=== PATIENT | male | born 1950 | race Caucasian/White ===

== ENCOUNTER → 2018-06-26 | Outpatient (CLI) | payer MEDICARE ==
[~2018-06-26] MED LIST: REGADENOSON 0.4 MG/5 ML SYRINGE IV ONE
--- NOTE | 2018-06-26 08:27 | XR ---
"EXAMINATION TYPE: XR chest 2V DATE OF EXAM: 06/26/2018 COMPARISON: None INDICATION: Checkup, COPD, history of kidney removal 2011 TECHNIQUE: Frontal and lateral views of the chest are obtained. FINDINGS: The heart size is normal. The peripheral pulmonary vasculature is normal. There is fullness through the right hilar region on the frontal chest and anterior on the lateral vie w. Underlying mass should be suspected. Additional workup with CT is recommended. This may measure 9 x 5 x 5 cm. The lungs are clear no suspicious infiltrates or additional masses. Mild hyperinflation flattening t he diaphragms could suggest underlying COPD. IMPRESSION: 1. Anterior right medial lung mass. Additional workup with contrast CT chest is recommended. A Yellow level critical message alert has been initiated for Luis Kunz MD via the ODIN 36 0 | Critical Results System on 06/26/2018 8:23 AM. This message alert has been sent to Luis Kunz MD via the preferences provided by the clinician for the receipt of Radiology Critical Findings. [facility] ID [id number]."
--- NOTE | 2018-06-26 13:17 | NM ---
EXAMINATION TYPE: NM stress lexiscan cardiolite DATE OF EXAM: 06/26/2018 COMPARISON: NONE HISTORY: Chest pain TECHNIQUE: After the intravenous administration of 10.22 mCi Tc 99m Sestamibi - Cardiolite resting S PECT images acquired 45 minutes post injection. The patient received 0.4mg Lexiscan, 25.0 mCi Tc 99m Sestamibi - Stress images obtained [address] injection FINDINGS: There is diminished radiotracer accumulation along the inferior wall. This is worse on the resting im ages than stress images. This is more likely related to artifact. Mild prior infarct is not entirely excluded. Ejection fraction of 62% is normal. Some dyskinesia of the anterior wall is noted. Some hypokinesia o f the septal wall may be present. IMPRESSION: 1. Suspected artifact along the inferior wall. Mild prior infarct is considered less likely. 2. There is some dyskinesia of the anterior wall with some hypokinesia of the septal wall. Ejection f raction remains normal at 62%.
--- NOTE | 2018-06-26 17:22 | ECHOF ---
Referral Reason:R07.9 chest pain MEASUREMENTS -------- HEIGHT: 177.8 cm WEIGHT: 102.1 kg BP: RVIDd: 2.7 cm (< 3.3) IVSd: 1.0 cm (0.6 - 1.1) LVIDd: 4.8 cm (3.9 - 5.3) LVPWd: 1.0 cm (0.6 - 1.1) IVSs: 1.3 cm LVIDs: 3.0 cm LVPWs: 1.2 cm LAESV Index (A-L): 21.81 ml/m Ao Diam: 3.9 cm (2.0 - 3.7) AV Cusp: 0.9 cm (1.5 - 2.6) MV E Axel: 0.96 m/s MV DecT: 349 ms MV A Axel: 1.09 m/s MV E/A Ratio: 0.88 RAP: 5.00 mmHg RVSP: 34.65 mmHg FINDINGS -------- Sinus rhythm. This was a technically adequate study. The left ventricular size is normal. Left ventricular wall thickness is normal. Overall left vent ricular systolic function is normal with, an EF between 55 - 60 %. The right ventricle is normal in size and function. Normal LA size by volume 22+/-6 ml/m2. The right atrium is normal in size. The aortic valve is trileaflet, and appears structurally normal. No aortic stenosis or regurgitation. The mitral valve is normal. There is trace to mild mitral regurgitation. Trace tricuspid regurgitation present. There is no evidence of pulmonary hypertension. The pulmonic valve was not well visualized. There is no pulmonic regurgitation present. The aortic root size is normal. Normal inferior vena cava with normal inspiratory collapse consistent with estimated right atrial pre ssure of 5 mmHg. There is a trivial pericardial effusion present. CONCLUSIONS -------- 1. Sinus rhythm. 2. This was a technically adequate study. 3. The left ventricular size is normal. 4. Left ventricular wall thickness is normal. 5. Overall left ventricular systolic function is normal with, an EF between 55 - 60 %. 6. Normal LA size by volume 22+/-6 ml/m2. 7. The aortic valve is trileaflet, and appears structurally normal. No aortic stenosis or regurgitati on. 8. There is trace to mild mitral regurgitation. 9. Trace tricuspid regurgitation present. 10. There is no evidence of pulmonary hypertension. 11. The pulmonic valve was not well visualized. 12. There is no pulmonic regurgitation present. 13. The aortic root size is normal. 14. There is a trivial pericardial effusion present. [employer]: Rogelio Glover RDCS
--- NOTE | 2018-06-26 18:21 | EST ---
EXERCISE STRESS DATE OF SERVICE: 06/26/2018 AGE: 68 SEX: Male. HT: 5 feet 10 inches WT: 225 pounds PROTOCOL: Lexiscan Cardiolite STAGE: DURATION OF EXERCISE: HEART RATE REST: 61 BLOOD PRESSURE REST: 156/78 MAXIMUM HEART RATE ACHIEVED: 81 MAXIMUM BLOOD PRESSURE: 156/78 85% MPHR: 100% MPHR: METS: INDICATIONS: Chest pain. CLINICAL INFORMATION: Baseline rhythm is sinus mechanism, rate 61. Normal axis and intervals, normal electrocardiogram. Baseline blood pressure 156/78 mmHg. Patient received an injection of Lexiscan. Electrocardiographic monitoring revealed no evidence of diagnostic ischemic ST deviation. Cardiolite was injected per protocol. CONCLUSION: 1. Nondiagnostic electrocardiograph stress testing. 2. Nuclear images will be reported separately. MMODL / IJN: [id number] /
== END ==
LOC: RADNMMAIN 07:48
PROVIDERS: ATTEND Family Medicine
DX: R91.8 Other nonspecific abnormal finding of lung field (principal); R07.9 Chest pain, unspecified; G24.9 Dystonia, unspecified; J44.9 Chronic obstructive pulmonary disease, unspecified; I34.0 Nonrheumatic mitral (valve) insufficiency
CPT/HCPCS: 93017; 93225; 93226; 93306; 71046; 78452; A9500; J2785

== ENCOUNTER → 2018-07-01 | Outpatient (CLI) | payer MEDICARE ==
--- NOTE | 2018-07-02 06:32 | US ---
EXAMINATION TYPE: US duplex aorta DATE OF EXAM: 07/01/2018 COMPARISON: NONE CLINICAL HISTORY: Z13.9 Screening for disorder. Medicare screening. EXAM MEASUREMENTS: Abdominal Aorta: Proximal: 2.3 x 2.3 cm transversely Mid: 2.4 x 2.4 cm transversely Distal: 2.1 x 2.1 centimeters transversely Bifurcation: RT: 1.3 x 1.6 x 1.4 cm LT: 1.2 x 1.1 x 1.1 cm Moderate to severe diffuse atherosclerotic change throughout the visualized aorta seen through the bi furcation without aneurysmal change. IMPRESSION: As above.
== END | disposition home or self-care (01) ==
LOC: RADUSWWP 16:00
PROVIDERS: ATTEND Family Medicine
DX: I70.0 Atherosclerosis of aorta (principal)
CPT/HCPCS: 93979

== ENCOUNTER → 2018-07-05 | Outpatient (CLI) | payer MEDICARE ==
[2018-07-05 12:14] LABS: Blood Urea Nitrogen 17 mg/dL (9-20)
--- NOTE | 2018-07-05 13:39 | CT ---
EXAMINATION TYPE: CT chest w con DATE OF EXAM: 07/05/2018 COMPARISON: Chest x-ray June 26, 2018 HISTORY: Abnormal chest x-ray CT DLP: 439.8 mGycm. Automated Exposure Control for Dose Reduction was Utilized. TECHNIQUE: CT scan of the thorax is performed following with IV Contrast, patient injected with 100 mL of Isovue 300. FINDINGS: LUNGS: There is background mild underlying emphysematous change in the lung apices. Corresponding to x-ray abnormality there is anterior right mid lung mass invading mediastinum just anterior to the asc ending aorta measuring 0.6 x 5.1 cm on axial image 29. Craniocaudal dimension is 7.0 cm coronal image 38. There is additional suspicious subpleural 1.8 x 1.0 cm nodule right midlung laterally axial imag e 27. There is additional suspicious spiculated 1.9 x 1.2 cm right apical nodule axial image 10. Ther e is less dense 8 mm nodule or nodular density lateral right mid lung axial image 28. There is 2.0 x 1.4 cm posterior right subpleural nodule or perhaps round atelectasis right lower lobe axial image 43 . There is linear scarring laterally right lung base and posteriorly. There is suspicious right basil ar nodule measuring 2.3 x 1.9 cm axial image 53. Anterior to this there suspicious 2.8 x 1.3 cm nodul e laterally right lung base axial image 51. Left lung is predominantly clear with minimal basilar linear scarring and/or atelectasis. No pleural effusion is identified bilaterally. MEDIASTINUM: There are no greater than 1 cm hilar or mediastinal lymph nodes. Prominent but subcentim eter paratracheal lymph node axial image 17 is noted small pericardial effusion is seen axial image 4 5. No cardiomegaly. OTHER: Bilateral gynecomastia is appreciated. Surgical change near right adrenal gland surrounding IV C is present. There is thickening of left adrenal gland favoring benign hyperplasia. There is lobulat ed large cystic lesion arising upper pole left kidney cannot exclude cystic neoplasm only partially i derick on axial image 68 and coronal image 78. Dependent small gallstones and gallbladder are seen. Ri ght kidney may be surgically absent. Moderate to severe multilevel anterior and lateral spurring in t he thoracic spine is present. IMPRESSION: Suspicious right-sided lung nodules and masses worrisome for neoplasm. Partial visualizat ion of suspicious large lobulated cystic lesion upper pole level left kidney cannot exclude cystic ne oplasm. Consider imaging guided biopsy for tissue analysis. Consider PET/CT for staging and further i nvestigation.
== END | disposition home or self-care (01) ==
LOC: RADCTMAIN 11:33
PROVIDERS: ATTEND Family Medicine
DX: R91.8 Other nonspecific abnormal finding of lung field (principal)
CPT/HCPCS: 82565; 84520; 71260; 36415; Q9967

== ENCOUNTER → 2018-07-13 | Outpatient (CLI) | payer MEDICARE ==
--- NOTE | 2018-07-14 21:28 | PE ---
EXAMINATION TYPE: PET CT fusion skull to thigh DATE OF EXAM: 07/13/2018 CLINICAL HISTORY: 68-year-old male initial staging right lung cancer. Patient with prior history of r ight kidney cancer with nephrectomy in 2011. TECHNIQUE: Following the intravenous administration of 11.1 mCi of F-18 FDG, whole body images are performed from the skull base to the midthigh. Images are reviewed on the computer in the coronal, a xial, and sagittal planes. Reconstructed rotating images are created on independent workstation and reviewed on the computer. A localization and attenuation correction CT is performed in conjunction with the PET scan. Glucose level: 78 mg/dL CTDI: 5.04 mGy DLP: 448.28 mGy-cm COMPARISON: CT chest 07/05/2018 FINDINGS: PET: Physiologic FDG uptake within the neck. Spiculated right apical nodule measures 2.2 cm, max SUV 7.1. Large anteromedial right mid lung mass contacting the anterior mediastinal fat and anterior pleural s urface measures 6.8 cm, max SUV 7.2. A couple right midlung subpleural pulmonary nodules measure 2.0 and 0.9 cm, max SUV 4.1. Approximately 3 subpleural pulmonary nodules in the right lower lobe measuring 2.8 cm posteriorly, 2. 6 cm laterally, and 2.5 cm adjacent to a basilar emphysematous cyst show variable FDG uptake, max SUV 2.7. Some of the soft tissue component of these nodules does not show hypermetabolism. Average liver SUV 1.9. Either multiple adjacent left renal cysts or multilocular cystic lesion upper pole left kidney spanni ng up to 11.3 cm. Additional cysts are present in the left kidney at the midpole measuring 3.1 cm. Th abelino do not show any suspicious hypermetabolism. Postsurgical changes of right nephrectomy with surgical clips in the nephrectomy bed and additional s urgical clips along the retroperitoneum from prior suresh dissection. No abnormal hypermetabolism with in the nephrectomy bed. There are some bowel loops interposed within the nephrectomy bed that show variable mild to moderate FDG uptake, max SUV 4.1 suggestive of physiologic uptake. A 1.2 cm low-density nodule left adrenal gland shows attenuation of -15 Hounsfield units compatible w ith a small lipid rich adrenal adenoma. There is severe focal abnormal wall thickening and distortion of the mid sigmoid colon for a span of 11 cm, max SUV 8.3. There may be some tracking mural based air but no surrounding inflammatory change s. Some trapped hyperdense material is also present within. No free air or free fluid. ATTENUATION CORRECTION CT: Visualized paranasal sinuses and mastoid air cells are well pneumatized. No cervical lymphadenopathy. Heart upper limits of normal in size with a small to moderate-sized pericardial effusion measuring 1. 7 cm thick. Coronary vessel calcifications are present. Ectatic ascending aorta 3.7 cm with a bovine configuration to the aortic arch. Scattered small mediastinal lymph nodes are present. Mild bilateral gynecomastia, right greater than left. Cholelithiasis with numerous layering calculi measuring up to 8 mm. No dilated small bowel, free flui d, or free air. Normal appendix. No mesenteric or retroperitoneal lymphadenopathy. Mild circumferential bladder wall thickening. Pelvic phlebolith. No abnormal fluid collection in the pelvis. Scattered prominent but nonenlarged external iliac chain lymph nodes measure up to 7 mm. Bones: Degenerative changes of the hips and SI joints as well as the mid to lower lumbar spine. No os seous destructive process seen. IMPRESSION: 1. Multiple right-sided pulmonary nodules/mass, the largest along the anteromedial right mid lung abu ts the prevascular space fat as well as the anterior pleural surface measuring 6.8 cm with intense hy permetabolism. Lung cancer and metastatic disease including possibility of RCC metastases are all in the differential. 2. Approximately 6 additional right-sided pulmonary nodules measuring up to 2.8 cm show variable FDG uptake. The nodule at the right apex is spiculated measuring 2.2 cm with intense uptake. Possibility of a synchronous primary lung cancer is not excluded. Some of the other nodules show only mild uptake with portion showing no uptake, therefore, some of these other nodules may be inflammatory. 3. Severe abnormal wall thickening and distortion of the mid sigmoid colon for a span of 11 cm with a ssociated intense hypermetabolism. Given the appearance of some tracking intramural air, this could r epresent an area of chronic inflammation from prior colitis. Underlying colon cancer should be exclu ded. 4. Status post right nephrectomy. No evidence for local recurrence. 5. Incidental: Small to moderate-sized pericardial effusion measuring 1.7 cm thick. Cholelithiasis. C ircumferential bladder wall thickening could represent cystitis or chronic bladder wall hypertrophy.
== END | disposition home or self-care (01) ==
LOC: RADPETMAIN 14:54
PROVIDERS: ATTEND Internal Medicine
DX: C34.91 Malignant neoplasm of unspecified part of right bronchus or lung (principal); R91.8 Other nonspecific abnormal finding of lung field; K80.20 Calculus of gallbladder without cholecystitis without obstruction; N32.89 Other specified disorders of bladder; K63.89 Other specified diseases of intestine; I31.3 Pericardial effusion (noninflammatory); Z90.5 Acquired absence of kidney
CPT/HCPCS: 78815; A9552

== ENCOUNTER → 2018-07-23 | Day surgery (SDC) | payer MEDICARE ==
[~2018-07-23] MED LIST changes: +ALPRAZolam 0.25 MG TAB PO STA; -REGADENOSON 0.4 MG/5 ML SYRINGE IV ONE
[2018-07-23 09:03] VITALS: TEMP 98.2
[2018-07-23 09:07] LABS: Mean Platelet Volume 6.3; Platelet Count 597 k/uL (150-450)
[2018-07-23 09:15] LABS: INR 1.1 (<1.2); Prothrombin Time 10.7 sec (9.0-12.0)
[2018-07-23 09:50] VITALS: RESP 16
--- NOTE | 2018-07-23 10:34 | XR ---
EXAMINATION TYPE: XR chest 1V portable DATE OF EXAM: 07/23/2018 HISTORY: Status post lung biopsy COMPARISON: 07/23/2018 TECHNIQUE: Single view of the chest is submitted. FINDINGS: No evidence for pneumothorax in patient status post lung biopsy. Right hilar mass noted. The heart is stable. Hilar and mediastinal structures are within normal limits. Degenerative changes are seen of the dorsal spine. IMPRESSION: 1. No evidence for pneumothorax in patient status post lung biopsy.
[2018-07-23 13:05] VITALS: BP 112/62; PULSE 69
--- NOTE | 2018-07-23 14:07 | CT ---
EXAMINATION TYPE: CT biopsy lung RT core biopsy lung mass DATE OF EXAM: 07/23/2018 HISTORY: Multiple lung masses COMPARISON: PET/CT 07/13/2018, CT chest 07/05/2018 Maximal barrier technique was utilized. The skin overlying a suitable path to the lesion in the subs ternal right upper lobe was localized using CT and the overlying skin was prepped and draped. Lidoca ine used for local anesthesia. A skin jordon made with a scalpel. Using CT guidance, access was gaine d to the lesion with a 17-gauge guide needle, 18-gauge core specimen was obtained coaxially. Core spe cimen submitted to cytology. 1 pass performed in all. Following the procedure no immediate complica tions. The patient is discharged in stable condition following observation. Hemostasis achieved. IMPRESSION: SUCCESSFUL CT GUIDED CORE BIOPSY right upper lobe lung mass. PATHOLOGY PENDING. THIS PROCEDURE WAS PERFORMED BY THE UNDERSIGNED.
--- NOTE | 2018-07-23 14:13 | XR ---
EXAMINATION TYPE: XR chest 1V portable DATE OF EXAM: 07/23/2018 COMPARISON: Prior chest 06/26/2018, 07/23/2018 HISTORY: Status post lung biopsy TECHNIQUE: Single frontal view of the chest is obtained. FINDINGS: There is no significant interval change. IMPRESSION: No evident complication status post lung biopsy.
== END ==
LOC: RADPROMAIN 07:46
PROVIDERS: ATTEND Internal Medicine
DX: R91.8 Other nonspecific abnormal finding of lung field (principal); J44.9 Chronic obstructive pulmonary disease, unspecified; I25.10 Atherosclerotic heart disease of native coronary artery without angina pectoris; E55.9 Vitamin D deficiency, unspecified; R07.89 Other chest pain; Z87.891 Personal history of nicotine dependence; Z90.5 Acquired absence of kidney; Z85.528 Personal history of other malignant neoplasm of kidney
CPT/HCPCS: 36415; 71045; 77012; 85049; 85610; 88305; 88341; 88342

== ENCOUNTER → 2018-09-18 | Outpatient (CLI) | payer MEDICARE ==
--- NOTE | 2018-09-18 15:39 | CT ---
EXAMINATION TYPE: CT chest wo con DATE OF EXAM: 09/18/2018 COMPARISON: 07/05/2018 HISTORY: f/u renal ca CT DLP: 532.[address] of the chest was performed with lung and mediastinal window settings submitted. The la ck of contrast limits evaluation of the vascular, mediastinal and parenchymal structures including th e upper abdomen. LUNGS: Spiculated nodule right upper lobe anteriorly currently measures 1.8 x 1.6 cm versus 1.9 x 1.2 cm. Right upper lobe pleural-based nodules are noted to measure 2.3 cm and 1.0 cm respectively versu s 1.8 cm and 9 mm previously. Additional nodule right lower lobe measures 2.7 cm. There is evidence o f right lower lobe volume loss and moderate right-sided pleural effusion obscuring additional lesions seen previously. There is right upper lobe anteromedial soft tissue mass. With extension into the me diastinum and anterior chest wall measuring 6.1 x 6.1 cm versus 6.3 x 5.6 cm previously. The left bruce g is free of nodule or mass at this time. MEDIASTINUM/ANNETTE: Thoracic aorta is of normal caliber with limited evaluation given lack of contrast . The heart is not enlarged. No evidence for mediastinal mass. No lymph nodes greater than 1cm. UPPER ABDOMEN: There is evidence of cholelithiasis. Lobulated hypoattenuating mass left kidney is non specific. Retroperitoneal clips noted. OTHER: No significant other abnormality. IMPRESSION: 1. Enlarging right upper lobe anterior medial mass with mediastinal invasion and invasion into the c hest wall. 2. Increase in size and pulmonary nodules as noted. 3 moderate right-sided pleural effusion with right lower lobe volume loss. Several of the nodule seen previously are scattered at this time.
== END ==
LOC: RADCTMAIN 15:01
PROVIDERS: ATTEND Internal Medicine Hematology & Oncology
DX: C64.9 Malignant neoplasm of unspecified kidney, except renal pelvis (principal); J91.0 Malignant pleural effusion
CPT/HCPCS: 71250

== ENCOUNTER → 2018-12-16 | Outpatient (CLI) | payer MEDICARE, OTHER ==
[2018-12-16 14:20] LABS: Blood Urea Nitrogen 15 mg/dL (9-20)
--- NOTE | 2018-12-17 08:08 | CT ---
EXAMINATION TYPE: CT ChestAbdPelvis w con DATE OF EXAM: 12/16/2018 INDICATION: f/u renal ca, hematuria X 3 months COMPARISON: 09/18/2018 CT DLP: 2404.1 mGycm CONTRAST: Performed with Oral Contrast and with IV Contrast, patient injected with 100 mL of Isovue 300. TECHNIQUE: Axial images at 5 mm thick sections. Reconstructed images in the coronal plane. Delayed images through the kidneys. FINDINGS: CT CHEST: Portion of the thyroid visualized is normal. There is a spiculated mass at the right apex measuring 1.0 x 1.4 cm. This is smaller than 1.6 x 1.9 c m previous. There are 2 areas of thickening along the right pleural margin, series 5 image 30. This currently christiano sures 2.0 x 0.8 cm 1.2 cm in diameter. This is smaller than the comparison study. There is a small right and minimal left pleural effusion. Some compressive atelectasis may be adjacen t. No enlarged mediastinal or hilar adenopathy is evident. A few small shotty lymph nodes are present. The ascending aorta diameter at the level of the main pulmonary artery is 3.8 cm. The main pulmonary artery diameter at the bifurcation is 3.4 cm. Some coronary artery calcifications present. Very mini mal pericardial effusion may be present. CT ABDOMEN: Ascites is present throughout the abdomen Liver: No discrete mass is evident. There may be some very subtle infiltrative process within the melodie er. Spleen: Normal Pancreas: Normal Adrenal glands: Some slight lobularity of the left adrenal gland is present. However no interval grow th is evident from comparison. Right adrenal gland is visualized appears normal. Gallbladder: Multiple gallstones within the gallbladder. Kidneys: There is been a right nephrectomy. There are several cystlike structures on the left kidney measuring approximately 14 Hounsfield units at the superior pole. Several cysts measuring up to 10.7 x 7.7 cm at the upper pole left kidney. At the mid left kidney there is a 3.3 cm cyst measuring 12 Ho unsfield units. No hydronephrosis or hydroureter is evident. Aorta: Vascular calcification is within the aorta. Inferior vena cava: Normal. CT PELVIS: Loops of bowel within the abdomen and pelvis are normal. There are loops of bowel lacking oral co ntrast are incompletely distended limiting their evaluation. There appears to be an enlarged loop of sigmoid colon overlying the urinary bladder region. Few diver ticuli may be within this colon. The colon is poorly defined and there is ascites adjacent. Additiona lly, there appears to be a air within the urinary bladder. A colovesical fistula should be considered . Appendix: Normal as visualized. The appendix contains contrast. Urinary bladder: There is air within urinary bladder. Urinary bladder has thickened hare. Genitourinary structures: Prostate as visualized appears normal in size. Osseous structures: No suspicious lytic or sclerotic lesions. Degenerative facet changes are within t he lower lumbar spine. IMPRESSIONS: 1. Thickened urinary bladder wall with scattered deposits of air within urinary bladder. Sigmoid colo n is somewhat difficult to delineate superior to the urinary bladder. A colovesical fistula should be considered. 2. Lung masses previously described within the lungs are diminished in size over the interval. Small right and minimal left pleural effusions remain present. 3. Ascites 4. Cholelithiasis. 5. No recurrent right renal bed masses. 6. Left renal cysts.
== END | disposition home or self-care (01) ==
LOC: RADCTMAIN 13:09
PROVIDERS: ATTEND Internal Medicine Hematology & Oncology
DX: R91.8 Other nonspecific abnormal finding of lung field (principal); J90 Pleural effusion, not elsewhere classified; K80.20 Calculus of gallbladder without cholecystitis without obstruction; R18.8 Other ascites; N28.1 Cyst of kidney, acquired; C64.9 Malignant neoplasm of unspecified kidney, except renal pelvis; Z90.5 Acquired absence of kidney
CPT/HCPCS: 82565; 84520; 71260; 74177; 36415; Q9967

== ENCOUNTER → 2018-12-30 | Outpatient (CLI) | payer MEDICARE, OTHER ==
[2018-12-30 15:32] LABS: Anisocytosis Slight; HCT 25.4 % (39.0-53.0); HGB 8.2 gm/dL (13.0-17.5); Hypochromasia Moderate; MCH 27.3 pg (25.0-35.0); MCHC 32.4 g/dL (31.0-37.0); MCV 84.2 fL (80.0-100.0); Mean Platelet Volume 6.9; Platelet Count 330 k/uL (150-450); RBC 3.02 m/uL (4.30-5.90); RDW 17.3 % (11.5-15.5); WBC 9.7 k/uL (3.8-10.6)
[2018-12-30 15:44] LABS: Potassium 3.3 mmol/L (3.5-5.1)
== END | disposition home or self-care (01) ==
LOC: LABPAT 14:24
PROVIDERS: ATTEND Surgery
DX: Z01.812 Encounter for preprocedural laboratory examination (principal); K57.33 Diverticulitis of large intestine without perforation or abscess with bleeding
CPT/HCPCS: 80051; 85027

== ENCOUNTER 2018-12-31 10:22 | Day surgery (SDC) | payer MEDICARE, OTHER ==
[2018-12-30 10:06] VITALS: BMI 31.5
[~2018-12-31 10:22] MED LIST changes: -ALPRAZolam 0.25 MG TAB PO STA; +LACTATED RINGERS 1,000 ML IV SCH; +LIDOCAINE 1% 20 ML VIAL (10MG/ML) FOR IV START INTRADERMA PRN; +MIDAZOLAM (PF) 2 MG/2 ML VIAL IV PRN
[2018-12-31 10:49] VITALS: TEMP 98.2
[2018-12-31] MEDS ORDERED: PROPOFOL 10 MG/ML 20 ML VIAL IV ONE (11:27)
[2018-12-31] MEDS ORDERED: LIDOCAINE 1% INJ 10MG/ML (20 ML MDV) ONE (11:27)
--- NOTE | 2018-12-31 11:33 | P.GSHP ---
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 Patient rents today for colonoscopy. Past Medical History Past Medical History: Atrial Fibrillation, Cancer, COPD Additional Past Medical History / Comment(s): rt kidney ca- 2011, recurrence 08/11 receives once a month immunotherapy at [facility], has rt upper chest port Last Myocardial Infarction Date:: unsure History of Any Multi-Drug Resistant Organisms: None Reported Additional Past Surgical History / Comment(s): rt kidney removed in 2011 due to CA. POST LUNG BIOPSY, rt upper chest port,testicular cancer Past Anesthesia/Blood Transfusion Reactions: No Reported Reaction Smoking Status: Former smoker - Past Family History Mother Family Medical History: No Reported History Medications and Allergies Home Medications Medication Instructions Recorded Confirmed Type Aspirin [Adult Low Dose Aspirin EC] 81 mg PO DAILY 12/30/18 12/30/18 History Nitrofurantoin Monohyd/M-Cryst 100 mg PO Q12HR 12/30/18 12/31/18 History [Macrobid] Tamsulosin [Flomax] 0.4 mg PO DAILY 12/30/18 12/30/18 History Thyroid,Pork [[employer] Thyroid] 30 mg PO DAILY 12/30/18 12/30/18 History Allergies Allergy/AdvReac Type Severity Reaction Status Date / Time No Known Allergies Allergy Verified 12/31/18 10:41 Surgical - Exam Vital Signs Temp Pulse Resp BP Pulse Ox 98.2 F 82 16 107/58 100 12/31/18 10:48 12/31/18 10:48 12/31/18 10:48 12/31/18 10:48 12/31/18 10:48 - General well developed, well nourished, no distress - Eyes PERRL - ENT normal pinna - Neck no masses - Respiratory normal expansion - Cardiovascular Rhythm: regular - Abdomen Abdomen: soft, non tender Assessment and Plan Assessment: Colovesical fistula. We'll perform colonoscopy.
--- NOTE | 2018-12-31 11:43 | P.OP ---
Date of Procedure: 12/31/18 Preoperative Diagnosis: Colovesical fistula Postoperative Diagnosis: Colovesical fistula Diverticulosis Procedure(s) Performed: Colonoscopy Anesthesia: MAC Surgeon: Jaswant Barrientos Pathology: none sent Condition: stable Disposition: PACU Description of Procedure: The patient's placed on the endoscopy table lateral position. He received IV sedation. There is a large amount liquid stool colon. The colonoscope was placed patient anus passed in the rectum and the sigmoid colon. There were diverticular changes. The colon was quite scarred. The scope could not be advanced beyond the sigmoid colon. The scope was then withdrawn. The visualized portion of the sigmoid colon showed evidence of diverticulosis. The rectum appeared normal. Scope was withdrawn for patient.
[2018-12-31 11:50] VITALS: RESP 18
[2018-12-31 12:44] VITALS: BP 111/67; PULSE 67
== END 2018-12-31 13:18 | disposition home or self-care (01) ==
LOC: ORWHC2ENDO 10:22
PROVIDERS: ATTEND Surgery
DX: K57.30 Diverticulosis of large intestine without perforation or abscess without bleeding (principal); K63.89 Other specified diseases of intestine; I48.91 Unspecified atrial fibrillation; J44.9 Chronic obstructive pulmonary disease, unspecified; Z90.5 Acquired absence of kidney; Z85.528 Personal history of other malignant neoplasm of kidney; E07.9 Disorder of thyroid, unspecified; Z95.828 Presence of other vascular implants and grafts; I25.2 Old myocardial infarction; Z85.47 Personal history of malignant neoplasm of testis; Z87.891 Personal history of nicotine dependence; Z79.82 Long term (current) use of aspirin; Z79.890 Hormone replacement therapy; Z79.899 Other long term (current) drug therapy
CPT/HCPCS: 45330; J2001; J2704; 93005

== ENCOUNTER 2019-01-01 13:08 | Inpatient (IN) | payer MEDICARE, OTHER ==
[~2019-01-01 13:08] MED LIST changes: +DEXAMETHASONE SOD PHOSPHATE 10 MG/ML 1 ML VIAL IV ONE; +HEPARIN SODIUM,PORCINE 5,000 UNIT/ML 1 ML VIAL SQ ONE; +HYDROmorphone 0.5 MG/0.5 ML SYRINGE IVP PRN; -LACTATED RINGERS 1,000 ML IV SCH; -MIDAZOLAM (PF) 2 MG/2 ML VIAL IV PRN; +ONDANSETRON 4 MG/2 ML VIAL IVP ONE; +ceFAZolin IN SWFI 2 GM/20 ML SYRINGE IVP ONE
--- NOTE | 2019-01-01 13:21 | P.GSHP ---
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 Patient is also had complaints of some right upper quadrant pain. His CAT scan shows evidence of cholelithiasis and a colovesical fistula. Patient does today for laparoscopic ostectomy and low anterior resection. Patient aware the risk of colostomy due to anastomotic failure. Past Medical History Past Medical History: Atrial Fibrillation, Cancer, COPD Additional Past Medical History / Comment(s): rt kidney ca- 2011, recurrence 08/11 receives once a month immunotherapy at [facility] [place], has rt upper chest port History of Any Multi-Drug Resistant Organisms: None Reported Additional Past Surgical History / Comment(s): rt kidney removed in 2011 due to CA. POST LUNG BIOPSY, rt upper chest port,testicular cancer Past Anesthesia/Blood Transfusion Reactions: No Reported Reaction Smoking Status: Former smoker - Past Family History Mother Family Medical History: No Reported History Medications and Allergies Home Medications Medication Instructions Recorded Confirmed Type Aspirin [Adult Low Dose Aspirin EC] 81 mg PO DAILY 12/30/18 12/30/18 History Nitrofurantoin Monohyd/M-Cryst 100 mg PO Q12HR 12/30/18 12/31/18 History [Macrobid] Tamsulosin [Flomax] 0.4 mg PO DAILY 12/30/18 12/30/18 History Thyroid,Pork [Paint Mixer Thyroid] 30 mg PO DAILY 12/30/18 12/30/18 History Allergies Allergy/AdvReac Type Severity Reaction Status Date / Time No Known Allergies Allergy Verified 12/31/18 10:41 Surgical - Exam - General well developed, well nourished, no distress - Eyes PERRL - ENT normal pinna - Neck no masses - Respiratory normal expansion - Cardiovascular Rhythm: regular - Abdomen Abdomen: soft, non tender Assessment and Plan Assessment: History of diverticulitis with colovesical fistula. Gallstones. We'll perform low anterior section and laparoscopic cholecystectomy.
[2019-01-01] MEDS ORDERED: ALVIMOPAN 12 MG CAPSULE PO ONE (13:34)
[2019-01-01] MEDS ORDERED: ACETAMINOPHEN TAB 500 MG TAB PO STA (13:34)
[2019-01-01] MEDS ORDERED: MIDAZOLAM 2 MG/2 ML VIAL IV ONE (13:42)
[2019-01-01] MEDS ORDERED: MELOXICAM 7.5 MG TAB PO SCH (13:45)
[2019-01-01] MEDS: LACTATED RINGERS 1,000 ML IV SCH (14:02)
[2019-01-01] MEDS ORDERED: BUPIVACAIN-EPI 0.5%-1:200,000 30 ML VIAL SQ ONE (14:08)
[2019-01-01] MEDS ORDERED: PHENYLEPHRINE-0.9% NACL SYG 1 MG/10 ML SYRINGE ONE (14:08)
[2019-01-01] MEDS ORDERED: PROPOFOL 10 MG/ML 20 ML VIAL IV ONE (14:08)
[2019-01-01] MEDS ORDERED: ALBUMIN HUMAN 5% (12.5gm) 250 ML BOTTLE IVPB ONE (14:08)
[2019-01-01] MEDS ORDERED: ROCURONIUM BROMIDE 10 MG/ML 10 ML VIAL IV ONE (14:08)
[2019-01-01] MEDS ORDERED: GLYCOPYRROLATE 0.2 MG/ML 2 ML VIAL ONE (14:08)
[2019-01-01] MEDS ORDERED: SUCCINYLCHOLINE CHLORIDE 100 MG/5 ML SYR IV ONE (14:08)
[2019-01-01] MEDS ORDERED: NEOSTIGMINE 1 MG/ML 10 ML VIAL ONE (14:08)
[2019-01-01] MEDS ORDERED: LIDOCAINE 1% INJ 10MG/ML (20 ML MDV) ONE (14:08)
[2019-01-01] MEDS ORDERED: ePHEDrine SULFATE/0.9% NACL/PF 50 MG/5 ML SYRINGE IV ONE (14:08)
[2019-01-01] MEDS ORDERED: LACTATED RINGERS 1,000 ML IV ONE ×5 (14:40→17:30)
[2019-01-01] MEDS ORDERED: NALOXONE 0.4 MG/ML 1 ML VIAL IV PRN (14:49)
[2019-01-01] MEDS ORDERED: BENZOCAINE/MENTHOL LOZENG 1 EACH LOZENGE MUCOUS MEM PRN (16:37)
[2019-01-01] MEDS ORDERED: ONDANSETRON 4 MG/2 ML VIAL IVP PRN (16:37)
[2019-01-01] MEDS ORDERED: METOCLOPRAMIDE 5 MG/ML 2 ML VIAL IVP PRN (16:37)
--- NOTE | 2019-01-01 16:37 | P.OP ---
Date of Procedure: 01/01/19 Preoperative Diagnosis: Cholelithiasis Diverticulitis Colovesical fistula Postoperative Diagnosis: Cholelithiasis Colovesical fistula with severe inflammatory changes in the pelvis. Ascites Procedure(s) Performed: Laparoscopic cholecystectomy Small bowel resection Ileostomy Anesthesia: OJSE Surgeon: Jaswant Barrientos Estimated Blood Loss (ml): 100 Pathology: other (Terminal ileum) Condition: critical Disposition: PACU Description of Procedure: The patient was placed on the operating table. The patient received a general endotracheal tube anesthesia. The patients abdomen was prepped and draped in the usual sterile fashion. Through an infraumbilical stab incision, the fascia of the anterior abdominal wall was grasped with a pair of Kochers and then the Veress needle was placed in the peritoneal cavity. Position of the Veress needle was confirmed with positive drop test. The abdomen was then insufflated. After adequate insufflation, the 10 mm trocar was placed in the peritoneal cavity. Following this the laparoscope was placed in the periton eal cavity. The patient was placed in the head-up, right side up position and then a 5 mm trocar was placed in the right lateral and right subcostal position under direct visualization. A 8 mm trocar was placed in the epigastric position. The patient was noted to have significant ascites. Approximately 3 L of ascites was aspirated from the peritoneal cavity. The gallbladder was grasped in the fundus and infundibulum. Traction on the gallbladder was placed in the lateral and the cephalad positions. The triangle of Calot was visualized.. The cystic duct was bluntly dissected until the union of the cystic duct and common bile duct was seen. The cystic duct was then divided and sealed with the Harmonic scissors. A PDS Endoloop was then placed throughout the cystic duct stump. The cystic artery divided and sealed with the Harmonic scissors. The gallbladder was then removed from the liver bed using Harmonic scissors. The gallbladder was then extracted through the epigastric port site. Operative field was checked for any bleeding spots and Harmonic scissors was used to coagulate the liver bed. The abdomen was irrigated. The trocars were removed. Next a low midline incision was made. The subcutaneous tissues were very edematous. There is significant serous drainage from third space fluid. The fascia was opened in the midline. Upon opening the fascia there appeared to be a large pelvic mass with the colon plastered on the bladder. This was significant inflammation. The small bowel was stuck on the edge of this mass. Using blunt dissection the small bowel was freed. The mass was hard. It was decided that it would be impossible to dissect the colon off of the bladder due to this amount of inflammation. The terminal ileum was dissected off the mass. There appeared to be some evidence of serosal tears. He was decided to perform a small segmental bowel resection. The area of the small bowel was transected proximally distally with the linear stapler. The Enseal device is used to divide the mesentery. The specimen sent to pathology. The bowel specimen appeared to be quite inflamed. Due to the significant inflammation decided not to proceed with the collecting. The ileostomy was brought out in the right lower quadrant. The abdomen was irrigated. A LITZY drain was placed along the right side of the pelvis next to the inflammatory mass. This was brought out through separate stab incision. The fascia was closed with looped #1 PDS suture. The skin was closed akiko. The patient was hypothermic at the end of the procedure. His temperature was 35. Patient had had fluid warmers and bear huggers on during the case. The patient was sent to the ICU in critical condition.
[2019-01-01] MEDS: ROPIVACAINE 300 MG, HYDROMORPHONE (PF) 5 MG in SODIUM CHLORIDE 0.9% 190 ML EPIDURAL PRN ×2 (17:01→18:10)
[2019-01-01] MEDS ORDERED: VANCOMYCIN IV PER PHARMACY 1 EACH MISC MISCELLANE PRN (17:10)
[2019-01-01] MEDS ORDERED: VANCOMYCIN 1,750 MG in SODIUM CHLORIDE 0.9% 500 ML 500 ML IVPB ONE (18:00)
--- NOTE | 2019-01-01 18:01 | XR ---
EXAMINATION TYPE: XR chest 1V portable DATE OF EXAM: 01/01/2019 COMPARISON: 10/22/2018 HISTORY: Central line placement TECHNIQUE: Single frontal view of the chest is obtained. FINDINGS: There is right central venous catheter with tip in the superior vena cava. There is left s ubclavian catheter with tip in the superior vena cava. No pneumothorax. There is some infiltrate and atelectasis at the right lung base with pleural thickening. This is slightly worse than last exam. No heart failure. IMPRESSION: Increasing right pleural effusion and right lower lobe infiltrate and atelectasis compar ed to old exam. No heart failure.
[2019-01-01 18:42] LABS: Glucose,Whole Blood 134 mg/dL (75-99)
[2019-01-01] MEDS: D5-0.45% NACL WITH KCL 20MEQ/L 1,000 ML IV SCH (18:43)
[2019-01-01 19:03] LABS: Amorphous Sediment,Urine Moderate /hpf; Appearance,Urine Turbid (Clear); Bacteria,Urine Many /hpf; Bilirubin,Urine Negative (Negative); Blood,Urine Moderate (Negative); Color,Urine Dark Yellow; Glucose,Urine (UA) Negative (Negative); Ketones,Urine Negative (Negative); Leukocyte Esterase,Urine Large (Negative); Mucus,Urine Many /hpf; Nitrite,Urine Negative (Negative); PH, Urine 5.5 (5.0-8.0); Protein,Urine 2+ (Negative); RBC,Urine 87 /hpf (0-5); Urobilinogen,Urine <2.0 mg/dL (<2.0); WBC,Urine >182 /hpf (0-5)
[2019-01-01 20:03] LABS: Anisocytosis Slight; Basophils % (A) 0 %; Eosinophils # (A) 0.1 k/uL (0-0.7); Eosinophils % (A) 1 %; HCT 24.8 % (39.0-53.0); HGB 7.8 gm/dL (13.0-17.5); Hypochromasia Moderate; Lymphocytes # (A) 0.7 k/uL (1.0-4.8); Lymphocytes % (A) 8 %; MCH 27.1 pg (25.0-35.0); MCHC 31.3 g/dL (31.0-37.0); MCV 86.5 fL (80.0-100.0); Mean Platelet Volume 7.4; Monocytes # (A) 0.2 k/uL (0-1.0); Monocytes % (A) 2 %; Neutrophils # (A) 7.9 k/uL (1.3-7.7); Neutrophils % (A) 89 %; Platelet Count 228 k/uL (150-450); RBC 2.87 m/uL (4.30-5.90); RDW 17.5 % (11.5-15.5); WBC 8.9 k/uL (3.8-10.6)
[2019-01-01 20:32] LABS: Calcium 7.6 mg/dL (8.4-10.2); Total Bilirubin 0.4 mg/dL (0.2-1.3); Total Protein 4.7 g/dL (6.3-8.2)
[2019-01-01] MEDS: PIPERACILLIN-TAZOBACTAM 3.375 GM in SODIUM CHLORIDE 0.9% 100 ML IVPB SCH ×2 (21:42→23:46)
[2019-01-01] MEDS: ALVIMOPAN 12 MG CAPSULE PO SCH (21:44)
[2019-01-01] MEDS: FAMOTIDINE 20 MG/2 ML VIAL IV SCH (21:44)
--- NOTE | 2019-01-01 22:08 | P.CNPUL ---
History of Present Illness Consult date: 01/01/19 Chief complaint: Postoperative care, post ileostomy History of present illness: This is a 68-year-old male patient with known history of COPD, history of with a sickle cell carcinoma and the patient is post right nephrectomy that was not proximal to 6 years ago, along with history of coronary artery disease, vitamin D deficiency and complicated diverticulitis with history of colovesicular fistula with severe inflammatory changes in his pelvis. The patient was having problems due to recurrent UTIs and the patient had a CT of the abdomen and pelvis and there was a concern for an underying rectovesicular fistula and cholelithiasis. The patient was taken to the operating room and he underwent an cholecystectomy, small bowel resection and diverting ileostomy. Intraoperative findings showed that the patient had significant inflammation and frozen pelvis and a low AP resection was not possible. Any ileostomy was brought out in the right lower quadrant. The abdomen was irrigated. The LITZY drain was placed and the fascia was closed. The patient was hypothermic at the end of the procedure with a temperature of 3 5 and fluid warmers in bed huggers were provided and ICU consultation was obtained. The patient was extubated in the OR and he was brought up to recovery where he was seen and evaluated. He was found hemodynamically stable and he was on no pressors. He was given nearly 3 liters of the IVF in the OR and he was started on maintenance fluids. In terms of his history of malignancy, the patient is known to have metastatic disease involving the lungs and a mediastinal mass that was diagnosed to be positive for renal cell carcinoma. The patient is currently on immunotherapy through with Dr. Barth. He has also undergone previous thoracentesis for right-sided pleural effusion. He has been under the care of Dr. Barth and Dr. Yusuf on outpatient basis. Review of Systems The patient was still under the effect of anesthesia and full ROS was not possible to obtain from the patient and the positive findings were all mentioned above in the HPI ROS unobtainable: due to mental status Past Medical History Past Medical History: Atrial Fibrillation, Cancer, COPD Additional Past Medical History / Comment(s): Metastatic renal carcinoma currently on immunotherapy, right nephrectomy and the patient was diagnosed in 2011 and he underwent a right nephrectomy, history of atrial fibrillation, COPD, coronary artery disease and mild BPH, hypothyroidism History of Any Multi-Drug Resistant Organisms: None Reported Additional Past Surgical History / Comment(s): rt kidney removed in 2011 due to CA, POST LUNG BIOPSY, rt upper chest port Past Anesthesia/Blood Transfusion Reactions: No Reported Reaction Smoking Status: Former smoker (The patient carries approximately [id number] smoking history) - Past Family History Mother Family Medical History: No Reported History Medications and Allergies Home Medications Medication Instructions Recorded Confirmed Type Aspirin [Adult Low Dose Aspirin EC] 81 mg PO DAILY 12/30/18 01/01/19 History Nitrofurantoin Monohyd/M-Cryst 100 mg PO Q12HR 12/30/18 01/01/19 History [Macrobid] Tamsulosin [Flomax] 0.4 mg PO DAILY 12/30/18 01/01/19 History Thyroid,Pork [Cotton Buyer Thyroid] 30 mg PO DAILY 12/30/18 01/01/19 History Allergies Allergy/AdvReac Type Severity Reaction Status Date / Time No Known Allergies Allergy Verified 01/01/19 17:37 Physical Exam Vitals: Vital Signs Temp Pulse Resp BP Pulse Ox 01/01/19 14:00 69 16 91/54 100 01/01/19 13:27 97.4 F L 95 16 135/75 95 Intake and Output 01/01/19 01/01/19 01/01/19 06:59 14:59 22:59 Intake Total 2000 600 Output Total 200 Balance 2000 400 Intake: IV 2000 600 Output: Urine 100 Estimated Blood Loss 100 The patient is still under the effect of anesthesia and the patient is , comfortable and not in acute distress Head exam was generally normal. There was no scleral icterus or corneal arcus. Mucous membranes were moist. Neck was supple and without jugular venous distension, thyromegaly, or carotid bruits. Carotids were easily palpable bilaterally. There was no adenopathy., Mallampati class IV. The patient has a a subclavian catheter (triiple lumen) on the left. Lungs sounds are diminished bilaterally. No wheezes or rhonchi. no crackles in lung bases. Cardiac exam revealed the PMI to be normally situated and sized. The rhythm was irregular and no extrasystoles were noted during several minutes of auscultation. The first and second heart sounds were irregular consistent with atrial fibrillation and physiologic splitting of the second heart sound was noted. There were no murmurs, rubs, clicks, or gallops. Abdominal exam revealed absent bowel sounds. The abdomen was soft, non-tender, and without masses, organomegaly, or appreciable enlargement of the abdominal aorta. The patient has a LITZY drain in the RLQ and the patient has a diverting ileostomy on the right. No ascites. Examination of the extremities revealed easily palpable radial, femoral and pedal pulses. There was no cyanosis, clubbing or edema.There are changes consistent with chronic venous stasis involving lower extremity is bilaterally. Examination of the skin revealed no evidence of significant rashes, suspicious appearing nevi or other concerning lesions. Neurologically the patient is sedated and is no focal neurological deficit. Psychiatrically cannot be assessed Results - Laboratory Findings CBC and BMP: 01/01/19 19:44 01/01/19 19:44 Assessment and Plan Plan: Assessment 1 complicated diverticulitis with development of a colovesicular fistula, and the patient is status post expiratory laparotomy, laparoscopic cholecystectomy, small bowel resection and diverting ileostomy. Approximately 3 L of ascitic fluid was aspirated from the peritoneal cavity. The patient was found to have significant inflammatory changes in his pelvis and eloped AP resection was planned and was not completed and essentially the patient was given an ileostomy. 2 metastatic renal cell carcinoma with pulmonary involvement. The patient was receiving immunotherapy on outpatient basis.The most recent CAT scan of the chest that was done on 12/16/2018 showed specific related medicine the right apex measuring 1 x 1.4 that had gotten smaller compared to previous evaluation. There are also 2 areas of thickening along the right pleural margin and lesions measuring 2 x 0.8 cm and this was also smaller compared to the earlier study. The patient also had a small right-sided pleural effusion and a minimal left- sided pleural effusion. The abdomen showed ascites and there was enlargement of the volume of his sigmoid colon overlying the urinary bladder and the possibility of a colovesicular fistula was entertained. 3 COPD 4 coronary artery disease 5 hypothyroidism 6 BPH 7 ex-smoker 8 Chronic normocytic anemia 9 recurrent urine checked infections probably the sedation with colovesicular fistula, cultures indicating enterococcus fecium and E. coli Plan Continue IVF and the patient will be covered with a combination of ABX including Zosyn and Vanco (knowing that the patient had a PCN Resistant enterococcus and and G negative UTI). External/internal warming. Check thyroid function tests and continue the thyroid hormone supplements. DVT and GI prophylaxis. Pain control with epidural Ropivacaine and dilaudid. Routine post op care in the ICU and will continue to FU.
[2019-01-01] MEDS: HEPARIN SODIUM,PORCINE 5,000 UNIT/ML 1 ML VIAL SQ SCH (23:46)
[2019-01-02] MEDS ORDERED: Potassium Replacement Protocol 1 EACH MISC MISCELLANE PRN (00:59)
[2019-01-02] MEDS: POTASSIUM CHLORIDE 20 MEQ in WATER FOR INJECTION 1 100ML.BAG IVPB SCH ×2 (01:27→03:41)
[2019-01-02] MEDS: D5-0.45% NACL WITH KCL 20MEQ/L 1,000 ML IV SCH ×3 (03:41→18:50)
[2019-01-02 05:08] LABS: Anisocytosis Slight; HCT 26.1 % (39.0-53.0); HGB 7.7 gm/dL (13.0-17.5); Hypochromasia Marked; MCH 26.5 pg (25.0-35.0); MCHC 29.6 g/dL (31.0-37.0); MCV 89.4 fL (80.0-100.0); Mean Platelet Volume 7.1; Platelet Count 266 k/uL (150-450); RBC 2.92 m/uL (4.30-5.90); RDW 18.2 % (11.5-15.5); WBC 11.6 k/uL (3.8-10.6)
[2019-01-02 05:15] LABS: Calcium 7.3 mg/dL (8.4-10.2); Potassium 3.6 mmol/L (3.5-5.1)
[2019-01-02] MEDS: VANCOMYCIN 1,750 MG in SODIUM CHLORIDE 0.9% 500 ML 500 ML IVPB SCH ×2 (05:35→19:09)
[2019-01-02] MEDS: LACTATED RINGERS 1,000 ML IV SCH (05:46)
[2019-01-02] MEDS ORDERED: POTASSIUM CHLORIDE 20 MEQ in WATER FOR INJECTION 1 100ML.BAG IVPB SCH (06:15)
[2019-01-02] MEDS ORDERED: POTASSIUM CHLORIDE 20 MEQ in WATER FOR INJECTION 1 100ML.BAG IVPB ONE (06:45)
--- NOTE | 2019-01-02 09:37 | P.PN ---
Subjective Progress Note Date: 01/02/19 Principal diagnosis: Acute diverticulitis with development of a colovesicular fistula status post exploratory laparotomy, cholecystectomy, small bowel resection and diverting ileostomy This is a 68-year-old male patient with known history of COPD, history of with a sickle cell carcinoma and the patient is post right nephrectomy that was not proximal to 6 years ago, along with history of coronary artery disease, vitamin D deficiency and complicated diverticulitis with history of colovesicular fistula with severe inflammatory changes in his pelvis. The patient was having problems due to recurrent UTIs and the patient had a CT of the abdomen and pelvis and there was a concern for an underying rectovesicular fistula and cholelithiasis. The patient was taken to the operating room and he underwent an cholecystectomy, small bowel resection and diverting ileostomy. Intraoperative findings showed that the patient had significant inflammation and frozen pelvis and a low AP resection was not possible. Any ileostomy was brought out in the right lower quadrant. The abdomen was irrigated. The LITZY drain was placed and the fascia was closed. The patient was hypothermic at the end of the procedure with a temperature of 3 5 and fluid warmers in bed huggers were provided and ICU consultation was obtained. The patient was extubated in the OR and he was brought up to recovery where he was seen and evaluated. He was found hemodynamically stable and he was on no pressors. He was given nearly 3 liters of the IVF in the OR and he was started on maintenance fluids. In terms of his history of malignancy, the patient is known to have metastatic disease involving the lungs and a mediastinal mass that was diagnosed to be positive for renal cell carcinoma. The patient is currently on immunotherapy through with Dr. Barth. He has also undergone previous thoracentesis for right-sided pleural effusion. He has been under the care of Dr. Barth and Dr. Yusuf on outpatient basis. On 01/02/2019 patient seen in follow-up in the intensive care unit, this postop day 1 status post exploratory laparotomy, laparoscopic cholecystectomy, small bowel resection and creating a diverting ileostomy. Patient is doing well, he is awake and alert, oriented 3, afebrile, room air pulse ox is 98%, patient received a total of 3 L of IV fluids, 2 L Intra-Op, and 1 L in the recovery room, he never did require vasopressor support. No difficulty breathing, his incisional pain is controlled, she remains on the epidural infusion. Lactated Ringer's at a rate of 20 ML per hour. Lung sounds are clear to auscultation, bowel sounds are hypoactive, present, right lower quadrant ileostomy site is intact, stoma is viable. His sinus rhythm on a monitor, with a rate of 62 BPM, blood pressure is 105/58. History of chest x-ray showed increasing right pleural effusion and right lower lobe infiltrate/atelectasis no heart failure. Butler catheter is in place, draining cloudy yellow urine, today's labs have been reviewed, white blood cell count is 11.6, hemoglobin is 7.7, electrolytes and renal profile are within normal limits. TSH was likely low, and 4.630, urinalysis showed 2+ protein, moderate blood, large loops, greater than 182 white blood cells, WBCs in clumps, and culture has been sent, blood cultures have been sent, terms are in progress. Hemodynamically patient is stable, no specific complaints, he states he thinks there is a bit more swelling in his left testicle than usual. Otherwise doing very well. He is on GI and DVT prophylaxis, he is getting promotility agents form of Reglan, IV antibiotics in the form of Zosyn, Kefzol and vancomycin. Objective - Vital Signs Vital signs: Vital Signs Temp 97.5 F L 01/02/19 08:00 Pulse 61 01/02/19 08:00 Resp 15 01/02/19 08:00 BP 107/68 01/02/19 08:00 Pulse Ox 98 01/02/19 08:00 Intake & Output 01/01/19 01/02/19 01/02/19 18:59 06:59 18:59 Intake Total 3735.3 1655 245 Output Total 540 1769 160 Balance 3195.3 -114 85 Weight 105.9 kg Intake: IV 3610.3 1655 245 D5-0.45% NaCl with KCl 1375 125 20Meq/l 1,000 ml @ 125 mls/hr IV .Q8H [facility] Rx#: [id number] Lactated Ringers 1,000 ml 80 20 @ 20 mls/hr IV .Q24H [facility] Rx#:[id number] Piperacillin-Tazobactam 3 100 .375 gm In Sodium Chloride 0.9% 100 ml @ 25 mls/hr IVPB Q8HR [facility]ENDING [facility] TO [facility] Rx# :[id number] Potassium Chloride 20 meq 100 100 In Water For Injection 1 100ml.bag @ 50 mls/hr IVPB Q2H PENDING S[facility] TO [facility] Rx#: [id number] Intake, IV Titration 125 Amount Lactated Ringers 1,000 ml 125 @ 0 mls/hr IV .STK-MED ONE Rx#:[id number] Output: Drainage 200 1390 120 Right Abdomen 200 1390 120 Urine 240 379 40 Estimated Blood Loss 100 Other: Voiding Method Indwelling Catheter - Exam GENERAL EXAM: Alert, pleasant, 68-year-old on room air comfortable in no apparent distress. HEAD: Normocephalic/atraumatic. EYES: Normal reaction of pupils, equal size. Conjunctiva pink, sclera white. NOSE: Clear with pink turbinates. THROAT: No erythema or exudates. NECK: No masses, no JVD, no thyroid enlargement, no adenopathy. CHEST: No chest wall deformity. Symmetrical expansion. LUNGS: Equal air entry with no crackles, wheeze, rhonchi or dullness. CVS: Regular rate and rhythm, normal S1 and S2, no gallops, no murmurs, no rubs ABDOMEN: Soft, nontender. No hepatosplenomegaly, normal bowel sounds, no guarding or rigidity. Abdomen is soft, bowel sounds are hypoactive, and abdominal incision clean dry and intact, covered with a surgical dressing, with evidence of old serosanguineous drainage, LITZY drain in the right lower quadrant is intact, compressed draining dilute serous drainage and there has been 1500 mL of serous output from the LITZY drain overnight EXTREMITIES: No clubbing, no edema, no cyanosis, 2+ pulses and upper and lower extremities. No changes consistent with chronic venous stasis involving the lower extremities bilaterally MUSCULOSKELETAL: Muscle strength and tone normal. SPINE: No scoliosis or deformity SKIN: No rashes CENTRAL NERVOUS SYSTEM: Alert and oriented -3. No focal deficits, tone is normal in all 4 extremities. PSYCHIATRIC: Alert and oriented -3. Appropriate affect. Intact judgment and insight. - Labs CBC & Chem 7: 01/02/19 04:40 01/02/19 04:40 Labs: Abnormal Lab Results - Last 24 Hours (Table) 01/01/19 01/01/19 01/01/19 Range/Units 18:31 18:48 19:44 WBC (3.8-10.6) k/uL RBC 2.87 L (4.30-5.90) m/uL Hgb 7.8 L (13.0-17.5) gm/dL Hct 24.8 L (39.0-53.0) % MCHC (31.0-37.0) g/dL RDW 17.5 H (11.5-15.5) % Neutrophils # 7.9 H (1.3-7.7) k/uL Lymphocytes # 0.7 L (1.0-4.8) k/uL Potassium (3.5-5.1) mmol/L Chloride (98-107) mmol/L Glucose (74-99) mg/dL POC Glucose (mg/dL) 134 H (75-99) mg/dL Calcium (8.4-10.2) mg/dL Total Protein (6.3-8.2) g/dL Albumin (3.5-5.0) g/dL Urine Protein 2+ H (Negative) Urine Blood Moderate H (Negative) Ur Leukocyte Esterase Large H (Negative) Urine RBC 87 H (0-5) /hpf Urine WBC >182 H (0-5) /hpf Urine WBC Clumps Many H (None) /hpf Amorphous Sediment Moderate H (None) /hpf Urine Bacteria Many H (None) /hpf Urine Mucus Many H (None) /hpf 01/01/19 01/02/19 01/02/19 Range/Units 19:44 04:40 04:40 WBC 11.6 H (3.8-10.6) k/uL RBC 2.92 L (4.30-5.90) m/uL Hgb 7.7 L (13.0-17.5) gm/dL Hct 26.1 L (39.0-53.0) % MCHC 29.6 L (31.0-37.0) g/dL RDW 18.2 H (11.5-15.5) % Neutrophils # (1.3-7.7) k/uL Lymphocytes # (1.0-4.8) k/uL Potassium 3.0 L (3.5-5.1) mmol/L Chloride 108 H (98-107) mmol/L Glucose 121 H 136 H (74-99) mg/dL POC Glucose (mg/dL) (75-99) mg/dL Calcium 7.6 L 7.3 L (8.4-10.2) mg/dL Total Protein 4.7 L (6.3-8.2) g/dL Albumin 2.0 L (3.5-5.0) g/dL Urine Protein (Negative) Urine Blood (Negative) Ur Leukocyte Esterase (Negative) Urine RBC (0-5) /hpf Urine WBC (0-5) /hpf Urine WBC Clumps (None) /hpf Amorphous Sediment (None) /hpf Urine Bacteria (None) /hpf Urine Mucus (None) /hpf Microbiology - Last 24 Hours (Table) 01/01/19 18:48 Urine Culture - Preliminary Urine,Catheterized Assessment and Plan Plan: 1 complicated diverticulitis with development of a colovesicular fistula, and the patient is status post expiratory laparotomy, laparoscopic cholecystectomy, small bowel resection and diverting ileostomy. Approximately 3 L of ascitic fluid was aspirated from the peritoneal cavity. The patient was found to have significant inflammatory changes in his pelvis and eloped AP resection was planned and was not completed and essentially the patient was given an ileo stomy. Postop day 1 2 metastatic renal cell carcinoma with pulmonary involvement. The patient was receiving immunotherapy on outpatient basis.The most recent CAT scan of the chest that was done on 12/16/2018 showed specific related medicine the right apex measuring 1 x 1.4 that had gotten smaller compared to previous evaluation. There are also 2 areas of thickening along the right pleural margin and lesions measuring 2 x 0.8 cm and this was also smaller compared to the earlier study. The patient also had a small right-sided pleural effusion and a minimal left- sided pleural effusion. The abdomen showed ascites and there was enlargement of the volume of his sigmoid colon overlying the urinary bladder and the possibility of a colovesicular fistula was entertained. 3 COPD 4 coronary artery disease 5 hypothyroidism 6 BPH 7 ex-smoker 8 Chronic normocytic anemia 9 recurrent urine checked infections probably the sedation with colovesicular fistula, cultures indicating enterococcus fecium and E. coli Plan: Patient is doing well, continue with same antibiotic coverage, cultures are pending, no fever or chills, patient is hemodynamically stable, increase activity as tolerated, incentive spirometry to the bedside, may consider transfer out of the intensive care unit in the afternoon if patient remains stable. DVT prophylaxis, labs and chest x-rays have been reviewed by Dr. Holman, patient was evaluated by Dr. Holman. I performed a history & physical examination of the patient and discussed their management with my nurse practitioner, Maria Luz Brady. I reviewed the nurse practitioner's note and agree with the documented findings and plan of care. Lung sounds are positive for clear breath sounds. The findings and the impression was discussed with the patient. I attest to the documentation by the nurse practitioner. Time with Patient: Less than 30
[2019-01-02] MEDS: PIPERACILLIN-TAZOBACTAM 3.375 GM in SODIUM CHLORIDE 0.9% 100 ML IVPB SCH (10:16)
[2019-01-02] MEDS: HEPARIN SODIUM,PORCINE 5,000 UNIT/ML 1 ML VIAL SQ SCH ×2 (10:16→19:09)
[2019-01-02] MEDS: ALVIMOPAN 12 MG CAPSULE PO SCH ×2 (10:16→20:36)
[2019-01-02] MEDS: FAMOTIDINE 20 MG/2 ML VIAL IV SCH ×2 (10:16→20:36)
--- NOTE | 2019-01-02 11:40 | P.PN ---
Progress Note - Text Progress Note Date: 01/02/19 68-year-old male status post small bowel resection and ileostomy postop day #1, epidural catheter day #2. Patient doing very well VAS 0 out of 10 in severity without movement. No motor sensory deficits, no paresthesias. Currently the ICU and hemodynamic stable. Plan is to continue current epidural settings at 8 ML's an hour of ropivacaine 0.125% with point mics Dilaudid.
--- NOTE | 2019-01-02 12:14 | CDI ---
Documentation Clarification Form Date: 01/02/2019 CDS: Mala Barraza, CCS, CCDS Admit Date: 01/01/2019 Patient Name: Erik Peters ATTENTION: The Clinical Documentation Specialists (CDI) and [facility] Coding Staff appreciate your assistance in clarifying documentation. Please respond to the clarification below the line at the bottom and electronically sign. The CDI & [facility] Coding staff will review the response and follow-up if needed. Please note: Queries are made part of the Legal Health Record. If you have any questions, please contact the author of this message via ITS. Dr. Kunz: A diagnosis of anemia lacks specificity to accurately reflect your patients severity of condition and clarification is needed. Per the surgeon, the patient's pre-op Hgb was 7.8. History/Risk Factors: Atrial fibrillation, COPD, Right kidney CA status post rt nephrectomy, Testicular CA. Former smoker. Clinical indicators: Presented for elective exploratory laparotomy, low anterior resection & laparoscopic cholecystectomy for cholelithiasis & colovesical fistula due to diverticulitis. Hemoglobin: 7.8 - 7.7* Hematocrit: 24.8 - 26.1* Treatment: Typed & crossed for surgery. IV Kefzol, Heparin sq, IV Decadron, IV dilaudid, IV Lactated Ringers, IV Zofran, Epidural for pain management, IV Reglan, IV Zosyn, IV Kcl, IV Vancomycin. In order to capture the severity of condition, please clarify the type of anemia and etiology if known: Acute blood loss anemia, due to Acute on chronic blood loss anemia If acute, please clarify if this is an expected or unexpected outcome of the patient's surgery. Chronic blood loss anemia, due to Iron deficiency anemia Hemolytic anemia Drug induced anemia Anemia due to malignancy Anemia of chronic kidney disease, please specify if known Unable to determine Other, please specify (Last Revision: June 2017) MTDD
--- NOTE | 2019-01-02 14:38 | P.PN ---
Subjective Progress Note Date: 01/02/19 CHIEF COMPLAINT: colovesicular fistula, gallstones HISTORY OF PRESENT ILLNESS: 68-year-old male who underwent laparoscopic cholecystectomy, small bowel resection, and diverting ileostomy. POD #1. Patient is examined at the bedside in the ICU. Patient states he feels well overall. Pain is controlled. Tolerated clear liquid diet. Reports swelling in his testicles. Ileostomy to right lower quadrant with small amount of seros anguineous drainage. LITZY drain intact with serous drainage. 1020cc over past 12 hours with 1500cc of drainage prior. PHYSICAL EXAM: VITAL SIGNS: Reviewed. GENERAL: Well-developed in no acute distress. HEENT: No sclera icterus. Extraocular movements grossly intact. Moist buccal mucosa. Head is atraumatic, normocephalic. ABDOMEN: Soft. Nondistended. Nontender. LITZY drain intact with serous drainage. Ileostomy noted with serosanguineous drainage. No stool. NEUROLOGIC: Alert and oriented. Cranial nerves II through XII grossly intact. ASSESSMENT: 1. Colovesicular fistula and cholelithiasis, status post laparoscopic c holecystectomy, small bowel resection and diverting ileostomy 2. 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 Continue clear liquid diet until ileostomy is functioning 2. Activity as tolerated 3. Incentive spirometry 4. Continue epidural 5. Continue urinary catheter. Accurate I&O 6. Further recommendations pending patient course Nurse practitioner note has been reviewed by physician. Signing provider agrees with the documented findings, assessment, and plan of care. Objective - Vital Signs Vital signs: Vital Signs Temp 97.5 F L 01/02/19 12:00 Pulse 54 L 01/02/19 13:00 Resp 12 01/02/19 13:00 BP 105/61 01/02/19 13:00 Pulse Ox 98 01/02/19 13:00 Intake & Output 01/01/19 01/02/19 01/02/19 18:59 06:59 18:59 Intake Total 3735.3 1655 925 Output Total 540 1769 1230 Balance 3195.3 -114 -305 Weight 105.9 kg 105.9 kg Intake: IV 3610.3 1655 925 D5-0.45% NaCl with KCl 1375 625 20Meq/l 1,000 ml @ 125 mls/hr IV .Q8H [facility] Rx#: [id number] Lactated Ringers 1,000 ml 80 100 @ 20 mls/hr IV .Q24H [facility] Rx#:[id number] Piperacillin-Tazobactam 3 100 100 .375 gm In Sodium Chloride 0.9% 100 ml @ 25 mls/hr IVPB Q8HR [facility] Rx# :[id number] Potassium Chloride 20 meq 100 100 In Water For Injection 1 100ml.bag @ 50 mls/hr IVPB Q2H [facility] Rx#: [id number] Intake, IV Titration 125 Amount Lactated Ringers 1,000 ml 125 @ 0 mls/hr IV .STK-MED ONE Rx#:[id number] Output: Drainage 200 1390 1020 Right Abdomen 200 1390 1020 Urine 240 379 210 Estimated Blood Loss 100 Other: Voiding Method Indwelling Catheter Indwelling Catheter - Labs CBC & Chem 7: 01/02/19 04:40 01/02/19 04:40 Labs: Abnormal Lab Results - Last 24 Hours (Table) 01/01/19 01/01/19 01/01/19 Range/Units 18:31 18:48 19:44 WBC (3.8-10.6) k/uL RBC 2.87 L (4.30-5.90) m/uL Hgb 7.8 L (13.0-17.5) gm/dL Hct 24.8 L (39.0-53.0) % MCHC (31.0-37.0) g/dL RDW 17.5 H (11.5-15.5) % Neutrophils # 7.9 H (1.3-7.7) k/uL Lymphocytes # 0.7 L (1.0-4.8) k/uL Potassium (3.5-5.1) mmol/L Chloride (98-107) mmol/L Glucose (74-99) mg/dL POC Glucose (mg/dL) 134 H (75-99) mg/dL Calcium (8.4-10.2) mg/dL Total Protein (6.3-8.2) g/dL Albumin (3.5-5.0) g/dL Urine Protein 2+ H (Negative) Urine Blood Moderate H (Negative) Ur Leukocyte Esterase Large H (Negative) Urine RBC 87 H (0-5) /hpf Urine WBC >182 H (0-5) /hpf Urine WBC Clumps Many H (None) /hpf Amorphous Sediment Moderate H (None) /hpf Urine Bacteria Many H (None) /hpf Urine Mucus Many H (None) /hpf 01/01/19 01/02/19 01/02/19 Range/Units 19:44 04:40 04:40 WBC 11.6 H (3.8-10.6) k/uL RBC 2.92 L (4.30-5.90) m/uL Hgb 7.7 L (13.0-17.5) gm/dL Hct 26.1 L (39.0-53.0) % MCHC 29.6 L (31.0-37.0) g/dL RDW 18.2 H (11.5-15.5) % Neutrophils # (1.3-7.7) k/uL Lymphocytes # (1.0-4.8) k/uL Potassium 3.0 L (3.5-5.1) mmol/L Chloride 108 H (98-107) mmol/L Glucose 121 H 136 H (74-99) mg/dL POC Glucose (mg/dL) (75-99) mg/dL Calcium 7.6 L 7.3 L (8.4-10.2) mg/dL Total Protein 4.7 L (6.3-8.2) g/dL Albumin 2.0 L (3.5-5.0) g/dL Urine Protein (Negative) Urine Blood (Negative) Ur Leukocyte Esterase (Negative) Urine RBC (0-5) /hpf Urine WBC (0-5) /hpf Urine WBC Clumps (None) /hpf Amorphous Sediment (None) /hpf Urine Bacteria (None) /hpf Urine Mucus (None) /hpf Microbiology - Last 24 Hours (Table) 01/01/19 18:48 Urine Culture - Preliminary Urine,Catheterized
[2019-01-02] MEDS: AMPICILLIN-SULBACTAM 3 GM in SODIUM CHLORIDE 0.9% 100 ML IVPB SCH (19:09)
[2019-01-02] MEDS: diphenhydrAMINE 25 MG CAP PO PRN (19:16)
[2019-01-02] MEDS: ROPIVACAINE 300 MG, HYDROMORPHONE (PF) 5 MG in SODIUM CHLORIDE 0.9% 190 ML EPIDURAL PRN (21:14)
--- NOTE | 2019-01-02 22:34 | CONS ---
CONSULTATION DATE OF SERVICE: 01/02/2019 REASON FOR CONSULTATION: Complicated diverticulitis with colovesical fistula. HISTORY OF PRESENT ILLNESS: The patient is a 68-year-old male who apparently has been having a problem in the outpatient setting, initially with difficulty in urination, for which the patient was evaluated by the urologist. The patient was started on Flomax. Afterward the patient started having a problem with passing of stool through his urethra. The patient was also complaining of pain in the lower abdominal area that has been going on for a couple of weeks now. Pain has been mostly dull, aching, mostly in the left lower abdominal area, intensity about 5 to 6 out of 10, and no radiation. The patient felt nauseated but no vomiting. With these symptoms, the patient has been evaluated in the outpatient setting, where he had a CT of the chest, abdomen and pelvis completed on 12/16/2018 with evidence of thickened urinary bladder wall with scattered deposits of air within the urinary bladder. Sigmoid colon is somewhat difficult to delineate superior to the urinary bladder. A colovesical fistula should be considered. Lung masses previously described in the lungs but diminished in size, and evidence of cholelithiasis. Patient has been electively admitted to hospital and was taken to the OR. Patient is status post laparoscopic cholecystectomy with small-bowel resection and ileostomy. Patient has been admitted to the ICU, where he has been started on vancomycin and Zosyn. Infectious Disease was consulted for further recommendations regarding antibiotic therapy. REVIEW OF SYSTEMS: Positive points have been mentioned in the HPI. Rest of the systems negative. PAST MEDICAL HISTORY: 1. Metastatic renal carcinoma, status post right nephrectomy. 2. Atrial fibrillation. 3. COPD. PAST SURGICAL HISTORY: 1. Right kidney removal due to cancer. 2. Post lung biopsy, right upper chest. SOCIAL HISTORY: Patient has about 45 pack/years of smoking. Quit smoking years ago. No drinking or drug use. FAMILY HISTORY: No pertinent findings noticed. ALLERGIES: NO KNOWN DRUG ALLERGIES. CURRENT MEDICATIONS: Include: 1. Vancomycin 1750 q.12 hours. 2. Zosyn 3.375 grams q.8 hours. 3. Zofran. 4. Narcan. 5. Reglan. 6. Synthroid. 7. Lactated Ringers. 8. Heparin. 9. Pepcid. 10.Cepacol lozenges. PHYSICAL EXAMINATION: Blood pressure is 110/58 with a pulse of 64, temperature 97.5. He is 97% on room air. General description is an elderly male lying in bed in no distress. No tachypnea or accessory muscle of respiration use. HEENT examination shows slight pallor. No scleral icterus. Oral mucous membrane is dry. No pharyngeal erythema or thrush. NECK: Trachea is central. No thyromegaly. LUNGS: Unlabored breathing. Clear to auscultation anteriorly. HEART: S1, S2. Regular rate and rhythm. ABDOMEN: Soft. Mildly tender in the lower quadrant area. No guarding or rigidity. No organomegaly. EXTREMITIES: No edema of feet. SKIN EXAMINATION: No rashes or mass palpable Neurologically patient is awake, alert, oriented x3. Mood and affect normal. LABS: Hemoglobin is 7.7, white count 11.6 with a BUN of 19, creatinine 1.24. UA has been positive with cultures currently pending. The patient's last urine culture done on 12/24/2018 was Enterococcus faecium that was resistant to ampicillin though sensitive to vancomycin. DIAGNOSTIC IMPRESSION AND PLAN: Patient admitted to hospital with acute complicated sigmoid diverticulitis with colovesical fistula in this patient who also has a component of cholecystitis, status post laparoscopic cholecystectomy and ileostomy. The patient did have a history of recurrent UTI. Last urine has been positive for Enterococcus faecium, ampicillin- resistant and vancomycin-sensitive. Will need to cover for both gram-positive skin zak as well as aerobic and anaerobic gram-negative enteric bacilli. PLAN: 1. We will keep the patient on vancomycin, as Enterococcus faecium was resistant to ampicillin. Need to cover for the likely pathogen while waiting for repeat urine culture to finalize. However, discontinue Zosyn, as the combination of vancomycin and Zosyn will put him at high risk of nephrotoxicity. 2. Will start the patient on Unasyn 3 grams q.6 hours to cover for the gram-negative, both aerobes and anaerobes. 3. We will follow on his clinical condition as well as culture to further adjust medication if needed. Thank you for this consultation. Will follow this patient along with you. MMODL / IJN: [id number] /
[2019-01-02 22:50] LABS: Magnesium 1.7 mg/dL (1.6-2.3); Potassium 3.6 mmol/L (3.5-5.1)
[2019-01-02] MEDS ORDERED: Magnesium Replacement Protocol 1 EACH MISC MISCELLANE PRN (22:58)
[2019-01-02] MEDS ORDERED: POTASSIUM CHLORIDE ER 20 MEQ TAB.ER PO SCH (23:00)
[2019-01-03] MEDS: AMPICILLIN-SULBACTAM 3 GM in SODIUM CHLORIDE 0.9% 100 ML IVPB SCH ×4 (00:23→20:53)
[2019-01-03] MEDS: MAGNESIUM SULFATE-D5W PMX 1 GM in DEXTROSE/WATER 1 100ML.BAG IVPB SCH ×2 (00:25→01:56)
[2019-01-03] MEDS: HEPARIN SODIUM,PORCINE 5,000 UNIT/ML 1 ML VIAL SQ SCH ×3 (00:27→20:53)
[2019-01-03] MEDS: diphenhydrAMINE 25 MG CAP PO PRN ×4 (03:20→21:12)
[2019-01-03] MEDS: D5-0.45% NACL WITH KCL 20MEQ/L 1,000 ML IV SCH ×2 (03:21→11:48)
[2019-01-03] MEDS ORDERED: VANCOMYCIN TROUGH DUE 1 EACH MISC MISCELLANE ONE (04:00)
[2019-01-03 05:46] LABS: Anisocytosis Slight; HGB 8.3 gm/dL (13.0-17.5); Hypochromasia Moderate; MCH 25.8 pg (25.0-35.0); MCHC 29.6 g/dL (31.0-37.0); MCV 87.5 fL (80.0-100.0); Platelet Count 376 k/uL (150-450); WBC 20.8 k/uL (3.8-10.6)
[2019-01-03] MEDS: VANCOMYCIN 1,750 MG in SODIUM CHLORIDE 0.9% 500 ML 500 ML IVPB SCH (05:47)
[2019-01-03] MEDS: LACTATED RINGERS 1,000 ML IV SCH (05:49)
[2019-01-03 05:58] LABS: Calcium 7.2 mg/dL (8.4-10.2); Magnesium 2.1 mg/dL (1.6-2.3); Potassium 3.7 mmol/L (3.5-5.1)
[2019-01-03] MEDS: LEVOTHYROXINE 50 MCG TAB PO SCH (06:04)
[2019-01-03] MEDS ORDERED: POTASSIUM CHLORIDE ER 20 MEQ TAB.ER PO SCH (08:00)
--- NOTE | 2019-01-03 08:07 | P.PN ---
Progress Note - Text 01/02 709am 68-year-old male status post colectomy and ileostomy with Dr. harp. Patient has an epidural catheter for postop pain control with solution running at 8 mL an hour with a VAS of 2. No motor or sensory deficits noted. Patient has complains of pruritus and is being treated with Benadryl. Plan to continue epidural infusion for another day
[2019-01-03] MEDS ORDERED: ALPRAZolam 0.25 MG TAB PO PRN (08:39)
[2019-01-03] MEDS: ALVIMOPAN 12 MG CAPSULE PO SCH ×2 (08:46→20:54)
[2019-01-03] MEDS: FAMOTIDINE 20 MG/2 ML VIAL IV SCH ×2 (08:46→20:53)
--- NOTE | 2019-01-03 13:27 | P.PN ---
Subjective Progress Note Date: 01/03/19 This is a 68-year-old male patient with known history of COPD, history of with a sickle cell carcinoma and the patient is post right nephrectomy that was not proximal to 6 years ago, along with history of coronary artery disease, vitamin D deficiency and complicated diverticulitis with history of colovesicular fistula with severe inflammatory changes in his pelvis. The patient was having problems due to recurrent UTIs and the patient had a CT of the abdomen and pelvis and there was a concern for an underying rectovesicular fistula and cholelithiasis. The patient was taken to the operating room and he underwent an cholecystectomy, small bowel resection and diverting ileostomy. Intraoperative findings showed that the patient had significant inflammation and frozen pelvis and a low AP resection was not possible. Any ileostomy was brought out in the right lower quadrant. The abdomen was irrigated. The LITZY drain was placed and the fascia was closed. The patient was hypothermic at the end of the procedure with a temperature of 3 5 and fluid warmers in bed huggers were provided and ICU consultation was obtained. The patient was extubated in the OR and he was brought up to recovery where he was seen and evaluated. He was found hemodynamically stable and he was on no pressors. He was given nearly 3 liters of the IVF in the OR and he was started on maintenance fluids. In terms of his history of malignancy, the patient is known to have metastatic disease involving the lungs and a mediastinal mass that was diagnosed to be positive for renal cell carcinoma. The patient is currently on immunotherapy through with Dr. Barth. He has also undergone previous thoracentesis for right-sided pleural effusion. He has been under the care of Dr. Barth and Dr. Yusuf on outpatient basis. On 01/02/2019 patient seen in follow-up in the intensive care unit, this postop day 1 status post exploratory laparotomy, laparoscopic cholecystectomy, small bowel resection and creating a diverting ileostomy. Patient is doing well, he is awake and alert, oriented 3, afebrile, room air pulse ox is 98%, patient received a total of 3 L of IV fluids, 2 L Intra-Op, and 1 L in the recovery room, he never did require vasopressor support. No difficulty breathing, his incisional pain is controlled, she remains on the epidural infusion. Lactated Ringer's at a rate of 20 ML per hour. Lung sounds are clear to auscultation, bowel sounds are hypoactive, present, right lower quadrant ileostomy site is intact, stoma is viable. His sinus rhythm on a monitor, with a rate of 62 BPM, blood pressure is 105/58. History of chest x-ray showed increasing right pleural effusion and right lower lobe infiltrate/atelectasis no heart failure. Butler catheter is in place, draining cloudy yellow urine, today's labs have been reviewed, white blood cell count is 11.6, hemoglobin is 7.7, electrolytes and re nal profile are within normal limits. TSH was likely low, and 4.630, urinalysis showed 2+ protein, moderate blood, large loops, greater than 182 white blood cells, WBCs in clumps, and culture has been sent, blood cultures have been sent, terms are in progress. Hemodynamically patient is stable, no specific complaints, he states he thinks there is a bit more swelling in his left testicle than usual. Otherwise doing very well. He is on GI and DVT prophylaxis, he is getting promotility agents form of Reglan, IV antibiotics in the form of Zosyn, Kefzol and vancomycin. On today's evaluation of 01/03/2019 patient is awake and alert. Hemodynamically stable. Incision over the mid abdomen looks dry clean and intact. LITZY drain is draining and has an attached to suction and has put out more than 3 L of ascitic fluid. The patient is afebrile. Nevertheless, he has been advised in the white cell count that needs to be monitored very closely. ID is on the case and the patient and placed on a combination of vancomycin and Unasyn. Urine cultures of the recent onset of the urine output is quite cloudy and purulent. Meanwhile, the patient remains on IV fluids at [facility]. The patient is on no pressors for now. The patient is hemodynamically stable. No altered mentation. No cough sputum production. No chest that is so wheezing. Ileostomy site is functional and there is liquidy material collecting in the collection bag. No abdominal pain. No nausea. No vomiting. No other significant events overnight otherwise for now. He is using incentive spirometer. Objective - Vital Signs Vital signs: Vital Signs Temp 97.5 F L 01/03/19 08:00 Pulse 78 01/03/19 11:00 Resp 12 04/12/19 11:00 BP 98/67 01/03/19 11:00 Pulse Ox 95 01/03/19 11:00 Intake & Output 01/02/19 01/03/19 01/03/19 18:59 06:59 18:59 Intake Total 1940 2635 725 Output Total 3250 2273 730 Balance -1310 362 -5 Weight 105.9 kg 107.9 kg 107.9 kg Intake: IV 1940 2635 725 Ampicillin-Sulbactam 3 gm 200 In Sodium Chloride 0.9% 100 ml @ 200 mls/hr IVPB Q6HR [facility] Rx#:[id number] D5-0.45% NaCl with KCl 1500 1495 625 20Meq/l 1,000 ml @ 125 mls/hr IV .Q8H [facility] Rx#: [id number] Lactated Ringers 1,000 ml 240 240 100 @ 20 mls/hr IV .Q24H [facility] Rx#:[id number] Magnesium Sulfate-D5w Pmx 200 1 gm In Dextrose/Water 1 100ml.bag @ 100 mls/hr IVPB Q1H [facility] Rx#: [id number] Piperacillin-Tazobactam 3 100 .375 gm In Sodium Chloride 0.9% 100 ml @ 25 mls/hr IVPB Q8HR [facility] Rx# :[id number] Potassium Chloride 20 meq 100 In Water For Injection 1 100ml.bag @ 50 mls/hr IVPB Q2H [facility] Rx#: [id number] Vancomycin 1,750 mg In 500 Sodium Chloride 0.9% 500 ml 500 ml @ 167 mls/hr IVPB ONCE ONE Rx#: [id number] Output: Drainage 2820 1550 500 Right Abdomen 2820 1550 500 Urine 430 573 230 Stool 150 Other: Voiding Method Indwelling Catheter Indwelling Catheter Indwelling Catheter - Exam GENERAL EXAM: Alert, pleasant, 68-year-old on room air comfortable in no apparent distress. HEAD: Normocephalic/atraumatic. EYES: Normal reaction of pupils, equal size. Conjunctiva pink, sclera white. NOSE: Clear with pink turbinates. THROAT: No erythema or exudates. NECK: No masses, no JVD, no thyroid enlargement, no adenopathy. CHEST: No chest wall deformity. Symmetrical expansion. LUNGS: Equal air entry with no crackles, wheeze, rhonchi or dullness. CVS: Regular rate and rhythm, normal S1 and S2, no gallops, no murmurs, no rubs ABDOMEN: Soft, nontender. No hepatosplenomegaly, normal bowel sounds, no guarding or rigidity. Abdomen is soft, bowel sounds are hypoactive, and abdominal incision clean dry and intact, covered with a surgical dressing, with evidence of old serosanguineous drainage, LITZY drain in the right lower quadrant is intact, compressed draining dilute serous drainage and there has been 1500 mL of serous output from the LITZY drain overnight EXTREMITIES: No clubbing, no edema, no cyanosis, 2+ pulses and upper and lower extremities. No changes consistent with chronic venous stasis involving the lower extremities bilaterally MUSCULOSKELETAL: Muscle strength and tone normal. SPINE: No scoliosis or deformity SKIN: No rashes CENTRAL NERVOUS SYSTEM: Alert and oriented -3. No focal deficits, tone is normal in all 4 extremities. PSYCHIATRIC: Alert and oriented -3. Appropriate affect. Intact judgment and insight. - Labs CBC & Chem 7: 01/03/19 04:30 01/03/19 04:30 Labs: Abnormal Lab Results - Last 24 Hours (Table) 01/03/19 01/03/19 Range/Units 04:30 04:30 WBC 20.8 H (3.8-10.6) k/uL RBC 3.20 L (4.30-5.90) m/uL Hgb 8.3 L (13.0-17.5) gm/dL Hct 28.0 L (39.0-53.0) % MCHC 29.6 L (31.0-37.0) g/dL RDW 18.0 H (11.5-15.5) % Sodium 136 L (137-145) mmol/L Calcium 7.2 L (8.4-10.2) mg/dL Microbiology - Last 24 Hours (Table) 01/01/19 19:44 Blood Culture - Preliminary Blood No Growth after 24 hours 01/01/19 18:48 Urine Culture - Final Urine,Catheterized Assessment and Plan Plan: Assessment 1 complicated diverticulitis with development of a colovesicular fistula, and the patient is status post expiratory laparotomy, laparoscopic cholecystectomy, small bowel resection and diverting ileostomy. The patient continues to have some respite fluid drainage in the LITZY drain. The fluid cytology has been sent through recheck for malignancy. Meanwhile, the abdominal incision looks dry clean and intact. The patient is adequate pain control with epidural Dilaudid. Pain management is per anesthesia. The ileostomy site is functional and the patient is tolerating clear liquid diet. The patient is currently postop day #2. 2 metastatic renal cell carcinoma with pulmonary involvement. The patient was receiving immunotherapy on outpatient basis.The most recent CAT scan of the chest that was done on 12/16/2018 showed specific related medicine the right apex measuring 1 x 1.4 that had gotten smaller compared to previous evaluation. There are also 2 areas of thickening along the right pleural margin and lesions measuring 2 x 0.8 cm and this was also smaller compared to the earlier study. The patient also had a small right-sided pleural effusion and a minimal left-si ded pleural effusion. The abdomen showed ascites and there was enlargement of the volume of his sigmoid colon overlying the urinary bladder and the possibility of a colovesicular fistula was entertained. 3 COPD 4 coronary artery disease 5 hypothyroidism 6 BPH 7 ex-smoker 8 Chronic normocytic anemia 9 recurrent urine checked infections probably the sedation with colovesicular fistula, cultures indicating enterococcus fecium and E. coli, awaiting follow-up urine cultures and the patient on a combination of antibiotics 10 leukocytosis Plan Advance diet gradually as tolerated. Keep the LITZY drain for constant suctioning. Monitor white count. Monitor the cultures. Urine cultures of been sent. Continue the current antibiotic coverage including combination of vancomycin and Unasyn. The patient will be kept in ICU for now. We'll continue to follow make further recommendations based on her progress. Anesthesia is managing the epidural bupivacaine/Dilaudid. We'll continue to follow.
--- NOTE | 2019-01-03 14:55 | P.PN ---
Subjective Progress Note Date: 01/03/19 CHIEF COMPLAINT: colovesicular fistula, gallstones HISTORY OF PRESENT ILLNESS: 68-year-old male who underwent laparoscopic cholecystectomy, small bowel resection, and diverting ileostomy. POD #2. Patient is examined at the bedside in the ICU. Patient states he feels well overall. Pain is controlled. Epidural infusing. Tolerating clear liquid diet. Ostomy with brown liquid stool. LITZY drain has been connected to suction per Dr. Barrientos. Approximately 4L drainage overnight. 500cc in cannister currently. Butler intact with cloudy purulent urine although actually improved from yesterday. WBC 20.8. Infectious disease is following. Hemoglobin 8.3. PHYSICAL EXAM: VITAL SIGNS: Reviewed. GENERAL: Well-developed in no acute distress. HEENT: No sclera icterus. Extraocular movements grossly intact. Moist buccal mucosa. Head is atraumatic, normocephalic. ABDOMEN: Soft. Nondistended. Nontender. LITZY drain intact with serous drainage connected to suction. Ileostomy noted with brown liquid stool. NEUROLOGIC: Alert and oriented. Cranial nerves II through XII grossly intact. ASSESSMENT: 1. Colovesicular fistula and cholelithiasis, status post laparoscopic cholecystectomy, small bowel resection and diverting ileostomy 2. 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 Advance diet to full liquids 2. Activity as tolerated 3. Incentive spirometry 4. Continue epidural. discontinue POD #3 5. Continue urinary catheter. Accurate I&O 6. Continue LITZY to suction for another 2-[address] Barrientos due to increased output 7. Further recommendations pending patient course Nurse practitioner note has been reviewed by physician. Signing provider agrees with the documented findings, assessment, and plan of care. Objective - Vital Signs Vital signs: Vital Signs Temp 97.5 F L 01/03/19 08:00 Pulse 78 01/03/19 11:00 Resp 12 01/03/19 11:00 BP 98/67 01/03/19 11:00 Pulse Ox 95 01/03/19 11:00 Intake & Output 01/02/19 01/03/19 01/03/19 18:59 06:59 18:59 Intake Total 1940 2635 725 Output Total 3250 2273 730 Balance -1310 362 -5 Weight 105.9 kg 107.9 kg 107.9 kg Intake: IV 1940 2635 725 Ampicillin-Sulbactam 3 gm 200 In Sodium Chloride 0.9% 100 ml @ 200 mls/hr IVPB Q6HR [facility] Rx#:[id number] D5-0.45% NaCl with KCl 1500 1495 625 20Meq/l 1,000 ml @ 125 mls/hr IV .Q8H [facility] Rx#: [id number] Lactated Ringers 1,000 ml 240 240 100 @ 20 mls/hr IV .Q24H [facility] Rx#:[id number] Magnesium Sulfate-D5w Pmx 200 1 gm In Dextrose/Water 1 100ml.bag @ 100 mls/hr IVPB Q1H [facility] Rx#: [id number] Piperacillin-Tazobactam 3 100 .375 gm In Sodium Chloride 0.9% 100 ml @ 25 mls/hr IVPB Q8HR [facility] Rx# :[id number] Potassium Chloride 20 meq 100 In Water For Injection 1 100ml.bag @ 50 mls/hr IVPB Q2H [facility] Rx#: [id number] Vancomycin 1,750 mg In 500 Sodium Chloride 0.9% 500 ml 500 ml @ 167 mls/hr IVPB ONCE ONE Rx#: [id number] Output: Drainage 2820 1550 500 Right Abdomen 2820 1550 500 Urine 430 573 230 Stool 150 Other: Voiding Method Indwelling Catheter Indwelling Catheter Indwelling Catheter - Labs CBC & Chem 7: 01/03/19 04:30 01/03/19 04:30 Labs: Abnormal Lab Results - Last 24 Hours (Table) 01/03/19 01/03/19 Range/Units 04:30 04:30 WBC 20.8 H (3.8-10.6) k/uL RBC 3.20 L (4.30-5.90) m/uL Hgb 8.3 L (13.0-17.5) gm/dL Hct 28.0 L (39.0-53.0) % MCHC 29.6 L (31.0-37.0) g/dL RDW 18.0 H (11.5-15.5) % Sodium 136 L (137-145) mmol/L Calcium 7.2 L (8.4-10.2) mg/dL Microbiology - Last 24 Hours (Table) 01/01/19 19:44 Blood Culture - Preliminary Blood No Growth after 24 hours 01/01/19 18:48 Urine Culture - Final Urine,Catheterized
--- NOTE | 2019-01-03 14:56 | P.CONS ---
History of Present Illness - Reason for Consult Dermatitis, renal cell carcinoma, COPD - History of Present Illness His is a pleasant 68-year-old gentleman admitted for colovesical fistula underwent x-ray laparotomy laparoscopic cholecystectomy, small bowel resection, dilating ileostomy. Patient has significant inflammation in the colon area because of which patient underwent the ileostomy patient has significant drainage from the surgical wound site about 200 mL per hour. IV fluids are being switched 1 50 mL of D5 normal saline with 20 of potassium chloride to keep up with to light abnormalities from my fluid loss. Patient denied any fever chills abdominal pain patient is well controlled although as per the nursing staff report patient started having the some confusion episodes from encephalop athy due to hospitalization. Patient is presently on Unasyn for gram-negative organisms and patient has enterococcus for which patient on vancomycin this enterococcus resistant to ampicillin. Patient does have some output and gas and the ileostomy which is loose. Patient is a history of renal cell cancer status post right nephrectomy about 6 years ago patient was on immunotherapy and apparently was responding well to chemotherapy. Review of Systems REVIEW OF SYSTEMS: CONSTITUTIONAL: No fever, no malaise, no fatigue. HEENT: No recent visual problems or hearing problems. Denied any sore throat. CARDIOVASCULAR: No chest pain, orthopnea, PND, no palpitations, no syncope. PULMONARY: No shortness of breath, no cough, no hemoptysis. GASTROINTESTINAL: No diarrhea, no nausea, no vomiting, no abdominal pain. NEUROLOGICAL: No headaches, no weakness, no numbness. HEMATOLOGICAL: Denies any bleeding or petechiae. GENITOURINARY: Denies any burning micturition, frequency, or urgency. MUSCULOSKELETAL/RHEUMATOLOGICAL: Denies any joint pain, swelling, or any muscle pain. ENDOCRINE: Denies any polyuria or polydipsia. The rest of the 14-point review of systems is negative. Past Medical History Past Medical History: Atrial Fibrillation, Cancer, COPD Additional Past Medical History / Comment(s): Metastatic renal carcinoma currently on immunotherapy, right nephrectomy and the patient was diagnosed in 2011 and he underwent a right nephrectomy, history of atrial fibrillation, COPD, coronary artery disease and mild BPH, hypothyroidism History of Any Multi-Drug Resistant Organisms: None Reported Additional Past Surgical History / Comment(s): rt kidney removed in 2011 due to CA, POST LUNG BIOPSY, rt upper chest port Past Anesthesia/Blood Transfusion Reactions: No Reported Reaction Smoking Status: Former smoker (The patient carries approximately 11-[id number] smoking history) - Past Family History Mother Family Medical History: No Reported History Medications and Allergies Home Medications Medication Instructions Recorded Confirmed Type Aspirin [Adult Low Dose Aspirin EC] 81 mg PO DAILY 12/30/18 01/01/19 History Nitrofurantoin Monohyd/M-Cryst 100 mg PO Q12HR 12/30/18 01/01/19 History [Macrobid] Tamsulosin [Flomax] 0.4 mg PO DAILY 12/30/18 01/01/19 History Thyroid,Pork [Bed Control Specialist Thyroid] 30 mg PO DAILY 12/30/18 01/01/19 History Allergies Allergy/AdvReac Type Severity Reaction Status Date / Time No Known Allergies Allergy Verified 01/01/19 17:37 Physical Exam Vitals: Vital Signs Temp Pulse Resp BP Pulse Ox 01/03/19 11:00 78 12 98/67 95 01/03/19 10:00 75 15 96/63 97 01/03/19 09:00 80 21 103/66 98 01/03/19 08:00 97.5 F L 14 96/56 96 01/03/19 07:00 73 18 100/59 01/03/19 06:00 80 20 96/61 01/03/19 05:00 75 16 95/57 98 01/03/19 04:00 99.2 F 71 18 96/64 97 01/03/19 03:00 65 16 91/62 97 01/03/19 02:00 57 L 14 87/68 96 01/03/19 01:00 62 23 85/56 95 01/03/19 00:00 98 F 59 L 16 93/56 98 01/02/19 23:00 64 24 104/69 100 01/02/19 22:00 60 18 111/67 98 01/02/19 21:00 60 18 108/62 01/02/19 20:00 98 F 61 20 100/71 01/02/19 19:00 64 9 L 116/73 01/02/19 18:00 70 26 H 104/68 86 L 01/02/19 17:00 42 H 110/64 98 01/02/19 16:00 67 18 105/66 89 L 01/02/19 15:00 64 9 L 110/58 97 Intake and Output 01/02/19 01/03/19 01/03/19 22:59 06:59 14:59 Intake Total 1760 1455 725 Output Total 2408 1195 730 Balance -648 260 -5 Intake: IV 1760 1455 725 Ampicillin-Sulbactam 3 gm 100 100 In Sodium Chloride 0.9% 100 ml @ 200 mls/hr IVPB Q6HR [facility] Rx#:[id number] D5-0.45% NaCl with KCl 1000 995 625 20Meq/l 1,000 ml @ 125 mls/hr IV .Q8H [facility] Rx#: [id number] Lactated Ringers 1,000 ml 160 160 100 @ 20 mls/hr IV .Q24H [facility] Rx#:[id number] Magnesium Sulfate-D5w Pmx 200 1 gm In Dextrose/Water 1 100ml.bag @ 100 mls/hr IVPB Q1H [facility] Rx#: [id number] Vancomycin 1,750 mg In 500 Sodium Chloride 0.9% 500 ml 500 ml @ 167 mls/hr IVPB ONCE ONE Rx#: [id number] Output: Drainage 2100 650 500 Right Abdomen 2100 650 500 Urine 308 395 230 Stool 150 Other: Voiding Method Indwelling Catheter Indwelling Catheter Indwelling Catheter Weight 107.9 kg 107.9 kg PHYSICAL EXAMINATION: GENERAL: The patient is alert and oriented x3, not in any acute distress. Well developed, well nourished. HEENT: Pupils are round and equally reacting to light. EOMI. No scleral icterus. No conjunctival pallor. Normocephalic, atraumatic. No pharyngeal erythema. No thyromegaly. CARDIOVASCULAR: S1 and S2 present. No murmurs, rubs, or gallops. PULMONARY: Chest is clear to auscultation, no wheezing or crackles. ABDOMEN: Soft, ileostomy with some output bowel sounds are present in some areas of the abdomen. MUSCULOSKELETAL: No joint swelling or deformity. EXTREMITIES: No cyanosis, clubbing, or pedal edema. NEUROLOGICAL: Gross neurological examination did not reveal any focal deficits. SKIN: No rashes. Results CBC & Chem 7: 01/03/19 04:30 01/03/19 04:30 Labs: Abnormal Lab Results - Last 24 Hours (Table) 01/03/19 01/03/19 Range/Units 04:30 04:30 WBC 20.8 H (3.8-10.6) k/uL RBC 3.20 L (4.30-5.90) m/uL Hgb 8.3 L (13.0-17.5) gm/dL Hct 28.0 L (39.0-53.0) % MCHC 29.6 L (31.0-37.0) g/dL RDW 18.0 H (11.5-15.5) % Sodium 136 L (137-145) mmol/L Calcium 7.2 L (8.4-10.2) mg/dL Microbiology - Last 24 Hours (Table) 01/01/19 19:44 Blood Culture - Preliminary Blood No Growth after 24 hours 01/01/19 18:48 Urine Culture - Final Urine,Catheterized Assessment and Plan Plan: -Complicated diverticulitis with colonic was cyclic fistula status post surgical repair with ileostomy as mentioned above significant output the from the surgical site area because of which patient's IV fluid changes as mentioned above. Patient grew enterococcus because of which patient is on vancomycin and the patient is also on Unasyn to cover and aerobic organisms. Patient does have urinary tract infection secondary to colovesical fistula -Metabolic Encephalopathy and delirium secondary to hospitalization. We'll try to use nonpharmacological measures and if needed patient will be started on antipsychotic medications, either Haldol or Seroquel at nighttime and avoid benzodiazepines, barbiturates. -COPD without any acute exacerbation -Renal cell cancer was on immunotherapy -Hypothyroidism -Benign prostatic hypertrophic
[2019-01-03] MEDS ORDERED: FLUCONAZOLE 100 MG TAB PO ONE (15:00)
[2019-01-03] MEDS: D5-0.9% NACL WITH KCL 20 MEQ/L 1,000 ML IV SCH (15:47)
[2019-01-03] MEDS: QUEtiapine 25 MG TAB PO SCH (20:54)
[2019-01-03] MEDS ORDERED: VANCOMYCIN 1,750 MG in SODIUM CHLORIDE 0.9% 500 ML 500 ML IVPB SCH (22:00)
[2019-01-04] MEDS: D5-0.9% NACL WITH KCL 20 MEQ/L 1,000 ML IV SCH ×4 (02:10→16:07)
[2019-01-04] MEDS: HEPARIN SODIUM,PORCINE 5,000 UNIT/ML 1 ML VIAL SQ SCH ×3 (02:10→16:07)
[2019-01-04] MEDS: AMPICILLIN-SULBACTAM 3 GM in SODIUM CHLORIDE 0.9% 100 ML IVPB SCH ×3 (02:15→12:45)
[2019-01-04 04:53] LABS: Anisocytosis Slight; HCT 27.9 % (39.0-53.0); HGB 8.1 gm/dL (13.0-17.5); Hypochromasia Marked; MCH 25.9 pg (25.0-35.0); MCHC 29.1 g/dL (31.0-37.0); MCV 89.1 fL (80.0-100.0); Mean Platelet Volume 6.9; Platelet Count 219 k/uL (150-450); RBC 3.14 m/uL (4.30-5.90); RDW 17.5 % (11.5-15.5); WBC 17.4 k/uL (3.8-10.6)
[2019-01-04 05:00] LABS: Calcium 7.2 mg/dL (8.4-10.2); Magnesium 1.8 mg/dL (1.6-2.3); Phosphorus 2.8 mg/dL (2.5-4.5); Potassium 4.1 mmol/L (3.5-5.1)
[2019-01-04] MEDS ORDERED: Magnesium Replacement Protocol 1 EACH MISC MISCELLANE PRN (05:40)
[2019-01-04] MEDS: LACTATED RINGERS 1,000 ML IV SCH (06:14)
[2019-01-04] MEDS: MAGNESIUM SULFATE-D5W PMX 1 GM in DEXTROSE/WATER 1 100ML.BAG IVPB SCH ×2 (06:15→06:59)
[2019-01-04] MEDS: LEVOTHYROXINE 50 MCG TAB PO SCH (06:15)
[2019-01-04] MEDS: FAMOTIDINE 20 MG/2 ML VIAL IV SCH ×2 (08:48→21:20)
[2019-01-04] MEDS: ALVIMOPAN 12 MG CAPSULE PO SCH ×2 (08:49→21:21)
--- NOTE | 2019-01-04 10:18 | P.PN ---
Subjective Progress Note Date: 01/04/19 Principal diagnosis: Colovesical fistula Patient states he feels better today. White blood cell count today is 17.4. He is afebrile. Still with ascites coming through the LITZY drain. Tolerating full liquids. Ostomy is functioning. Urine less cloudy. Objective - Vital Signs Vital signs: Vital Signs Temp 98.2 F 01/04/19 08:00 Pulse 82 01/04/19 08:00 Resp 18 01/04/19 08:00 BP 92/59 01/04/19 08:00 Pulse Ox 96 01/04/19 08:00 Intake & Output 01/03/19 01/04/19 01/04/19 18:59 06:59 18:59 Intake Total 1840 2640 535 Output Total 2610 1995 115 Balance -770 645 420 Weight 107.9 kg 108.4 kg Intake: IV 1840 2640 535 Ampicillin-Sulbactam 3 gm 100 300 In Sodium Chloride 0.9% 100 ml @ 200 mls/hr IVPB Q6HR [facility] Rx#:[id number] D5-0.45% NaCl with KCl 1500 1500 375 20Meq/l 1,000 ml @ 125 mls/hr IV .Q8H [facility] Rx#: [id number] Lactated Ringers 1,000 ml 240 240 60 @ 20 mls/hr IV .Q24H [facility] Rx#:[id number] Magnesium Sulfate-D5w Pmx 100 100 1 gm In Dextrose/Water 1 100ml.bag @ 100 mls/hr IVPB Q1H [facility] Rx#: [id number] Vancomycin 1,750 mg In 500 Sodium Chloride 0.9% 500 ml 500 ml @ 167 mls/hr IVPB Q12H [facility] Rx#: [id number] Output: Drainage 1900 1100 Right Abdomen 1900 1100 Urine 510 895 115 Stool 200 Other: Voiding Method Indwelling Catheter Indwelling Catheter - Exam Abdomen: Soft, distended, ostomy pink and functioning, LITZY drain noted - Labs CBC & Chem 7: 01/04/19 04:11 01/04/19 04:11 Labs: Abnormal Lab Results - Last 24 Hours (Table) 01/04/19 01/04/19 Range/Units 04:11 04:11 WBC 17.4 H (3.8-10.6) k/uL RBC 3.14 L (4.30-5.90) m/uL Hgb 8.1 L (13.0-17.5) gm/dL Hct 27.9 L (39.0-53.0) % MCHC 29.1 L (31.0-37.0) g/dL RDW 17.5 H (11.5-15.5) % Sodium 135 L (137-145) mmol/L Chloride 108 H (98-107) mmol/L Calcium 7.2 L (8.4-10.2) mg/dL Microbiology - Last 24 Hours (Table) 01/01/19 19:44 Blood Culture - Preliminary Blood No Growth after 48 hours 01/03/19 08:37 Urine Culture - Preliminary Urine,Catheterized Assessment and Plan (1) Colovesical fistula Narrative/Plan: Will advance diet tomorrow to soft diet. Keep LITZY drain to suction. Gradually increase activity. Keep Butler catheter for now. Await pathology. Current Visit: Yes Status: Acute Code(s): N32.1 - VESICOINTESTINAL FISTULA SNOMED Code(s): 75818323
--- NOTE | 2019-01-04 10:28 | P.PN ---
Progress Note - Text Progress Note Date: 01/04/19 68-year-old male status post small bowel resection and ileostomy postop day #3, epidural catheter day #4. Patient doing very well VAS 0 out of 10 in severity without movement. No motor sensory deficits, no paresthesias. Currently the ICU and hemodynamic stable. Plan is to remove epidural catheter today weight 2 hours after last subcu heparin dose. Plan was discussed with patient's nurse.
[2019-01-04] MEDS: diphenhydrAMINE 25 MG CAP PO PRN ×2 (12:45→21:21)
--- NOTE | 2019-01-04 13:51 | P.PN ---
Subjective Progress Note Date: 01/04/19 This is a 68-year-old male patient with known history of COPD, history of with a sickle cell carcinoma and the patient is post right nephrectomy that was not proximal to 6 years ago, along with history of coronary artery disease, vitamin D deficiency and complicated diverticulitis with history of colovesicular fistula with severe inflammatory changes in his pelvis. The patient was having problems due to recurrent UTIs and the patient had a CT of the abdomen and pelvis and there was a concern for an underying rectovesicular fistula and cholelithiasis. The patient was taken to the operating room and he underwent an cholecystectomy, small bowel resection and diverting ileostomy. Intraoperative findings showed that the patient had significant inflammation and frozen pelvis and a low AP resection was not possible. Any ileostomy was brought out in the right lower quadrant. The abdomen was irrigated. The LITZY drain was placed and the fascia was closed. The patient was hypothermic at the end of the procedure with a temperature of 3 5 and fluid warmers in bed huggers were provided and ICU consultation was obtained. The patient was extubated in the OR and he was brought up to recovery where he was seen and evaluated. He was found hemodynamically stable and he was on no pressors. He was given nearly 3 liters of the IVF in the OR and he was started on maintenance fluids. In terms of his history of malignancy, the patient is known to have metastatic disease involving the lungs and a mediastinal mass that was diagnosed to be positive for renal cell carcinoma. The patient is currently on immunotherapy through with Dr. Barth. He has also undergone previous thoracentesis for right-sided pleural effusion. He has been under the care of Dr. Barth and Dr. Yusuf on outpatient basis. On 01/02/2019 patient seen in follow-up in the intensive care unit, this postop day 1 status post exploratory laparotomy, laparoscopic cholecystectomy, small bowel resection and creating a diverting ileostomy. Patient is doing well, he is awake and alert, oriented 3, afebrile, room air pulse ox is 98%, patient received a total of 3 L of IV fluids, 2 L Intra-Op, and 1 L in the recovery room, he never did require vasopressor support. No difficulty breathing, his incisional pain is controlled, she remains on the epidural infusion. Lactated Ringer's at a rate of 20 ML per hour. Lung sounds are clear to auscultation, bowel sounds are hypoactive, present, right lower quadrant ileostomy site is intact, stoma is viable. His sinus rhythm on a monitor, with a rate of 62 BPM, blood pressure is 105/58. History of chest x-ray showed increasing right pleural effusion and right lower lobe infiltrate/atelectasis no heart failure. Butler catheter is in place, draining cloudy yellow urine, today's labs have been reviewed, white blood cell count is 11.6, hemoglobin is 7.7, electrolytes and re nal profile are within normal limits. TSH was likely low, and 4.630, urinalysis showed 2+ protein, moderate blood, large loops, greater than 182 white blood cells, WBCs in clumps, and culture has been sent, blood cultures have been sent, terms are in progress. Hemodynamically patient is stable, no specific complaints, he states he thinks there is a bit more swelling in his left testicle than usual. Otherwise doing very well. He is on GI and DVT prophylaxis, he is getting promotility agents form of Reglan, IV antibiotics in the form of Zosyn, Kefzol and vancomycin. On today's evaluation of 01/03/2019 patient is awake and alert. Hemodynamically stable. Incision over the mid abdomen looks dry clean and intact. LITZY drain is draining and has an attached to suction and has put out more than 3 L of ascitic fluid. The patient is afebrile. Nevertheless, he has been advised in the white cell count that needs to be monitored very closely. ID is on the case and the patient and placed on a combination of vancomycin and Unasyn. Urine cultures of the recent onset of the urine output is quite cloudy and purulent. Meanwhile, the patient remains on IV fluids at [facility]. The patient is on no pressors for now. The patient is hemodynamically stable. No altered mentation. No cough sputum production. No chest that is so wheezing. Ileostomy site is functional and there is liquidy material collecting in the collection bag. No abdominal pain. No nausea. No vomiting. No other significant events overnight otherwise for now. He is using incentive spirometer. On 01/04/2019 I'm seeing this patient for a follow-up. Awake and alert. No abdominal pain or distention. The LITZY drain is still bringing out ascitic fluid in the order of 1000 ML's over the past 24 hours. This surgical wound site is dry clean and intact. Ileostomy site is functional. The patient is being advanced to diet low fiber. Meanwhile, he remains on examination of vancomycin and Unasyn. Urine cultures are not resulted yet. He is hemodynamically stable. He is using incentive spirometer. No nausea. No vomiting. No abdominal pain. White cell count is improved compared to yesterday. No other significant events overnight otherwise. He remains on D5 normal saline at the rate of 125 mL an hour. The hemoglobin stable at 8.1. Objective - Vital Signs Vital signs: Vital Signs Temp 98.3 F 01/04/19 12:00 Pulse 88 01/04/19 13:00 Resp 16 01/04/19 13:00 BP 103/62 01/04/19 13:00 Pulse Ox 96 01/04/19 13:00 Intake & Output 01/03/19 01/04/19 01/04/19 18:59 06:59 18:59 Intake Total 1840 2640 1215 Output Total 2610 1995 1030 Balance -770 645 185 Weight 107.9 kg 108.4 kg Intake: IV 1840 2640 1215 Ampicillin-Sulbactam 3 gm 100 300 100 In Sodium Chloride 0.9% 100 ml @ 200 mls/hr IVPB Q6HR [facility] Rx#:[id number] D5-0.45% NaCl with KCl 1500 1500 875 20Meq/l 1,000 ml @ 125 mls/hr IV .Q8H [facility] Rx#: [id number] Lactated Ringers 1,000 ml 240 240 140 @ 20 mls/hr IV .Q24H [facility] Rx#:[id number] Magnesium Sulfate-D5w Pmx 100 100 1 gm In Dextrose/Water 1 100ml.bag @ 100 mls/hr IVPB Q1H [facility] Rx#: [id number] Vancomycin 1,750 mg In 500 Sodium Chloride 0.9% 500 ml 500 ml @ 167 mls/hr IVPB Q12H [facility] Rx#: [id number] Output: Drainage 1900 1100 450 Right Abdomen 1900 1100 450 Urine 510 895 280 Stool 200 300 Other: Voiding Method Indwelling Catheter Indwelling Catheter Indwelling Catheter - Exam GENERAL EXAM: Alert, pleasant, 68-year-old on room air comfortable in no apparent distress. HEAD: Normocephalic/atraumatic. EYES: Normal reaction of pupils, equal size. Conjunctiva pink, sclera white. NOSE: Clear with pink turbinates. THROAT: No erythema or exudates. NECK: No masses, no JVD, no thyroid enlargement, no adenopathy. CHEST: No chest wall deformity. Symmetrical expansion. LUNGS: Equal air entry with no crackles, wheeze, rhonchi or dullness. CVS: Regular rate and rhythm, normal S1 and S2, no gallops, no murmurs, no rubs ABDOMEN: Soft, nontender. No hepatosplenomegaly, normal bowel sounds, no guarding or rigidity. Abdomen is soft, bowel sounds are hypoactive, and abdominal incision clean dry and intact, covered with a surgical dressing, with evidence of old serosanguineous drainage, LITZY drain in the right lower quadrant is intact, compressed draining dilute serous drainage and there has been 1500 mL of serous output from the LITZY drain overnight EXTREMITIES: No clubbing, no edema, no cyanosis, 2+ pulses and upper and lower extremities. No changes consistent with chronic venous stasis involving the lower extremities bilaterally MUSCULOSKELETAL: Muscle strength and tone normal. SPINE: No scoliosis or deformity SKIN: No rashes CENTRAL NERVOUS SYSTEM: Alert and oriented -3. No focal deficits, tone is normal in all 4 extremities. PSYCHIATRIC: Alert and oriented -3. Appropriate affect. Intact judgment and insight. - Labs CBC & Chem 7: 01/04/19 04:11 01/04/19 04:11 Labs: Abnormal Lab Results - Last 24 Hours (Table) 01/04/19 01/04/19 Range/Units 04:11 04:11 WBC 17.4 H (3.8-10.6) k/uL RBC 3.14 L (4.30-5.90) m/uL Hgb 8.1 L (13.0-17.5) gm/dL Hct 27.9 L (39.0-53.0) % MCHC 29.1 L (31.0-37.0) g/dL RDW 17.5 H (11.5-15.5) % Sodium 135 L (137-145) mmol/L Chloride 108 H (98-107) mmol/L Calcium 7.2 L (8.4-10.2) mg/dL Microbiology - Last 24 Hours (Table) 01/03/19 08:37 Urine Culture - Final Urine,Catheterized Elinor sp,not albicans/galbr 01/01/19 19:44 Blood Culture - Preliminary Blood No Growth after 48 hours Assessment and Plan Plan: Assessment 1 complicated diverticulitis with development of a colovesicular fistula, and the patient is status post expiratory laparotomy, laparoscopic cholecystectomy, small bowel resection and diverting ileostomy. The patient continues to have some respite fluid drainage in the LITZY drain. The fluid cytology has been sent through recheck for malignancy. Meanwhile, the abdominal incision looks dry clean and intact. The patient is adequate pain control with epidural Dilaudid. Pain management is per anesthesia. The ileostomy site is functional and the pa tient is tolerating clear liquid diet. The patient is currently postop day #3. 2 metastatic renal cell carcinoma with pulmonary involvement. The patient was receiving immunotherapy on outpatient basis.The most recent CAT scan of the chest that was done on 12/16/2018 showed specific related medicine the right apex measuring 1 x 1.4 that had gotten smaller compared to previous evaluation. There are also 2 areas of thickening along the right pleural margin and lesions measuring 2 x 0.8 cm and this was also smaller compared to the earlier study. The patient also had a small right-sided pleural effusion and a minimal left- sided pleural effusion. The abdomen showed ascites and there was enlargement of the volume of his sigmoid colon overlying the urinary bladder and the possibility of a colovesicular fistula was entertained. 3 COPD 4 coronary artery disease 5 hypothyroidism 6 BPH 7 ex-smoker 8 Chronic normocytic anemia 9 recurrent urine checked infections probably the sedation with colovesicular fistula, cultures indicating enterococcus fecium and E. coli, awaiting follow-up urine cultures and the patient on a combination of antibiotics 10 leukocytosis Plan The patient is doing well. He is still having excessive output from his LITZY drain and I think this is related to ascites and hyperlipidemia. I'm willing to His IV Fluids to 50 ML an Hour. Monitor the Output from the LITZY Drain. Continue Same Antibiotic Coverage. No Signs of Any Hypovolemia. BUN and Creatinine Are within Normal Limits. The Rest of the Electrodes Are All within Normal Limits. I am still awaiting the results of the pleural fluid cytology. Meanwhile, the white cell count is improving. Continue same antibiotic coverage. Continues incentive spirometer. Advance diet. We'll continue to follow.
--- NOTE | 2019-01-04 15:32 | P.PN ---
Subjective 68-year-old gentleman admitted for colovesical fistula underwent x-ray laparotomy laparoscopic cholecystectomy, small bowel resection, dilating ileos gurmeet. Patient has significant inflammation in the colon area because of which patient underwent the ileostomy patient has significant drainage from the surgical wound site about 200 mL per hour. IV fluids are being switched 1 50 mL of D5 normal saline with 20 of potassium chloride to keep up with to light abnormalities from my fluid loss. Patient denied any fever chills abdominal pain patient is well controlled although as per the nursing staff report patient started having the some confusion episodes from encephalopathy due to hospitalization. Patient is presently on Unasyn for gram-negative organisms and patient has enterococcus for which patient on vancomycin this enterococcus resistant to ampicillin. Patient does have some output and gas and the ileostomy which is loose. Patient is a history of renal cell cancer status post right nephrectomy about 6 years ago patient was on immunotherapy and apparently was responding well to chemotherapy. 01/04/2019 Patient is still having significant output from the surgical drain. Patient is presently on IV fluids in the form of D5 normal saline with 20 of K at 1 25 mL per hour along with lactated Ringer's. Constitutional: Denied any fatigue denied any fever. Cardio vascular: denied any chest pain, palpitations Gastrointestinal denied any nausea vomiting Pulmonary: Denied any shortness of breath cough Neurologic denied any new focal deficits All inpatient medications were reviewed and appropriate changes in these medications as dictated in the interval history and assessment and plan. Objective - Vital Signs Vital signs: Vital Signs Temp 98.3 F 01/04/19 12:00 Pulse 78 01/04/19 15:00 Resp 15 01/04/19 15:00 BP 91/54 01/04/19 15:00 Pulse Ox 97 01/04/19 15:00 Intake & Output 01/03/19 01/04/19 01/04/19 18:59 06:59 18:59 Intake Total 1840 2640 1215 Output Total 2610 1994 1030 Balance -770 645 185 Weight 107.9 kg 108.4 kg Intake: IV 1840 2640 1215 Ampicillin-Sulbactam 3 gm 100 300 100 In Sodium Chloride 0.9% 100 ml @ 200 mls/hr IVPB Q6HR [facility] Rx#:[id number] D5-0.45% NaCl with KCl 1500 1500 875 20Meq/l 1,000 ml @ 125 mls/hr IV .Q8H [facility] Rx#: [id number] Lactated Ringers 1,000 ml 240 240 140 @ 20 mls/hr IV .Q24H [facility] Rx#:[id number] Magnesium Sulfate-D5w Pmx 100 100 1 gm In Dextrose/Water 1 100ml.bag @ 100 mls/hr IVPB Q1H [facility] Rx#: [id number] Vancomycin 1,750 mg In 500 Sodium Chloride 0.9% 500 ml 500 ml @ 167 mls/hr IVPB Q12H [facility] Rx#: [id number] Output: Drainage 1900 1100 450 Right Abdomen 1900 1100 450 Urine 510 895 280 Stool 200 300 Other: Voiding Method Indwelling Catheter Indwelling Catheter Indwelling Catheter - Exam PHYSICAL EXAMINATION: GENERAL: The patient is alert and oriented x3, not in any acute distress. Well developed, well nourished. HEENT: Pupils are round and equally reacting to light. EOMI. No scleral icterus. No conjunctival pallor. Normocephalic, atraumatic. No pharyngeal erythema. No thyromegaly. CARDIOVASCULAR: S1 and S2 present. No murmurs, rubs, or gallops. PULMONARY: Chest is clear to auscultation, no wheezing or crackles. ABDOMEN: Soft, ileostomy with some output bowel sounds are present in some areas of the abdomen. MUSCULOSKELETAL: No joint swelling or deformity. EXTREMITIES: No cyanosis, clubbing, or pedal edema. NEUROLOGICAL: Gross neurological examination did not reveal any focal deficits. SKIN: No rashes. - Labs CBC & Chem 7: 01/04/19 04:11 01/04/19 04:11 Labs: Abnormal Lab Results - Last 24 Hours (Table) 01/04/19 01/04/19 Range/Units 04:11 04:11 WBC 17.4 H (3.8-10.6) k/uL RBC 3.14 L (4.30-5.90) m/uL Hgb 8.1 L (13.0-17.5) gm/dL Hct 27.9 L (39.0-53.0) % MCHC 29.1 L (31.0-37.0) g/dL RDW 17.5 H (11.5-15.5) % Sodium 135 L (137-145) mmol/L Chloride 108 H (98-107) mmol/L Calcium 7.2 L (8.4-10.2) mg/dL Microbiology - Last 24 Hours (Table) 01/03/19 08:37 Urine Culture - Final Urine,Catheterized Elinor sp,not albicans/galbr 01/01/19 19:44 Blood Culture - Preliminary Blood No Growth after 48 hours Assessment and Plan Plan: -Complicated diverticulitis with colonic was cyclic fistula status post surgical repair with ileostomy as mentioned above significant output the from the surgical site area because of which patient's IV fluid changes as mentioned above. Patient grew enterococcus because of which patient is on vancomycin and the patient is also on Unasyn to cover and aerobic organisms. Patient does have urinary tract infection secondary to colovesical fistula -Metabolic Encephalopathy and delirium secondary to hospitalization. We'll try to use nonpharmacological measures and if needed patient will be started on antipsychotic medications, either Haldol or Seroquel at nighttime and avoid benzodiazepines, barbiturates. -COPD without any acute exacerbation -Renal cell cancer was on immunotherapy -Hypothyroidism -Benign prostatic hypertrophic
[2019-01-04] MEDS: PIPERACILLIN-TAZOBACTAM 3.375 GM in SODIUM CHLORIDE 0.9% 100 ML IVPB SCH (16:07)
--- NOTE | 2019-01-04 16:27 | PN ---
PROGRESS NOTE DATE OF SERVICE: 01/04/2019 REASON FOR FOLLOWUP: Complicated sigmoid diverticulitis, colovesical fistula, leukocytosis. INTERVAL HISTORY: The patient is currently afebrile. The patient did mention he had a little bit more food for his lunch and woke up after a nap with lower abdominal pain, describing it to be more of a dull aching to colicky, 5 to 6 out of 10. Now no nausea, no vomiting. Did not have any output in his ileostomy bag. PHYSICAL EXAMINATION: Blood pressure is 114/69 with a pulse of 72, temperature 98.3. He is 97% on room air. General description is an elderly male up in the chair in no distress. RESPIRATORY SYSTEM: Unlabored breathing. Clear to auscultation anteriorly. HEART: S1, S2. Regular rate and rhythm. ABDOMEN: Soft. Mildly distended. No guarding or rigidity. LABS: Hemoglobin 8.1, white count slightly down to 17.4, BUN of 14, creatinine 1.13. Urine with oumar species, not albicans or glabrata. DIAGNOSTIC IMPRESSION AND PLAN: Patient with complicated sigmoid diverticulitis, colovesical fistula. Patient is status post laparotomy with diverting ileostomy and cholecystectomy. Patient's cultures so far did not grow any resistant pathogen. Now with more abdominal pain. We will discontinue the Unasyn and vancomycin. We will start the patient on Zosyn 3.375 mg q.8 hours and continue with Diflucan. If abdominal pain persists, he may benefit from repeat CT scan. Continue with supportive care. MMODL / IJN: [id number] /
[2019-01-04] MEDS: QUEtiapine 25 MG TAB PO SCH (21:21)
[2019-01-05] MEDS: HEPARIN SODIUM,PORCINE 5,000 UNIT/ML 1 ML VIAL SQ SCH ×3 (00:03→16:45)
[2019-01-05] MEDS: PIPERACILLIN-TAZOBACTAM 3.375 GM in SODIUM CHLORIDE 0.9% 100 ML IVPB SCH ×3 (00:25→16:45)
[2019-01-05] MEDS: diphenhydrAMINE 25 MG CAP PO PRN ×2 (03:08→21:22)
[2019-01-05 05:21] LABS: Anisocytosis Slight; Basophils % (A) 0 %; Eosinophils # (A) 0.2 k/uL (0-0.7); Eosinophils % (A) 1 %; HCT 26.3 % (39.0-53.0); Hypochromasia Moderate; Lymphocytes # (A) 2.2 k/uL (1.0-4.8); Lymphocytes % (A) 9 %; MCH 26.5 pg (25.0-35.0); MCHC 30.5 g/dL (31.0-37.0); MCV 86.7 fL (80.0-100.0); Mean Platelet Volume 7.1; Monocytes % (A) 4 %; Neutrophils # (A) 20.9 k/uL (1.3-7.7); Neutrophils % (A) 85 %; Platelet Count 232 k/uL (150-450); RBC 3.03 m/uL (4.30-5.90); RDW 17.7 % (11.5-15.5); WBC 24.5 k/uL (3.8-10.6)
[2019-01-05 05:32] LABS: Calcium 6.9 mg/dL (8.4-10.2); Magnesium 2.1 mg/dL (1.6-2.3); Phosphorus 3.4 mg/dL (2.5-4.5); Potassium 4.2 mmol/L (3.5-5.1)
--- NOTE | 2019-01-05 06:12 | XR ---
EXAMINATION TYPE: XR chest 1V portable DATE OF EXAM: 01/05/2019 HISTORY: SOB. REFERENCE: Previous study dated 01/01/2019. FINDINGS: The left subclavian catheter remains in place. Its tip is in the superior vena cava. There is a Mediport in place via a right subclavian approach. Its tip is also on this superior vena cava. There is worsening bibasilar airspace disease. There are small, bilateral effusions, greater on the r ight than the left. The heart is not enlarged. IMPRESSION: WORSENING BIBASILAR AIRSPACE DISEASE AND SMALL, BILATERAL EFFUSIONS.
[2019-01-05] MEDS: LEVOTHYROXINE 50 MCG TAB PO SCH (06:51)
[2019-01-05] MEDS ORDERED: FLUCONAZOLE IN NACL,ISO-OSM 100 MG in SALINE 1 50ML.BAG IVPB SCH (09:00)
[2019-01-05] MEDS: ALVIMOPAN 12 MG CAPSULE PO SCH ×2 (09:03→21:22)
[2019-01-05] MEDS: FAMOTIDINE 20 MG/2 ML VIAL IV SCH ×2 (09:03→21:25)
--- NOTE | 2019-01-05 10:07 | P.PN ---
Subjective Progress Note Date: 01/05/19 Principal diagnosis: Colovesical fistula Patient states he feels all right today. He is tolerating his diet. Had some mild nausea after solid foods but that is improved. T-max 99.6. White blood cell count increased at 24.5. Patient still having ascitic drainage from the LITZY site and also his trocar entrance sites. Some serous drainage from the midline incision as well. Ileostomy continues to function. Cytology from the peritoneal fluid is negative. Pathology from the recent surgery is pending however. Objective - Vital Signs Vital signs: Vital Signs Temp 98.2 F 01/05/19 08:00 Pulse 72 01/05/19 09:00 Resp 16 01/05/19 09:00 BP 90/50 01/05/19 09:00 Pulse Ox 97 01/05/19 09:00 Intake & Output 01/04/19 01/05/19 01/05/19 18:59 06:59 18:59 Intake Total 1775 1000 450 Output Total 1800 575 940 Balance -25 425 -490 Weight 109.7 kg Intake: IV 1775 700 450 Ampicillin-Sulbactam 3 gm 100 In Sodium Chloride 0.9% 100 ml @ 200 mls/hr IVPB Q6HR [facility] Rx#:[id number] D5-0.45% NaCl with KCl 875 20Meq/l 1,000 ml @ 125 mls/hr IV .Q8H [facility] Rx#: [id number] D5-0.9% NaCl with KCl 20 400 600 300 Meq/l 1,000 ml @ 125 mls/ hr IV .Q8H [facility] Rx#: [id number] Fluconazole in NaCl,Iso- 50 Osm 100 mg In Saline 1 50ml.bag @ 50 mls/hr IVPB DAILY [facility] Rx#:[id number] Lactated Ringers 1,000 ml 200 @ 20 mls/hr IV .Q24H [facility] Rx#:[id number] Magnesium Sulfate-D5w Pmx 100 1 gm In Dextrose/Water 1 100ml.bag @ 100 mls/hr IVPB Q1H [facility] Rx#: [id number] Piperacillin-Tazobactam 3 100 100 100 .375 gm In Sodium Chloride 0.9% 100 ml @ 25 mls/hr IVPB Q8HR [facility] Rx# :[id number] Oral 300 Output: Drainage 1015 700 Right ABD Lap Site 15 200 Right Abdomen 1000 500 Urine 485 375 240 Stool 300 200 Other: Voiding Method Indwelling Catheter Indwelling Catheter Indwelling Catheter - Exam Abdomen: Soft, mild distention, serous drainage noted from trocar entrance site and LITZY drain, minimal tenderness, ileostomy functioning - Labs CBC & Chem 7: 01/05/19 04:29 01/05/19 04:29 Labs: Abnormal Lab Results - Last 24 Hours (Table) 01/05/19 01/05/19 01/05/19 Range/Units 04:29 04:29 04:29 WBC 24.5 H (3.8-10.6) k/uL RBC 3.03 L (4.30-5.90) m/uL Hgb 8.0 L (13.0-17.5) gm/dL Hct 26.3 L (39.0-53.0) % MCHC 30.5 L (31.0-37.0) g/dL RDW 17.7 H (11.5-15.5) % Neutrophils # 20.9 H (1.3-7.7) k/uL Sodium 135 L (137-145) mmol/L Chloride 109 H (98-107) mmol/L Carbon Dioxide 21 L (22-30) mmol/L Creatinine 1.49 H (0.66-1.25) mg/dL Glucose 107 H (74-99) mg/dL Calcium 6.9 L (8.4-10.2) mg/dL Albumin 1.4 L (3.5-5.0) g/dL Microbiology - Last 24 Hours (Table) 01/01/19 19:44 Blood Culture - Preliminary Blood No Growth after 72 hours 01/03/19 08:37 Urine Culture - Final Urine,Catheterized Elinor sp,not albicans/galbr Assessment and Plan (1) Colovesical fistula Narrative/Plan: Continue diet as ordered. Gradually increase activity. Consult oncology regarding history of renal cell cancer. Hopefully with improving nutrition and antibiotics for colovesical fistula the patient's ascitic drainage will improved. Possibility of this pain related to peritoneal malignancy remains despite recent negative cytology. Current Visit: Yes Status: Acute Code(s): N32.1 - VESICOINTESTINAL FISTULA SNOMED Code(s): 77616467
[2019-01-05] MEDS: ALBUTEROL NEBULIZED 2.5 MG/3 ML INHALATION PRN (11:31)
--- NOTE | 2019-01-05 11:32 | P.PN ---
Subjective Progress Note Date: 01/05/19 This is a 68-year-old male patient with known history of COPD, history of with a sickle cell carcinoma and the patient is post right nephrectomy that was not proximal to 6 years ago, along with history of coronary artery disease, vitamin D deficiency and complicated diverticulitis with history of colovesicular fistula with severe inflammatory changes in his pelvis. The patient was having problems due to recurrent UTIs and the patient had a CT of the abdomen and pelvis and there was a concern for an underying rectovesicular fistula and cholelithiasis. The patient was taken to the operating room and he underwent an cholecystectomy, small bowel resection and diverting ileostomy. Intraoperative findings showed that the patient had significant inflammation and frozen pelvis and a low AP resection was not possible. Any ileostomy was brought out in the right lower quadrant. The abdomen was irrigated. The LITZY drain was placed and the fascia was closed. The patient was hypothermic at the end of the procedure with a temperature of 3 5 and fluid warmers in bed huggers were provided and ICU consultation was obtained. The patient was extubated in the OR and he was brought up to recovery where he was seen and evaluated. He was found hemodynamically stable and he was on no pressors. He was given nearly 3 liters of the IVF in the OR and he was started on maintenance fluids. In terms of his history of malignancy, the patient is known to have metastatic disease involving the lungs and a mediastinal mass that was diagnosed to be positive for renal cell carcinoma. The patient is currently on immunotherapy through with Dr. Barth. He has also undergone previous thoracentesis for right-sided pleural effusion. He has been under the care of Dr. Barth and Dr. Yusuf on outpatient basis. On 01/02/2019 patient seen in follow-up in the intensive care unit, this postop day 1 status post exploratory laparotomy, laparoscopic cholecystectomy, small bowel resection and creating a diverting ileostomy. Patient is doing well, he is awake and alert, oriented 3, afebrile, room air pulse ox is 98%, patient received a total of 3 L of IV fluids, 2 L Intra-Op, and 1 L in the recovery room, he never did require vasopressor support. No difficulty breathing, his incisional pain is controlled, she remains on the epidural infusion. Lactated Ringer's at a rate of 20 ML per hour. Lung sounds are clear to auscultation, bowel sounds are hypoactive, present, right lower quadrant ileostomy site is intact, stoma is viable. His sinus rhythm on a monitor, with a rate of 62 BPM, blood pressure is 105/58. History of chest x-ray showed increasing right pleural effusion and right lower lobe infiltrate/atelectasis no heart failure. Butler catheter is in place, draining cloudy yellow urine, today's labs have been reviewed, white blood cell count is 11.6, hemoglobin is 7.7, electrolytes and re nal profile are within normal limits. TSH was likely low, and 4.630, urinalysis showed 2+ protein, moderate blood, large loops, greater than 182 white blood cells, WBCs in clumps, and culture has been sent, blood cultures have been sent, terms are in progress. Hemodynamically patient is stable, no specific complaints, he states he thinks there is a bit more swelling in his left testicle than usual. Otherwise doing very well. He is on GI and DVT prophylaxis, he is getting promotility agents form of Reglan, IV antibiotics in the form of Zosyn, Kefzol and vancomycin. On today's evaluation of 01/03/2019 patient is awake and alert. Hemodynamically stable. Incision over the mid abdomen looks dry clean and intact. LITZY drain is draining and has an attached to suction and has put out more than 3 L of ascitic fluid. The patient is afebrile. Nevertheless, he has been advised in the white cell count that needs to be monitored very closely. ID is on the case and the patient and placed on a combination of vancomycin and Unasyn. Urine cultures of the recent onset of the urine output is quite cloudy and purulent. Meanwhile, the patient remains on IV fluids at [facility]. The patient is on no pressors for now. The patient is hemodynamically stable. No altered mentation. No cough sputum production. No chest that is so wheezing. Ileostomy site is functional and there is liquidy material collecting in the collection bag. No abdominal pain. No nausea. No vomiting. No other significant events overnight otherwise for now. He is using incentive spirometer. On 01/04/2019 I'm seeing this patient for a follow-up. Awake and alert. No abdominal pain or distention. The LITZY drain is still bringing out ascitic fluid in the order of 1000 ML's over the past 24 hours. This surgical wound site is dry clean and intact. Ileostomy site is functional. The patient is being advanced to diet low fiber. Meanwhile, he remains on examination of vancomycin and Unasyn. Urine cultures are not resulted yet. He is hemodynamically stable. He is using incentive spirometer. No nausea. No vomiting. No abdominal pain. White cell count is improved compared to yesterday. No other significant events overnight otherwise. He remains on D5 normal saline at the rate of 125 mL an hour. The hemoglobin stable at 8.1. On 01/05/2019 the patient is being seen in follow-up. His appetite is d iminished on today's evaluation. He still having excess amount of drainage mainly ascitic fluid is being drained from the LITZY drain. Also laparoscopy ports draining ascitic fluid and the total amount of fluid is estimated to be approximately liters. The patient is afebrile. Urine is still dirty and cloudy and the cultures came back positive for Elinor. The white cell count is on the rise. Diflucan will be added today considering an underlying urine infection which is essentially fungal in nature. To my understanding, the fistula still intact and the patient was given only a diverting ileostomy. It was also noted that the creatinine is on the rise. He had a bout of atrial fibrillation yesterday and currently his rhythm is back to sinus. Afebrile. Still on IV Zosyn. Ileostomy is functional. He'll be restarted back on D5 normal state rate of 1 25 mL an hour. Serum bilirubin is down to 1.4. He may benefit also from TPN for nutritional support. Objective - Vital Signs Vital signs: Vital Signs Temp 98.2 F 01/05/19 08:00 Pulse 72 01/05/19 09:00 Resp 16 01/05/19 09:00 BP 90/50 01/05/19 09:00 Pulse Ox 97 01/05/19 09:00 Intake & Output 01/04/19 01/05/19 01/05/19 18:59 06:59 18:59 Intake Total 1775 1000 575 Output Total 2662 272 1929 Balance -25 425 -790 Weight 109.7 kg Intake: IV 1775 700 575 Ampicillin-Sulbactam 3 gm 100 In Sodium Chloride 0.9% 100 ml @ 200 mls/hr IVPB Q6HR [facility] Rx#:[id number] D5-0.45% NaCl with KCl 875 20Meq/l 1,000 ml @ 125 mls/hr IV .Q8H [facility] Rx#: [id number] D5-0.9% NaCl with KCl 20 400 600 425 Meq/l 1,000 ml @ 125 mls/ hr IV .Q8H [facility] Rx#: [id number] Fluconazole in NaCl,Iso- 50 Osm 100 mg In Saline 1 50ml.bag @ 50 mls/hr IVPB DAILY [facility] Rx#:[id number] Lactated Ringers 1,000 ml 200 @ 20 mls/hr IV .Q24H [facility] Rx#:[id number] Magnesium Sulfate-D5w Pmx 100 1 gm In Dextrose/Water 1 100ml.bag @ 100 mls/hr IVPB Q1H [facility] Rx#: [id number] Piperacillin-Tazobactam 3 100 100 100 .375 gm In Sodium Chloride 0.9% 100 ml @ 25 mls/hr IVPB Q8HR [facility] Rx# :[id number] Oral 300 Output: Drainage 1015 750 Right ABD Lap Site 15 250 Right Abdomen 1000 500 Urine 485 375 315 Stool 300 200 300 Other: Voiding Method Indwelling Catheter Indwelling Catheter Indwelling Catheter - Exam GENERAL EXAM: Alert, pleasant, 68-year-old on room air comfortable in no apparent distress. HEAD: Normocephalic/atraumatic. EYES: Normal reaction of pupils, equal size. Conjunctiva pink, sclera white. NOSE: Clear with pink turbinates. THROAT: No erythema or exudates. NECK: No masses, no JVD, no thyroid enlargement, no adenopathy. CHEST: No chest wall deformity. Symmetrical expansion. LUNGS: Equal air entry with no crackles, wheeze, rhonchi or dullness. CVS: Regular rate and rhythm, normal S1 and S2, no gallops, no murmurs, no rubs ABDOMEN: Soft, nontender. No hepatosplenomegaly, normal bowel sounds, no guarding or rigidity. Abdomen is soft, bowel sounds are hypoactive, and abdominal incision clean dry and intact, covered with a surgical dressing, with evidence of old serosanguineous drainage, LITZY drain in the right lower quadrant is intact, compressed draining dilute serous drainage and there has been 1000 mL of serous output from the LITZY drain overnight, the laparoscopy ports are also draining ascitic fluid. EXTREMITIES: No clubbing, no edema, no cyanosis, 2+ pulses and upper and lower extremities. No changes consistent with chronic venous stasis involving the lower extremities bilaterally MUSCULOSKELETAL: Muscle strength and tone normal. SPINE: No scoliosis or deformity SKIN: No rashes CENTRAL NERVOUS SYSTEM: Alert and oriented -3. No focal deficits, tone is normal in all 4 extremities. PSYCHIATRIC: Alert and oriented -3. Appropriate affect. Intact judgment and insight. - Labs CBC & Chem 7: 01/05/19 04:29 01/05/19 04:29 Labs: Abnormal Lab Results - Last 24 Hours (Table) 01/05/19 01/05/19 01/05/19 Range/Units 04:29 04: 04:29 WBC 24.5 H (3.8-10.6) k/uL RBC 3.03 L (4.30-5.90) m/uL Hgb 8.0 L (13.0-17.5) gm/dL Hct 26.3 L (39.0-53.0) % MCHC 30.5 L (31.0-37.0) g/dL RDW 17.7 H (11.5-15.5) % Neutrophils # 20.9 H (1.3-7.7) k/uL Sodium 135 L (137-145) mmol/L Chloride 109 H (98-107) mmol/L Carbon Dioxide 21 L (22-30) mmol/L Creatinine 1.49 H (0.66-1.25) mg/dL Glucose 107 H (74-99) mg/dL Calcium 6.9 L (8.4-10.2) mg/dL Albumin 1.4 L (3.5-5.0) g/dL Microbiology - Last 24 Hours (Table) 01/01/19 19:44 Blood Culture - Preliminary Blood No Growth after 72 hours 01/03/19 08:37 Urine Culture - Final Urine,Catheterized Elinor sp,not albicans/galbr Assessment and Plan Plan: Assessment 1 complicated diverticulitis with development of a colovesicular fistula, and the patient is status post expiratory laparotomy, laparoscopic cholecystectomy, small bowel resection and diverting ileostomy. The patient continues to have some respite fluid drainage in the LITZY drain. The fluid cytology has been sent through recheck for malignancy. Meanwhile, the abdominal incision looks dry clean and intact. The ileostomy site is functional and the patient is tolerating clear liquid diet. The patient is currently postop day #4. Epidural catheter was removed yesterday and the patient has adequate pain control. Activation for now as the significant amount of ascitic fluid is being drained from the LITZY drain and the various laparoscopy ports. The fluid is order of 1 L over the past 24 hours. The patient is hypoproteinemic. Fluid has been sent for cytology considering the possibility of a intra-abdominal malignancy. 2 metastatic renal cell carcinoma with pulmonary involvement. The patient was receiving immunotherapy on outpatient basis.The most recent CAT scan of the chest that was done on 12/16/2018 showed specific related medicine the right apex measuring 1 x 1.4 that had gotten smaller compared to previous evaluation. There are also 2 areas of thickening along the right pleural margin and lesions measuring 2 x 0.8 cm and this was also smaller compared to the earlier study. The patient also had a small right-sided pleural effusion and a minimal left- sided pleural effusion. The abdomen showed ascites and there was enlargement of the volume of his sigmoid colon overlying the urinary bladder and the possibility of a colovesicular fistula was entertained. The patient underwent July ileostomy. Unable to repair The fistula as the patient had a frozen pelvis. 3 COPD 4 coronary artery disease 5 hypothyroidism 6 BPH 7 ex-smoker 8 Chronic normocytic anemia 9 recurrent urine infections probably the sedation with colovesicular fistula, cultures indicating enterococcus fecium and E. coli, awaiting follow-up urine cultures showing Elinor. 10 leukocytosis, white cell count is on the rise 11 acute kidney injury Plan Restart IV fluids at 1 25 mL an hour. The patient is severely hypoproteinemic. Obtain dietary consultation for TPN. This should improve the patient's nutritional status and severe hypoproteinemia. Awaiting ascitic fluid cultures. Initiate Diflucan for fungal urinary tract infection. The patient's urine output is cloudy and turbid and this is probably related to the ongoing output from the fistula. The patient is hemodynamically stable. The patient developed acute kidney injury. We will monitor the white cell count and the kidney function. Surgeries on the case. We'll continue to follow make further recommendations based on his progress.
[2019-01-05] MEDS: D5-0.9% NACL WITH KCL 20 MEQ/L 1,000 ML IV SCH ×2 (12:17→22:13)
--- NOTE | 2019-01-05 14:27 | P.PN ---
Subjective 68-year-old gentleman admitted for colovesical fistula underwent x-ray laparotomy laparoscopic cholecystectomy, small bowel resection, dilating ileos gurmeet. Patient has significant inflammation in the colon area because of which patient underwent the ileostomy patient has significant drainage from the surgical wound site about 200 mL per hour. IV fluids are being switched 1 50 mL of D5 normal saline with 20 of potassium chloride to keep up with to light abnormalities from my fluid loss. Patient denied any fever chills abdominal pain patient is well controlled although as per the nursing staff report patient started having the some confusion episodes from encephalopathy due to hospitalization. Patient is presently on Unasyn for gram-negative organisms and patient has enterococcus for which patient on vancomycin this enterococcus resistant to ampicillin. Patient does have some output and gas and the ileostomy which is loose. Patient is a history of renal cell cancer status post right nephrectomy about 6 years ago patient was on immunotherapy and apparently was responding well to chemotherapy. 01/04/2019 Patient is still having significant output from the surgical drain. Patient is presently on IV fluids in the form of D5 normal saline with 20 of K at 1 25 mL per hour along with lactated Ringer's. 01/05/2019 Patient has worsening renal failure as he is unable to keep up with the output from the ileostomy as well as the wound site. Patient is on D5 normal saline at 100 mL/h I will add the lactated Ringer's as well and nephrology will be consulted. Patient has candidate in the urine most of the times his oumar in the urine is nonspecific and doesn't need to be treated and secondary to IV antibiotics is receiving that is Unasyn and vancomycin .Although patient was started on Diflucan at this time Constitutional: Denied any fatigue denied any fever. Cardio vascular: denied any chest pain, palpitations Gastrointestinal denied any nausea vomiting Pulmonary: Denied any shortness of breath cough Neurologic denied any new focal deficits All inpatient medications were reviewed and appropriate changes in these me dications as dictated in the interval history and assessment and plan. Objective - Vital Signs Vital signs: Vital Signs Temp 98.2 F 01/05/19 08:00 Pulse 70 01/05/19 13:00 Resp 16 01/05/19 13:00 BP 98/77 01/05/19 13:00 Pulse Ox 98 01/05/19 13:00 Intake & Output 01/04/19 01/05/19 01/05/19 18:59 06:59 18:59 Intake Total 1775 1000 950 Output Total 1174 851 4845 Balance -25 425 -860 Weight 109.7 kg Intake: IV 1775 700 950 Ampicillin-Sulbactam 3 gm 100 In Sodium Chloride 0.9% 100 ml @ 200 mls/hr IVPB Q6HR [facility] Rx#:[id number] D5-0.45% NaCl with KCl 875 20Meq/l 1,000 ml @ 125 mls/hr IV .Q8H [facility] Rx#: [id number] D5-0.9% NaCl with KCl 20 400 600 800 Meq/l 1,000 ml @ 125 mls/ hr IV .Q8H [facility] Rx#: [id number] Fluconazole in NaCl,Iso- 50 Osm 100 mg In Saline 1 50ml.bag @ 50 mls/hr IVPB DAILY [facility] Rx#:[id number] Lactated Ringers 1,000 ml 200 @ 20 mls/hr IV .Q24H [facility] Rx#:[id number] Magnesium Sulfate-D5w Pmx 100 1 gm In Dextrose/Water 1 100ml.bag @ 100 mls/hr IVPB Q1H [facility] Rx#: [id number] Piperacillin-Tazobactam 3 100 100 100 .375 gm In Sodium Chloride 0.9% 100 ml @ 25 mls/hr IVPB Q8HR [facility] Rx# :[id number] Oral 300 Output: Drainage 1015 1065 Right ABD Lap Site 15 265 Right Abdomen 1000 800 Urine 485 375 445 Stool 300 200 300 Other: Voiding Method Indwelling Catheter Indwelling Catheter Indwelling Catheter - Exam PHYSICAL EXAMINATION: GENERAL: The patient is alert and oriented x3, not in any acute distress. Well developed, well nourished. HEENT: Pupils are round and equally reacting to light. EOMI. No scleral icterus. No conjunctival pallor. Normocephalic, atraumatic. No pharyngeal erythema. No thyromegaly. CARDIOVASCULAR: S1 and S2 present. No murmurs, rubs, or gallops. PULMONARY: Chest is clear to auscultation, no wheezing or crackles. ABDOMEN: Soft, ileostomy with some output bowel sounds are present in some areas of the abdomen. MUSCULOSKELETAL: No joint swelling or deformity. EXTREMITIES: No cyanosis, clubbing, or pedal edema. NEUROLOGICAL: Gross neurological examination did not reveal any focal deficits. SKIN: No rashes. - Labs CBC & Chem 7: 01/05/19 04:29 01/05/19 04:29 Labs: Abnormal Lab Results - Last 24 Hours (Table) 01/05/19 01/05/19 01/05/19 Range/Units 04:29 04:29 04:29 WBC 24.5 H (3.8-10.6) k/uL RBC 3.03 L (4.30-5.90) m/uL Hgb 8.0 L (13.0-17.5) gm/dL Hct 26.3 L (39.0-53.0) % MCHC 30.5 L (31.0-37.0) g/dL RDW 17.7 H (11.5-15.5) % Neutrophils # 20.9 H (1.3-7.7) k/uL Sodium 135 L (137-145) mmol/L Chloride 109 H (98-107) mmol/L Carbon Dioxide 21 L (22-30) mmol/L Creatinine 1.49 H (0.66-1.25) mg/dL Glucose 107 H (74-99) mg/dL Calcium 6.9 L (8.4-10.2) mg/dL Albumin 1.4 L (3.5-5.0) g/dL Microbiology - Last 24 Hours (Table) 01/01/19 19:44 Blood Culture - Preliminary Blood No Growth after 72 hours 01/03/19 08:37 Urine Culture - Final Urine,Catheterized Oumar sp,not albicans/galbr Assessment and Plan Plan: -Acute renal failure: Secondary to prerenal azotemia from excess fluid loss from the wound site and ileostomy patient's IV fluids need to be increased and the actually the output from the wound site is going down unfortunately patient has significant swelling of all 4 limbs. Which probably can be dealt with later once his kidney function improves and once his output from wound site in ileostomy goes down. Repeat basic metabolic profile and nephrology was co nsulted. -Candiduria Stefano secondary to antibiotics will not require Diflucan. Complicated diverticulitis status post surgical repair with ileostomy as mentioned above significant output the from the surgical site area because of which patient's IV fluid changes as mentioned above. Patient grew enterococcus because of which patient is on vancomycin and the patient is also on Unasyn to cover and aerobic organisms. Patient does have urinary tract infection secondary to colovesical fistula -Metabolic Encephalopathy and delirium secondary to hospitalization. No issues at this time and avoid benzodiazepines barbiturates opiates -COPD without any acute exacerbation -Renal cell cancer was on immunotherapy -Hypothyroidism -Benign prostatic hypertrophic
--- NOTE | 2019-01-05 14:50 | P.CONS ---
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 CT scan of abdome/pelvis revealed diverticulosis and portal vein thrombosis, he was started on Lovenox Bid which he continues to tolerate. The patient was found to have septecemia > given prolonged IV ABX at home (till Sep 21 2018). Erik reported 30 Lbs derick loss in last 6 months, he is a lifetime non smoker, denies ETOH use. 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 10/10/18: Feels well, loosing weight > stated due to resolving edema. Tolerated Yervoy/Opdivo well without toxicities, pain well controlled. 10/29/18: Feels Ok, stronger, tolrating Vervoy/Opdivo well. 11/07/18-Here for 3rd yervoy/opdivo. Reviewed SE r/t immunotherapy, pt has no persistent or progressive symptoms to report, no questions or concerns. 14 point ROS and immunotherapy checklist is negative 11/26/18 - He has improved since seeing him last week. He was treated with Levaquin x5 days, states symptoms improved but still present, today was last day. No fevers, or subjective fevers. He has lost another 7lbs. This maybe partially contributed to water pill given a few weeks ago, although since off he is continuing to lose weight, despite having an appetite and daughter justifies that he is eating. 12/05/18: C/O dysuria and green drainage, no fever or chills> given 2 courses of antibiotics without benefit, will see Urology tomorrow. Completed 4 cycles of Ipilumimab/Nivolumab. 12/19/18: Started on Opdivo monotherapy Erik presented 4 days ago to [facility] after devloping a Colovesical Fistula related to diverticultis. He presented initially with complaints of Right Upper Quadrant Pain. His CAT scan shows evidence of cholelithiasis and a colovesical fistula. He underwent surgical intervention laparoscopic cholecystectomy and low anterior resection. During the surgical procedure the amount of inflammation found was too great for anastamoisis and ileostomy was made. He is status post recent treatment with immune therapy, therefore Oncology has been consulted for further evaluation. He is sitting up in chair, family at bedside. No acute complaints, despite some mild nausea. LITZY tube still with drainage. Review of Systems A 14 point review of systems assessed and completed and all negative except HPI Past Medical History Past Medical History: Atrial Fibrillation, Cancer, COPD Additional Past Medical History / Comment(s): Metastatic renal carcinoma currently on immunotherapy, right nephrectomy and the patient was diagnosed in 2011 and he underwent a right nephrectomy, history of atrial fibrillation, COPD, coronary artery disease and mild BPH, hypothyroidism History of Any Multi-Drug Resistant Organisms: None Reported Additional Past Surgical History / Comment(s): rt kidney removed in 2011 due to CA, POST LUNG BIOPSY, rt upper chest port Past Anesthesia/Blood Transfusion Reactions: No Reported Reaction Smoking Status: Former smoker (The patient carries approximately [id number] smoking history) - Past Family History Mother Family Medical History: No Reported History Medications and Allergies Home Medications Medication Instructions Recorded Confirmed Type Aspirin [Adult Low Dose Aspirin EC] 81 mg PO DAILY 12/30/18 01/01/19 History Nitrofurantoin Monohyd/M-Cryst 100 mg PO Q12HR 12/30/18 01/01/19 History [Macrobid] Tamsulosin [Flomax] 0.4 mg PO DAILY 12/30/18 01/01/19 History Thyroid,Pork [Keg Raiser Thyroid] 30 mg PO DAILY 12/30/18 01/01/19 History Albuterol Inhaler [Ventolin Hfa 1 - 2 puff INHALATION RT-Q6H PRN 01/04/19 01/04/19 History Inhaler] Allergies Allergy/AdvReac Type Severity Reaction Status Date / Time No Known Allergies Allergy Verified 01/01/19 17:37 Physical Exam Vitals: Vital Signs Temp Pulse Resp BP Pulse Ox 01/05/19 13:00 70 16 98/77 98 01/05/19 12:00 76 21 94/53 94 L 01/05/19 11:43 77 01/05/19 11:34 74 01/05/19 11:00 69 18 100/55 95 01/05/19 10:00 70 19 81/54 97 01/05/19 09:00 72 16 90/50 97 01/05/19 08:00 98.2 F 71 17 92/36 97 01/05/19 07:00 72 18 105/57 96 01/05/19 06:00 68 17 93/59 94 L 01/05/19 05:00 64 14 93/59 95 01/05/19 04:00 98.8 F 69 14 92/53 96 01/05/19 03:00 70 17 83/52 95 01/05/19 02:00 71 18 86/48 96 01/05/19 01:00 70 15 95/54 92 L 01/05/19 00:00 71 17 97/54 94 L 01/04/19 23:06 99.6 F 75 18 97/54 94 L 01/04/19 23:00 77 18 100/52 94 L 01/04/19 22:00 78 17 103/61 97 01/04/19 21:00 83 15 96/60 96 01/04/19 20:00 99.0 F 78 15 117/68 94 L 01/04/19 19:00 98 18 105/69 94 L 01/04/19 18:00 83 16 102/62 99 01/04/19 17:00 82 13 119/68 97 01/04/19 16:00 98.3 F 88 19 117/74 95 01/04/19 15:00 78 15 91/54 97 Intake and Output 01/04/19 01/05/19 01/05/19 22:59 06:59 14:59 Intake Total 615 800 950 Output Total 100 877 9032 Balance -230 350 -860 Intake: IV 615 500 950 D5-0.9% NaCl with KCl 20 475 400 800 Meq/l 1,000 ml @ 125 mls/ hr IV .Q8H [facility] Rx#: [id number] Fluconazole in NaCl,Iso- 50 Osm 100 mg In Saline 1 50ml.bag @ 50 mls/hr IVPB DAILY [facility] Rx#:[id number] Lactated Ringers 1,000 ml 40 @ 20 mls/hr IV .Q24H [facility] Rx#:[id number] Piperacillin-Tazobactam 3 100 100 100 .375 gm In Sodium Chloride 0.9% 100 ml @ 25 mls/hr IVPB Q8HR [facility] Rx# :[id number] Oral 300 Output: Drainage 565 1065 Right ABD Lap Site 15 265 Right Abdomen 550 800 Urine 280 250 445 Stool 200 300 Other: Voiding Method Indwelling Catheter Indwelling Catheter Indwelling Catheter Weight 109.7 kg Gen: Alert and oriented, NAD Head: NC, NT Neck: Supple Mouth: Poor Baseline dentition Lungs: Diminished Bases, No increased effort Abdomen: Evidence of ileostomy with appropriate functioning Heart: Reg, Reg Neuro: No sensory or motor deficits noted Results CBC & Chem 7: 01/05/19 04:29 01/05/19 04:29 Labs: Abnormal Lab Results - Last 24 Hours (Table) 01/05/19 01/05/19 01/05/19 Range/Units 04:29 04:29 04:29 WBC 24.5 H (3.8-10.6) k/uL RBC 3.03 L (4.30-5.90) m/uL Hgb 8.0 L (13.0-17.5) gm/dL Hct 26.3 L (39.0-53.0) % MCHC 30.5 L (31.0-37.0) g/dL RDW 17.7 H (11.5-15.5) % Neutrophils # 20.9 H (1.3-7.7) k/uL Sodium 135 L (137-145) mmol/L Chloride 109 H (98-107) mmol/L Carbon Dioxide 21 L (22-30) mmol/L Creatinine 1.49 H (0.66-1.25) mg/dL Glucose 107 H (74-99) mg/dL Calcium 6.9 L (8.4-10.2) mg/dL Albumin 1.4 L (3.5-5.0) g/dL Microbiology - Last 24 Hours (Table) 01/01/19 19:44 Blood Culture - Preliminary Blood No Growth after 72 hours 01/03/19 08:37 Urine Culture - Final Urine,Catheterized Oumar sp,not albicans/galbr CT scan - abdomen: report reviewed CT scan - pelvis: report reviewed Assessment and Plan (1) Clear cell adenocarcinoma of kidney Current Visit: Yes Status: Acute Code(s): C64.9 - MALIGNANT NEOPLASM OF UNSP KIDNEY, EXCEPT RENAL PELVIS SNOMED Code(s): 50689058 (2) Cholelithiasis with acute cholecystitis Current Visit: Yes Status: Acute Code(s): K80.00 - CALCULUS OF GALLBLADDER W ACUTE CHOLECYST W/O OBSTRUCTION SNOMED Code(s): 69716062 (3) Colovesical fistula Current Visit: Yes Status: Acute Code(s): N32.1 - VESICOINTESTINAL FISTULA SNOMED Code(s): 03728020 Plan: Assessment and Recommendations: Cholecystitis Status Post Lap Grecia, with Low Anterior resection: - Requiring Ileostomy for extent of inflammatory changes - Possible etiology related to Inflammatory effects of immune therapy Diverticulitis with Colovesicular Fistula Renal Cell Carcinoma with Clear Cell Carcinoma of the Right Kidney: - Original Diagnosis 2014 status Post Nephrectomy - Recurrent and metastatic pathology confirmed to Lung in September 2018 - Status Post 4 cycles of Yervoy and Opdivo, then single agent opdivo - Currently hold Immune therapy Opdivo for possible immune related inflammatory effects Leukocytosis: Reactive likely secondary to Cholecystitis and post operative: - Monitor closely for post operative infections - Zosyn on board Urinary Tract Infection: - Positive for Oumar, Diflucan Ordered Normocytic Anemia: - Monitor CBC - Transfusion support less than 7, no intervention needed today Moderate Protein Calorie Malnutrition: - Per Primary and ICU Hypocalcemia: - Decreased Nutritional needs and/or active infections. - Monitor thyroid as Hypothyroid changes related to immune therapy have been identified in patient Plan: - With recent treatment of immune therapy for his metastatic recurrent cancer differential of inflammatory changes related to therapy must be considered. Have discussed with surgery and pulmonary and will add a short term treatment of steroid, solu-medrol 60mgq8, PPI as well. Will re-evaluate at 3-4 days to assess for post-operative healing time and inflammatory improvements - Of note oumar was identified on culture, would continue anti-fungals during and after steroid treatment course - Continue to hold Immune therapy treatment until patients recovery and out- patient re-assessment with Dr. Lary Sauceda [facility] Physician Attest: I have completed the full history and physical, devloped the complete impression and plan, and agree with above dictation by Deb Sauceda NP. Dictated as a scribe.
[2019-01-05] MEDS: methylPREDNISolone SOD SUCCI 125 MG/2 ML VIAL IV SCH (16:45)
[2019-01-05] MEDS ORDERED: ANIDULAFUNGIN 200 MG in SODIUM CHLORIDE 0.9% 200 ML IVPB ONE (18:06)
[2019-01-05] MEDS: QUEtiapine 25 MG TAB PO SCH (21:25)
--- NOTE | 2019-01-05 21:43 | PN ---
PROGRESS NOTE DATE OF SERVICE: 01/05/2019. REASON FOR FOLLOWUP: Complicated sigmoid diverticulitis with colovesical fistula and elevated white count. INTERVAL HISTORY: The patient is currently afebrile. The patient has been breathing comfortably. The patient did have a problem with abdominal pain yesterday. However, this seemed to have improved. Has been tolerating a regular diet. Denies having any chest pain. No shortness of breath or cough. PHYSICAL EXAMINATION: Blood pressure 113/73 with a pulse of 61, temperature 98.2. He is 98% on room air. General description is an elderly male lying in bed in no distress. Respiratory system: Unlabored breathing with decreased breath sounds at the bases. No wheeze. Heart S1, S2. Regular rate and rhythm. Abdomen is soft, no tenderness. No guarding. No rigidity. Extremities: No edema of the feet. LABS: Hemoglobin 8 with white count 4.5, BUN of 17, creatinine 1.49. Urine with Elinor . Blood culture has been negative. DIAGNOSTIC IMPRESSION AND PLAN: Patient with complicated sigmoid diverticulitis with colovesical fistula. This patient is status post laparotomy, status post cholecystectomy and diverting ileostomy. The patient white count did improve slightly yesterday. However, did have up trend today. We will switch over his antifungals to . Continue with Zosyn. Monitor his white count closely. Continue supportive care. MMODL / IJN: [id number] /
[2019-01-06] MEDS: HEPARIN SODIUM,PORCINE 5,000 UNIT/ML 1 ML VIAL SQ SCH ×3 (00:42→15:20)
[2019-01-06] MEDS: PIPERACILLIN-TAZOBACTAM 3.375 GM in SODIUM CHLORIDE 0.9% 100 ML IVPB SCH ×3 (00:42→15:20)
[2019-01-06] MEDS: methylPREDNISolone SOD SUCCI 125 MG/2 ML VIAL IV SCH ×3 (00:43→15:19)
[2019-01-06 04:54] LABS: Anisocytosis Slight; Basophils % (A) 0 %; Eosinophils % (A) 0 %; HCT 28.1 % (39.0-53.0); HGB 8.4 gm/dL (13.0-17.5); Hypochromasia Moderate; Lymphocytes % (A) 4 %; MCHC 29.8 g/dL (31.0-37.0); MCV 87.1 fL (80.0-100.0); Mean Platelet Volume 7.2; Monocytes # (A) 0.3 k/uL (0-1.0); Monocytes % (A) 1 %; Neutrophils # (A) 20.8 k/uL (1.3-7.7); Neutrophils % (A) 94 %; Platelet Count 264 k/uL (150-450); RBC 3.22 m/uL (4.30-5.90); RDW 17.9 % (11.5-15.5); WBC 22.1 k/uL (3.8-10.6)
[2019-01-06 05:04] LABS: Calcium 7.4 mg/dL (8.4-10.2); Potassium 4.9 mmol/L (3.5-5.1)
[2019-01-06] MEDS: D5-0.9% NACL WITH KCL 20 MEQ/L 1,000 ML IV SCH (06:51)
[2019-01-06] MEDS: LEVOTHYROXINE 50 MCG TAB PO SCH (06:52)
[2019-01-06] MEDS: ALVIMOPAN 12 MG CAPSULE PO SCH ×2 (09:51→21:55)
[2019-01-06] MEDS: FAMOTIDINE 20 MG/2 ML VIAL IV SCH (09:51)
[2019-01-06] MEDS: PANTOPRAZOLE 40 MG/10 ML VIAL IVP SCH (09:52)
[2019-01-06] MEDS: ANIDULAFUNGIN 100 MG in SODIUM CHLORIDE 0.9% 100 ML IVPB SCH (10:21)
[2019-01-06] MEDS: DEXTROSE 5%-0.9% NACL 1,000 ML IV SCH ×2 (10:22→17:24)
--- NOTE | 2019-01-06 10:34 | P.PN ---
Subjective Progress Note Date: 01/06/19 Principal diagnosis: Colovesicular fistula, status post exploratory laparotomy laparoscopic cholecystectomy with small bowel resection and diverting ileostomy This is a 68-year-old male patient with known history of COPD, history of with a sickle cell carcinoma and the patient is post right nephrectomy that was not proximal to 6 years ago, along with history of coronary artery disease, vitamin D deficiency and complicated diverticulitis with history of colovesicular fistula with severe inflammatory changes in his pelvis. The patient was having problems due to recurrent UTIs and the patient had a CT of the abdomen and pelvis and there was a concern for an underying rectovesicular fistula and cholelithiasis. The patient was taken to the operating room and he underwent an cholecystectomy, small bowel resection and diverting ileostomy. Intraoperative findings showed that the patient had significant inflammation and frozen pelvis and a low AP resection was not possible. Any ileostomy was brought out in the right lower quadrant. The abdomen was irrigated. The LITZY drain was placed and the fascia was closed. The patient was hypothermic at the end of the procedure with a temperature of 3 5 and fluid warmers in bed huggers were provided and ICU consultation was obtained. The patient was extubated in the OR and he was brought up to recovery where he was seen and evaluated. He was found hemodynamically stable and he was on no pressors. He was given nearly 3 liters of the IVF in the OR and he was started on maintenance fluids. In terms of his history of malignancy, the patient is known to have metastatic disease involving the lungs and a mediastinal mass that was diagnosed to be positive for renal cell carcinoma. The patient is currently on immunotherapy through with Dr. Barth. He has also undergone previous thoracentesis for right-sided pleural effusion. He has been under the care of Dr. Barth and Dr. Yusuf on outpatient basis. Patient was seen on follow-up in the ICU on 01/06/2019, patient is sitting at a bedside chair, comfortable, in no distress. Continues to have significant draining tubes including LITZY drain which is draining significant amount of fluid cytology so far is negative. Continues to have cloudy urine and cultures were p ositive for Elinor. Patient also has a diverticular ileostomy which seems to be functional. Remains on antibiotics, antifungal treatment, his IV fluid is still at 1 25 mL/h using D5 0.9 normal saline. Patient is being considered for possible TPN. WBC count is elevated at 22.1 hemoglobin is 8.4. Electrolytes are normal renal profile is abnormal with a BUN of 17 and creatinine is 1.41 slightly improved compared to yesterday. Antibiotics nj patient remains on Zosyn, and he is also on Eraxis. Patient denies any pain, denies any shortness of breath, no cough, no wheezing. Chest x-ray from yesterday showed worsening bibasilardisease and small bilateral effusions. Objective - Vital Signs Vital signs: Vital Signs Temp 96.6 F L 01/06/19 08:00 Pulse 63 01/06/19 10:00 Resp 15 01/06/19 10:00 BP 119/62 01/06/19 10:00 Pulse Ox 98 01/06/19 10:00 Intake & Output 01/05/19 01/06/19 01/06/19 18:59 06:59 18:59 Intake Total 1675 1600 475 Output Total 2950 1830 2380 Balance -1275 -230 -1905 Weight 111.6 kg Intake: IV 1675 1600 475 D5-0.9% NaCl with KCl 20 1425 1500 375 Meq/l 1,000 ml @ 125 mls/ hr IV .Q8H [facility] Rx#: [id number] Fluconazole in NaCl,Iso- 50 Osm 100 mg In Saline 1 50ml.bag @ 50 mls/hr IVPB DAILY [facility] Rx#:[id number] Piperacillin-Tazobactam 3 200 100 100 .375 gm In Sodium Chloride 0.9% 100 ml @ 25 mls/hr IVPB Q8HR [facility] Rx# :[id number] Output: Drainage 6183 346 0053 Right ABD Lap Site 275 165 600 Right Abdomen 1100 1250 Urine 675 1165 230 Stool 900 500 300 Other: Voiding Method Indwelling Catheter Indwelling Catheter Indwelling Catheter - Exam GENERAL EXAM: Revealed a pleasant 68-year-old in no distress.. HEAD: Normocephalic/atraumatic. EENT: PERRLA, EOMI, no icterus, dry mucous membranes, no neck masses, no JVD, no stridor. No thyromegaly. CHEST: No chest wall deformity. Symmetrical expansion. LUNGS: Diminished breath sound bilaterally crackles at the bases especially at the right base. CVS: Regular rate and rhythm, normal S1 and S2, no gallops, no murmurs, no rubs ABDOMEN: Soft, nontender. No hepatosplenomegaly, normal bowel sounds, no guarding or rigidity. Abdomen is soft, bowel sounds are hypoactive, and abdominal incision clean dry and intact, covered with a surgical dressing, serosanguineous drainage, LITZY drain in the right lower quadrant is intact, compressed draining dilute serous drainage.ports are also draining ascitic fluid. EXTREMITIES: No clubbing, no edema, no cyanosis, 2+ pulses and upper and lower extremities. No changes consistent with chronic venous stasis involving the lower extremities bilaterally MUSCULOSKELETAL: Muscle strength and tone normal CENTRAL NERVOUS SYSTEM: Alert and oriented -3. No focal deficits, tone is normal in all 4 extremities. PSYCHIATRIC: Alert and oriented -3. Appropriate affect. Intact judgment and insight. Skin: No rashes. - Labs CBC & Chem 7: 01/06/19 04:03 01/06/19 04:03 Labs: Abnormal Lab Results - Last 24 Hours (Table) 01/06/19 01/06/19 Range/Units 04:03 04:03 WBC 22.1 H (3.8-10.6) k/uL RBC 3.22 L (4.30-5.90) m/uL Hgb 8.4 L (13.0-17.5) gm/dL Hct 28.1 L (39.0-53.0) % MCHC 29.8 L (31.0-37.0) g/dL RDW 17.9 H (11.5-15.5) % Neutrophils # 20.8 H (1.3-7.7) k/uL Chloride 111 H (98-107) mmol/L Creatinine 1.41 H (0.66-1.25) mg/dL Glucose 181 H (74-99) mg/dL Calcium 7.4 L (8.4-10.2) mg/dL Microbiology - Last 24 Hours (Table) 01/01/19 19:44 Blood Culture - Preliminary Blood No Growth after 96 hours Assessment and Plan Assessment: Impression: 1 complicated colovesicular fistula, status post exploratory laparotomy laparoscopic cholecystectomy small bowel resection and diverting ileostomy. Patient had a frozen pelvis based on the operative report. 2 history of metastatic renal cell carcinoma, remains on immunotherapy. 3 chronic obstructive pulmonary disease relatively stable 4 hypothyroidism 5 chronic normocytic anemia 6 recurrent urinary tract infection secondary to fistula 7 acute kidney injury 8 ex-smoker 9 history of benign prostatic hypertrophy 10 coronary artery disease. Recommendation: Continue present treatment plan including IV fluids, consider, start TPN, reviewed the cytology from the ascites fluid, negative for malignancy. Continue antibiotics in the form of Zosyn, continue antifungal therapy overall prognostic picture is very poor, I will discuss with the surgeons about future plans regarding his fistula, doubt if surgery could be performed at this point considering his pelvis was frozen and all the tissues were stuck together. We'll continue to monitor in the ICU. Continue GI and DVT prophylaxis, continue to follow closely. Again prognosis is extremely poor and guarded Time with Patient: Less than 30
--- NOTE | 2019-01-06 11:14 | P.PN ---
<ChingMarta Magdaleno - Last Filed: 01/06/19 11:11> Subjective Progress Note Date: 01/06/19 CHIEF COMPLAINT: colovesicular fistula, gallstones HISTORY OF PRESENT ILLNESS: 68-year-old male who underwent laparoscopic cholecystectomy, small bowel resection, and diverting ileostomy. POD #5. Patient is examined in the ICU siting in the chair. He reports his pain is tolerable at this time. Tolerating diet. Denies nausea or vomiting. Increased protein intake recommended. LITZY to suction with 1300cc drainage overnight. ileostomy with 600cc overnight. Butler intact with yellow urine-less cloudy today. Right lower quadrant surgical site also connected to drainage bag with serous drainage noted. WBC 22.1. PHYSICAL EXAM: VITAL SIGNS: Reviewed. GENERAL: Well-developed in no acute distress. HEENT: No sclera icterus. Extraocular movements grossly intact. Moist buccal mucosa. Head is atraumatic, normocephalic. ABDOMEN: Soft. Nondistended. LITZY drain intact with serous drainage connected to suction. Ileostomy noted with brown liquid stool. Right lower quadrant surgical site connected to drainage bag with serous drainage. NEUROLOGIC: Alert and oriented. Cranial nerves II through XII grossly intact. ASSESSMENT: 1. Colovesicular fistula and cholelithiasis, status post laparoscopic cholecystectomy, small bowel resection and diverting ileostomy 2. 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 Continue current diet. Encouraged increase protein intake. 2. Activity as tolerated. Encouraged patient to ambulate in the halls today. PT/OT on consult 3. Incentive spirometry 4. Continue LITZY to suction 5. Continue urinary catheter. Accurate I&O 6. Await pathology 7. Steroids started per oncology. Oncology will re-assess in 3-4 days per their documentation. 8. Further recommendations pending patient course Nurse practitioner note has been reviewed by physician. Signing provider agrees with the documented findings, assessment, and plan of care. Objective - Vital Signs Vital signs: Vital Signs Temp 96.6 F L 01/06/19 08:00 Pulse 63 01/06/19 10:00 Resp 15 01/06/19 10:00 BP 119/62 01/06/19 10:00 Pulse Ox 98 01/06/19 10:00 Intake & Output 01/05/19 01/06/19 01/06/19 18:59 06:59 18:59 Intake Total 1675 1600 475 Output Total 2950 1830 2380 Balance -1275 -230 -1905 Weight 111.6 kg Intake: IV 1675 1600 475 D5-0.9% NaCl with KCl 20 1425 1500 375 Meq/l 1,000 ml @ 125 mls/ hr IV .Q8H [facility] Rx#: [id number] Fluconazole in NaCl,Iso- 50 Osm 100 mg In Saline 1 50ml.bag @ 50 mls/hr IVPB DAILY [facility] Rx#:[id number] Piperacillin-Tazobactam 3 200 100 100 .375 gm In Sodium Chloride 0.9% 100 ml @ 25 mls/hr IVPB Q8HR [facility] Rx# :[id number] Output: Drainage 6264 538 5230 Right ABD Lap Site 275 165 600 Right Abdomen 1100 1250 Urine 675 1165 230 Stool 900 500 300 Other: Voiding Method Indwelling Catheter Indwelling Catheter Indwelling Catheter - Labs CBC & Chem 7: 01/06/19 04:03 01/06/19 04:03 Labs: Abnormal Lab Results - Last 24 Hours (Table) 01/06/19 01/06/19 Range/Units 04:03 04:03 WBC 22.1 H (3.8-10.6) k/uL RBC 3.22 L (4.30-5.90) m/uL Hgb 8.4 L (13.0-17.5) gm/dL Hct 28.1 L (39.0-53.0) % MCHC 29.8 L (31.0-37.0) g/dL RDW 17.9 H (11.5-15.5) % Neutrophils # 20.8 H (1.3-7.7) k/uL Chloride 111 H (98-107) mmol/L Creatinine 1.41 H (0.66-1.25) mg/dL Glucose 181 H (74-99) mg/dL Calcium 7.4 L (8.4-10.2) mg/dL Microbiology - Last 24 Hours (Table) 01/01/19 19:44 Blood Culture - Preliminary Blood No Growth after 96 hours <Bertrand Anderson - Last Filed: 01/06/19 17:00> Subjective As above. Patient feels better than yesterday. Drainage and swelling seem improved. Tolerating diet with increased appetite. Agree with oncology plans at this time. Await final pathology. Objective - Vital Signs Vital signs: Vital Signs Temp 97.4 F L 01/06/19 16:00 Pulse 56 L 01/06/19 16:00 Resp 15 01/06/19 16:00 BP 121/75 01/06/19 16:00 Pulse Ox 96 01/06/19 16:00 Intake & Output 01/05/19 01/06/19 01/06/19 18:59 06:59 18:59 Intake Total 1675 1600 1425 Output Total 2950 1830 3580 Balance -1275 -230 -2155 Weight 111.6 kg 111.6 kg Intake: IV 1675 1600 1425 Anidulafungin 100 mg In 100 Sodium Chloride 0.9% 100 ml @ 84 mls/hr IVPB DAILY [facility] Rx#:[id number] D5-0.9% NaCl with KCl 20 1425 1500 375 Meq/l 1,000 ml @ 125 mls/ hr IV .Q8H [facility] Rx#: [id number] Dextrose 5%-0.9% NaCl 1, 750 000 ml @ 125 mls/hr IV . Q8H [facility] Rx#:[id number] Fluconazole in NaCl,Iso- 50 Osm 100 mg In Saline 1 50ml.bag @ 50 mls/hr IVPB DAILY [facility] Rx#:[id number] Piperacillin-Tazobactam 3 200 100 200 .375 gm In Sodium Chloride 0.9% 100 ml @ 25 mls/hr IVPB Q8HR [facility] Rx# :[id number] Output: Drainage 5962 934 7120 Right ABD Lap Site 275 165 50 Right Abdomen 1100 1750 Urine 675 1165 880 Stool 900 500 900 Other: Voiding Method Indwelling Catheter Indwelling Catheter Indwelling Catheter - Labs CBC & Chem 7: 01/06/19 04:03 01/06/19 04:03 Labs: Abnormal Lab Results - Last 24 Hours (Table) 01/06/19 01/06/19 01/06/19 Range/Units 04:03 04:03 11:53 WBC 22.1 H (3.8-10.6) k/uL RBC 3.22 L (4.30-5.90) m/uL Hgb 8.4 L (13.0-17.5) gm/dL Hct 28.1 L (39.0-53.0) % MCHC 29.8 L (31.0-37.0) g/dL RDW 17.9 H (11.5-15.5) % Neutrophils # 20.8 H (1.3-7.7) k/uL Chloride 111 H (98-107) mmol/L Creatinine 1.41 H (0.66-1.25) mg/dL Glucose 181 H (74-99) mg/dL POC Glucose (mg/dL) 227 H (75-99) mg/dL Calcium 7.4 L (8.4-10.2) mg/dL Microbiology - Last 24 Hours (Table) 01/01/19 19:44 Blood Culture - Preliminary Blood No Growth after 96 hours Assessment and Plan (1) Colovesical fistula Current Visit: Yes Status: Acute Code(s): N32.1 - VESICOINTESTINAL FISTULA SNOMED Code(s): 46451779
--- NOTE | 2019-01-06 11:17 | P.PN ---
Subjective Patient sitting in chair at bedside continues with drain to abdomen. Has functional ileostomy bag. Patient complains of pain to scrotum with edema. Patient continues on consultation with pulmonology and oncology Objective - Vital Signs Vital signs: Vital Signs Temp 96.6 F L 01/06/19 08:00 Pulse 63 01/06/19 10:00 Resp 15 01/06/19 10:00 BP 119/62 01/06/19 10:00 Pulse Ox 98 01/06/19 10:00 Intake & Output 01/05/19 01/06/19 01/06/19 18:59 06:59 18:59 Intake Total 1675 1600 475 Output Total 2950 1830 2380 Balance -1275 -230 -1905 Weight 111.6 kg Intake: IV 1675 1600 475 D5-0.9% NaCl with KCl 20 1425 1500 375 Meq/l 1,000 ml @ 125 mls/ hr IV .Q8H [facility] Rx#: [id number] Fluconazole in NaCl,Iso- 50 Osm 100 mg In Saline 1 50ml.bag @ 50 mls/hr IVPB DAILY [facility] Rx#:[id number] Piperacillin-Tazobactam 3 200 100 100 .375 gm In Sodium Chloride 0.9% 100 ml @ 25 mls/hr IVPB Q8HR [facility] Rx# :[id number] Output: Drainage 9868 251 2328 Right ABD Lap Site 275 165 600 Right Abdomen 1100 1250 Urine 675 1165 230 Stool 900 500 300 Other: Voiding Method Indwelling Catheter Indwelling Catheter Indwelling Catheter - Constitutional General appearance: Present: mild distress - EENT Eyes: Present: PERRLA Ears: bilateral: normal - Respiratory Respiratory: bilateral: CTA - Cardiovascular Rhythm: regular - Gastrointestinal General gastrointestinal: Present: distended, soft - Genitourinary Male genitourinary: scrotal edema - Integumentary Integumentary: Present: normal - Neurologic Neurologic: Present: CNII-XII intact - Musculoskeletal Musculoskeletal: Present: generalized weakness - Psychiatric Psychiatric: Present: A&O x's 3, appropriate affect, intact judgment & insight - Labs CBC & Chem 7: 01/06/19 04:03 01/06/19 04:03 Labs: Abnormal Lab Results - Last 24 Hours (Table) 01/06/19 01/06/19 Range/Units 04:03 04:03 WBC 22.1 H (3.8-10.6) k/uL RBC 3.22 L (4.30-5.90) m/uL Hgb 8.4 L (13.0-17.5) gm/dL Hct 28.1 L (39.0-53.0) % MCHC 29.8 L (31.0-37.0) g/dL RDW 17.9 H (11.5-15.5) % Neutrophils # 20.8 H (1.3-7.7) k/uL Chloride 111 H (98-107) mmol/L Creatinine 1.41 H (0.66-1.25) mg/dL Glucose 181 H (74-99) mg/dL Calcium 7.4 L (8.4-10.2) mg/dL Microbiology - Last 24 Hours (Table) 01/01/19 19:44 Blood Culture - Preliminary Blood No Growth after 96 hours - Imaging and Cardiology Chest x-ray: report reviewed Assessment and Plan Plan: Assessment Complicated diverticulitis postsurgical pain or with ileostomy Urinary tract infection secondary to colovesical fistula Anemia chronic disease Acute renal failure secondary to prerenal azotemia excessive fluid loss Elinor infection into urine Metabolic encephalopathy with delirium secondary hospitalization COPD stable History of renal cell carcinoma with nephrectomy Hypothyroidism BPH Lap carlos Scrotal edema Plan Continue consultation with pulmonology oncology surgery has requested consultation from us Recommend evaluation by urology for scrotal edema Patient continues on Zosyn and antifungal
--- NOTE | 2019-01-06 11:34 | P.PN ---
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 VSS, up in chair no acute distress. He continues to heal post operatively Objective - Vital Signs Vital signs: Vital Signs Temp 96.6 F L 01/06/19 08:00 Pulse 63 01/06/19 10:00 Resp 15 01/06/19 10:00 BP 119/62 01/06/19 10:00 Pulse Ox 98 01/06/19 10:00 Intake & Output 01/05/19 01/06/19 01/06/19 18:59 06:59 18:59 Intake Total 1675 1600 475 Output Total 2950 1830 2380 Balance -1275 -230 -1905 Weight 111.6 kg Intake: IV 1675 1600 475 D5-0.9% NaCl with KCl 20 1425 1500 375 Meq/l 1,000 ml @ 125 mls/ hr IV .Q8H [facility] Rx#: [id number] Fluconazole in NaCl,Iso- 50 Osm 100 mg In Saline 1 50ml.bag @ 50 mls/hr IVPB DAILY [facility] Rx#:[id number] Piperacillin-Tazobactam 3 200 100 100 .375 gm In Sodium Chloride 0.9% 100 ml @ 25 mls/hr IVPB Q8HR [facility] Rx# :[id number] Output: Drainage 4692 864 6817 Right ABD Lap Site 275 165 600 Right Abdomen 1100 1250 Urine 675 1165 230 Stool 900 500 300 Other: Voiding Method Indwelling Catheter Indwelling Catheter Indwelling Catheter - Exam Gen: Alert and oriented, NAD Head: NC, NT Neck: Supple Mouth: Poor Baseline dentition Lungs: Diminished Bases, No increased effort Abdomen: Evidence of ileostomy with appropriate functioning Heart: Reg, Reg LITZY Drain copious drainage Butler catheter output Dark and cloudy Neuro: No sensory or motor deficits noted Ext: Upper and Lower Edema Bilateral - Labs CBC & Chem 7: 01/07/19 05:45 01/07/19 05:45 Labs: Abnormal Lab Results - Last 24 Hours (Table) 01/06/19 01/06/19 Range/Units 04:03 04:03 WBC 22.1 H (3.8-10.6) k/uL RBC 3.22 L (4.30-5.90) m/uL Hgb 8.4 L (13.0-17.5) gm/dL Hct 28.1 L (39.0-53.0) % MCHC 29.8 L (31.0-37.0) g/dL RDW 17.9 H (11.5-15.5) % Neutrophils # 20.8 H (1.3-7.7) k/uL Chloride 111 H (98-107) mmol/L Creatinine 1.41 H (0.66-1.25) mg/dL Glucose 181 H (74-99) mg/dL Calcium 7.4 L (8.4-10.2) mg/dL Microbiology - Last 24 Hours (Table) 01/01/19 19:44 Blood Culture - Preliminary Blood No Growth after 96 hours Assessment and Plan (1) Clear cell adenocarcinoma of kidney Current Visit: Yes Status: Acute Code(s): C64.9 - MALIGNANT NEOPLASM OF UNSP KIDNEY, EXCEPT RENAL PELVIS SNOMED Code(s): 87124085 (2) Cholelithiasis with acute cholecystitis Current Visit: Yes Status: Acute Code(s): K80.00 - CALCULUS OF GALLBLADDER W ACUTE CHOLECYST W/O OBSTRUCTION SNOMED Code(s): 64174969 (3) Colovesical fistula Current Visit: Yes Status: Acute Code(s): N32.1 - VESICOINTESTINAL FISTULA SNOMED Code(s): 79719205 Plan: Assessment and Recommendations: Cholecystitis Status Post Lap Grecia, with Low Anterior resection: - Requiring Ileostomy for extent of inflammatory changes - Possible etiology related to Inflammatory effects of immune therapy - Continue Day 2 of Solu-Medrol 60mg q8, PPI for inflammatory changes likely related to immune therapy Diverticulitis with Colovesicular Fistula Acute Renal Insufficency Prerenal Azotemia: Nephrology is following Renal Cell Carcinoma with Clear Cell Carcinoma of the Right Kidney: - Original Diagnosis 2014 status Post Nephrectomy - Recurrent and metastatic pathology confirmed to Lung in September 2018 - Status Post 4 cycles of Yervoy and Opdivo, then single agent opdivo - Currently hold Immune therapy Opdivo for possible immune related inflammatory effects Leukocytosis: Reactive likely secondary to Cholecystitis and post operative: - Monitor closely for post operative infections - Zosyn on board Urinary Tract Infection: - Positive for Elinor, Diflucan Ordered Normocytic Anemia: - Monitor CBC - Transfusion support less than 7, no intervention needed today Moderate Protein Calorie Malnutrition: - Per Primary and ICU - Last Albumin 1.4, patient continues with worsening third spacing and extravascular fluid, upper and lower extremities, and scrotal edema. - Consideration of TPN or other form of nutritional support is supported from oncology point of view. Defer to ICU/Primary Team Hypocalcemia: - Decreased Nutritional needs and/or active infections. - Monitor thyroid as Hypothyroid changes related to immune therapy have been identified in patient Plan: - Nutritional Support likley beneficial considering worsening overall fluid shift, renal function, and edema (upper, lower ext and scrotal) - Continue to hold immune therapy for renal cell carcinoma - Continue on Day three of Solu medrol for inflammatory changes related to immune therapy, cont PPI - Please check CMP in am, hepatic function monitoring on steroids, Recheck Albumin levels for worsening nutritional protein decline Deb Sauceda AOELADIAP
[2019-01-06 12:04] LABS: Glucose,Whole Blood 227 mg/dL (75-99)
[2019-01-06] MEDS: INSULIN ASPART (NovoLOG) 100 UNIT/ML VIAL SQ SCH ×3 (12:15→21:35)
[2019-01-06 17:16] LABS: Glucose,Whole Blood 181 mg/dL (75-99)
[2019-01-06 21:17] LABS: Glucose,Whole Blood 181 mg/dL (75-99)
[2019-01-06] MEDS: QUEtiapine 25 MG TAB PO SCH (21:55)
[2019-01-07] MEDS: HEPARIN SODIUM,PORCINE 5,000 UNIT/ML 1 ML VIAL SQ SCH ×3 (00:23→15:27)
[2019-01-07] MEDS: methylPREDNISolone SOD SUCCI 125 MG/2 ML VIAL IV SCH ×3 (00:23→15:27)
[2019-01-07] MEDS: PIPERACILLIN-TAZOBACTAM 3.375 GM in SODIUM CHLORIDE 0.9% 100 ML IVPB SCH ×3 (00:24→15:26)
[2019-01-07] MEDS: DEXTROSE 5%-0.9% NACL 1,000 ML IV SCH ×3 (03:21→17:55)
[2019-01-07 05:57] LABS: Anisocytosis Slight; Basophils % (A) 0 %; Eosinophils # (A) 0.1 k/uL (0-0.7); Eosinophils % (A) 0 %; HCT 25.6 % (39.0-53.0); HGB 7.8 gm/dL (13.0-17.5); Hypochromasia Marked; Lymphocytes # (A) 1.3 k/uL (1.0-4.8); Lymphocytes % (A) 7 %; MCH 27.1 pg (25.0-35.0); MCHC 30.5 g/dL (31.0-37.0); MCV 88.7 fL (80.0-100.0); Mean Platelet Volume 7.5; Monocytes # (A) 0.3 k/uL (0-1.0); Monocytes % (A) 2 %; Neutrophils # (A) 16.1 k/uL (1.3-7.7); Neutrophils % (A) 90 %; Platelet Count 298 k/uL (150-450); RBC 2.88 m/uL (4.30-5.90); RDW 17.2 % (11.5-15.5); WBC 17.8 k/uL (3.8-10.6)
[2019-01-07 06:15] LABS: Calcium 7.6 mg/dL (8.4-10.2)
[2019-01-07] MEDS: LEVOTHYROXINE 50 MCG TAB PO SCH (06:33)
[2019-01-07] MEDS: INSULIN ASPART (NovoLOG) 100 UNIT/ML VIAL SQ SCH ×4 (06:54→21:49)
[2019-01-07 06:59] LABS: Glucose,Whole Blood 163 mg/dL (75-99)
--- NOTE | 2019-01-07 08:05 | CDI ---
Documentation Clarification Form Date: 01/07/2019 7:51:18 AM From: Mala BarrazaKYMBERLY, CCDS Admit Date: 01/01/2019 1:08:00 PM Patient Name: Erik Peters Visit Number: [id number] Discharge Date: ATTENTION: The Clinical Documentation Specialists (CDI) and [facility] Coding Staff appreciate your assistance in clarifying documentation. Please respond to the clarification below the line at the bottom and electronically sign. The CDI & [facility] Coding staff will review the response and follow-up if needed. Please note: Queries are made part of the Legal Health Record. If you have any questions, please contact the author of this message via ITS. Dr. Ave Holman: Per the 01/05 pulmonary progress note: "He had a bout of atrial fibrillation yesterday and currently his rhythm is back to sinus." History/Risk Factors: Atrial fibrillation, Right kidney CA, Testicular CA, Diverticulitis, COPD, CAD, Hypothyroidiism, BPH, Former smoker. Clinical Indicators: Patient was admitted with diverticulitis, cholelithiasis & colovesical fistula. Status post surgery: Laparoscopic cholecystectomy, small bowel resection & ileostomy. VS: HR 68 - 57* - 59* - 88 - 80 - 46* Treatment: IV Kefzol, Heparin sq, IV Decadron, IV Dilaudid, IV lactated ringers @ 20, ,IV Zofran, IV Zosyn, IV Kcl, IV Vanco, IV MagSulf, Albuterol INH, IV Solumedrol. IV Anidulafungin. Cardiology is not consulted on this admission. In your professional opinion, can you please clarify the type of Atrial Fibrillation, if known? Chronic/Permanent Paroxysmal Persistent Other, please specify Unable to determine (Last Revision: December 2017) Paroxysmal atrial fibrillation MTDD
[2019-01-07] MEDS: PANTOPRAZOLE 40 MG/10 ML VIAL IVP SCH (08:15)
[2019-01-07] MEDS: ALVIMOPAN 12 MG CAPSULE PO SCH ×2 (08:15→21:49)
[2019-01-07] MEDS: ANIDULAFUNGIN 100 MG in SODIUM CHLORIDE 0.9% 100 ML IVPB SCH (08:17)
--- NOTE | 2019-01-07 08:32 | PN ---
PROGRESS NOTE DATE OF SERVICE: 01/06/2019 REASON FOR FOLLOWUP: Acute complicated diverticulitis with colovesical fistula. INTERVAL HISTORY: The patient is currently afebrile. The patient is breathing comfortably. The patient denies having any chest pain or cough. His abdominal pain has improved. No nausea, no vomiting. Output from the ileostomy is mostly urine. PHYSICAL EXAMINATION: Blood pressure 126/69 with a pulse of 64, temperature 97.1. He is 98% on room air. General description is an elderly male lying in bed in no distress. RESPIRATORY SYSTEM: Unlabored breathing. Clear to auscultation anteriorly. HEART: S1, S2. Regular rate and rhythm. ABDOMEN: Soft. Mildly distended. Patient's urine is slightly dark, though the LITZY drain itself has mostly clear urine colored fluid. LABS: Hemoglobin 8.4, white count 2.1, BUN of 17, creatinine 1.41. DIAGNOSTIC IMPRESSION AND PLAN: Patient with complicated sigmoid diverticulitis, colovesical fistula, status post diverting colostomy. Urine with oumar species, not albicans or glabrata. At this time the white count has shown a downward trend but still remains elevated. Patient is managed on Zosyn and Butler catheter will be changed. Monitor his clinical course closely. Continue with supportive care. MMODL / IJN: [id number] /
[2019-01-07] MEDS: ALBUTEROL NEBULIZED 2.5 MG/3 ML INHALATION PRN (09:04)
--- NOTE | 2019-01-07 11:07 | P.PN ---
Subjective Patient resting quietly in bed. Patient states he had a lot of abdominal pain last night as he stepped today. Objective - Vital Signs Vital signs: Vital Signs Temp 97.8 F 01/07/19 08:00 Pulse 51 L 01/07/19 10:00 Resp 17 01/07/19 10:00 BP 127/78 01/07/19 10:00 Pulse Ox 97 01/07/19 10:00 Intake & Output 01/06/19 01/07/19 01/07/19 18:59 06:59 18:59 Intake Total 1675 1640.0 850 Output Total 3980 2832 460 Balance -2305 -1192.0 390 Weight 111.6 kg 105.6 kg Intake: IV 1675 1550.0 550 Anidulafungin 100 mg In 100 100 Sodium Chloride 0.9% 100 ml @ 84 mls/hr IVPB DAILY [facility] Rx#:[id number] D5-0.9% NaCl with KCl 20 375 Meq/l 1,000 ml @ 125 mls/ hr IV .Q8H [facility] Rx#: [id number] Dextrose 5%-0.9% NaCl 1, 1000 1500 375 000 ml @ 125 mls/hr IV . Q8H [facility] Rx#:[id number] Piperacillin-Tazobactam 3 200 50.0 75 .375 gm In Sodium Chloride 0.9% 100 ml @ 25 mls/hr IVPB Q8HR [facility] Rx# :[id number] Oral 90 300 Output: Drainage 2100 912 Right ABD Lap Site 50 12 Right Abdomen 2050 900 Urine 980 1270 310 Stool 900 650 150 Other: Voiding Method Indwelling Catheter Indwelling Catheter Indwelling Catheter - Constitutional General appearance: Present: mild distress - EENT Eyes: Present: PERRLA Ears: bilateral: normal - Neck Neck: Present: normal ROM - Respiratory Respiratory: right: wheezing - Cardiovascular Rhythm: regular - Gastrointestinal General gastrointestinal: Present: normal bowel sounds, soft Localized gastrointestinal: tender: diffuse - Integumentary Integumentary: Present: normal - Neurologic Neurologic: Present: CNII-XII intact - Musculoskeletal Musculoskeletal: Present: generalized weakness - Psychiatric Psychiatric: Present: A&O x's 3, appropriate affect, intact judgment & insight - Labs CBC & Chem 7: 01/07/19 05:45 01/07/19 05:45 Labs: Abnormal Lab Results - Last 24 Hours (Table) 01/06/19 01/06/19 01/06/19 Range/Units 11:53 17:04 21:05 WBC (3.8-10.6) k/uL RBC (4.30-5.90) m/uL Hgb (13.0-17.5) gm/dL Hct (39.0-53.0) % MCHC (31.0-37.0) g/dL RDW (11.5-15.5) % Neutrophils # (1.3-7.7) k/uL Chloride (98-107) mmol/L Carbon Dioxide (22-30) mmol/L Glucose (74-99) mg/dL POC Glucose (mg/dL) 227 H 181 H 181 H (75-99) mg/dL Calcium (8.4-10.2) mg/dL 01/07/19 01/07/19 01/07/19 Range/Units 05:45 05:45 06:47 WBC 17.8 H (3.8-10.6) k/uL RBC 2.88 L (4.30-5.90) m/uL Hgb 7.8 L (13.0-17.5) gm/dL Hct 25.6 L (39.0-53.0) % MCHC 30.5 L (31.0-37.0) g/dL RDW 17.2 H (11.5-15.5) % Neutrophils # 16.1 H (1.3-7.7) k/uL Chloride 112 H (98-107) mmol/L Carbon Dioxide 20 L (22-30) mmol/L Glucose 162 H (74-99) mg/dL POC Glucose (mg/dL) 163 H (75-99) mg/dL Calcium 7.6 L (8.4-10.2) mg/dL Microbiology - Last 24 Hours (Table) 01/01/19 19:44 Blood Culture - Preliminary Blood No Growth after 120 hours Assessment and Plan Plan: Assessment Complicated diverticulitis post surgical repair with ileostomy post laparoscopic cholecystectomy Acute renal failure secondary to prerenal azotemia Anemia of chronic disease Elinor in urine on antifungal Metabolic encephalopathy secondary to delirium hospital-induced COPD without acute exacerbation Renal cell carcinoma had immunotherapy nephrectomy Hypothyroidism DTH Scrotal edema Plan Consultation with urology regarding the scrotum Continues with consultation with pulmonology oncology admitted to surgery
--- NOTE | 2019-01-07 11:08 | P.PN ---
Subjective Progress Note Date: 01/07/19 Principal diagnosis: Colovesicular fistula, status post exploratory laparotomy laparoscopic cholecystectomy with small bowel resection and diverting ileostomy This is a 68-year-old male patient with known history of COPD, history of with a sickle cell carcinoma and the patient is post right nephrectomy that was not proximal to 6 years ago, along with history of coronary artery disease, vitamin D deficiency and complicated diverticulitis with history of colovesicular fistula with severe inflammatory changes in his pelvis. The patient was having problems due to recurrent UTIs and the patient had a CT of the abdomen and pelvis and there was a concern for an underying rectovesicular fistula and cholelithiasis. The patient was taken to the operating room and he underwent an cholecystectomy, small bowel resection and diverting ileostomy. Intraoperative findings showed that the patient had significant inflammation and frozen pelvis and a low AP resection was not possible. Any ileostomy was brought out in the right lower quadrant. The abdomen was irrigated. The LITZY drain was placed and the fascia was closed. The patient was hypothermic at the end of the procedure with a temperature of 3 5 and fluid warmers in bed huggers were provided and ICU consultation was obtained. The patient was extubated in the OR and he was brought up to recovery where he was seen and evaluated. He was found hemodynamically stable and he was on no pressors. He was given nearly 3 liters of the IVF in the OR and he was started on maintenance fluids. In terms of his history of malignancy, the patient is known to have metastatic disease involving the lungs and a mediastinal mass that was diagnosed to be positive for renal cell carcinoma. The patient is currently on immunotherapy through with Dr. Barth. He has also undergone previous thoracentesis for right-sided pleural effusion. He has been under the care of Dr. Barth and Dr. Yusuf on outpatient basis. Patient was seen on follow-up in the ICU on 01/06/2019, patient is sitting at a bedside chair, comfortable, in no distress. Continues to have significant draining tubes including LITZY drain which is draining significant amount of fluid cytology so far is negative. Continues to have cloudy urine and cultures were p ositive for Elinor. Patient also has a diverticular ileostomy which seems to be functional. Remains on antibiotics, antifungal treatment, his IV fluid is still at 1 25 mL/h using D5 0.9 normal saline. Patient is being considered for possible TPN. WBC count is elevated at 22.1 hemoglobin is 8.4. Electrolytes are normal renal profile is abnormal with a BUN of 17 and creatinine is 1.41 slightly improved compared to yesterday. Antibiotics nj patient remains on Zosyn, and he is also on Eraxis. Patient denies any pain, denies any shortness of breath, no cough, no wheezing. Chest x-ray from yesterday showed worsening bibasilardisease and small bilateral effusions. Patient was seen on follow-up today on 01/07/2019, no major global climate change researcher the last 24 hours, patient is feeling better, breathing easier, denies any aches or pains. Seems to be quite comfortable, continues to have significant drainage from the different tubes he has his abdomen and continues to have cloudy urine. CBC showed the PEEP cigar 17.8 hemoglobin is 7.8 electrolytes are normal creatinine is improving down to 1.23, serum calcium is 7.6. Medications were all reviewed, patient remains on updrafts, he is also on Eraxis, and on Zosyn. Remains on GI and DVT prophylaxis. He is also on Solu-Medrol, insulin is subcu as per protocol/scale. No chest x-ray was done today. Objective - Vital Signs Vital signs: Vital Signs Temp 97.8 F 01/07/19 08:00 Pulse 51 L 01/07/19 10:00 Resp 17 01/07/19 10:00 BP 127/78 01/07/19 10:00 Pulse Ox 97 01/07/19 10:00 Intake & Output 01/06/19 01/07/19 01/07/19 18:59 06:59 18:59 Intake Total 1675 1640.0 850 Output Total 3980 2832 460 Balance -2305 -1192.0 390 Weight 111.6 kg 105.6 kg Intake: IV 1675 1550.0 550 Anidulafungin 100 mg In 100 100 Sodium Chloride 0.9% 100 ml @ 84 mls/hr IVPB DAILY [facility] Rx#:[id number] D5-0.9% NaCl with KCl 20 375 Meq/l 1,000 ml @ 125 mls/ hr IV .Q8H [facility] Rx#: [id number] Dextrose 5%-0.9% NaCl 1, 1000 1500 375 000 ml @ 125 mls/hr IV . Q8H [facility] Rx#:[id number] Piperacillin-Tazobactam 3 200 50.0 75 .375 gm In Sodium Chloride 0.9% 100 ml @ 25 mls/hr IVPB Q8HR [facility] Rx# :[id number] Oral 90 300 Output: Drainage 2100 912 Right ABD Lap Site 50 12 Right Abdomen 2050 900 Urine 980 1270 310 Stool 900 650 150 Other: Voiding Method Indwelling Catheter Indwelling Catheter Indwelling Catheter - Exam GENERAL EXAM: Revealed a pleasant 68-year-old in no distress.. HEAD: Normocephalic/atraumatic. EENT: PERRLA, EOMI, no icterus, dry mucous membranes, no neck masses, no JVD, no stridor. No thyromegaly. CHEST: No chest wall deformity. Symmetrical expansion. LUNGS: Diminished breath with crackles at the right base, left side is relatively clear. CVS: Regular rate and rhythm, normal S1 and S2, no gallops, no murmurs, no rubs ABDOMEN: Soft, nontender. No hepatosplenomegaly, normal bowel sounds, no guarding or rigidity. Abdomen is soft, bowel sounds are hypoactive, and abdominal incision clean dry and intact, covered with a surgical dressing, serosanguineous drainage, LITZY drain in the right lower quadrant is intact, compressed draining dilute serous drainage.ports are also draining ascitic fluid. EXTREMITIES: No clubbing, no edema, no cyanosis, 2+ pulses and upper and lower extremities. No changes consistent with chronic venous stasis involving the lower extremities bilaterally MUSCULOSKELETAL: Muscle strength and tone normal CENTRAL NERVOUS SYSTEM: Alert and oriented -3. No focal deficits, tone is normal in all 4 extremities. PSYCHIATRIC: Alert and oriented -3. Appropriate affect. Intact judgment and insight. Skin: No rashes. - Labs CBC & Chem 7: 01/07/19 05:45 01/07/19 05:45 Labs: Abnormal Lab Results - Last 24 Hours (Table) 01/06/19 01/06/19 01/06/19 Range/Units 11:53 17:04 21:05 WBC (3.8-10.6) k/uL RBC (4.30-5.90) m/uL Hgb (13.0-17.5) gm/dL Hct (39.0-53.0) % MCHC (31.0-37.0) g/dL RDW (11.5-15.5) % Neutrophils # (1.3-7.7) k/uL Chloride (98-107) mmol/L Carbon Dioxide (22-30) mmol/L Glucose (74-99) mg/dL POC Glucose (mg/dL) 227 H 181 H 181 H (75-99) mg/dL Calcium (8.4-10.2) mg/dL 01/07/19 01/07/19 01/07/19 Range/Units 05:45 05:45 06:47 WBC 17.8 H (3.8-10.6) k/uL RBC 2.88 L (4.30-5.90) m/uL Hgb 7.8 L (13.0-17.5) gm/dL Hct 25.6 L (39.0-53.0) % MCHC 30.5 L (31.0-37.0) g/dL RDW 17.2 H (11.5-15.5) % Neutrophils # 16.1 H (1.3-7.7) k/uL Chloride 112 H (98-107) mmol/L Carbon Dioxide 20 L (22-30) mmol/L Glucose 162 H (74-99) mg/dL POC Glucose (mg/dL) 163 H (75-99) mg/dL Calcium 7.6 L (8.4-10.2) mg/dL Microbiology - Last 24 Hours (Table) 01/01/19 19:44 Blood Culture - Preliminary Blood No Growth after 120 hours Assessment and Plan Assessment: Impression: 1 complicated colovesicular fistula, status post exploratory laparotomy laparoscopic cholecystectomy small bowel resection and diverting ileostomy. Patient had a frozen pelvis based on the operative report. 2 history of metastatic renal cell carcinoma, remains on immunotherapy. 3 chronic obstructive pulmonary disease relatively stable 4 hypothyroidism 5 chronic normocytic anemia 6 recurrent urinary tract infection secondary to fistula 7 acute kidney injury 8 ex-smoker 9 history of benign prostatic hypertrophy 10 coronary artery disease. Recommendation: Continue antibiotics, TPN, IV fluids, GI and DVT prophylaxis, we'll discuss with the surgeon regarding plans for the fistula. We'll continue to monitor the patient in the intensive care unit for the next 24 hours, and if he remains unchanged, we will likely transfer to a regular medical floor or a monitor bed. Good have a remote telemetry. Prognosis remains guarded. Time with Patient: Less than 30
[2019-01-07 11:28] LABS: ALT 16 U/L (21-72); AST 12 U/L (17-59); Albumin 1.8 g/dL (3.5-5.0); Amylase <30 U/L (30-110); Lipase 78 U/L (23-300); Total Bilirubin 0.2 mg/dL (0.2-1.3)
--- NOTE | 2019-01-07 11:35 | P.PN ---
<Marta Ching A - Last Filed: 01/07/19 11:32> Subjective Progress Note Date: 01/07/19 CHIEF COMPLAINT: colovesicular fistula, gallstones HISTORY OF PRESENT ILLNESS: 68-year-old male who underwent laparoscopic cholecystectomy, small bowel resection, and diverting ileostomy. POD #6. Patient is examined in the ICU laying in bed. He reports his pain is tolerable at this time. Tolerating diet. Denies nausea or vomiting. LITZY to suction with 900cc drainage in the last 12 hours and 2950 mL over the last 24 hours per EMR. Ileostomy with brown liquid stool. Right lower quadrant surgical site also connected to drainage bag with serous drainage noted. WBC 17.8. Pathology reveals chronic cholecystitis with cholelithiasis and cholesterolosis. Small bowel diverticula with significant edematous serosal adhesions. One reactive appearing. Enteric lymph node. Negative for features diagnostic of malignant neoplasm. PHYSICAL EXAM: VITAL SIGNS: Reviewed. GENERAL: Well-developed in no acute distress. HEENT: No sclera icterus. Extraocular movements grossly intact. Moist buccal mucosa. Head is atraumatic, normocephalic. ABDOMEN: Soft. Nondistended. LITZY drain intact with serous drainage connected to suction. Ileostomy noted with brown liquid stool. Right lower quadrant surgical site connected to drainage bag with serous drainage. NEUROLOGIC: Alert and oriented. Cranial nerves II through XII grossly intact. ASSESSMENT: 1. Colovesicular fistula and cholelithiasis, status post laparoscopic cholecystectomy, small bowel resection and diverting ileostomy 2. 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 Continue current diet. Encouraged increase protein intake. 2. Activity as tolerated. PT/OT on consult 3. Incentive spirometry 4. Continue LITZY to suction 5. Continue urinary catheter. Accurate I&O 6. Steroids started per oncology. Oncology will re-assess in 3-4 days per their documentation. 7. Further recommendations pending patient course Nurse practitioner note has been reviewed by physician. Signing provider agrees with the documented findings, assessment, and plan of care. Objective - Vital Signs Vital signs: Vital Signs Temp 97.8 F 01/07/19 08:00 Pulse 51 L 01/07/19 10:00 Resp 17 01/07/19 10:00 BP 127/78 01/07/19 10:00 Pulse Ox 97 01/07/19 10:00 Intake & Output 01/06/19 01/07/19 01/07/19 18:59 06:59 18:59 Intake Total 1675 1640.0 850 Output Total 3980 2832 460 Balance -2305 -1192.0 390 Weight 111.6 kg 105.6 kg Intake: IV 1675 1550.0 550 Anidulafungin 100 mg In 100 100 Sodium Chloride 0.9% 100 ml @ 84 mls/hr IVPB DAILY [facility] Rx#:[id number] D5-0.9% NaCl with KCl 20 375 Meq/l 1,000 ml @ 125 mls/ hr IV .Q8H [facility] Rx#: [id number] Dextrose 5%-0.9% NaCl 1, 1000 1500 375 000 ml @ 125 mls/hr IV . Q8H [facility] Rx#:[id number] Piperacillin-Tazobactam 3 200 50.0 75 .375 gm In Sodium Chloride 0.9% 100 ml @ 25 mls/hr IVPB Q8HR [facility] Rx# :[id number] Oral 90 300 Output: Drainage 2100 912 Right ABD Lap Site 50 12 Right Abdomen 2050 900 Urine 980 1270 310 Stool 900 650 150 Other: Voiding Method Indwelling Catheter Indwelling Catheter Indwelling Catheter - Labs CBC & Chem 7: 01/07/19 05:45 01/07/19 05:45 Labs: Abnormal Lab Results - Last 24 Hours (Table) 01/06/19 01/06/19 01/06/19 Range/Units 11:53 17:04 21:05 WBC (3.8-10.6) k/uL RBC (4.30-5.90) m/uL Hgb (13.0-17.5) gm/dL Hct (39.0-53.0) % MCHC (31.0-37.0) g/dL RDW (11.5-15.5) % Neutrophils # (1.3-7.7) k/uL Chloride (98-107) mmol/L Carbon Dioxide (22-30) mmol/L Glucose (74-99) mg/dL POC Glucose (mg/dL) 227 H 181 H 181 H (75-99) mg/dL Calcium (8.4-10.2) mg/dL AST (17-59) U/L ALT (21-72) U/L Albumin (3.5-5.0) g/dL Amylase (30-110) U/L 01/07/19 01/07/19 01/07/19 Range/Units 05:45 05:45 05:45 WBC 17.8 H (3.8-10.6) k/uL RBC 2.88 L (4.30-5.90) m/uL Hgb 7.8 L (13.0-17.5) gm/dL Hct 25.6 L (39.0-53.0) % MCHC 30.5 L (31.0-37.0) g/dL RDW 17.2 H (11.5-15.5) % Neutrophils # 16.1 H (1.3-7.7) k/uL Chloride 112 H (98-107) mmol/L Carbon Dioxide 20 L (22-30) mmol/L Glucose 162 H (74-99) mg/dL POC Glucose (mg/dL) (75-99) mg/dL Calcium 7.6 L (8.4-10.2) mg/dL AST 12 L (17-59) U/L ALT 16 L (21-72) U/L Albumin 1.8 L (3.5-5.0) g/dL Amylase <30 L (30-110) U/L 01/07/19 Range/Units 06:47 WBC (3.8-10.6) k/uL RBC (4.30-5.90) m/uL Hgb (13.0-17.5) gm/dL Hct (39.0-53.0) % MCHC (31.0-37.0) g/dL RDW (11.5-15.5) % Neutrophils # (1.3-7.7) k/uL Chloride (98-107) mmol/L Carbon Dioxide (22-30) mmol/L Glucose (74-99) mg/dL POC Glucose (mg/dL) 163 H (75-99) mg/dL Calcium (8.4-10.2) mg/dL AST (17-59) U/L ALT (21-72) U/L Albumin (3.5-5.0) g/dL Amylase (30-110) U/L Microbiology - Last 24 Hours (Table) 01/01/19 19:44 Blood Culture - Preliminary Blood No Growth after 120 hours <Bertrand Anderson - Last Filed: 01/07/19 18:40> Subjective As above. Patient feels better today. Appetite is about the same. Pathology from recent surgical procedure noted. No evidence of malignancy on those specimens. His LITZY output seems to be about the same all of the patient states is decreasing in amount. Labs noted. Continue diet. Continue steroids per oncology. Objective - Vital Signs Vital signs: Vital Signs Temp 98.2 F 01/07/19 16:00 Pulse 54 L 01/07/19 16:00 Resp 20 01/07/19 16:00 BP 116/74 01/07/19 15:00 Pulse Ox 97 01/07/19 16:00 Intake & Output 01/06/19 01/07/19 01/07/19 18:59 06:59 18:59 Intake Total 1675 1640.0 2050 Output Total 3980 2832 1210 Balance -2305 -1192.0 840 Weight 111.6 kg 105.6 kg Intake: IV 1675 1550.0 1400 Anidulafungin 100 mg In 100 100 Sodium Chloride 0.9% 100 ml @ 84 mls/hr IVPB DAILY [facility] Rx#:[id number] D5-0.9% NaCl with KCl 20 375 Meq/l 1,000 ml @ 125 mls/ hr IV .Q8H [facility] Rx#: [id number] Dextrose 5%-0.9% NaCl 1, 1000 1500 1125 000 ml @ 125 mls/hr IV . Q8H [facility] Rx#:[id number] Piperacillin-Tazobactam 3 200 50.0 175 .375 gm In Sodium Chloride 0.9% 100 ml @ 25 mls/hr IVPB Q8HR [facility] Rx# :[id number] Oral 90 650 Output: Drainage 2100 912 150 Right ABD Lap Site 50 12 Right Abdomen 2050 900 150 Urine 980 1270 910 Stool 900 650 150 Other: Voiding Method Indwelling Catheter Indwelling Catheter Indwelling Catheter - Labs CBC & Chem 7: 01/07/19 05:45 01/07/19 05:45 Labs: Abnormal Lab Results - Last 24 Hours (Table) 01/06/19 01/07/19 01/07/19 Range/Units 21:05 05:45 05:45 WBC 17.8 H (3.8-10.6) k/uL RBC 2.88 L (4.30-5.90) m/uL Hgb 7.8 L (13.0-17.5) gm/dL Hct 25.6 L (39.0-53.0) % MCHC 30.5 L (31.0-37.0) g/dL RDW 17.2 H (11.5-15.5) % Neutrophils # 16.1 H (1.3-7.7) k/uL Chloride 112 H (98-107) mmol/L Carbon Dioxide 20 L (22-30) mmol/L Glucose 162 H (74-99) mg/dL POC Glucose (mg/dL) 181 H (75-99) mg/dL Calcium 7.6 L (8.4-10.2) mg/dL AST (17-59) U/L ALT (21-72) U/L Albumin (3.5-5.0) g/dL Amylase (30-110) U/L 01/07/19 01/07/19 01/07/19 Range/Units 05:45 06:47 11:35 WBC (3.8-10.6) k/uL RBC (4.30-5.90) m/uL Hgb (13.0-17.5) gm/dL Hct (39.0-53.0) % MCHC (31.0-37.0) g/dL RDW (11.5-15.5) % Neutrophils # (1.3-7.7) k/uL Chloride (98-107) mmol/L Carbon Dioxide (22-30) mmol/L Glucose (74-99) mg/dL POC Glucose (mg/dL) 163 H 151 H (75-99) mg/dL Calcium (8.4-10.2) mg/dL AST 12 L (17-59) U/L ALT 16 L (21-72) U/L Albumin 1.8 L (3.5-5.0) g/dL Amylase <30 L (30-110) U/L 01/07/19 Range/Units 17:51 WBC (3.8-10.6) k/uL RBC (4.30-5.90) m/uL Hgb (13.0-17.5) gm/dL Hct (39.0-53.0) % MCHC (31.0-37.0) g/dL RDW (11.5-15.5) % Neutrophils # (1.3-7.7) k/uL Chloride (98-107) mmol/L Carbon Dioxide (22-30) mmol/L Glucose (74-99) mg/dL POC Glucose (mg/dL) 182 H (75-99) mg/dL Calcium (8.4-10.2) mg/dL AST (17-59) U/L ALT (21-72) U/L Albumin (3.5-5.0) g/dL Amylase (30-110) U/L Microbiology - Last 24 Hours (Table) 01/01/19 19:44 Blood Culture - Preliminary Blood No Growth after 120 hours Assessment and Plan (1) Colovesical fistula Current Visit: Yes Status: Acute Code(s): N32.1 - VESICOINTESTINAL FISTULA SNOMED Code(s): 05575555
[2019-01-07 11:47] LABS: Glucose,Whole Blood 151 mg/dL (75-99)
[2019-01-07] MEDS: ACETAMINOPHEN TAB 325 MG TAB PO PRN ×2 (14:57→21:51)
--- NOTE | 2019-01-07 17:16 | P.PN ---
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 17 today. Had pain overnight, which is a little better thi s morning. He is breathing easier. Drainage does not appear lessened nor more. Objective - Vital Signs Vital signs: Vital Signs Temp 97.8 F 01/07/19 08:00 Pulse 51 L 01/07/19 10:00 Resp 17 01/07/19 10:00 BP 127/78 01/07/19 10:00 Pulse Ox 97 01/07/19 10:00 Intake & Output 01/06/19 01/07/19 01/07/19 18:59 06:59 18:59 Intake Total 1675 1640.0 850 Output Total 3980 2832 460 Balance -2305 -1192.0 390 Weight 111.6 kg 105.6 kg Intake: IV 1675 1550.0 550 Anidulafungin 100 mg In 100 100 Sodium Chloride 0.9% 100 ml @ 84 mls/hr IVPB DAILY [facility] Rx#:[id number] D5-0.9% NaCl with KCl 20 375 Meq/l 1,000 ml @ 125 mls/ hr IV .Q8H [facility] Rx#: [id number] Dextrose 5%-0.9% NaCl 1, 1000 1500 375 000 ml @ 125 mls/hr IV . Q8H [facility] Rx#:[id number] Piperacillin-Tazobactam 3 200 50.0 75 .375 gm In Sodium Chloride 0.9% 100 ml @ 25 mls/hr IVPB Q8HR [facility] Rx# :[id number] Oral 90 300 Output: Drainage 2100 912 Right ABD Lap Site 50 12 Right Abdomen 2050 900 Urine 980 1270 310 Stool 900 650 150 Other: Voiding Method Indwelling Catheter Indwelling Catheter Indwelling Catheter - Exam Gen: Alert and oriented, NAD Head: NC, NT Neck: Supple Mouth: Poor Baseline dentition Lungs: Diminished Bases, No increased effort Abdomen: Evidence of ileostomy with appropriate functioning Heart: Reg, Reg LITZY Drain copious drainage Butler catheter output Dark and cloudy Neuro: No sensory or motor deficits noted Ext: Upper and Lower Edema Bilateral - Labs CBC & Chem 7: 01/07/19 05:45 01/07/19 05:45 Labs: Abnormal Lab Results - Last 24 Hours (Table) 01/06/19 01/06/19 01/06/19 Range/Units 11:53 17:04 21:05 WBC (3.8-10.6) k/uL RBC (4.30-5.90) m/uL Hgb (13.0-17.5) gm/dL Hct (39.0-53.0) % MCHC (31.0-37.0) g/dL RDW (11.5-15.5) % Neutrophils # (1.3-7.7) k/uL Chloride (98-107) mmol/L Carbon Dioxide (22-30) mmol/L Glucose (74-99) mg/dL POC Glucose (mg/dL) 227 H 181 H 181 H (75-99) mg/dL Calcium (8.4-10.2) mg/dL 01/07/19 01/07/19 01/07/19 Range/Units 05:45 05:45 06:47 WBC 17.8 H (3.8-10.6) k/uL RBC 2.88 L (4.30-5.90) m/uL Hgb 7.8 L (13.0-17.5) gm/dL Hct 25.6 L (39.0-53.0) % MCHC 30.5 L (31.0-37.0) g/dL RDW 17.2 H (11.5-15.5) % Neutrophils # 16.1 H (1.3-7.7) k/uL Chloride 112 H (98-107) mmol/L Carbon Dioxide 20 L (22-30) mmol/L Glucose 162 H (74-99) mg/dL POC Glucose (mg/dL) 163 H (75-99) mg/dL Calcium 7.6 L (8.4-10.2) mg/dL Microbiology - Last 24 Hours (Table) 01/01/19 19:44 Blood Culture - Preliminary Blood No Growth after 120 hours Assessment and Plan (1) Clear cell adenocarcinoma of kidney Current Visit: Yes Status: Acute Code(s): C64.9 - MALIGNANT NEOPLASM OF UNSP KIDNEY, EXCEPT RENAL PELVIS SNOMED Code(s): 42261182 (2) Cholelithiasis with acute cholecystitis Current Visit: Yes Status: Acute Code(s): K80.00 - CALCULUS OF GALLBLADDER W ACUTE CHOLECYST W/O OBSTRUCTION SNOMED Code(s): 40991856 (3) Colovesical fistula Current Visit: Yes Status: Acute Code(s): N32.1 - VESICOINTESTINAL FISTULA SNOMED Code(s): 01853748 Plan: Assessment and Recommendations: Cholecystitis Status Post Lap Grecia, with Low Anterior resection: - Requiring Ileostomy for extent of inflammatory changes - Possible etiology related to Inflammatory effects of immune therapy - Continue Day 3 of Solu-Medrol 60mg q8, PPI for inflammatory changes likely related to immune therapy Diverticulitis with Colovesicular Fistula Acute Renal Insufficency Prerenal Azotemia: Nephrology is following Renal Cell Carcinoma with Clear Cell Carcinoma of the Right Kidney: - Original Diagnosis 2015 status Post Nephrectomy - Recurrent and metastatic pathology confirmed to Lung in September 2018 - Status Post 4 cycles of Yervoy and Opdivo, then single agent opdivo - Currently hold Immune therapy Opdivo for possible immune related inflammatory effects Leukocytosis: Reactive likely secondary to Cholecystitis and post operative: - Improved today - Monitor closely for post operative infections - IV antibiotics Urinary Tract Infection: - Positive for Elinor, Primary team Normocytic Anemia: - Monitor CBC, 7.8 today - Transfusion support less than 7, no intervention needed today Moderate Protein Calorie Malnutrition: - Per Primary and ICU - Last Albumin 1.8 (1.4 prior), patient continues with extravascular fluid, upper and lower extremities, and scrotal edema. - Defer to ICU/Primary Team Hypocalcemia: - Decreased Nutritional needs and/or active infections. - Monitor thyroid as Hypothyroid changes related to immune therapy have been identified in patient Plan: - Pulmonary, Surgery - Continue to hold immune therapy for renal cell carcinoma - Continue on Day three of Solu medrol for inflammatory changes related to immune therapy, cont PPI - Will reassess Day 4 of steroids to continue or stop, if continued a long steroid taper would be required. - We discussed the overall concern of his condition, inability to treat his progressive cancer within the likely time frame with recent surgical need. Will re-evaluate in am and assess for overall improvements. - Prognosis Guarded Deb Sauceda [facility]
[2019-01-07 18:02] LABS: Glucose,Whole Blood 182 mg/dL (75-99)
[2019-01-07 20:28] LABS: Glucose,Whole Blood 214 mg/dL (75-99)
[2019-01-07] MEDS: QUEtiapine 25 MG TAB PO SCH (21:49)
--- NOTE | 2019-01-07 23:54 | PN ---
PROGRESS NOTE DATE OF SERVICE: 01/07/2019 REASON FOR FOLLOWUP: Acute complicated sigmoid diverticulitis with colovesical fistula. INTERVAL HISTORY: The patient is afebrile, has been breathing comfortably. The patient's abdominal pain is currently controlled. No nausea, no vomiting. Tolerating a diet. Did have output in his ileostomy bag. PHYSICAL EXAMINATION: Blood pressure is 121/71 with a pulse of 54, temperature 98.2. He is 98% on room air. General description is an elderly male lying in bed in no distress. RESPIRATORY SYSTEM: Unlabored breathing. Clear to auscultation anteriorly. HEART: S1, S2. Regular rate and rhythm. ABDOMEN: Soft. Mild diffuse tenderness. EXTREMITIES: No edema of the feet. LABS: Hemoglobin 7.8. White count 17.8, down from yesterday at 22,100. BUN of 19, creatinine 1.23. DIAGNOSTIC IMPRESSION/PLAN: Patient with acute complicated sigmoid diverticulitis, colovesical fistula, status post diverting ileostomy. The patient did have significant elevated white count. That has shown a downward trend. Currently on Unasyn to continue while monitoring his clinical course closely. Continue with supportive care. MMODL / IJN: [id number] /
[2019-01-08] MEDS: HEPARIN SODIUM,PORCINE 5,000 UNIT/ML 1 ML VIAL SQ SCH ×3 (01:00→16:34)
[2019-01-08] MEDS: methylPREDNISolone SOD SUCCI 125 MG/2 ML VIAL IV SCH ×2 (01:00→08:15)
[2019-01-08] MEDS: PIPERACILLIN-TAZOBACTAM 3.375 GM in SODIUM CHLORIDE 0.9% 100 ML IVPB SCH ×3 (01:00→16:33)
[2019-01-08] MEDS: DEXTROSE 5%-0.9% NACL 1,000 ML IV SCH ×3 (04:23→18:27)
[2019-01-08 04:57] LABS: Anisocytosis Slight; Basophils % (A) 0 %; Eosinophils % (A) 0 %; HCT 26.8 % (39.0-53.0); HGB 8.2 gm/dL (13.0-17.5); Hypochromasia Moderate; Lymphocytes # (A) 0.9 k/uL (1.0-4.8); Lymphocytes % (A) 6 %; MCH 26.9 pg (25.0-35.0); MCHC 30.5 g/dL (31.0-37.0); MCV 88.1 fL (80.0-100.0); Mean Platelet Volume 7.3; Monocytes # (A) 0.4 k/uL (0-1.0); Monocytes % (A) 3 %; Neutrophils # (A) 13.4 k/uL (1.3-7.7); Neutrophils % (A) 90 %; Platelet Count 333 k/uL (150-450); RBC 3.04 m/uL (4.30-5.90); RDW 17.9 % (11.5-15.5); WBC 14.9 k/uL (3.8-10.6)
[2019-01-08 05:12] LABS: Calcium 7.7 mg/dL (8.4-10.2)
[2019-01-08 06:50] LABS: Glucose,Whole Blood 173 mg/dL (75-99)
[2019-01-08] MEDS: INSULIN ASPART (NovoLOG) 100 UNIT/ML VIAL SQ SCH ×4 (08:03→22:05)
[2019-01-08] MEDS: LEVOTHYROXINE 50 MCG TAB PO SCH (08:06)
[2019-01-08] MEDS: ALVIMOPAN 12 MG CAPSULE PO SCH (08:06)
[2019-01-08] MEDS: PANTOPRAZOLE 40 MG/10 ML VIAL IVP SCH (08:16)
[2019-01-08] MEDS: ANIDULAFUNGIN 100 MG in SODIUM CHLORIDE 0.9% 100 ML IVPB SCH (09:35)
--- NOTE | 2019-01-08 10:41 | P.PN ---
Subjective Progress Note Date: 01/08/19 Principal diagnosis: Renal Cell Clear Cell On Immune therapy, Status Post Lap Grecia with Ileostomy WBC continues to trend down, bilateral lower extremity edema and scrotal edema a re improving, he has appetite and ate approx 50% of meal today for breakfast, up in chair. LITZY and puncture are draining less per nursing and urine catheter is still cloudy but improved. Overall improving. Objective - Vital Signs Vital signs: Vital Signs Temp 97.0 F L 01/08/19 08:00 Pulse 52 L 01/08/19 09:00 Resp 17 01/08/19 09:00 BP 129/75 01/08/19 09:00 Pulse Ox 98 01/08/19 09:00 Intake & Output 01/07/19 01/08/19 01/08/19 18:59 06:59 18:59 Intake Total 2350 1875 675 Output Total 1370 3430 2075 Balance 980 -1555 -1400 Weight 104 kg Intake: IV 1700 1625 675 Anidulafungin 100 mg In 100 100 Sodium Chloride 0.9% 100 ml @ 84 mls/hr IVPB DAILY [facility] Rx#:[id number] Dextrose 5%-0.9% NaCl 1, 1375 1500 500 000 ml @ 125 mls/hr IV . Q8H [facility] Rx#:[id number] Piperacillin-Tazobactam 3 225 125 75 .375 gm In Sodium Chloride 0.9% 100 ml @ 25 mls/hr IVPB Q8HR [facility] Rx# :[id number] Oral 650 250 Output: Drainage 150 1300 700 Right ABD Lap Site 700 Right Abdomen 150 1300 Urine 1070 1380 675 Stool 150 750 700 Other: Voiding Method Indwelling Catheter Indwelling Catheter Indwelling Catheter - Exam Gen: Alert and oriented, NAD Head: NC, NT Neck: Supple Mouth: Poor Baseline dentition Lungs: Diminished Bases, No increased effort Abdomen: Evidence of ileostomy with appropriate functioning, Right Puncture soft to touch abdomen, no pain Heart: Reg, Reg LITZY Drain drainage Butler catheter output Dark and cloudy Neuro: No sensory or motor deficits noted Ext: Upper and Lower Edema Bilateral - Labs CBC & Chem 7: 01/08/19 04:15 01/08/19 04:15 Labs: Abnormal Lab Results - Last 24 Hours (Table) 01/07/19 01/07/19 01/07/19 Range/Units 05:45 11:35 17:51 WBC (3.8-10.6) k/uL RBC (4.30-5.90) m/uL Hgb (13.0-17.5) gm/dL Hct (39.0-53.0) % MCHC (31.0-37.0) g/dL RDW (11.5-15.5) % Neutrophils # (1.3-7.7) k/uL Lymphocytes # (1.0-4.8) k/uL Sodium (137-145) mmol/L Chloride (98-107) mmol/L Carbon Dioxide (22-30) mmol/L BUN (9-20) mg/dL Glucose (74-99) mg/dL POC Glucose (mg/dL) 151 H 182 H (75-99) mg/dL Calcium (8.4-10.2) mg/dL AST 12 L (17-59) U/L ALT 16 L (21-72) U/L Albumin 1.8 L (3.5-5.0) g/dL Amylase <30 L (30-110) U/L 01/07/19 01/08/19 01/08/19 Range/Units 20:16 04:15 04:15 WBC 14.9 H (3.8-10.6) k/uL RBC 3.04 L (4.30-5.90) m/uL Hgb 8.2 L (13.0-17.5) gm/dL Hct 26.8 L (39.0-53.0) % MCHC 30.5 L (31.0-37.0) g/dL RDW 17.9 H (11.5-15.5) % Neutrophils # 13.4 H (1.3-7.7) k/uL Lymphocytes # 0.9 L (1.0-4.8) k/uL Sodium 136 L (137-145) mmol/L Chloride 113 H (98-107) mmol/L Carbon Dioxide 19 L (22-30) mmol/L BUN 21 H (9-20) mg/dL Glucose 142 H (74-99) mg/dL POC Glucose (mg/dL) 214 H (75-99) mg/dL Calcium 7.7 L (8.4-10.2) mg/dL AST (17-59) U/L ALT (21-72) U/L Albumin (3.5-5.0) g/dL Amylase (30-110) U/L 01/08/19 Range/Units 06:37 WBC (3.8-10.6) k/uL RBC (4.30-5.90) m/uL Hgb (13.0-17.5) gm/dL Hct (39.0-53.0) % MCHC (31.0-37.0) g/dL RDW (11.5-15.5) % Neutrophils # (1.3-7.7) k/uL Lymphocytes # (1.0-4.8) k/uL Sodium (137-145) mmol/L Chloride (98-107) mmol/L Carbon Dioxide (22-30) mmol/L BUN (9-20) mg/dL Glucose (74-99) mg/dL POC Glucose (mg/dL) 173 H (75-99) mg/dL Calcium (8.4-10.2) mg/dL AST (17-59) U/L ALT (21-72) U/L Albumin (3.5-5.0) g/dL Amylase (30-110) U/L Microbiology - Last 24 Hours (Table) 01/01/19 19:44 Blood Culture - Final Blood No Growth after 144 hours Assessment and Plan (1) Clear cell adenocarcinoma of kidney Current Visit: Yes Status: Acute Code(s): C64.9 - MALIGNANT NEOPLASM OF UNSP KIDNEY, EXCEPT RENAL PELVIS SNOMED Code(s): 07304501 (2) Cholelithiasis with acute cholecystitis Current Visit: Yes Status: Acute Code(s): K80.00 - CALCULUS OF GALLBLADDER W ACUTE CHOLECYST W/O OBSTRUCTION SNOMED Code(s): 86334980 (3) Colovesical fistula Current Visit: Yes Status: Acute Code(s): N32.1 - VESICOINTESTINAL FISTULA SNOMED Code(s): 26792574 Plan: Assessment and Recommendations: Cholecystitis Status Post Lap Grecia, with Low Anterior resection: - Requiring Ileostomy for extent of inflammatory changes - Possible etiology related to Inflammatory effects of immune therapy - Continue Day 3 of Solu-Medrol 60mg q8, PPI for inflammatory changes likely related to immune therapy, then stop. Diverticulitis with Colovesicular Fistula Acute Renal Insufficency Prerenal Azotemia: Nephrology is following Renal Cell Carcinoma with Clear Cell Carcinoma of the Right Kidney: - Original Diagnosis 2015 status Post Nephrectomy - Recurrent and metastatic pathology confirmed to Lung in September 2018 - Status Post 4 cycles of Yervoy and Opdivo, then single agent opdivo - Currently hold Immune therapy Opdivo for possible immune related inflammatory effects Leukocytosis: Reactive likely secondary to Cholecystitis and post operative: - Improved today - Monitor closely for post operative infections - IV antibiotics Urinary Tract Infection: - Positive for Elinor, Primary team Normocytic Anemia: - Monitor CBC, 7.8 today - Transfusion support less than 7, no intervention needed today Moderate Protein Calorie Malnutrition: - Per Primary and ICU - Last Albumin 1.8 (1.4 prior), patient continues with extravascular fluid, upper and lower extremities, and scrotal edema. - Defer to ICU/Primary Team Hypocalcemia: - Decreased Nutritional needs and/or active infections. - Monitor thyroid as Hypothyroid changes related to immune therapy have been identified in patient Plan: - Discontinue steroids after todays dose, and will monitor off to allow healing - May require mcc wean later, as of now he appears to overall improving. - Appetite and PO intake improving as well as edema. Deb DINH
--- NOTE | 2019-01-08 10:51 | P.PN ---
Subjective Progress Note Date: 01/08/19 Principal diagnosis: Colovesicular fistula, status post exploratory laparotomy laparoscopic cholecystectomy with small bowel resection and diverting ileostomy This is a 68-year-old male patient with known history of COPD, history of with a sickle cell carcinoma and the patient is post right nephrectomy that was not proximal to 6 years ago, along with history of coronary artery disease, vitamin D deficiency and complicated diverticulitis with history of colovesicular fistula with severe inflammatory changes in his pelvis. The patient was having problems due to recurrent UTIs and the patient had a CT of the abdomen and pelvis and there was a concern for an underying rectovesicular fistula and cholelithiasis. The patient was taken to the operating room and he underwent an cholecystectomy, small bowel resection and diverting ileostomy. Intraoperative findings showed that the patient had significant inflammation and frozen pelvis and a low AP resection was not possible. Any ileostomy was brought out in the right lower quadrant. The abdomen was irrigated. The LITZY drain was placed and the fascia was closed. The patient was hypothermic at the end of the procedure with a temperature of 3 5 and fluid warmers in bed huggers were provided and ICU consultation was obtained. The patient was extubated in the OR and he was brought up to recovery where he was seen and evaluated. He was found hemodynamically stable and he was on no pressors. He was given nearly 3 liters of the IVF in the OR and he was started on maintenance fluids. In terms of his history of malignancy, the patient is known to have metastatic disease involving the lungs and a mediastinal mass that was diagnosed to be positive for renal cell carcinoma. The patient is currently on immunotherapy through with Dr. Barth. He has also undergone previous thoracentesis for right-sided pleural effusion. He has been under the care of Dr. Barth and Dr. Yusuf on outpatient basis. Patient was seen on follow-up in the ICU on 01/06/2019, patient is sitting at a bedside chair, comfortable, in no distress. Continues to have significant draining tubes including LITZY drain which is draining significant amount of fluid cytology so far is negative. Continues to have cloudy urine and cultures were p ositive for Elinor. Patient also has a diverticular ileostomy which seems to be functional. Remains on antibiotics, antifungal treatment, his IV fluid is still at 1 25 mL/h using D5 0.9 normal saline. Patient is being considered for possible TPN. WBC count is elevated at 22.1 hemoglobin is 8.4. Electrolytes are normal renal profile is abnormal with a BUN of 17 and creatinine is 1.41 slightly improved compared to yesterday. Antibiotics nj patient remains on Zosyn, and he is also on Eraxis. Patient denies any pain, denies any shortness of breath, no cough, no wheezing. Chest x-ray from yesterday showed worsening bibasilardisease and small bilateral effusions. Patient was seen on follow-up today on 01/07/2019, no major manager of change the last 24 hours, patient is feeling better, breathing easier, denies any aches or pains. Seems to be quite comfortable, continues to have significant drainage from the different tubes he has his abdomen and continues to have cloudy urine. CBC showed the PEEP cigar 17.8 hemoglobin is 7.8 electrolytes are normal creatinine is improving down to 1.23, serum calcium is 7.6. Medications were all reviewed, patient remains on updrafts, he is also on Eraxis, and on Zosyn. Remains on GI and DVT prophylaxis. He is also on Solu-Medrol, insulin is subcu as per protocol/scale. No chest x-ray was done today. Patient was reevaluated today on 01/08/2019, slightly improved compared to yesterday, and steadily improving. Feeling better, appetite is improving, denies any shortness of breath, no cough, no wheezing. His swelling and scrotal edema is improving. Continues to have significant amount of drainage from LITZY drain roughly about 2000 mL over the last 24 hours. Urine is less cloudy, patient denies any abdominal pain or discomfort. His fluid balance is noted to be negative the last 24 hours about 1300 mL. Remains on IV fluid at 1 25 mL per hour. Objective - Vital Signs Vital signs: Vital Signs Temp 97.0 F L 01/08/19 08:00 Pulse 45 L 01/08/19 10:00 Resp 16 01/08/19 10:00 BP 129/70 01/08/19 10:00 Pulse Ox 98 01/08/19 09:00 Intake & Output 01/07/19 01/08/19 01/08/19 18:59 06:59 18:59 Intake Total 2350 1875 675 Output Total 1370 3430 2075 Balance 980 -1555 -1400 Weight 104 kg Intake: IV 1700 1625 675 Anidulafungin 100 mg In 100 100 Sodium Chloride 0.9% 100 ml @ 84 mls/hr IVPB DAILY [facility] Rx#:[id number] Dextrose 5%-0.9% NaCl 1, 1375 1500 500 000 ml @ 125 mls/hr IV . Q8H [facility] Rx#:[id number] Piperacillin-Tazobactam 3 225 125 75 .375 gm In Sodium Chloride 0.9% 100 ml @ 25 mls/hr IVPB Q8HR [facility] Rx# :[id number] Oral 650 250 Output: Drainage 150 1300 700 Right ABD Lap Site 700 Right Abdomen 150 1300 Urine 1070 1380 675 Stool 150 750 700 Other: Voiding Method Indwelling Catheter Indwelling Catheter Indwelling Catheter - Exam GENERAL EXAM: Revealed a pleasant 68-year-old in no distress.. HEAD: Normocephalic/atraumatic. EENT: PERRLA, EOMI, no icterus, dry mucous membranes, no neck masses, no JVD, no stridor. No thyromegaly. CHEST: No chest wall deformity. Symmetrical expansion. LUNGS: Diminished breath with crackles at the right base, left side is clear. CVS: Regular rate and rhythm, normal S1 and S2, no gallops, no murmurs, no rubs ABDOMEN: Soft, nontender. No hepatosplenomegaly, normal bowel sounds, no guarding or rigidity. Abdomen is soft, bowel sounds are hypoactive, and abdominal incision clean dry and intact, covered with a surgical dressing, serosanguineous drainage, LITZY drain in the right lower quadrant is intact, compressed draining dilute serous drainage.ports are also draining ascitic fluid. Mild scrotal edema was noted. EXTREMITIES: No clubbing, 1+ bipedal edema, no cyanosis, 2+ pulses and upper and lower extremities. No changes consistent with chronic venous stasis involving the lower extremities bilaterally MUSCULOSKELETAL: Muscle strength and tone normal CENTRAL NERVOUS SYSTEM: Alert and oriented -3. No focal deficits, tone is normal in all 4 extremities. PSYCHIATRIC: Alert and oriented -3. Appropriate affect. Intact judgment and insight. Skin: No rashes. - Labs CBC & Chem 7: 01/08/19 04:15 01/08/19 04:15 Labs: Abnormal Lab Results - Last 24 Hours (Table) 01/07/19 01/07/19 01/07/19 Range/Units 05:45 11:35 17:51 WBC (3.8-10.6) k/uL RBC (4.30-5.90) m/uL Hgb (13.0-17.5) gm/dL Hct (39.0-53.0) % MCHC (31.0-37.0) g/dL RDW (11.5-15.5) % Neutrophils # (1.3-7.7) k/uL Lymphocytes # (1.0-4.8) k/uL Sodium (137-145) mmol/L Chloride (98-107) mmol/L Carbon Dioxide (22-30) mmol/L BUN (9-20) mg/dL Glucose (74-99) mg/dL POC Glucose (mg/dL) 151 H 182 H (75-99) mg/dL Calcium (8.4-10.2) mg/dL AST 12 L (17-59) U/L ALT 16 L (21-72) U/L Albumin 1.8 L (3.5-5.0) g/dL Amylase <30 L (30-110) U/L 01/07/19 01/08/19 01/08/19 Range/Units 20:16 04:15 04:15 WBC 14.9 H (3.8-10.6) k/uL RBC 3.04 L (4.30-5.90) m/uL Hgb 8.2 L (13.0-17.5) gm/dL Hct 26.8 L (39.0-53.0) % MCHC 30.5 L (31.0-37.0) g/dL RDW 17.9 H (11.5-15.5) % Neutrophils # 13.4 H (1.3-7.7) k/uL Lymphocytes # 0.9 L (1.0-4.8) k/uL Sodium 136 L (137-145) mmol/L Chloride 113 H (98-107) mmol/L Carbon Dioxide 19 L (22-30) mmol/L BUN 21 H (9-20) mg/dL Glucose 142 H (74-99) mg/dL POC Glucose (mg/dL) 214 H (75-99) mg/dL Calcium 7.7 L (8.4-10.2) mg/dL AST (17-59) U/L ALT (21-72) U/L Albumin (3.5-5.0) g/dL Amylase (30-110) U/L 01/08/19 Range/Units 06:37 WBC (3.8-10.6) k/uL RBC (4.30-5.90) m/uL Hgb (13.0-17.5) gm/dL Hct (39.0-53.0) % MCHC (31.0-37.0) g/dL RDW (11.5-15.5) % Neutrophils # (1.3-7.7) k/uL Lymphocytes # (1.0-4.8) k/uL Sodium (137-145) mmol/L Chloride (98-107) mmol/L Carbon Dioxide (22-30) mmol/L BUN (9-20) mg/dL Glucose (74-99) mg/dL POC Glucose (mg/dL) 173 H (75-99) mg/dL Calcium (8.4-10.2) mg/dL AST (17-59) U/L ALT (21-72) U/L Albumin (3.5-5.0) g/dL Amylase (30-110) U/L Microbiology - Last 24 Hours (Table) 01/01/19 19:44 Blood Culture - Final Blood No Growth after 144 hours Assessment and Plan Assessment: Impression: 1 complicated colovesicular fistula, status post exploratory laparotomy laparos copic cholecystectomy small bowel resection and diverting ileostomy. Patient had a frozen pelvis based on the operative report. 2 history of metastatic renal cell carcinoma, remains on immunotherapy. 3 chronic obstructive pulmonary disease relatively stable 4 hypothyroidism 5 chronic normocytic anemia 6 recurrent urinary tract infection secondary to fistula 7 acute kidney injury 8 ex-smoker 9 history of benign prostatic hypertrophy 10 coronary artery disease. Recommendation: Continue present treatment plan including TPN, IV fluids, antibiotics, continue to monitor the patient in the ICU, continue GI and DVT prophylaxis. We will likely transfer out of the ICU in the next 24 hours. Prognosis remains definitely poor and guarded considering the patient continues to have a fistula may eventually require surgical evaluation again. Ambulate the patient as much as possible, physical therapy to continue follow-up. Time with Patient: Less than 30
--- NOTE | 2019-01-08 11:12 | P.PN ---
<JeaneMarta Magdaleno - Last Filed: 01/08/19 11:12> Subjective Progress Note Date: 01/08/19 CHIEF COMPLAINT: colovesicular fistula, gallstones HISTORY OF PRESENT ILLNESS: 68-year-old male who underwent laparoscopic cholecystectomy, small bowel resection, and diverting ileostomy. POD #7. Patient is examined in the ICU laying in bed. He reports his pain is tolerable at this time. Tolerating diet. Appetite improving Denies nausea or vomiting. Nursing reports LITZY with 1200 mL output overnight and 1750 mL so far during day shift. WBC 14.9. Hemoglobin 8.2. PHYSICAL EXAM: VITAL SIGNS: Reviewed. GENERAL: Well-developed in no acute distress. HEENT: No sclera icterus. Extraocular movements grossly intact. Moist buccal mucosa. Head is atraumatic, normocephalic. ABDOMEN: Soft. Nondistended. LITZY drain intact with serous drainage connected to suction. Ileostomy noted with brown liquid stool. Right lower quadrant surgical site connected to drainage bag with minimal serous drainage. NEUROLOGIC: Alert and oriented. Cranial nerves II through XII grossly intact. ASSESSMENT: 1. Colovesicular fistula and cholelithiasis, status post laparoscopic cholecystectomy, small bowel resection and diverting ileostomy 2. 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 Continue current diet. Encouraged increase protein intake. 2. Activity as tolerated. PT/OT on consult 3. Incentive spirometry 4. Continue LITZY to suction 5. Continue urinary catheter. Accurate I&O 6. Steroids per oncology 7. Further recommendations pending patient course Nurse practitioner note has been reviewed by physician. Signing provider agrees with the documented findings, assessment, and plan of care. Objective - Vital Signs Vital signs: Vital Signs Temp 97.0 F L 01/08/19 08:00 Pulse 45 L 01/08/19 10:00 Resp 16 01/08/19 10:00 BP 129/70 01/08/19 10:00 Pulse Ox 98 01/08/19 09:00 Intake & Output 01/07/19 01/08/19 01/08/19 18:59 06:59 18:59 Intake Total 2350 1875 675 Output Total 1370 3430 2075 Balance 383 -1105 -1400 Weight 104 kg Intake: IV 1700 1625 675 Anidulafungin 100 mg In 100 100 Sodium Chloride 0.9% 100 ml @ 84 mls/hr IVPB DAILY [facility] Rx#:[id number] Dextrose 5%-0.9% NaCl 1, 1375 1500 500 000 ml @ 125 mls/hr IV . Q8H [facility] Rx#:[id number] Piperacillin-Tazobactam 3 225 125 75 .375 gm In Sodium Chloride 0.9% 100 ml @ 25 mls/hr IVPB Q8HR [facility] Rx# :[id number] Oral 650 250 Output: Drainage 150 1300 700 Right ABD Lap Site 700 Right Abdomen 150 1300 Urine 1070 1380 675 Stool 150 750 700 Other: Voiding Method Indwelling Catheter Indwelling Catheter Indwelling Catheter - Labs CBC & Chem 7: 01/08/19 04:15 01/08/19 04:15 Labs: Abnormal Lab Results - Last 24 Hours (Table) 01/07/19 01/07/19 01/07/19 Range/Units 05:45 11:35 17:51 WBC (3.8-10.6) k/uL RBC (4.30-5.90) m/uL Hgb (13.0-17.5) gm/dL Hct (39.0-53.0) % MCHC (31.0-37.0) g/dL RDW (11.5-15.5) % Neutrophils # (1.3-7.7) k/uL Lymphocytes # (1.0-4.8) k/uL Sodium (137-145) mmol/L Chloride (98-107) mmol/L Carbon Dioxide (22-30) mmol/L BUN (9-20) mg/dL Glucose (74-99) mg/dL POC Glucose (mg/dL) 151 H 182 H (75-99) mg/dL Calcium (8.4-10.2) mg/dL AST 12 L (17-59) U/L ALT 16 L (21-72) U/L Albumin 1.8 L (3.5-5.0) g/dL Amylase <30 L (30-110) U/L 01/07/19 01/08/19 01/08/19 Range/Units 20:16 04:15 04:15 WBC 14.9 H (3.8-10.6) k/uL RBC 3.04 L (4.30-5.90) m/uL Hgb 8.2 L (13.0-17.5) gm/dL Hct 26.8 L (39.0-53.0) % MCHC 30.5 L (31.0-37.0) g/dL RDW 17.9 H (11.5-15.5) % Neutrophils # 13.4 H (1.3-7.7) k/uL Lymphocytes # 0.9 L (1.0-4.8) k/uL Sodium 136 L (137-145) mmol/L Chloride 113 H (98-107) mmol/L Carbon Dioxide 19 L (22-30) mmol/L BUN 21 H (9-20) mg/dL Glucose 142 H (74-99) mg/dL POC Glucose (mg/dL) 214 H (75-99) mg/dL Calcium 7.7 L (8.4-10.2) mg/dL AST (17-59) U/L ALT (21-72) U/L Albumin (3.5-5.0) g/dL Amylase (30-110) U/L 01/08/19 Range/Units 06:37 WBC (3.8-10.6) k/uL RBC (4.30-5.90) m/uL Hgb (13.0-17.5) gm/dL Hct (39.0-53.0) % MCHC (31.0-37.0) g/dL RDW (11.5-15.5) % Neutrophils # (1.3-7.7) k/uL Lymphocytes # (1.0-4.8) k/uL Sodium (137-145) mmol/L Chloride (98-107) mmol/L Carbon Dioxide (22-30) mmol/L BUN (9-20) mg/dL Glucose (74-99) mg/dL POC Glucose (mg/dL) 173 H (75-99) mg/dL Calcium (8.4-10.2) mg/dL AST (17-59) U/L ALT (21-72) U/L Albumin (3.5-5.0) g/dL Amylase (30-110) U/L Microbiology - Last 24 Hours (Table) 01/01/19 19:44 Blood Culture - Final Blood No Growth after 144 hours <Bertrand Anderson - Last Filed: 01/08/19 20:15> Subjective As above. Patient states he feels well today. Tolerating diet. Drain output is about the same. White blood cell count improved. Urology evaluation appreciated. Continue PT OT. Continue encouraging oral/protein intake. Objective - Vital Signs Vital signs: Vital Signs Temp 97.7 F 01/08/19 16:00 Pulse 57 L 01/08/19 19:00 Resp 20 01/08/19 19:00 BP 139/72 01/08/19 19:00 Pulse Ox 94 L 01/08/19 16:00 Intake & Output 01/08/19 01/08/19 01/09/19 06:59 18:59 06:59 Intake Total 1875 2100 125 Output Total 3430 5800 200 Balance -1555 -3700 -75 Weight 104 kg Intake: IV 1625 1800 125 Anidulafungin 100 mg In 100 Sodium Chloride 0.9% 100 ml @ 84 mls/hr IVPB DAILY [facility] Rx#:[id number] Dextrose 5%-0.9% NaCl 1, 1500 1500 125 000 ml @ 125 mls/hr IV . Q8H [facility] Rx#:[id number] Piperacillin-Tazobactam 3 125 200 .375 gm In Sodium Chloride 0.9% 100 ml @ 25 mls/hr IVPB Q8HR [facility] Rx# :[id number] Oral 250 300 Output: Drainage 1300 2950 Right ABD Lap Site 1750 Right Abdomen 1300 1200 Urine 1380 1650 200 Stool 750 1200 Other: Voiding Method Indwelling Catheter Indwelling Catheter - Labs CBC & Chem 7: 01/08/19 04:15 01/08/19 04:15 Labs: Abnormal Lab Results - Last 24 Hours (Table) 01/07/19 01/08/19 01/08/19 Range/Units 20:16 04:15 04:15 WBC 14.9 H (3.8-10.6) k/uL RBC 3.04 L (4.30-5.90) m/uL Hgb 8.2 L (13.0-17.5) gm/dL Hct 26.8 L (39.0-53.0) % MCHC 30.5 L (31.0-37.0) g/dL RDW 17.9 H (11.5-15.5) % Neutrophils # 13.4 H (1.3-7.7) k/uL Lymphocytes # 0.9 L (1.0-4.8) k/uL Sodium 136 L (137-145) mmol/L Chloride 113 H (98-107) mmol/L Carbon Dioxide 19 L (22-30) mmol/L BUN 21 H (9-20) mg/dL Glucose 142 H (74-99) mg/dL POC Glucose (mg/dL) 214 H (75-99) mg/dL Calcium 7.7 L (8.4-10.2) mg/dL 01/08/19 01/08/19 01/08/19 Range/Units 06:37 12:00 16:47 WBC (3.8-10.6) k/uL RBC (4.30-5.90) m/uL Hgb (13.0-17.5) gm/dL Hct (39.0-53.0) % MCHC (31.0-37.0) g/dL RDW (11.5-15.5) % Neutrophils # (1.3-7.7) k/uL Lymphocytes # (1.0-4.8) k/uL Sodium (137-145) mmol/L Chloride (98-107) mmol/L Carbon Dioxide (22-30) mmol/L BUN (9-20) mg/dL Glucose (74-99) mg/dL POC Glucose (mg/dL) 173 H 169 H 232 H (75-99) mg/dL Calcium (8.4-10.2) mg/dL Microbiology - Last 24 Hours (Table) 01/01/19 19:44 Blood Culture - Final Blood No Growth after 144 hours Assessment and Plan (1) Colovesical fistula Current Visit: Yes Status: Acute Code(s): N32.1 - VESICOINTESTINAL FISTULA SNOMED Code(s): 95013011
--- NOTE | 2019-01-08 11:29 | P.PN ---
Subjective Patient resting in bed continues with a large amount of drainage from the LITZY drain. Surgeon to see patient tomorrow hopeful for long-term plan Objective - Vital Signs Vital signs: Vital Signs Temp 97.0 F L 01/08/19 08:00 Pulse 57 L 01/08/19 11:00 Resp 18 01/08/19 11:00 BP 121/67 01/08/19 11:00 Pulse Ox 98 01/08/19 09:00 Intake & Output 01/07/19 01/08/19 01/08/19 18:59 06:59 18:59 Intake Total 2350 1875 1125 Output Total 1370 3430 3275 Balance 980 -1555 -2150 Weight 104 kg Intake: IV 1700 1625 825 Anidulafungin 100 mg In 100 100 Sodium Chloride 0.9% 100 ml @ 84 mls/hr IVPB DAILY [facility] Rx#:[id number] Dextrose 5%-0.9% NaCl 1, 1375 1500 625 000 ml @ 125 mls/hr IV . Q8H [facility] Rx#:[id number] Piperacillin-Tazobactam 3 225 125 100 .375 gm In Sodium Chloride 0.9% 100 ml @ 25 mls/hr IVPB Q8HR [facility] Rx# :[id number] Oral 650 250 300 Output: Drainage 150 1300 1750 Right ABD Lap Site 1750 Right Abdomen 150 1300 Urine 1070 1380 775 Stool 150 750 750 Other: Voiding Method Indwelling Catheter Indwelling Catheter Indwelling Catheter - Constitutional General appearance: Present: mild distress, obese - EENT Eyes: Present: PERRLA Ears: bilateral: normal - Neck Neck: Present: normal ROM - Respiratory Respiratory: bilateral: diminished, wheezing - Cardiovascular Rhythm: regular - Gastrointestinal General gastrointestinal: Present: soft - Genitourinary Male genitourinary: scrotal edema - Integumentary Integumentary: Present: normal - Neurologic Neurologic: Present: CNII-XII intact - Musculoskeletal Musculoskeletal: Present: generalized weakness - Psychiatric Psychiatric: Present: A&O x's 3, appropriate affect, intact judgment & insight - Labs CBC & Chem 7: 01/08/19 04:15 01/08/19 04:15 Labs: Abnormal Lab Results - Last 24 Hours (Table) 01/07/19 01/07/19 01/07/19 Range/Units 05:45 11:35 17:51 WBC (3.8-10.6) k/uL RBC (4.30-5.90) m/uL Hgb (13.0-17.5) gm/dL Hct (39.0-53.0) % MCHC (31.0-37.0) g/dL RDW (11.5-15.5) % Neutrophils # (1.3-7.7) k/uL Lymphocytes # (1.0-4.8) k/uL Sodium (137-145) mmol/L Chloride (98-107) mmol/L Carbon Dioxide (22-30) mmol/L BUN (9-20) mg/dL Glucose (74-99) mg/dL POC Glucose (mg/dL) 151 H 182 H (75-99) mg/dL Calcium (8.4-10.2) mg/dL AST 12 L (17-59) U/L ALT 16 L (21-72) U/L Albumin 1.8 L (3.5-5.0) g/dL Amylase <30 L (30-110) U/L 01/07/19 01/08/19 01/08/19 Range/Units 20:16 04:15 04:15 WBC 14.9 H (3.8-10.6) k/uL RBC 3.04 L (4.30-5.90) m/uL Hgb 8.2 L (13.0-17.5) gm/dL Hct 26.8 L (39.0-53.0) % MCHC 30.5 L (31.0-37.0) g/dL RDW 17.9 H (11.5-15.5) % Neutrophils # 13.4 H (1.3-7.7) k/uL Lymphocytes # 0.9 L (1.0-4.8) k/uL Sodium 136 L (137-145) mmol/L Chloride 113 H (98-107) mmol/L Carbon Dioxide 19 L (22-30) mmol/L BUN 21 H (9-20) mg/dL Glucose 142 H (74-99) mg/dL POC Glucose (mg/dL) 214 H (75-99) mg/dL Calcium 7.7 L (8.4-10.2) mg/dL AST (17-59) U/L ALT (21-72) U/L Albumin (3.5-5.0) g/dL Amylase (30-110) U/L 01/08/19 Range/Units 06:37 WBC (3.8-10.6) k/uL RBC (4.30-5.90) m/uL Hgb (13.0-17.5) gm/dL Hct (39.0-53.0) % MCHC (31.0-37.0) g/dL RDW (11.5-15.5) % Neutrophils # (1.3-7.7) k/uL Lymphocytes # (1.0-4.8) k/uL Sodium (137-145) mmol/L Chloride (98-107) mmol/L Carbon Dioxide (22-30) mmol/L BUN (9-20) mg/dL Glucose (74-99) mg/dL POC Glucose (mg/dL) 173 H (75-99) mg/dL Calcium (8.4-10.2) mg/dL AST (17-59) U/L ALT (21-72) U/L Albumin (3.5-5.0) g/dL Amylase (30-110) U/L Microbiology - Last 24 Hours (Table) 01/01/19 19:44 Blood Culture - Final Blood No Growth after 144 hours Assessment and Plan Plan: Assessment Acute renal failure secondary to prerenal azotemia excessive fluid loss from wound site Complicated diverticulitis post surgical repair with ileostomy cholecystectomy Anemia of chronic disease history of renal cancer with chemo and nephrectomy Elinor in urine and antifungal Urinary tract infection secondary to colovesical fistula Metabolic encephalopathy and delirium secondary hospitalization COPD stable history of renal cell cancer with immunotherapy and nephrectomy Hypothyroidism BPH Scrotal edema Plan Continue consultation with pulmonology Patient on Zosyn Continue consultation with infectious disease Oncology
[2019-01-08 12:12] LABS: Glucose,Whole Blood 169 mg/dL (75-99)
[2019-01-08] MEDS: ALBUTEROL NEBULIZED 2.5 MG/3 ML INHALATION PRN (14:02)
[2019-01-08 16:59] LABS: Glucose,Whole Blood 232 mg/dL (75-99)
--- NOTE | 2019-01-08 17:22 | PN ---
PROGRESS NOTE DATE OF SERVICE: 01/08/2019. REASON FOR FOLLOWUP: Complicated sigmoid diverticulitis with colovesical fistula and leukocytosis. INTERVAL HISTORY: The patient is currently afebrile. Patient has been breathing comfortably. The patient denies having any chest pain or any cough. Abdominal pain is currently controlled. No nausea, no vomiting. Did have output in his ileostomy bag. PHYSICAL EXAMINATION: Blood pressure 121-67, pulse of 87, temperature 98. He is 98% on room air. General description is an elderly male lying in bed in no distress. Respiratory system: Unlabored breathing clear to auscultation anteriorly. Heart S1, S2. Regular rate and rhythm. ABDOMEN: Soft. No tenderness. No guarding. No rigidity. Extremities: No edema of the feet. LAB: Hemoglobin 8.8, white count down to 14.9, BUN of 21, creatinine 1.22. DIAGNOSTIC IMPRESSION AND PLAN: Patient with leukocytosis, likely multifocal in this patient who does have complicated sigmoid diverticulitis with colovesical fistula, status post diverting ileostomy. The patient is currently covered with Zosyn and to continue white count downward trend. Continue to monitor his clinical course closely. MMODL / IJN: [id number] /
--- NOTE | 2019-01-08 19:58 | P.GSCN ---
History of Present Illness Consult date: 01/08/19 Reason for Consult: Scrotal edema History of present illness: The patient is a 68-year-old male originally admitted on 01/01 for treatment of cholelithiasis and a colovesical fistula. The patient had undergone CT scan of the chest abdomen and pelvis for follow-up of metastatic renal cancer on 12/16 and this showed the presence of gallstones and a thickened bladder with air at the dome consistent with a colovesical fistula. The patient had pulmonary metastasis from renal cell carcinoma that had diminished in size from a CT scan in 08/2018. The patient underwent laparoscopic cholecystectomy on the date of admission. A lower abdominal midline incision was made with the initial intent of proceeding with sigmoid colectomy but the patient was discovered to have marked inflammation in the pelvis which made this impossible. A diverting ileostomy and segmental resection of imflammed ileum was performed. Approximately 3000 cc of ascitic fluid was drained from the peritoneal cavity. The patient was initially treated with Zosyn and an antifungal and was added later after a urine culture grew a Elinor species. The patient has had a Butler catheter since the time of his surgery. There continues to be sediment draining from the bladder. I was asked to see the patient apparently due to scrotal edema. The patient says that his scrotal edema and leg edema is actually decreased somewhat over the last week. He denies any scrotal pain. Review of Systems - Constitutional Reports fatigue, Denies fever - Gastrointestinal Denies abdominal pain - Genitourinary Reports as per HPI Past Medical History Past Medical History: Atrial Fibrillation, Cancer, COPD Additional Past Medical History / Comment(s): Metastatic renal carcinoma currently on immunotherapy, right nephrectomy in 2011, atrial fibrillation, COPD, coronary artery disease and mild BPH, hypothyroidism History of Any Multi-Drug Resistant Organisms: None Reported Additional Past Surgical History / Comment(s): rt kidney removed in 2011 due to CA, POST LUNG BIOPSY, rt upper chest port Past Anesthesia/Blood Transfusion Reactions: No Reported Reaction Smoking Status: Former smoker (The patient carries approximately [id number] smoking history) - Past Family History Mother Family Medical History: No Reported History Medications and Allergies Home Medications Medication Instructions Recorded Confirmed Type Aspirin [Adult Low Dose Aspirin EC] 81 mg PO DAILY 12/30/18 01/01/19 History Nitrofurantoin Monohyd/M-Cryst 100 mg PO Q12HR 12/30/18 01/01/19 History [Macrobid] Tamsulosin [Flomax] 0.4 mg PO DAILY 12/30/18 01/01/19 History Thyroid,Pork [Door Framer Thyroid] 30 mg PO DAILY 12/30/18 01/01/19 History Albuterol Inhaler [Ventolin Hfa 1 - 2 puff INHALATION RT-Q6H PRN 01/04/19 01/04/19 History Inhaler] Allergies Allergy/AdvReac Type Severity Reaction Status Date / Time No Known Allergies Allergy Verified 01/01/19 17:37 Surgical - Exam Vital Signs Temp Pulse Resp BP Pulse Ox 97.4 F L 95 16 135/75 95 01/01/19 13:27 01/01/19 13:27 01/01/19 13:27 01/01/19 13:27 01/01/19 13:27 - General well developed, no distress, obese - Neck no masses, no lymphadectomy - Respiratory normal respiratory effort - Abdomen Abdomen: soft, non tender, surgical scars (Lower abdominal midline and ileostomy) - Genitourinary normal penis with no external lesions, testicles non-tender, other (Moderate scrotal and penile edema. No evidence of infection. Butler catheter draining yellow urine with some sediment.) Results - Labs 01/08/19 04:15 01/08/19 04:15 Abnormal Lab Results - Last 24 Hours (Table) 01/07/19 01/08/19 01/08/19 Range/Units 20:16 04:15 04:15 WBC 14.9 H (3.8-10.6) k/uL RBC 3.04 L (4.30-5.90) m/uL Hgb 8.2 L (13.0-17.5) gm/dL Hct 26.8 L (39.0-53.0) % MCHC 30.5 L (31.0-37.0) g/dL RDW 17.9 H (11.5-15.5) % Neutrophils # 13.4 H (1.3-7.7) k/uL Lymphocytes # 0.9 L (1.0-4.8) k/uL Sodium 136 L (137-145) mmol/L Chloride 113 H (98-107) mmol/L Carbon Dioxide 19 L (22-30) mmol/L BUN 21 H (9-20) mg/dL Glucose 142 H (74-99) mg/dL POC Glucose (mg/dL) 214 H (75-99) mg/dL Calcium 7.7 L (8.4-10.2) mg/dL 01/08/19 01/08/19 01/08/19 Range/Units 06:37 12:00 16:47 WBC (3.8-10.6) k/uL RBC (4.30-5.90) m/uL Hgb (13.0-17.5) gm/dL Hct (39.0-53.0) % MCHC (31.0-37.0) g/dL RDW (11.5-15.5) % Neutrophils # (1.3-7.7) k/uL Lymphocytes # (1.0-4.8) k/uL Sodium (137-145) mmol/L Chloride (98-107) mmol/L Carbon Dioxide (22-30) mmol/L BUN (9-20) mg/dL Glucose (74-99) mg/dL POC Glucose (mg/dL) 173 H 169 H 232 H (75-99) mg/dL Calcium (8.4-10.2) mg/dL Microbiology - Last 24 Hours (Table) 01/01/19 19:44 Blood Culture - Final Blood No Growth after 144 hours Diabetes panel 01/08/19 Range/Units 04:15 Sodium 136 L (137-145) mmol/L Potassium 5.0 (3.5-5.1) mmol/L Chloride 113 H (98-107) mmol/L Carbon Dioxide 19 L (22-30) mmol/L BUN 21 H (9-20) mg/dL Creatinine 1.22 (0.66-1.25) mg/dL Glucose 142 H (74-99) mg/dL Calcium 7.7 L (8.4-10.2) mg/dL Calcium panel 01/08/19 Range/Units 04:15 Calcium 7.7 L (8.4-10.2) mg/dL Pituitary panel 01/08/19 Range/Units 04:15 Sodium 136 L (137-145) mmol/L Potassium 5.0 (3.5-5.1) mmol/L Chloride 113 H (98-107) mmol/L Carbon Dioxide 19 L (22-30) mmol/L BUN 21 H (9-20) mg/dL Creatinine 1.22 (0.66-1.25) mg/dL Glucose 142 H (74-99) mg/dL Calcium 7.7 L (8.4-10.2) mg/dL Adrenal panel 01/08/19 Range/Units 04:15 Sodium 136 L (137-145) mmol/L Potassium 5.0 (3.5-5.1) mmol/L Chloride 113 H (98-107) mmol/L Carbon Dioxide 19 L (22-30) mmol/L BUN 21 H (9-20) mg/dL Creatinine 1.22 (0.66-1.25) mg/dL Glucose 142 H (74-99) mg/dL Calcium 7.7 L (8.4-10.2) mg/dL Assessment and Plan (1) Colovesical fistula Narrative/Plan: The etiology of the patient's colovesical fistula remains unclear as the patient has not had resection of this area for pathologic analysis. He will continue to have sediment in his urine and most likely will intermittently grow bacteria and yeast in the urine as the bladder remains in continuity with the colon. The fistula may or may not close spontaneously and I suspect that the patient will eventually need some sort of surgical resection of the diseased segment of bowel. Current Visit: Yes Status: Acute Code(s): N32.1 - VESICOINTESTINAL FISTULA SNOMED Code(s): 26303912 (2) Scrotal edema Narrative/Plan: This is probably in part related to the patient's lower extremity edema. He is malnourished with a low albumin and total protein. He may also have some element of lymphatic overload due to the inflammatory mass in the pelvis. Fortunately the scrotal edema appears to be gradually decreasing compared with the swelling I had noted when I saw him last week. Current Visit: Yes Status: Acute Code(s): N50.89 - OTHER SPECIFIED DISORDERS OF THE MALE GENITAL ORGANS SNOMED Code(s): 56231530
[2019-01-08 21:30] LABS: Glucose,Whole Blood 141 mg/dL (75-99)
[2019-01-08] MEDS: QUEtiapine 25 MG TAB PO SCH (21:46)
[2019-01-09] MEDS: PIPERACILLIN-TAZOBACTAM 3.375 GM in SODIUM CHLORIDE 0.9% 100 ML IVPB SCH ×3 (00:25→15:45)
[2019-01-09] MEDS: HEPARIN SODIUM,PORCINE 5,000 UNIT/ML 1 ML VIAL SQ SCH ×3 (00:25→15:44)
[2019-01-09 05:50] LABS: Anisocytosis Slight; Basophils % (A) 0 %; Eosinophils # (A) 0.1 k/uL (0-0.7); Eosinophils % (A) 1 %; HCT 28.5 % (39.0-53.0); HGB 8.8 gm/dL (13.0-17.5); Hypochromasia Moderate; Lymphocytes # (A) 2.5 k/uL (1.0-4.8); Lymphocytes % (A) 17 %; MCH 27.3 pg (25.0-35.0); Mean Platelet Volume 7.4; Monocytes # (A) 0.8 k/uL (0-1.0); Monocytes % (A) 6 %; Neutrophils # (A) 10.7 k/uL (1.3-7.7); Neutrophils % (A) 75 %; Platelet Count 351 k/uL (150-450); RBC 3.23 m/uL (4.30-5.90); RDW 17.2 % (11.5-15.5); WBC 14.3 k/uL (3.8-10.6)
[2019-01-09 06:25] LABS: Calcium 7.6 mg/dL (8.4-10.2); Potassium 4.5 mmol/L (3.5-5.1)
[2019-01-09] MEDS: LEVOTHYROXINE 50 MCG TAB PO SCH (07:10)
[2019-01-09] MEDS: DEXTROSE 5%-0.9% NACL 1,000 ML IV SCH ×3 (07:11→11:14)
[2019-01-09] MEDS: INSULIN ASPART (NovoLOG) 100 UNIT/ML VIAL SQ SCH ×4 (07:12→20:32)
[2019-01-09 07:18] LABS: Glucose,Whole Blood 113 mg/dL (75-99)
--- NOTE | 2019-01-09 09:32 | P.PN ---
Subjective Progress Note Date: 01/09/19 CHIEF COMPLAINT: colovesicular fistula, gallstones HISTORY OF PRESENT ILLNESS: 68-year-old male who underwent laparoscopic cholecystectomy, small bowel resection, and diverting ileostomy. POD #8. Patient is examined in the ICU laying in bed. He reports his pain is tolerable at this time. He complains of gas pains this morning. Tolerating diet. Appetite improving. Denies nausea or vomiting. Approximately 1500cc of drainage from LITZY overnight with a total of 3000cc over the last 24 hours. PHYSICAL EXAM: VITAL SIGNS: Reviewed. GENERAL: Well-developed in no acute distress. HEENT: No sclera icterus. Extraocular movements grossly intact. Moist buccal mucosa. Head is atraumatic, normocephalic. ABDOMEN: Soft. Mildly distended. LITZY drain intact with serous drainage connected to suction. Ileostomy noted with brown liquid stool. Right lower quadrant surgical site connected to drainage bag with minimal serous drainage. NEUROLOGIC: Alert and oriented. Cranial nerves II through XII grossly intact. ASSESSMENT: 1. Colovesicular fistula and cholelithiasis, status post laparoscopic cholecystectomy, small bowel resection and diverting ileostomy 2. 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 Continue current diet. Encouraged increase protein intake. 2. Activity as tolerated. PT/OT on consult 3. Incentive spirometry 4. Continue LITZY to suction 5. Continue urinary catheter. Accurate I&O 6. Steroids per oncology 7. Further recommendations to follow once patient has been re-evaluated by Dr. Barrientos this afternoon Nurse practitioner note has been reviewed by physician. Signing provider agrees with the documented findings, assessment, and plan of care. Objective - Vital Signs Vital signs: Vital Signs Temp 98.1 F 01/09/19 04:00 Pulse 73 01/09/19 07:00 Resp 24 01/09/19 07:00 BP 104/75 01/09/19 07:00 Pulse Ox 96 01/09/19 07:56 Intake & Output 01/08/19 01/09/19 01/09/19 18:59 06:59 18:59 Intake Total 2100 1640.0 125 Output Total 5800 4180 700 Balance -3700 -2540.0 -575 Weight 101.1 kg Intake: IV 1800 1550.0 125 Anidulafungin 100 mg In 100 Sodium Chloride 0.9% 100 ml @ 84 mls/hr IVPB DAILY [facility] Rx#:[id number] Dextrose 5%-0.9% NaCl 1, 1500 1500 125 000 ml @ 125 mls/hr IV . Q8H [facility] Rx#:[id number] Piperacillin-Tazobactam 3 200 50.0 .375 gm In Sodium Chloride 0.9% 100 ml @ 25 mls/hr IVPB Q8HR [facility] Rx# :[id number] Oral 300 90 Output: Drainage 2950 1900 300 Right ABD Lap Site 1750 Right Abdomen 1200 1900 300 Urine 1650 1780 100 Stool 1200 500 300 Other: Voiding Method Indwelling Catheter Indwelling Catheter - Labs CBC & Chem 7: 01/09/19 05:30 01/09/19 05:30 Labs: Abnormal Lab Results - Last 24 Hours (Table) 01/08/19 01/08/19 01/08/19 Range/Units 12:00 16:47 21:20 WBC (3.8-10.6) k/uL RBC (4.30-5.90) m/uL Hgb (13.0-17.5) gm/dL Hct (39.0-53.0) % RDW (11.5-15.5) % Neutrophils # (1.3-7.7) k/uL Sodium (137-145) mmol/L Chloride (98-107) mmol/L Carbon Dioxide (22-30) mmol/L BUN (9-20) mg/dL POC Glucose (mg/dL) 169 H 232 H 141 H (75-99) mg/dL Calcium (8.4-10.2) mg/dL 01/09/19 01/09/19 01/09/19 Range/Units 05:30 05:30 07:06 WBC 14.3 H (3.8-10.6) k/uL RBC 3.23 L (4.30-5.90) m/uL Hgb 8.8 L (13.0-17.5) gm/dL Hct 28.5 L (39.0-53.0) % RDW 17.2 H (11.5-15.5) % Neutrophils # 10.7 H (1.3-7.7) k/uL Sodium 135 L (137-145) mmol/L Chloride 111 H (98-107) mmol/L Carbon Dioxide 21 L (22-30) mmol/L BUN 21 H (9-20) mg/dL POC Glucose (mg/dL) 113 H (75-99) mg/dL Calcium 7.6 L (8.4-10.2) mg/dL
[2019-01-09] MEDS: PANTOPRAZOLE 40 MG TABLET PO SCH (09:33)
[2019-01-09] MEDS: ANIDULAFUNGIN 100 MG in SODIUM CHLORIDE 0.9% 100 ML IVPB SCH (09:33)
[2019-01-09] MEDS: SIMETHICONE 80 MG CHEWABLE PO PRN ×2 (11:05→21:05)
--- NOTE | 2019-01-09 11:30 | P.PN ---
Subjective Patient sitting in chair at bedside complaining of increase in gas pain. Noted hyperactive bowel sounds. Continues with drainage sedated LIZTY drain. Noted pathology small bowel negative for malignancy Objective - Vital Signs Vital signs: Vital Signs Temp 98.1 F 01/09/19 08:00 Pulse 63 01/09/19 10:00 Resp 17 01/09/19 10:00 BP 120/72 01/09/19 10:00 Pulse Ox 96 01/09/19 10:00 Intake & Output 01/08/19 01/09/19 01/09/19 18:59 06:59 18:59 Intake Total 2100 1640.0 750 Output Total 5800 4180 2175 Balance -3700 -2540.0 -1425 Weight 101.1 kg Intake: IV 1800 1550.0 750 Anidulafungin 100 mg In 100 100 Sodium Chloride 0.9% 100 ml @ 84 mls/hr IVPB DAILY [facility] Rx#:[id number] Dextrose 5%-0.9% NaCl 1, 1500 1500 550 000 ml @ 175 mls/hr IV . Q5H43M [facility] Rx#:[id number] Piperacillin-Tazobactam 3 200 50.0 100 .375 gm In Sodium Chloride 0.9% 100 ml @ 25 mls/hr IVPB Q8HR [facility] Rx# :[id number] Oral 300 90 Output: Drainage 2950 1900 1025 Right ABD Lap Site 1750 25 Right Abdomen 1200 1900 1000 Urine 1650 1780 350 Stool 1200 500 800 Other: Voiding Method Indwelling Catheter Indwelling Catheter Indwelling Catheter - Constitutional General appearance: Present: mild distress - EENT Eyes: Present: PERRLA Ears: bilateral: normal - Neck Neck: Present: normal ROM - Respiratory Respiratory: bilateral: CTA - Cardiovascular Rhythm: regular - Gastrointestinal General gastrointestinal: Present: hyperactive bowel sounds, soft Localized gastrointestinal: tender: diffuse - Integumentary Integumentary: Present: normal - Neurologic Neurologic: Present: CNII-XII intact - Musculoskeletal Musculoskeletal: Present: generalized weakness - Psychiatric Psychiatric: Present: A&O x's 3, appropriate affect, intact judgment & insight - Labs CBC & Chem 7: 01/09/19 05:30 01/09/19 05:30 Labs: Abnormal Lab Results - Last 24 Hours (Table) 04/17/19 04/17/19 04/17/19 Range/Units 12:00 16:47 21:20 WBC (3.8-10.6) k/uL RBC (4.30-5.90) m/uL Hgb (13.0-17.5) gm/dL Hct (39.0-53.0) % RDW (11.5-15.5) % Neutrophils # (1.3-7.7) k/uL Sodium (137-145) mmol/L Chloride (98-107) mmol/L Carbon Dioxide (22-30) mmol/L BUN (9-20) mg/dL POC Glucose (mg/dL) 169 H 232 H 141 H (75-99) mg/dL Calcium (8.4-10.2) mg/dL 01/09/19 01/09/19 01/09/19 Range/Units 05:30 05:30 07:06 WBC 14.3 H (3.8-10.6) k/uL RBC 3.23 L (4.30-5.90) m/uL Hgb 8.8 L (13.0-17.5) gm/dL Hct 28.5 L (39.0-53.0) % RDW 17.2 H (11.5-15.5) % Neutrophils # 10.7 H (1.3-7.7) k/uL Sodium 135 L (137-145) mmol/L Chloride 111 H (98-107) mmol/L Carbon Dioxide 21 L (22-30) mmol/L BUN 21 H (9-20) mg/dL POC Glucose (mg/dL) 113 H (75-99) mg/dL Calcium 7.6 L (8.4-10.2) mg/dL Assessment and Plan Assessment: Assessment Acute renal failure secondary to prerenal azotemia secondary excessive fluid loss Elinor urine Complicated diverticulitis postsurgical repair with ileostomy post lap carlos Urinary tract infection secondary to colovesical fistula Metabolic encephalopathy and delirium secondary to hospitalization COPD without acute exacerbation History of renal cell carcinoma with immunotherapy and nephrectomy Hypo-thyroidism BPH Anemia of chronic disease renal carcinoma with history of nephrectomy and immunotherapy Plan Continue consultation with infectious disease pulmonology oncology Awaiting plan from surgeon for for further treatment
--- NOTE | 2019-01-09 11:32 | P.PN ---
Subjective Progress Note Date: 01/09/19 Principal diagnosis: Colovesicular fistula, status post exploratory laparotomy laparoscopic cholecystectomy with small bowel resection and diverting ileostomy This is a 68-year-old male patient with known history of COPD, history of with a sickle cell carcinoma and the patient is post right nephrectomy that was not proximal to 6 years ago, along with history of coronary artery disease, vitamin D deficiency and complicated diverticulitis with history of colovesicular fistula with severe inflammatory changes in his pelvis. The patient was having problems due to recurrent UTIs and the patient had a CT of the abdomen and pelvis and there was a concern for an underying rectovesicular fistula and cholelithiasis. The patient was taken to the operating room and he underwent an cholecystectomy, small bowel resection and diverting ileostomy. Intraoperative findings showed that the patient had significant inflammation and frozen pelvis and a low AP resection was not possible. Any ileostomy was brought out in the right lower quadrant. The abdomen was irrigated. The LITZY drain was placed and the fascia was closed. The patient was hypothermic at the end of the procedure with a temperature of 3 5 and fluid warmers in bed huggers were provided and ICU consultation was obtained. The patient was extubated in the OR and he was brought up to recovery where he was seen and evaluated. He was found hemodynamically stable and he was on no pressors. He was given nearly 3 liters of the IVF in the OR and he was started on maintenance fluids. In terms of his history of malignancy, the patient is known to have metastatic disease involving the lungs and a mediastinal mass that was diagnosed to be positive for renal cell carcinoma. The patient is currently on immunotherapy through with Dr. Barth. He has also undergone previous thoracentesis for right-sided pleural effusion. He has been under the care of Dr. Barth and Dr. Yusuf on outpatient basis. Patient was seen on follow-up in the ICU on 01/06/2019, patient is sitting at a bedside chair, comfortable, in no distress. Continues to have significant draining tubes including LITZY drain which is draining significant amount of fluid cytology so far is negative. Continues to have cloudy urine and cultures were p ositive for Elinor. Patient also has a diverticular ileostomy which seems to be functional. Remains on antibiotics, antifungal treatment, his IV fluid is still at 1 25 mL/h using D5 0.9 normal saline. Patient is being considered for possible TPN. WBC count is elevated at 22.1 hemoglobin is 8.4. Electrolytes are normal renal profile is abnormal with a BUN of 17 and creatinine is 1.41 slightly improved compared to yesterday. Antibiotics nj patient remains on Zosyn, and he is also on Eraxis. Patient denies any pain, denies any shortness of breath, no cough, no wheezing. Chest x-ray from yesterday showed worsening bibasilardisease and small bilateral effusions. Patient was seen on follow-up today on 01/07/2019, no major jacquard loom card changer the last 24 hours, patient is feeling better, breathing easier, denies any aches or pains. Seems to be quite comfortable, continues to have significant drainage from the different tubes he has his abdomen and continues to have cloudy urine. CBC showed the PEEP cigar 17.8 hemoglobin is 7.8 electrolytes are normal creatinine is improving down to 1.23, serum calcium is 7.6. Medications were all reviewed, patient remains on updrafts, he is also on Eraxis, and on Zosyn. Remains on GI and DVT prophylaxis. He is also on Solu-Medrol, insulin is subcu as per protocol/scale. No chest x-ray was done today. Patient was reevaluated today on 01/08/2019, slightly improved compared to yesterday, and steadily improving. Feeling better, appetite is improving, denies any shortness of breath, no cough, no wheezing. His swelling and scrotal edema is improving. Continues to have significant amount of drainage from LITZY drain roughly about 2000 mL over the last 24 hours. Urine is less cloudy, patient denies any abdominal pain or discomfort. His fluid balance is noted to be negative the last 24 hours about 1300 mL. Remains on IV fluid at 1 25 mL per hour. Reevaluated today on 01/09/2019, patient is status post laparoscopic cholecystectomy small bowel resection and diverting ileostomy postoperative day #8. Remains in the ICU, significant amount of drainage noted from his LITZY drain, roughly 2000 mL over the last 24 hours, significant amount of drainage noted from the ileostomy, and some oozing from the incision. Patient had a total of 4000 mL output in the last 24 hours. His IV fluid is 125 an hour, hence I increased the IV fluid rate, it is up to 175. His renal functioning seems to be improving in spite of the significant output. Creatinine today is 1.12, and it was 1.2 to yesterday. Electrolytes remain normal CBC is relatively unremarkable WBC count is a bit elevated at 14.3 hemoglobin is 8.8. Patient is relatively asymptomatic except for some vague abdominal discomfort and intestinal gas. Denies any cough no wheezing no shortness of breath no chest pain Objective - Vital Signs Vital signs: Vital Signs Temp 98.1 F 01/09/19 08:00 Pulse 63 01/09/19 10:00 Resp 17 01/09/19 10:00 BP 120/72 01/09/19 10:00 Pulse Ox 96 01/09/19 10:00 Intake & Output 01/08/19 01/09/19 01/09/19 18:59 06:59 18:59 Intake Total 2100 1640.0 750 Output Total 5800 4180 2175 Balance -3700 -2540.0 -1425 Weight 101.1 kg Intake: IV 1800 1550.0 750 Anidulafungin 100 mg In 100 100 Sodium Chloride 0.9% 100 ml @ 84 mls/hr IVPB DAILY [facility] Rx#:[id number] Dextrose 5%-0.9% NaCl 1, 1500 1500 550 000 ml @ 175 mls/hr IV . Q5H43M [facility] Rx#:[id number] Piperacillin-Tazobactam 3 200 50.0 100 .375 gm In Sodium Chloride 0.9% 100 ml @ 25 mls/hr IVPB Q8HR [facility] Rx# :[id number] Oral 300 90 Output: Drainage 2950 1900 1025 Right ABD Lap Site 1750 25 Right Abdomen 1200 1900 1000 Urine 1650 1780 350 Stool 1200 500 800 Other: Voiding Method Indwelling Catheter Indwelling Catheter Indwelling Catheter - Exam GENERAL EXAM: Revealed a pleasant 68-year-old in no distress.. HEAD: Normocephalic/atraumatic. EENT: PERRLA, EOMI, no icterus, dry mucous membranes, no neck masses, no JVD, no stridor. No thyromegaly. CHEST: No chest wall deformity. Symmetrical expansion. LUNGS: Clear bilaterally diminished at the bases, no rhonchi and no wheezes. CVS: Regular rate and rhythm, normal S1 and S2, no gallops, no murmurs, no rubs ABDOMEN: Soft, nontender. No hepatosplenomegaly, normal bowel sounds, no guarding or rigidity. Abdomen is soft, bowel sounds are hypoactive, and abdominal incision clean dry and intact, covered with a surgical dressing, serosanguineous drainage, LITZY drain in the right lower quadrant is intact, ileostomy is functional. And there is a small tiny bit of incision of serous drainage from the surgical site in the right lower quadrant. EXTREMITIES: No clubbing, trace of bipedal edema, no cyanosis, 2+ pulses and upper and lower extremities. No changes consistent with chronic venous stasis involving the lower extremities bilaterally MUSCULOSKELETAL: Muscle strength and tone normal CENTRAL NERVOUS SYSTEM: Alert and oriented 3, no gross focal neurologic deficit . PSYCHIATRIC: Normal mood, affect and mental status examination Skin: No rashes. - Labs CBC & Chem 7: 01/09/19 05:30 01/09/19 05:30 Labs: Abnormal Lab Results - Last 24 Hours (Table) 01/08/19 01/08/19 01/08/19 Range/Units 12:00 16:47 21:20 WBC (3.8-10.6) k/uL RBC (4.30-5.90) m/uL Hgb (13.0-17.5) gm/dL Hct (39.0-53.0) % RDW (11.5-15.5) % Neutrophils # (1.3-7.7) k/uL Sodium (137-145) mmol/L Chloride (98-107) mmol/L Carbon Dioxide (22-30) mmol/L BUN (9-20) mg/dL POC Glucose (mg/dL) 169 H 232 H 141 H (75-99) mg/dL Calcium (8.4-10.2) mg/dL 01/09/19 01/09/19 01/09/19 Range/Units 05:30 05:30 07:06 WBC 14.3 H (3.8-10.6) k/uL RBC 3.23 L (4.30-5.90) m/uL Hgb 8.8 L (13.0-17.5) gm/dL Hct 28.5 L (39.0-53.0) % RDW 17.2 H (11.5-15.5) % Neutrophils # 10.7 H (1.3-7.7) k/uL Sodium 135 L (137-145) mmol/L Chloride 111 H (98-107) mmol/L Carbon Dioxide 21 L (22-30) mmol/L BUN 21 H (9-20) mg/dL POC Glucose (mg/dL) 113 H (75-99) mg/dL Calcium 7.6 L (8.4-10.2) mg/dL Assessment and Plan Assessment: Impression: 1 complicated colovesicular fistula, status post exploratory laparotomy laparoscopic cholecystectomy small bowel resection and diverting ileostomy. Postoperative day #8. 2 history of metastatic renal cell carcinoma, remains on immunotherapy. 3 chronic obstructive pulmonary disease relatively stable 4 hypothyroidism 5 chronic normocytic anemia 6 recurrent urinary tract infection secondary to fistula 7 acute kidney injury 8 ex-smoker 9 history of benign prostatic hypertrophy 10 coronary artery disease. Recommendation: Continue to monitor the patient in the ICU today, increase his maintenance IV fluid since that is a significant output noted from his LITZY drain, continue antibiotics, final decision whether the patient needs to be reexplored again will be left up to surgery on the case. Prognosis remains definitely poor and guarded considering his multiple medical problems noted above. In the meantime continue GI and DVT prophylaxis, continue close monitoring of electrol ytes and fluid balance. Prognosis is definitely guarded. Time with Patient: Less than 30
[2019-01-09 11:59] LABS: Glucose,Whole Blood 128 mg/dL (75-99)
[2019-01-09] MEDS ORDERED: HYDROmorphone 1 MG/ML 1 ML SYRINGE IVP STA (14:19)
[2019-01-09] MEDS: IOPAMIDOL-300 CONTRAST 30 ML VIAL (ORAL USE) PO PRN ×2 (14:30→15:45)
[2019-01-09 15:12] LABS: Anisocytosis Slight; Basophils # (A) 0.1 k/uL (0-0.2); Basophils % (A) 0 %; Eosinophils # (A) 0.2 k/uL (0-0.7); Eosinophils % (A) 1 %; HCT 35.8 % (39.0-53.0); HGB 10.8 gm/dL (13.0-17.5); Hypochromasia Marked; Lymphocytes # (A) 2.7 k/uL (1.0-4.8); Lymphocytes % (A) 10 %; MCH 27.2 pg (25.0-35.0); MCHC 30.3 g/dL (31.0-37.0); MCV 89.7 fL (80.0-100.0); Mean Platelet Volume 7.4; Monocytes % (A) 4 %; Neutrophils # (A) 22.7 k/uL (1.3-7.7); Neutrophils % (A) 84 %; Platelet Count 639 k/uL (150-450); RBC 3.99 m/uL (4.30-5.90); RDW 17.7 % (11.5-15.5); WBC 26.9 k/uL (3.8-10.6)
[2019-01-09 15:26] LABS: Albumin 2.1 g/dL (3.5-5.0); Calcium 7.9 mg/dL (8.4-10.2); Total Bilirubin 0.3 mg/dL (0.2-1.3); Total Protein 4.8 g/dL (6.3-8.2)
[2019-01-09 15:28] VITALS: BMI 31.9
--- NOTE | 2019-01-09 17:16 | CT ---
EXAMINATION TYPE: CT abdomen pelvis w con DATE OF EXAM: 01/09/2019 COMPARISON: 07/13/2018 HISTORY: Generalized pain with distension CT DLP: 1572.1 mGycm Automated exposure control for dose reduction was used. TECHNIQUE: Helical acquisition of images was performed from the lung bases through the pelvis. CONTRAST: Performed with Oral Contrast and with IV Contrast, patient injected with 100 mL of Isovue 300. FINDINGS: There are moderate-sized bilateral pleural effusions. There is atelectasis in both lower lobes. Stomach has normal contour. There are multiple cysts on the lateral left kidney that measure up to 8 cm. There is right nephrectomy. Liver shows no focal defect. Bile ducts are not dilated. There are cl ips apparently from cholecystectomy. It is not clear if the gallbladder is present. Gallbladder can b e obscured by the intraperitoneal fluid. There is no evidence of pancreatic mass. Spleen is intact. There is no pericardial effusion. There is no evidence of adrenal mass. Abdominal aorta is atheromato us. Left kidneys show satisfactory contrast opacification. There is very little contrast in the renal collecting system on the delayed images. There is a large drainage catheter in the mid abdomen. There is a 6.5 cm irregular fluid collection w ith air-fluid level in the anterior upper mid abdomen appears to be extraluminal and could be an absc ess. There is patchy areas of fluid in the abdomen. There is a midline incision. I see no evidence of a bowel obstruction. There is wall thickening of the sigmoid colon. There are multiple cystic fluid collections alongside the sigmoid colon. There is Butler catheter with small amount of air in the urin rishabh bladder. There is mild bladder wall thickening. There is no inguinal hernia. There is diffuse sub cutaneous edema around the abdomen. I see no focal bone destruction. IMPRESSION: MODERATE-SIZED BILATERAL PLEURAL EFFUSIONS ARE NEW COMPARED TO OLD EXAM. BASILAR ATELECTASIS. PATCHY AREAS OF FLUID THROUGHOUT THE ABDOMEN WITH LARGE DRAINAGE CATHETER. PERITONITIS IS POSSIBLE. V SAKINA LITTLE CONTRAST EXCRETION OF THE LEFT KIDNEY COULD RELATE TO RENAL FAILURE. MIXED DENSITY EPIGASTRIC FLUID COLLECTION suggestive of an abscess with extraluminal air. There is pe ricolic fluid and sigmoid colon wall thickening suggestive of inflammatory disease or tumor. Diffuse subcutaneous edema. The fluid in the abdomen and subcutaneous fluid is new compared to old CT scan.
--- NOTE | 2019-01-09 17:20 | PN ---
PROGRESS NOTE DATE OF SERVICE: 01/09/2019. REASON FOR FOLLOWUP: Complicated sigmoid diverticulitis, colovesical fistula and leukocytosis. INTERVAL HISTORY: The patient is currently afebrile, has been complaining of some abdominal gas but denies any nausea, vomiting. He is breathing comfortably. No chest pain. Still has output in his and his ileostomy bag. PHYSICAL EXAMINATION: Blood pressure is 114/76, pulse of 71, temperature 98. He is 97% on room air. General description is an elderly male lying in bed in no distress. Respiratory system: Unlabored breathing. Clear to auscultation anteriorly. Heart S1, S2. Regular rate and rhythm. Abdomen soft, mildly distended. LABS: Hemoglobin 8.8, white count 14.3, BUN of 21, creatinine is 1.12. DIAGNOSTIC IMPRESSION AND PLAN: Patient with complicated sigmoid diverticulitis with colovesical fistula. The patient is status post diverting ileostomy, more abdominal cultures with the patient white count showing a downward trend. Currently covered with Zosyn and to continue for now. Monitor his clinical course closely. Continue supportive care. MMODL / IJN: [id number] /
[2019-01-09 17:24] LABS: Glucose,Whole Blood 135 mg/dL (75-99)
[2019-01-09] MEDS: HYDROmorphone 0.5 MG/0.5 ML SYRINGE IVP PRN ×2 (18:16→23:18)
[2019-01-09] MEDS: metroNIDAZOLE-NS PMX 500 MG in SALINE 1 100ML.BAG IVPB SCH (18:55)
[2019-01-09 20:41] LABS: Glucose,Whole Blood 120 mg/dL (75-99)
--- NOTE | 2019-01-09 20:47 | P.PN ---
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 Patient seen and evaluated today in folow up. His renal function is improving, although still has copious amounts of drainage from his LITZY and significant from ostomy. He received 3 days of steroids, to assist with additional inflammatory burden from recent treatment with immune therapy. May benefit from longer term steroids although immediately post operatively would like to wait for further healing. Will monitor and continue to assess daily. He remains in ICU care. He is asymptomatic, tolerating po intake, appetite is decent. Occassional abdominal discomfort, gas-like bloating feeling. His WBC has continued to trend down, hemoglbin is stable. Objective - Vital Signs Vital signs: Vital Signs Temp 98.1 F 01/09/19 16:00 Pulse 76 01/09/19 19:00 Resp 22 01/09/19 19:00 BP 121/70 01/09/19 19:00 Pulse Ox 98 01/09/19 19:00 Intake & Output 01/09/19 01/09/19 01/10/19 06:59 18:59 06:59 Intake Total 1640.0 2075 175 Output Total 4180 3870 25 Balance -2540.0 -1795 150 Weight 101.1 kg 101.1 kg Intake: IV 1550.0 2075 175 Anidulafungin 100 mg In 100 Sodium Chloride 0.9% 100 ml @ 84 mls/hr IVPB DAILY [facility] Rx#:[id number] Dextrose 5%-0.9% NaCl 1, 1500 1775 175 000 ml @ 175 mls/hr IV . Q5H43M [facility] Rx#:[id number] Piperacillin-Tazobactam 3 50.0 200 .375 gm In Sodium Chloride 0.9% 100 ml @ 25 mls/hr IVPB Q8HR [facility] Rx# :[id number] Oral 90 Output: Drainage 1900 2175 Right ABD Lap Site 25 Right Abdomen 1900 2150 Urine 1780 595 25 Stool 500 1100 Other: Voiding Method Indwelling Catheter Indwelling Catheter - Exam Gen: Alert and oriented, NAD Head: NC, NT Neck: Supple Mouth: Poor Baseline dentition Lungs: Diminished Bases, No increased effort Abdomen: Evidence of ileostomy with appropriate functioning, Right Puncture soft to touch abdomen, no pain Heart: Reg, Reg LITZY Drain drainage Butler catheter output Dark and cloudy Neuro: No sensory or motor deficits noted Ext: Upper and Lower Edema Bilateral - Labs CBC & Chem 7: 01/09/19 14:56 01/09/19 14:56 Labs: Abnormal Lab Results - Last 24 Hours (Table) 01/08/19 01/09/19 01/09/19 Range/Units 21:20 05:30 05:30 WBC 14.3 H (3.8-10.6) k/uL RBC 3.23 L (4.30-5.90) m/uL Hgb 8.8 L (13.0-17.5) gm/dL Hct 28.5 L (39.0-53.0) % MCHC (31.0-37.0) g/dL RDW 17.2 H (11.5-15.5) % Plt Count (150-450) k/uL Neutrophils # 10.7 H (1.3-7.7) k/uL Sodium 135 L (137-145) mmol/L Chloride 111 H (98-107) mmol/L Carbon Dioxide 21 L (22-30) mmol/L BUN 21 H (9-20) mg/dL Creatinine (0.66-1.25) mg/dL Glucose (74-99) mg/dL POC Glucose (mg/dL) 141 H (75-99) mg/dL Calcium 7.6 L (8.4-10.2) mg/dL Alkaline Phosphatase (38-126) U/L Total Protein (6.3-8.2) g/dL Albumin (3.5-5.0) g/dL 01/09/19 01/09/19 01/09/19 Range/Units 07:06 11:46 14:56 WBC 26.9 H (3.8-10.6) k/uL RBC 3.99 L (4.30-5.90) m/uL Hgb 10.8 L (13.0-17.5) gm/dL Hct 35.8 L (39.0-53.0) % MCHC 30.3 L (31.0-37.0) g/dL RDW 17.7 H (11.5-15.5) % Plt Count 639 H (150-450) k/uL Neutrophils # 22.7 H (1.3-7.7) k/uL Sodium (137-145) mmol/L Chloride (98-107) mmol/L Carbon Dioxide (22-30) mmol/L BUN (9-20) mg/dL Creatinine (0.66-1.25) mg/dL Glucose (74-99) mg/dL POC Glucose (mg/dL) 113 H 128 H (75-99) mg/dL Calcium (8.4-10.2) mg/dL Alkaline Phosphatase (38-126) U/L Total Protein (6.3-8.2) g/dL Albumin (3.5-5.0) g/dL 01/09/19 01/09/19 Range/Units 14:56 17:13 WBC (3.8-10.6) k/uL RBC (4.30-5.90) m/uL Hgb (13.0-17.5) gm/dL Hct (39.0-53.0) % MCHC (31.0-37.0) g/dL RDW (11.5-15.5) % Plt Count (150-450) k/uL Neutrophils # (1.3-7.7) k/uL Sodium 136 L (137-145) mmol/L Chloride 110 H (98-107) mmol/L Carbon Dioxide 20 L (22-30) mmol/L BUN 23 H (9-20) mg/dL Creatinine 1.43 H (0.66-1.25) mg/dL Glucose 158 H (74-99) mg/dL POC Glucose (mg/dL) 135 H (75-99) mg/dL Calcium 7.9 L (8.4-10.2) mg/dL Alkaline Phosphatase 157 H (38-126) U/L Total Protein 4.8 L (6.3-8.2) g/dL Albumin 2.1 L (3.5-5.0) g/dL Assessment and Plan (1) Clear cell adenocarcinoma of kidney Current Visit: Yes Status: Acute Code(s): C64.9 - MALIGNANT NEOPLASM OF UNSP KIDNEY, EXCEPT RENAL PELVIS SNOMED Code(s): 50791380 (2) Cholelithiasis with acute cholecystitis Current Visit: Yes Status: Acute Code(s): K80.00 - CALCULUS OF GALLBLADDER W ACUTE CHOLECYST W/O OBSTRUCTION SNOMED Code(s): 52776452 (3) Colovesical fistula Current Visit: Yes Status: Acute Code(s): N32.1 - VESICOINTESTINAL FISTULA SNOMED Code(s): 46130217 Plan: Assessment and Recommendations: Cholecystitis Status Post Lap Grecia, with Low Anterior resection: - Requiring Ileostomy for extent of inflammatory changes - Possible etiology related to Inflammatory effects of immune therapy - Status post 3/3 of Solu-Medrol 60mg q8, PPI for inflammatory changes likely related to immune therapy. Diverticulitis with Colovesicular Fistula Acute Renal Insufficency Prerenal Azotemia: Nephrology is following - Improving Renal Cell Carcinoma with Clear Cell Carcinoma of the Right Kidney: - Original Diagnosis 2015 status Post Nephrectomy - Recurrent and metastatic pathology confirmed to Lung in September 2018 - Status Post 4 cycles of Yervoy and Opdivo, then single agent opdivo - Currently hold Immune therapy Opdivo for possible immune related inflammatory effects Leukocytosis: Reactive likely secondary to Cholecystitis and post operative: - Improving - Monitor closely for post operative infections - IV antibiotics Urinary Tract Infection: - Positive for Elinor, Primary team Normocytic Anemia: - Monitor CBC, 7.8 today - Transfusion support less than 7, no intervention needed today Moderate Protein Calorie Malnutrition: - Per Primary and ICU - Overall edema has improved. - Defer to ICU/Primary Team Hypocalcemia: - Decreased Nutritional needs and/or active infections. - Monitor thyroid as Hypothyroid changes related to immune therapy have been identified in patient Plan: - Continue to monitor daily for healing post-operatively - Continue to hold systemic treatment for cancer - Daily Assessment and risk-Benefit assessment of steroid re-initiation, will await further self healing - COntinue high protein intake, Hydration - ICU and Gen SUrg Managment Deb Sauceda AOCNP Physician Attest: I have completed the full history and physical and devloped the above impression and plan, agree with dictation dictated as a scribe
[2019-01-09] MEDS: CEFEPIME 2 GM in SODIUM CHLORIDE 0.9% 100 ML IVPB SCH (21:05)
[2019-01-09] MEDS: QUEtiapine 25 MG TAB PO SCH (21:05)
[2019-01-10] MEDS: HEPARIN SODIUM,PORCINE 5,000 UNIT/ML 1 ML VIAL SQ SCH ×3 (00:54→16:07)
[2019-01-10] MEDS: metroNIDAZOLE-NS PMX 500 MG in SALINE 1 100ML.BAG IVPB SCH ×3 (00:54→16:07)
[2019-01-10] MEDS: DEXTROSE 5%-0.9% NACL 1,000 ML IV SCH ×4 (00:58→17:10)
[2019-01-10] MEDS: HYDROmorphone 0.5 MG/0.5 ML SYRINGE IVP PRN ×2 (03:51→08:33)
[2019-01-10 05:52] LABS: Calcium 7.4 mg/dL (8.4-10.2)
[2019-01-10 06:36] LABS: Anisocytosis Slight; HCT 35.6 % (39.0-53.0); HGB 10.5 gm/dL (13.0-17.5); Hypochromasia Marked; MCH 26.7 pg (25.0-35.0); MCHC 29.4 g/dL (31.0-37.0); MCV 90.8 fL (80.0-100.0); Platelet Count 497 k/uL (150-450); RBC 3.92 m/uL (4.30-5.90); RDW 17.6 % (11.5-15.5); WBC 47.5 k/uL (3.8-10.6)
[2019-01-10 07:12] LABS: Glucose,Whole Blood 118 mg/dL (75-99)
[2019-01-10 07:16] LABS: Band Neutrophils % 7 %; Lymphocytes # (M) 1.43 k/uL (1.0-4.8); Metamyelocytes # (M) 0.48 k/uL (0); Metamyelocytes % 1 %; Monocytes # (M) 1.43 k/uL (0-1.0); Neutrophils % (M) 87 %; Nucleated Red Blood Cells 0 /100 WBC (0-0); Total Cells Counted 200
[2019-01-10 07:18] LABS: Poikilocytosis (M) Present
[2019-01-10] MEDS: INSULIN ASPART (NovoLOG) 100 UNIT/ML VIAL SQ SCH ×3 (07:24→17:12)
[2019-01-10] MEDS: LEVOTHYROXINE 50 MCG TAB PO SCH (08:27)
[2019-01-10] MEDS: CEFEPIME 2 GM in SODIUM CHLORIDE 0.9% 100 ML IVPB SCH (08:43)
[2019-01-10] MEDS: ANIDULAFUNGIN 100 MG in SODIUM CHLORIDE 0.9% 100 ML IVPB SCH (08:43)
[2019-01-10] MEDS: PANTOPRAZOLE 40 MG TABLET PO SCH (08:45)
[2019-01-10 09:14] LABS: INR 1.1 (<1.2); Prothrombin Time 11.7 sec (9.0-12.0)
[2019-01-10] MEDS: SIMETHICONE 80 MG CHEWABLE PO PRN (10:16)
--- NOTE | 2019-01-10 11:14 | P.PN ---
Subjective Progress Note Date: 01/10/19 CHIEF COMPLAINT: colovesicular fistula, gallstones HISTORY OF PRESENT ILLNESS: 68-year-old male who underwent laparoscopic cholecystectomy, small bowel resection, and diverting ileostomy. POD #9. Patient had episode of severe abdominal pain yesterday afternoon. CT obtained revealing abdominal abscess. IR was consulted but unable to drain abscess secondary to location. WBC 47.5 today. Antibiotics changed yesterday per Dr. Zarco recommendations. Patient remains hemodynamically stable. Patient continues to report abdominal pain but states it is better than yesterday afternoon. LITZY with orange colored drainage. PHYSICAL EXAM: VITAL SIGNS: Reviewed. GENERAL: Well-developed in no acute distress. HEENT: No sclera icterus. Extraocular movements grossly intact. Moist buccal mucosa. Head is atraumatic, normocephalic. ABDOMEN: Soft. Distended. Tender. LITZY drain intact with orange drainage connected to suction. Ileostomy noted with brown liquid stool. Right lower quadrant surgical site connected to drainage bag with minimal serous drainage. NEUROLOGIC: Alert and oriented. Cranial nerves II through XII grossly intact. ASSESSMENT: 1. Colovesicular fistula and cholelithiasis, status post laparoscopic cholecystectomy, small bowel resection and diverting ileostomy 2. Metastatic renal cell carcinoma with pulmonary involvement PLAN: Recommend transfer to [facility] in [place]. Patient agreeable. Case management arranging transfer at this time. Nurse practitioner note has been reviewed by physician. Signing provider agrees with the documented findings, assessment, and plan of care. Objective - Vital Signs Vital signs: Vital Signs Temp 98.1 F 01/10/19 08:00 Pulse 81 01/10/19 10:00 Resp 25 H 01/10/19 10:00 BP 109/67 01/10/19 10:00 Pulse Ox 98 01/10/19 10:00 Intake & Output 01/09/19 01/10/19 01/10/19 18:59 06:59 18:59 Intake Total 2074 2300 825 Output Total 8690 440 1397 Balance -1795 1860 -572 Weight 101.1 kg 99.9 kg Intake: IV 2074 2300 825 Anidulafungin 100 mg In 100 100 Sodium Chloride 0.9% 100 ml @ 84 mls/hr IVPB DAILY [facility] Rx#:[id number] Cefepime 2 gm In Sodium 100 100 Chloride 0.9% 100 ml @ 200 mls/hr IVPB Q12HR [facility] Rx#:[id number] Dextrose 5%-0.9% NaCl 1, 1775 2100 525 000 ml @ 175 mls/hr IV . Q5H43M [facility] Rx#:[id number] Piperacillin-Tazobactam 3 200 .375 gm In Sodium Chloride 0.9% 100 ml @ 25 mls/hr IVPB Q8HR [facility] Rx# :[id number] metroNIDAZOLE-NS PMX 500 100 100 mg In Saline 1 100ml.bag @ 100 mls/hr IVPB Q8HR [facility] Rx#:[id number] Output: Drainage 2175 900 Right ABD Lap Site 25 Right Abdomen 2150 900 Urine 595 440 197 Stool 1100 300 Other: Voiding Method Indwelling Catheter Indwelling Catheter Indwelling Catheter - Labs CBC & Chem 7: 01/10/19 04:44 01/10/19 04:44 Labs: Abnormal Lab Results - Last 24 Hours (Table) 01/09/19 01/09/19 01/09/19 Range/Units 11:46 14:56 14:56 WBC 26.9 H (3.8-10.6) k/uL RBC 3.99 L (4.30-5.90) m/uL Hgb 10.8 L (13.0-17.5) gm/dL Hct 35.8 L (39.0-53.0) % MCHC 30.3 L (31.0-37.0) g/dL RDW 17.7 H (11.5-15.5) % Plt Count 639 H (150-450) k/uL Neutrophils # 22.7 H (1.3-7.7) k/uL Neutrophils # (Manual) (1.3-7.7) k/uL Monocytes # (Manual) (0-1.0) k/uL Metamyelocytes # (Man) (0) k/uL Sodium 136 L (137-145) mmol/L Chloride 110 H (98-107) mmol/L Carbon Dioxide 20 L (22-30) mmol/L BUN 23 H (9-20) mg/dL Creatinine 1.43 H (0.66-1.25) mg/dL Glucose 158 H (74-99) mg/dL POC Glucose (mg/dL) 128 H (75-99) mg/dL Calcium 7.9 L (8.4-10.2) mg/dL Alkaline Phosphatase 157 H (38-126) U/L Total Protein 4.8 L (6.3-8.2) g/dL Albumin 2.1 L (3.5-5.0) g/dL 01/09/19 01/09/19 01/10/19 Range/Units 17:13 20:29 04:44 WBC 47.5 H (3.8-10.6) k/uL RBC 3.92 L (4.30-5.90) m/uL Hgb 10.5 L (13.0-17.5) gm/dL Hct 35.6 L (39.0-53.0) % MCHC 29.4 L (31.0-37.0) g/dL RDW 17.6 H (11.5-15.5) % Plt Count 497 H (150-450) k/uL Neutrophils # (1.3-7.7) k/uL Neutrophils # (Manual) 44.60 H (1.3-7.7) k/uL Monocytes # (Manual) 1.43 H (0-1.0) k/uL Metamyelocytes # (Man) 0.48 H (0) k/uL Sodium (137-145) mmol/L Chloride (98-107) mmol/L Carbon Dioxide (22-30) mmol/L BUN (9-20) mg/dL Creatinine (0.66-1.25) mg/dL Glucose (74-99) mg/dL POC Glucose (mg/dL) 135 H 120 H (75-99) mg/dL Calcium (8.4-10.2) mg/dL Alkaline Phosphatase (38-126) U/L Total Protein (6.3-8.2) g/dL Albumin (3.5-5.0) g/dL 01/10/19 01/10/19 Range/Units 04:44 07:00 WBC (3.8-10.6) k/uL RBC (4.30-5.90) m/uL Hgb (13.0-17.5) gm/dL Hct (39.0-53.0) % MCHC (31.0-37.0) g/dL RDW (11.5-15.5) % Plt Count (150-450) k/uL Neutrophils # (1.3-7.7) k/uL Neutrophils # (Manual) (1.3-7.7) k/uL Monocytes # (Manual) (0-1.0) k/uL Metamyelocytes # (Man) (0) k/uL Sodium 134 L (137-145) mmol/L Chloride 112 H (98-107) mmol/L Carbon Dioxide 16 L (22-30) mmol/L BUN 25 H (9-20) mg/dL Creatinine 1.44 H (0.66-1.25) mg/dL Glucose 118 H (74-99) mg/dL POC Glucose (mg/dL) 118 H (75-99) mg/dL Calcium 7.4 L (8.4-10.2) mg/dL Alkaline Phosphatase (38-126) U/L Total Protein (6.3-8.2) g/dL Albumin (3.5-5.0) g/dL
[2019-01-10 11:48] LABS: Glucose,Whole Blood 148 mg/dL (75-99)
--- NOTE | 2019-01-10 12:17 | P.PN ---
Subjective Progress Note Date: 01/10/19 Principal diagnosis: Colovesicular fistula, status post exploratory laparotomy laparoscopic cholecystectomy with small bowel resection and diverting ileostomy This is a 68-year-old male patient with known history of COPD, history of with a sickle cell carcinoma and the patient is post right nephrectomy that was not proximal to 6 years ago, along with history of coronary artery disease, vitamin D deficiency and complicated diverticulitis with history of colovesicular fistula with severe inflammatory changes in his pelvis. The patient was having problems due to recurrent UTIs and the patient had a CT of the abdomen and pelvis and there was a concern for an underying rectovesicular fistula and cholelithiasis. The patient was taken to the operating room and he underwent an cholecystectomy, small bowel resection and diverting ileostomy. Intraoperative findings showed that the patient had significant inflammation and frozen pelvis and a low AP resection was not possible. Any ileostomy was brought out in the right lower quadrant. The abdomen was irrigated. The LITZY drain was placed and the fascia was closed. The patient was hypothermic at the end of the procedure with a temperature of 3 5 and fluid warmers in bed huggers were provided and ICU consultation was obtained. The patient was extubated in the OR and he was brought up to recovery where he was seen and evaluated. He was found hemodynamically stable and he was on no pressors. He was given nearly 3 liters of the IVF in the OR and he was started on maintenance fluids. In terms of his history of malignancy, the patient is known to have metastatic disease involving the lungs and a mediastinal mass that was diagnosed to be positive for renal cell carcinoma. The patient is currently on immunotherapy through with Dr. Barth. He has also undergone previous thoracentesis for right-sided pleural effusion. He has been under the care of Dr. Barth and Dr. Yusuf on outpatient basis. Patient was seen on follow-up in the ICU on 01/06/2019, patient is sitting at a bedside chair, comfortable, in no distress. Continues to have significant draining tubes including LITZY drain which is draining significant amount of fluid cytology so far is negative. Continues to have cloudy urine and cultures were p ositive for Elionr. Patient also has a diverticular ileostomy which seems to be functional. Remains on antibiotics, antifungal treatment, his IV fluid is still at 1 25 mL/h using D5 0.9 normal saline. Patient is being considered for possible TPN. WBC count is elevated at 22.1 hemoglobin is 8.4. Electrolytes are normal renal profile is abnormal with a BUN of 17 and creatinine is 1.41 slightly improved compared to yesterday. Antibiotics nj patient remains on Zosyn, and he is also on Eraxis. Patient denies any pain, denies any shortness of breath, no cough, no wheezing. Chest x-ray from yesterday showed worsening bibasilardisease and small bilateral effusions. Patient was seen on follow-up today on 01/07/2019, no major ticket dispenser changer the last 24 hours, patient is feeling better, breathing easier, denies any aches or pains. Seems to be quite comfortable, continues to have significant drainage from the different tubes he has his abdomen and continues to have cloudy urine. CBC showed the PEEP cigar 17.8 hemoglobin is 7.8 electrolytes are normal creatinine is improving down to 1.23, serum calcium is 7.6. Medications were all reviewed, patient remains on updrafts, he is also on Eraxis, and on Zosyn. Remains on GI and DVT prophylaxis. He is also on Solu-Medrol, insulin is subcu as per protocol/scale. No chest x-ray was done today. Patient was reevaluated today on 01/08/2019, slightly improved compared to yesterday, and steadily improving. Feeling better, appetite is improving, denies any shortness of breath, no cough, no wheezing. His swelling and scrotal edema is improving. Continues to have significant amount of drainage from LITZY drain roughly about 2000 mL over the last 24 hours. Urine is less cloudy, patient denies any abdominal pain or discomfort. His fluid balance is noted to be negative the last 24 hours about 1300 mL. Remains on IV fluid at 1 25 mL per hour. Reevaluated today on 01/09/2019, patient is status post laparoscopic cholecystectomy small bowel resection and diverting ileostomy postoperative day #8. Remains in the ICU, significant amount of drainage noted from his LITZY drain, roughly 2000 mL over the last 24 hours, significant amount of drainage noted from the ileostomy, and some oozing from the incision. Patient had a total of 4000 mL output in the last 24 hours. His IV fluid is 125 an hour, hence I increased the IV fluid rate, it is up to 175. His renal functioning seems to be improving in spite of the significant output. Creatinine today is 1.12, and it was 1.2 to yesterday. Electrolytes remain normal CBC is relatively unremarkable WBC count is a bit elevated at 14.3 hemoglobin is 8.8. Patient is relatively asymptomatic except for some vague abdominal discomfort and intestinal gas. Denies any cough no wheezing no shortness of breath no chest pain Patient was reevaluated today on , patient is postoperative operative day #9. Remains in the ICU, however over the last 24 hours his clinical status seems to be worsening. He is developing significant leukocytosis, and he was complaining of significant abdominal pain late afternoon. CT of the abdomen and pelvis done today, showed abdominal abscess. His WBC count is up to 47.5. Antibiotics are being handled by infectious disease on the case. Patient was evaluated by interventional radiology, and felt percutaneous drainage of the abdominal abscess is not likely to be done, RBC the patient may require reexploration. And I discussed with the surgeon on the case, and he is planning to transfer the patient to [facility]. Patient is hemodynamically stable, no nausea no vomiting but he does have abdominal discomfort and pain.all labs were reviewed WBC is 47.5 hemoglobin 10.5. Electrodes are normal renal profile is elevated BUN is 25 creatinine 1.44, and his bicarb is 16. Objective - Vital Signs Vital signs: Vital Signs Temp 98.1 F 01/10/19 08:00 Pulse 81 01/10/19 10:00 Resp 25 H 01/10/19 10:00 BP 109/67 01/10/19 10:00 Pulse Ox 98 01/10/19 10:00 Intake & Output 01/09/19 01/10/19 01/10/19 18:59 06:59 18:59 Intake Total 2074 2300 825 Output Total 3870 440 1397 Balance -1795 1860 -572 Weight 101.1 kg 99.9 kg Intake: IV 2074 2299 825 Anidulafungin 100 mg In 100 100 Sodium Chloride 0.9% 100 ml @ 84 mls/hr IVPB DAILY [facility] Rx#:[id number] Cefepime 2 gm In Sodium 100 100 Chloride 0.9% 100 ml @ 200 mls/hr IVPB Q12HR [facility] Rx#:[id number] Dextrose 5%-0.9% NaCl 1, 1775 2100 525 000 ml @ 175 mls/hr IV . Q5H43M [facility] Rx#:[id number] Piperacillin-Tazobactam 3 200 .375 gm In Sodium Chloride 0.9% 100 ml @ 25 mls/hr IVPB Q8HR [facility] Rx# :[id number] metroNIDAZOLE-NS PMX 500 100 100 mg In Saline 1 100ml.bag @ 100 mls/hr IVPB Q8HR [facility] Rx#:[id number] Output: Drainage 2175 900 Right ABD Lap Site 25 Right Abdomen 2150 900 Urine 595 440 197 Stool 1100 300 Other: Voiding Method Indwelling Catheter Indwelling Catheter Indwelling Catheter - Exam GENERAL EXAM: Revealed a pleasant 68-year-old in no distress.. HEAD: Normocephalic/atraumatic. EENT: PERRLA, EOMI, no icterus, dry mucous membranes, no neck masses, no JVD, no stridor. No thyromegaly. CHEST: No chest wall deformity. Symmetrical expansion. LUNGS: Clear bilaterally diminished at the bases, no rhonchi and no wheezes. CVS: Regular rate and rhythm, normal S1 and S2, no gallops, no murmurs, no rubs ABDOMEN: Soft, nontender. No hepatosplenomegaly, normal bowel sounds, no guarding or rigidity. Abdomen is soft, bowel sounds are hypoactive, and abdominal incision clean dry and intact, covered with a surgical dressing, serosanguineous drainage, LITZY drain in the right lower quadrant is intact, ileostomy is functional. And there is a small tiny bit of incision of serous drainage from the surgical site in the right lower quadrant. EXTREMITIES: No clubbing, trace of bipedal edema, no cyanosis, 2+ pulses and upper and lower extremities. No changes consistent with chronic venous stasis involving the lower extremities bilaterally MUSCULOSKELETAL: Muscle strength and tone normal CENTRAL NERVOUS SYSTEM: Alert and oriented 3, no gross focal neurologic deficit. PSYCHIATRIC: Normal mood, affect and mental status examination Skin: No rashes. - Labs CBC & Chem 7: 01/10/19 04:44 01/10/19 04:44 Labs: Abnormal Lab Results - Last 24 Hours (Table) 01/09/19 01/09/19 01/09/19 Range/Units 14:56 14:56 17:13 WBC 26.9 H (3.8-10.6) k/uL RBC 3.99 L (4.30-5.90) m/uL Hgb 10.8 L (13.0-17.5) gm/dL Hct 35.8 L (39.0-53.0) % MCHC 30.3 L (31.0-37.0) g/dL RDW 17.7 H (11.5-15.5) % Plt Count 639 H (150-450) k/uL Neutrophils # 22.7 H (1.3-7.7) k/uL Neutrophils # (Manual) (1.3-7.7) k/uL Monocytes # (Manual) (0-1.0) k/uL Metamyelocytes # (Man) (0) k/uL Sodium 136 L (137-145) mmol/L Chloride 110 H (98-107) mmol/L Carbon Dioxide 20 L (22-30) mmol/L BUN 23 H (9-20) mg/dL Creatinine 1.43 H (0.66-1.25) mg/dL Glucose 158 H (74-99) mg/dL POC Glucose (mg/dL) 135 H (75-99) mg/dL Calcium 7.9 L (8.4-10.2) mg/dL Alkaline Phosphatase 157 H (38-126) U/L Total Protein 4.8 L (6.3-8.2) g/dL Albumin 2.1 L (3.5-5.0) g/dL 01/09/19 01/10/19 01/10/19 Range/Units 20:29 04:44 04:44 WBC 47.5 H (3.8-10.6) k/uL RBC 3.92 L (4.30-5.90) m/uL Hgb 10.5 L (13.0-17.5) gm/dL Hct 35.6 L (39.0-53.0) % MCHC 29.4 L (31.0-37.0) g/dL RDW 17.6 H (11.5-15.5) % Plt Count 497 H (150-450) k/uL Neutrophils # (1.3-7.7) k/uL Neutrophils # (Manual) 44.60 H (1.3-7.7) k/uL Monocytes # (Manual) 1.43 H (0-1.0) k/uL Metamyelocytes # (Man) 0.48 H (0) k/uL Sodium 134 L (137-145) mmol/L Chloride 112 H (98-107) mmol/L Carbon Dioxide 16 L (22-30) mmol/L BUN 25 H (9-20) mg/dL Creatinine 1.44 H (0.66-1.25) mg/dL Glucose 118 H (74-99) mg/dL POC Glucose (mg/dL) 120 H (75-99) mg/dL Calcium 7.4 L (8.4-10.2) mg/dL Alkaline Phosphatase (38-126) U/L Total Protein (6.3-8.2) g/dL Albumin (3.5-5.0) g/dL 01/10/19 01/10/19 Range/Units 07:00 11:36 WBC (3.8-10.6) k/uL RBC (4.30-5.90) m/uL Hgb (13.0-17.5) gm/dL Hct (39.0-53.0) % MCHC (31.0-37.0) g/dL RDW (11.5-15.5) % Plt Count (150-450) k/uL Neutrophils # (1.3-7.7) k/uL Neutrophils # (Manual) (1.3-7.7) k/uL Monocytes # (Manual) (0-1.0) k/uL Metamyelocytes # (Man) (0) k/uL Sodium (137-145) mmol/L Chloride (98-107) mmol/L Carbon Dioxide (22-30) mmol/L BUN (9-20) mg/dL Creatinine (0.66-1.25) mg/dL Glucose (74-99) mg/dL POC Glucose (mg/dL) 118 H 148 H (75-99) mg/dL Calcium (8.4-10.2) mg/dL Alkaline Phosphatase (38-126) U/L Total Protein (6.3-8.2) g/dL Albumin (3.5-5.0) g/dL Assessment and Plan Assessment: Impression: 1 complicated colovesicular fistula, status post exploratory laparotomy laparoscopic cholecystectomy small bowel resection and diverting ileostomy. P ostoperative day #9 2 history of metastatic renal cell carcinoma, remains on immunotherapy. 3 chronic obstructive pulmonary disease relatively stable 4 hypothyroidism 5 chronic normocytic anemia 6 recurrent urinary tract infection secondary to fistula 7 acute kidney injury 8 ex-smoker 9 history of benign prostatic hypertrophy 10 coronary artery disease. 11 abdominal abscess, may require either percutaneous drainage by interventional radiology or reexploration/exploratory laparotomy. Recommendation: Continue to monitor the patient in the ICU today,discussed his condition with the surgeon on the case, and we felt it would be best to transfer the patient to [facility]. Arrangements are being made for transfer to her before. In the meantime continue antibiotics, continue supportive care measures, prognosis is definitely guarded. We'll continue to follow. Patient was updated on the plan. Time with Patient: Less than 30
[2019-01-10] MEDS: HYDROmorphone 1 MG/ML 1 ML SYRINGE IVP PRN ×3 (12:34→18:19)
[2019-01-10] MEDS ORDERED: CALCIUM CARBONATE 500 MG CHEWABLE PO PRN (14:37)
--- NOTE | 2019-01-10 15:36 | PN ---
PROGRESS NOTE DATE OF SERVICE: 01/10/2019 REASON FOR FOLLOWUP: Abdominal abscess. INTERVAL HISTORY: The patient did have significant changes clinically in the last 24 hours. Yesterday afternoon he started having mild abdominal pain, for which a CT of abdomen and pelvis was done, with evidence of possible abdominal abscess. The patient also had a jump in white count. Yesterday morning it was 14.3, in the afternoon it was 26.9. He is up to 47.5, even though antibiotics were adjusted yesterday. The patient is complaining of abdominal pain, more of a dull aching, 4 to 5 over 10, and no radiation. The patient denies having any vomiting. No chest pain, shortness of breath or cough. PHYSICAL EXAMINATION: Blood pressure 98/60 with a pulse of 83, temperature 98.1. He is 97% on room air. General description is an elderly male lying in bed in no distress. RESPIRATORY SYSTEM: Unlabored breathing. Clear to auscultation anteriorly. HEART: S1, S2. Regular rate and rhythm. ABDOMEN: Soft. Mildly distended. No guarding or rigidity. LABS: Hemoglobin is 10.5, white count 47.5. BUN of 25, creatinine 1.44. DIAGNOSTIC IMPRESSION AND PLAN: Patient with abdominal abscess, possible perforated viscus. Patient needs to have surgery. Because of his complicated course, the patient is being transferred to a tertiary care facility. The patient is currently broadly covered with cefepime, Flagyl and anidulafungin; to continue until the patient facility. Overall prognosis remains guarded. Continue supportive care. MMODL / IJN: [id number] /
[2019-01-10 16:15] VITALS: TEMP 98.4
[2019-01-10 17:08] LABS: Glucose,Whole Blood 151 mg/dL (75-99)
[2019-01-10 18:14] VITALS: BP 101/63; PULSE 96; RESP 14
== END 2019-01-10 18:33 | disposition short-term general hospital (02) | DRG 329 ==
LOC: 2ORMAIN 13:08 → 2SICU 16:44
PROVIDERS: ADMIT Surgery; ATTEND Surgery
PROC: 0FT44ZZ Resection of Gallbladder, Percutaneous Endoscopic Approach (ICD-10-PCS; 2019-01-01)
PROC: 0DB80ZZ Excision of Small Intestine, Open Approach (ICD-10-PCS; principal; 2019-01-01 15:00)
PROC: 0D1B0Z4 Bypass Ileum to Cutaneous, Open Approach (ICD-10-PCS; 2019-01-01 15:00)
DX: K63.2 Fistula of intestine (principal); G93.41 Metabolic encephalopathy; I81 Portal vein thrombosis; R18.8 Other ascites; K80.10 Calculus of gallbladder with chronic cholecystitis without obstruction; C78.02 Secondary malignant neoplasm of left lung; C78.01 Secondary malignant neoplasm of right lung; C78.1 Secondary malignant neoplasm of mediastinum; K57.32 Diverticulitis of large intestine without perforation or abscess without bleeding; N17.9 Acute kidney failure, unspecified; E44.0 Moderate protein-calorie malnutrition; F05 Delirium due to known physiological condition; B37.49 Other urogenital candidiasis; J90 Pleural effusion, not elsewhere classified; J98.11 Atelectasis; N32.1 Vesicointestinal fistula; I48.0 Paroxysmal atrial fibrillation; E83.51 Hypocalcemia; J44.9 Chronic obstructive pulmonary disease, unspecified; I25.10 Atherosclerotic heart disease of native coronary artery without angina pectoris; E55.9 Vitamin D deficiency, unspecified; E86.9 Volume depletion, unspecified; K57.10 Diverticulosis of small intestine without perforation or abscess without bleeding; N40.0 Benign prostatic hyperplasia without lower urinary tract symptoms; E03.9 Hypothyroidism, unspecified; D63.8 Anemia in other chronic diseases classified elsewhere; N50.89 Other specified disorders of the male genital organs; L30.9 Dermatitis, unspecified; Z68.31 Body mass index [BMI] 31.0-31.9, adult; Z79.82 Long term (current) use of aspirin; Z79.899 Other long term (current) drug therapy; Z90.5 Acquired absence of kidney; Z85.47 Personal history of malignant neoplasm of testis; Z87.891 Personal history of nicotine dependence; Z87.440 Personal history of urinary (tract) infections; Z85.528 Personal history of other malignant neoplasm of kidney
CPT/HCPCS: 71045; 74177; 80048; 80053; 80202; 81001; 82040; 82150; 82247; 83605; 83690; 83735; 84100; 84132; 84443; 84450; 84460; 85025; 85027; 85610; 86850; 86900; 86901; 87040; 87086; 88108; 88304; 88305; 88307; 94640; 94760

== ENCOUNTER 2019-01-18 14:30 | Inpatient (IN) | payer MEDICARE, OTHER ==
--- NOTE | 2019-01-18 15:17 | ED ---
General Adult HPI - General Chief complaint: Fall Stated complaint: Fall Time Seen by Provider: 01/18/19 14:47 Source: patient, EMS, RN notes reviewed Mode of arrival: EMS Limitations: no limitations - History of Present Illness Initial comments: Patient is a pleasant 68-year-old male presenting to the emergency Department with generalized weakness. Patient was in the hospital and found to have a fistula. Patient did have surgery. Patient was transferred to telemetry for hospital. Patient states while there she received antibiotics however no fu rther surgical treatment. Patient was just discharged yesterday. Patient was given the option of going to rehab however felt he was okay to go home. Patient now is secondary to that. Patient states it is very difficult to take care of himself. Patient is having difficulty taking care of himself and getting around the house. Patient feels he needs rehab. Patient did get checked up and have a fall. Patient states he barely grazed his head. Patient did not lose consciousness. No confusion. No weakness to any isolated area. - Related Data Home Medications Medication Instructions Recorded Confirmed Tamsulosin [Flomax] 0.4 mg PO DAILY 12/30/18 01/18/19 Thyroid,Pork [[place]er Thyroid] 30 mg PO DAILY 12/30/18 01/18/19 Albuterol Inhaler [Ventolin Hfa 1 - 2 puff INHALATION RT-Q6H PRN 01/04/19 01/18/19 Inhaler] Diltiazem HCl [Diltiazem ER] 120 mg PO DAILY 01/18/19 01/18/19 HYDROcodone/APAP 5-325MG [[place] 1 tab PO Q4HR PRN 01/18/19 01/18/19 5-325] Linezolid [Zyvox] 600 mg PO BID 01/18/19 01/18/19 Meropenem [Merrem] 1 gram IVPB Q8H 01/18/19 01/18/19 Pantoprazole Sodium [Protonix] 40 mg PO AC-BID 01/18/19 01/18/19 Ranitidine HCl 150 mg PO BID 01/18/19 01/18/19 Rivaroxaban [Xarelto Starter Pack] See Taper PO DIRECTED 01/18/19 01/18/19 Voriconazole 350 mg PO Q12H 01/18/19 01/18/19 Allergies Allergy/AdvReac Type Severity Reaction Status Date / Time No Known Allergies Allergy Verified 01/18/19 16:15 Review of Systems ROS Statement: Those systems with pertinent positive or pertinent negative responses have been documented in the HPI. ROS Other: All systems not noted in ROS Statement are negative. Constitutional: Denies: fever Eyes: Denies: eye pain ENT: Denies: ear pain Respiratory: Denies: cough, dyspnea Cardiovascular: Denies: chest pain Endocrine: Reports: fatigue Gastrointestinal: Reports: abdominal pain (Chronic since surgery) Genitourinary: Denies: dysuria Musculoskeletal: Denies: back pain Skin: Denies: rash Neurological: Reports: weakness (Generalized as per HPI, no isolated weakness) Past Medical History Past Medical History: Atrial Fibrillation, Cancer, COPD Additional Past Medical History / Comment(s): Metastatic renal carcinoma currently on immunotherapy, right nephrectomy in 2011, atrial fibrillation, COPD, coronary artery disease and mild BPH, hypothyroidism History of Any Multi-Drug Resistant Organisms: None Reported Additional Past Surgical History / Comment(s): rt kidney removed in 2011 due to CA, POST LUNG BIOPSY, rt upper chest port Past Anesthesia/Blood Transfusion Reactions: No Reported Reaction Past Psychological History: No Psychological Hx Reported Smoking Status: Former smoker - Past Family History Mother Family Medical History: No Reported History General Exam Limitations: no limitations General appearance: alert, in no apparent distress Head exam: Present: atraumatic Eye exam: Present: normal appearance, PERRL ENT exam: Present: normal oropharynx Neck exam: Present: normal inspection Respiratory exam: Present: normal lung sounds bilaterally Cardiovascular Exam: Present: regular rate, normal rhythm GI/Abdominal exam: Present: soft, tenderness (Mild diffuse tenderness), normal bowel sounds, other (Ostomy bag present. Bandages in place over midline incision. Drain tube right mid abdomen.) Extremities exam: Present: pedal edema. Absent: calf tenderness Neurological exam: Present: alert, oriented X3, CN II-XII intact. Absent: motor sensory deficit Expanded Neurological exam: Absent: protecting the airway Patient oriented to: Present: person, place, time Speech: Present: fluid speech Sensory exam: Upper Extremity Light Touch: Normal, Lower Extremity Light Touch: Normal Motor strength exam: RUE: 5, LUE: 5, RLE: 5, LLE: 5 Eye Response: (4) open spontaneously Motor Response: (6) obeys commands Verbal Response: (5) oriented Psychiatric exam: Present: normal affect, normal mood Skin exam: Present: normal color Course Vital Signs 01/18/19 01/18/19 14:31 16:07 Temperature 97.6 F 97.6 F Pulse Rate 81 82 Respiratory 18 18 Rate Blood Pressure 94/63 94/63 O2 Sat by Pulse 100 100 Oximetry - Reevaluation(s) Reevaluation #1: 01/18/19 16:44 Patient has been cleared from being a trauma patient. There is no concern for head injury. EKG Findings - EKG Comments: EKG Findings:: Sinus rhythm at 71. ND 146. QRS 88. QT 398. QTC 432. Normal axis. Low QRS voltage. Normal QRS. No acute ST change. Medical Decision Making - Medical Decision Making Patient reevaluated and resting comfortably in bed. White blood cell count is improved from previous results. Head CT without concern for thoracic injury. Patient and family updated on results and plan. Patient is not comfortable with discharge. Patient states he is generally weak and unable take care of himself. Patient would like placement that was previously offered to him. Case was discussed in detail with Dr. nunn, covering for Dr. Kunz, who will admit. - Lab Data Result diagrams: 01/18/19 15:20 01/18/19 15:20 Lab Results 01/18/19 01/18/19 01/18/19 Range/Units 15:20 15:20 15:20 WBC 18.6 H (3.8-10.6) k/uL RBC 2.79 L (4.30-5.90) m/uL Hgb 7.9 L D (13.0-17.5) gm/dL Hct 24.9 L (39.0-53.0) % MCV 89.4 (80.0-100.0) fL MCH 28.4 (25.0-35.0) pg MCHC 31.8 (31.0-37.0) g/dL RDW 18.8 H (11.5-15.5) % Plt Count 552 H (150-450) k/uL Neutrophils % 85 % Lymphocytes % 7 % Monocytes % 4 % Eosinophils % 2 % Basophils % 0 % Neutrophils # 15.8 H (1.3-7.7) k/uL Lymphocytes # 1.4 (1.0-4.8) k/uL Monocytes # 0.7 (0-1.0) k/uL Eosinophils # 0.4 (0-0.7) k/uL Basophils # 0.1 (0-0.2) k/uL Hypochromasia Slight Anisocytosis Slight PT (9.0-12.0) sec INR (<1.2) APTT (22.0-30.0) sec Sodium 135 L (137-145) mmol/L Potassium 3.9 (3.5-5.1) mmol/L Chloride 110 H (98-107) mmol/L Carbon Dioxide 18 L (22-30) mmol/L Anion Gap 7 mmol/L BUN 21 H (9-20) mg/dL Creatinine 1.21 (0.66-1.25) mg/dL Est GFR (CKD-EPI)AfAm 70 (>60 ml/min/1.73 sqM) Est GFR (CKD-EPI)NonAf 61 (>60 ml/min/1.73 sqM) Glucose 127 H (74-99) mg/dL Plasma Lactic Acid Josesito 1.4 (0.7-2.0) mmol/L Calcium 7.5 L (8.4-10.2) mg/dL Total Bilirubin 0.2 (0.2-1.3) mg/dL AST 39 (17-59) U/L ALT 23 (21-72) U/L Alkaline Phosphatase 233 H (38-126) U/L Troponin I (0.000-0.034) ng/mL Total Protein 4.2 L (6.3-8.2) g/dL Albumin 1.8 L (3.5-5.0) g/dL 01/18/19 01/18/19 Range/Units 15:20 15:20 WBC (3.8-10.6) k/uL RBC (4.30-5.90) m/uL Hgb (13.0-17.5) gm/dL Hct (39.0-53.0) % MCV (80.0-100.0) fL MCH (25.0-35.0) pg MCHC (31.0-37.0) g/dL RDW (11.5-15.5) % Plt Count (150-450) k/uL Neutrophils % % Lymphocytes % % Monocytes % % Eosinophils % % Basophils % % Neutrophils # (1.3-7.7) k/uL Lymphocytes # (1.0-4.8) k/uL Monocytes # (0-1.0) k/uL Eosinophils # (0-0.7) k/uL Basophils # (0-0.2) k/uL Hypochromasia Anisocytosis PT 13.5 H (9.0-12.0) sec INR 1.3 H (<1.2) APTT 37.5 H (22.0-30.0) sec Sodium (137-145) mmol/L Potassium (3.5-5.1) mmol/L Chloride (98-107) mmol/L Carbon Dioxide (22-30) mmol/L Anion Gap mmol/L BUN (9-20) mg/dL Creatinine (0.66-1.25) mg/dL Est GFR (CKD-EPI)AfAm (>60 ml/min/1.73 sqM) Est GFR (CKD-EPI)NonAf (>60 ml/min/1.73 sqM) Glucose (74-99) mg/dL Plasma Lactic Acid Josesito (0.7-2.0) mmol/L Calcium (8.4-10.2) mg/dL Total Bilirubin (0.2-1.3) mg/dL AST (17-59) U/L ALT (21-72) U/L Alkaline Phosphatase (38-126) U/L Troponin I <0.012 (0.000-0.034) ng/mL Total Protein (6.3-8.2) g/dL Albumin (3.5-5.0) g/dL - Radiology Data Radiology results: report reviewed (Computed tomography scan of the chest shows no acute process), image reviewed (Chest x-ray reveals no acute process) Disposition Clinical Impression: Weakness Disposition: ADMITTED IP TO THIS HOSP Is patient prescribed a controlled substance at d/c from ED?: No Referrals: Luis Kunz MD [Primary Care Provider] - 1-2 days Decision Time: 16:46
[2019-01-18 15:45] LABS: Albumin 1.8 g/dL (3.5-5.0); Calcium 7.5 mg/dL (8.4-10.2); Potassium 3.9 mmol/L (3.5-5.1); Total Bilirubin 0.2 mg/dL (0.2-1.3); Total Protein 4.2 g/dL (6.3-8.2)
[2019-01-18 15:54] LABS: INR 1.3 (<1.2); Partial Thromboplastin Time 37.5 sec (22.0-30.0); Prothrombin Time 13.5 sec (9.0-12.0)
--- NOTE | 2019-01-18 16:01 | CT ---
EXAMINATION TYPE: CT brain wo con DATE OF EXAM: 01/18/2019 COMPARISON: None HISTORY: Fall with head injury CT DLP: 1131.4 mGycm Automated exposure control for dose reduction was used. FINDINGS: There is some cerebral cortical atrophy. There is no mass effect nor midline shift. There is no sign of intracranial hemorrhage. Calvarium is intact. IMPRESSION: MILD ATROPHY. NO ACUTE INTRACRANIAL ABNORMALITY.
--- NOTE | 2019-01-18 16:08 | XR ---
EXAMINATION TYPE: XR chest 2V DATE OF EXAM: 01/18/2019 COMPARISON: 01/05/2019 HISTORY: Atrial fibrillation. COPD. TECHNIQUE: Frontal and lateral views of the chest are obtained. FINDINGS: Heart size is normal. Lungs are clear of consolidation. There is slight blunting of the co stophrenic angles bilaterally. There are chest leads. There is right central venous catheter with tip in the superior vena cava. There is a second right-sided central venous catheter with tip in the sup erior vena cava. Bony thorax is intact. IMPRESSION: Bilateral mild pleural effusions are improved compared to last exam. There is clearing o f the congestive heart failure.
[2019-01-18 16:15] LABS: Anisocytosis Slight; Basophils # (A) 0.1 k/uL (0-0.2); Basophils % (A) 0 %; Eosinophils # (A) 0.4 k/uL (0-0.7); Eosinophils % (A) 2 %; HCT 24.9 % (39.0-53.0); Hypochromasia Slight; Lymphocytes # (A) 1.4 k/uL (1.0-4.8); Lymphocytes % (A) 7 %; MCH 28.4 pg (25.0-35.0); MCHC 31.8 g/dL (31.0-37.0); MCV 89.4 fL (80.0-100.0); Mean Platelet Volume 7.3; Monocytes # (A) 0.7 k/uL (0-1.0); Monocytes % (A) 4 %; Neutrophils # (A) 15.8 k/uL (1.3-7.7); Neutrophils % (A) 85 %; Platelet Count 552 k/uL (150-450); RBC 2.79 m/uL (4.30-5.90); RDW 18.8 % (11.5-15.5); WBC 18.6 k/uL (3.8-10.6)
[2019-01-18 16:26] LABS: HGB 7.9 gm/dL (13.0-17.5)
[2019-01-18] MEDS ORDERED: NALOXONE 0.4 MG/ML 1 ML VIAL IV PRN (16:46)
[2019-01-18] MEDS ORDERED: RIVAROXABAN PO SCH (17:00)
[2019-01-18] MEDS ORDERED: MEROPENEM 1 GM VIAL IVPB SCH (17:00)
--- NOTE | 2019-01-18 18:12 | P.HPIM ---
History of Present Illness Patient is a pleasant 68-year-old gentleman known to me from extensive review of his previous chart as it took care of him earlier this month. Patient was admitted here for colovesical fistula patient had a laparotomy laparoscopic c holecystectomy small group bowel resection and diverticular tingling ileostomy. Patient had prolonged hospitalization and ICU here patient is found to have intra-abdominal abscess was subsequently transferred to [facility] patient the is found to have enterococcus we see him which is resistant to ampicillin and sensitive to vancomycin, here in the hospital. Patient after he was transferred to [facility] patient was put on multiple antibiotics including linezolid, meropenem and voriconazole, patient has a PICC line. Patient was given an option of going home once subacute rehabilitation patient went home but felt quite weak had a fall has to come to the hospital patient's weakness is secondary to prolonged hospitalization. Patient does have bilateral leg weakness with pitting pedal edema generalized weakness. Patient denied any nausea vomiting abdominal pain patient has an open abdominal wound which was covered with dressing and an ileostomy patient denied dysuria no evidence of sepsis at this time but patient need to be placed in subacute rehabilitation, patient is quite weak. Review of Systems REVIEW OF SYSTEMS: CONSTITUTIONAL: Lexy is weakness no fever HEENT: No recent visual problems or hearing problems. Denied any sore throat. CARDIOVASCULAR: No chest pain, orthopnea, PND, no palpitations, no syncope. PULMONARY: No shortness of breath, no cough, no hemoptysis. GASTROINTESTINAL: No diarrhea, no nausea, no vomiting, no abdominal pain. NEUROLOGICAL: No headaches, no weakness, no numbness. HEMATOLOGICAL: Denies any bleeding or petechiae. GENITOURINARY: Denies any burning micturition, frequency, or urgency. MUSCULOSKELETAL/RHEUMATOLOGICAL: Denies any joint pain, swelling, or any muscle pain. ENDOCRINE: Denies any polyuria or polydipsia. The rest of the 14-point review of systems is negative. Past Medical History Past Medical History: Atrial Fibrillation, Cancer, COPD Additional Past Medical History / Comment(s): Metastatic renal carcinoma currently on immunotherapy, right nephrectomy in 2011, atrial fibrillation, COPD, coronary artery disease and mild BPH, hypothyroidism History of Any Multi-Drug Resistant Organisms: None Reported Additional Past Surgical History / Comment(s): rt kidney removed in 2012 due to CA, POST LUNG BIOPSY, rt upper chest port Past Anesthesia/Blood Transfusion Reactions: No Reported Reaction Past Psychological History: No Psychological Hx Reported Smoking Status: Former smoker - Past Family History Mother Family Medical History: No Reported History Medications and Allergies Home Medications Medication Instructions Recorded Confirmed Type Tamsulosin [Flomax] 0.4 mg PO DAILY 12/30/18 01/18/19 History Thyroid,Pork [Security Intelligence Analyst Thyroid] 30 mg PO DAILY 12/30/18 01/18/19 History Albuterol Inhaler [Ventolin Hfa 1 - 2 puff INHALATION RT-Q6H PRN 01/04/19 01/18/19 History Inhaler] Diltiazem HCl [Diltiazem ER] 120 mg PO DAILY 01/18/19 01/18/19 History HYDROcodone/APAP 5-325MG [[place] 1 tab PO Q4HR PRN 01/18/19 01/18/19 History 5-325] Linezolid [Zyvox] 600 mg PO BID 01/18/19 01/18/19 History Meropenem [Merrem] 1 gram IVPB Q8H 01/18/19 01/18/19 History Pantoprazole Sodium [Protonix] 40 mg PO AC-BID 01/18/19 01/18/19 History Ranitidine HCl 150 mg PO BID 01/18/19 01/18/19 History Rivaroxaban [Xarelto Starter Pack] See Taper PO DIRECTED 01/18/19 01/18/19 History Voriconazole 350 mg PO Q12H 01/18/19 01/18/19 History Allergies Allergy/AdvReac Type Severity Reaction Status Date / Time No Known Allergies Allergy Verified 01/18/19 16:15 Physical Exam Vitals: Vital Signs Temp Pulse Resp BP Pulse Ox 01/18/19 17:31 96.9 F L 75 18 94/63 100 01/18/19 16:07 97.6 F 82 18 94/63 100 01/18/19 14:31 97.6 F 81 18 94/63 100 Intake and Output 01/18/19 01/18/19 01/18/19 06:59 14:59 22:59 Other: Weight 97.522 kg PHYSICAL EXAMINATION: GENERAL: The patient is alert and oriented x3, not in any acute distress. Well developed, well nourished. HEENT: Pupils are round and equally reacting to light. EOMI. No scleral icterus. No conjunctival pallor. Normocephalic, atraumatic. No pharyngeal erythema. No thyromegaly. CARDIOVASCULAR: S1 and S2 present. No murmurs, rubs, or gallops. PULMONARY: Good air entry into bilateral lung arellano minimal expiratory wheezing on exam ABDOMEN: Soft, nontender, and abdominal wound with the packing and an ileostomy MUSCULOSKELETAL: No joint swelling or deformity. EXTREMITIES: No cyanosis, clubbing, she does have 2+ pitting pedal edema NEUROLOGICAL: Gross neurological examination did not reveal any focal deficits. SKIN: No rashes. Results CBC & Chem 7: 01/18/19 15:20 01/18/19 15:20 Labs: Abnormal Lab Results - Last 24 Hours (Table) 01/18/19 01/18/19 01/18/19 Range/Units 15:20 15:20 15:20 WBC 18.6 H (3.8-10.6) k/uL RBC 2.79 L (4.30-5.90) m/uL Hgb 7.9 L D (13.0-17.5) gm/dL Hct 24.9 L (39.0-53.0) % RDW 18.8 H (11.5-15.5) % Plt Count 552 H (150-450) k/uL Neutrophils # 15.8 H (1.3-7.7) k/uL PT 13.5 H (9.0-12.0) sec INR 1.3 H (<1.2) APTT 37.5 H (22.0-30.0) sec Sodium 135 L (137-145) mmol/L Chloride 110 H (98-107) mmol/L Carbon Dioxide 18 L (22-30) mmol/L BUN 21 H (9-20) mg/dL Glucose 127 H (74-99) mg/dL Calcium 7.5 L (8.4-10.2) mg/dL Alkaline Phosphatase 233 H (38-126) U/L Total Protein 4.2 L (6.3-8.2) g/dL Albumin 1.8 L (3.5-5.0) g/dL Assessment and Plan Plan: -Fall secondary to generalized weakness patient will need rehabilitation patient may even qualify for inpatient rehabilitation obtain consultation from [facility] and OT consultation. -Recent abdominal abscess: Details not available at this time we'll continue linezolid, meropenem and voriconazole which she was discharged on from [facility]-Vasical fistula with a diverticular ileostomy. -COPD with the minimal exacerbation patient was started on inhalational steroids and inhalational treatments -Renal cell cancer on immunotherapy -Hypothyroidism -Benign prostatic hypertrophic -bilateral pitting pedal edema secondary to IV fluids and the hypoalbuminemia compression socks because of hypotension patient is not appropriate for Lasix at this time -Atrial fibrillation presently rate controlled patient is on Xarelto which will be continued and Cardizem which will be continued. Patient is already in anti-correlation will not need any any additional DVT prophylaxis and patient is already on GI prophylaxis at this time
[2019-01-18 18:31] VITALS: BMI 30.8
[2019-01-18 18:37] LABS: Bacteria,Urine Many /hpf; RBC,Urine 75 /hpf (0-5); WBC,Urine >182 /hpf (0-5)
[2019-01-18 19:01] LABS: Appearance,Urine Turbid (Clear); Bilirubin,Urine Negative (Negative); Blood,Urine Moderate (Negative); Color,Urine Yellow; Glucose,Urine (UA) Negative (Negative); Hyaline Casts,Urine 44 /lpf (0-2); Ketones,Urine Trace (Negative); Leukocyte Esterase,Urine Large (Negative); Mucus,Urine Many /hpf; Nitrite,Urine Negative (Negative); Protein,Urine 2+ (Negative); Specific Gravity,Urine 1.021 (1.001-1.035)
[2019-01-18] MEDS: RIVAROXABAN 20 MG TAB PO SCH (19:26)
[2019-01-18] MEDS: PANTOPRAZOLE 40 MG TABLET PO SCH (19:26)
[2019-01-18] MEDS: SODIUM CHLORIDE 0.9% 1,000 ML IV SCH (19:27)
[2019-01-18] MEDS: MEROPENEM 1 GM in SODIUM CHLORIDE 0.9% 100 ML IVPB SCH (19:42)
[2019-01-18] MEDS: IPRATROPIUM-ALBUTEROL 3 ML NEB INHALATION PRN (20:35)
[2019-01-18] MEDS: SYMBICORT 160-4.5 MCG INHALER INHALATION SCH (20:35)
[2019-01-18] MEDS: LINEZOLID 600 MG TAB PO SCH (20:57)
[2019-01-18] MEDS: FAMOTIDINE 20 MG TAB PO SCH (20:57)
[2019-01-18] MEDS: VORICONAZOLE PO SCH (20:57)
[2019-01-19] MEDS: MEROPENEM 1 GM in SODIUM CHLORIDE 0.9% 100 ML IVPB SCH ×3 (03:03→18:57)
[2019-01-19] MEDS: SODIUM CHLORIDE 0.9% 1,000 ML IV SCH (05:44)
[2019-01-19] MEDS: SYMBICORT 160-4.5 MCG INHALER INHALATION SCH ×2 (08:10→19:59)
[2019-01-19 08:19] LABS: Calcium 7.2 mg/dL (8.4-10.2); Potassium 4.2 mmol/L (3.5-5.1)
[2019-01-19] MEDS: VORICONAZOLE PO SCH ×2 (08:35→20:42)
[2019-01-19] MEDS: THYROID, PORK 30 MG TAB PO SCH (08:36)
[2019-01-19] MEDS: FAMOTIDINE 20 MG TAB PO SCH ×2 (08:36→20:42)
[2019-01-19] MEDS: TAMSULOSIN 0.4 MG CAP.ER.24H PO SCH (08:37)
[2019-01-19] MEDS: LINEZOLID 600 MG TAB PO SCH ×2 (08:38→20:42)
[2019-01-19] MEDS: PANTOPRAZOLE 40 MG TABLET PO SCH ×2 (08:38→17:11)
[2019-01-19] MEDS: DILTIAZEM CD 120 MG CAP.ER.24H PO SCH (08:38)
[2019-01-19] MEDS: HYDROcodone/APAP 5-325MG 1 EACH TAB PO PRN (08:51)
--- NOTE | 2019-01-19 09:50 | P.GSCN ---
History of Present Illness Consult date: 01/19/19 Reason for Consult: Postoperative evaluation History of present illness: Patient known to our service. He underwent laparoscopic cholecystectomy followed by laparotomy with ileostomy placement by Dr. Barrientos 3 weeks ago. The patient was found to have significant ascites at the time of the exploration with a nearly frozen pelvis. The patient has previous diagnosis of colovesical fistula and the etiology for that remains unclear. During the patient's recent hospitalization he had significant ascitic drainage. He developed leukocytosis and CAT scan showed suspicious intra-abdominal fluid collections for abscess. He was transferred to [facility] for evaluation. Patient did not have any intervention performed there. He was started on different broad-spectrum IV antibiotics. He was subsequent discharged to his home on IV antibiotics through a PICC line. Yesterday the patient fell and came to the hospital for evaluat ion. Otherwise doing well at this time. Since his discharge the lower aspect of his incision was noted to open and is being packed with cotton gauze. Denies pain currently. Still feels weak but improving. LITZY drain output has decreased substantially. White blood cell count elevated on arrival. No repeat imaging ordered at this time. Review of Systems The patient denies any acute changes in vision or hearing, no dysphagia or odynophagia, no chest pain or shortness of breath, no headache, no runny nose, no rectal bleeding or melena Past Medical History Past Medical History: Atrial Fibrillation, Cancer, COPD Additional Past Medical History / Comment(s): Metastatic renal carcinoma currently on immunotherapy, right nephrectomy in 2011, atrial fibrillation, COPD, coronary artery disease and mild BPH, hypothyroidism History of Any Multi-Drug Resistant Organisms: None Reported Additional Past Surgical History / Comment(s): rt kidney removed in 2011 due to CA, POST LUNG BIOPSY, rt upper chest port Past Anesthesia/Blood Transfusion Reactions: No Reported Reaction Past Psychological History: No Psychological Hx Reported Smoking Status: Former smoker Past Alcohol Use History: Rare Additional Past Alcohol Use History / Comment(s): quit 2011,smoked 40+ years 2ppd Past Drug Use History: None Reported - Past Family History Mother Family Medical History: No Reported History Medications and Allergies Home Medications Medication Instructions Recorded Confirmed Type Tamsulosin [Flomax] 0.4 mg PO DAILY 12/30/18 01/18/19 History Thyroid,Pork [Loading Inspector Thyroid] 30 mg PO DAILY 12/30/18 01/18/19 History Albuterol Inhaler [Ventolin Hfa 1 - 2 puff INHALATION RT-Q6H PRN 01/04/19 01/18/19 History Inhaler] Diltiazem HCl [Diltiazem ER] 120 mg PO DAILY 01/18/19 01/18/19 History HYDROcodone/APAP 5-325MG [[place] 1 tab PO Q4HR PRN 01/18/19 01/18/19 History 5-325] Linezolid [Zyvox] 600 mg PO BID 01/18/19 01/18/19 History Meropenem [Merrem] 1 gram IVPB Q8H 01/18/19 01/18/19 History Pantoprazole Sodium [Protonix] 40 mg PO AC-BID 01/18/19 01/18/19 History Ranitidine HCl 150 mg PO BID 01/18/19 01/18/19 History Rivaroxaban [Xarelto Starter Pack] See Taper PO DIRECTED 01/18/19 01/18/19 History Voriconazole 350 mg PO Q12H 01/18/19 01/18/19 History Allergies Allergy/AdvReac Type Severity Reaction Status Date / Time No Known Allergies Allergy Verified 01/18/19 16:15 Surgical - Exam Vital Signs Temp Pulse Resp BP Pulse Ox 97.6 F 81 18 94/63 100 01/18/19 14:31 01/18/19 14:31 01/18/19 14:31 01/18/19 14:31 01/18/19 14:31 Physical exam: General: Well-developed, well-nourished HEENT: Normocephalic, sclerae nonicteric Abdomen: Nontender, mildly distended, ostomy right lower quadrant, LITZY drain intact, lower midline wound open but clean, fascia intact Extremities: No edema Neuro: Alert and oriented Results - Labs 01/18/19 15:20 01/19/19 07:18 Abnormal Lab Results - Last 24 Hours (Table) 01/18/19 01/18/19 01/18/19 Range/Units 15:20 15:20 15:20 WBC 18.6 H (3.8-10.6) k/uL RBC 2.79 L (4.30-5.90) m/uL Hgb 7.9 L D (13.0-17.5) gm/dL Hct 24.9 L (39.0-53.0) % RDW 18.8 H (11.5-15.5) % Plt Count 552 H (150-450) k/uL Neutrophils # 15.8 H (1.3-7.7) k/uL PT 13.5 H (9.0-12.0) sec INR 1.3 H (<1.2) APTT 37.5 H (22.0-30.0) sec Sodium 135 L (137-145) mmol/L Chloride 110 H (98-107) mmol/L Carbon Dioxide 18 L (22-30) mmol/L BUN 21 H (9-20) mg/dL Glucose 127 H (74-99) mg/dL Calcium 7.5 L (8.4-10.2) mg/dL Alkaline Phosphatase 233 H (38-126) U/L Total Protein 4.2 L (6.3-8.2) g/dL Albumin 1.8 L (3.5-5.0) g/dL Urine Protein (Negative) Urine Ketones (Negative) Urine Blood (Negative) Ur Leukocyte Esterase (Negative) Urine RBC (0-5) /hpf Urine WBC (0-5) /hpf Urine WBC Clumps (None) /hpf Urine Bacteria (None) /hpf Hyaline Casts (0-2) /lpf Urine Mucus (None) /hpf 01/18/19 01/19/19 Range/Units 18:18 07:18 WBC (3.8-10.6) k/uL RBC (4.30-5.90) m/uL Hgb (13.0-17.5) gm/dL Hct (39.0-53.0) % RDW (11.5-15.5) % Plt Count (150-450) k/uL Neutrophils # (1.3-7.7) k/uL PT (9.0-12.0) sec INR (<1.2) APTT (22.0-30.0) sec Sodium 136 L (137-145) mmol/L Chloride 114 H (98-107) mmol/L Carbon Dioxide 16 L (22-30) mmol/L BUN (9-20) mg/dL Glucose 70 L (74-99) mg/dL Calcium 7.2 L (8.4-10.2) mg/dL Alkaline Phosphatase (38-126) U/L Total Protein (6.3-8.2) g/dL Albumin (3.5-5.0) g/dL Urine Protein 2+ H (Negative) Urine Ketones Trace H (Negative) Urine Blood Moderate H (Negative) Ur Leukocyte Esterase Large H (Negative) Urine RBC 75 H (0-5) /hpf Urine WBC >182 H (0-5) /hpf Urine WBC Clumps Many H (None) /hpf Urine Bacteria Many H (None) /hpf Hyaline Casts 44 H (0-2) /lpf Urine Mucus Many H (None) /hpf Microbiology - Last 24 Hours (Table) 01/18/19 18:18 Urine Culture - Preliminary Urine,Clean Catch Diabetes panel 01/18/19 01/19/19 Range/Units 15:20 07:18 Sodium 135 L 136 L (137-145) mmol/L Potassium 3.9 4.2 (3.5-5.1) mmol/L Chloride 110 H 114 H (98-107) mmol/L Carbon Dioxide 18 L 16 L (22-30) mmol/L BUN 21 H 20 (9-20) mg/dL Creatinine 1.21 1.01 (0.66-1.25) mg/dL Glucose 127 H 70 L (74-99) mg/dL Calcium 7.5 L 7.2 L (8.4-10.2) mg/dL AST 39 (17-59) U/L ALT 23 (21-72) U/L Alkaline Phosphatase 233 H (38-126) U/L Total Protein 4.2 L (6.3-8.2) g/dL Albumin 1.8 L (3.5-5.0) g/dL Calcium panel 01/18/19 01/19/19 Range/Units 15:20 07:18 Calcium 7.5 L 7.2 L (8.4-10.2) mg/dL Albumin 1.8 L (3.5-5.0) g/dL Pituitary panel 01/18/19 01/19/19 Range/Units 15:20 07:18 Sodium 135 L 136 L (137-145) mmol/L Potassium 3.9 4.2 (3.5-5.1) mmol/L Chloride 110 H 114 H (98-107) mmol/L Carbon Dioxide 18 L 16 L (22-30) mmol/L BUN 21 H 20 (9-20) mg/dL Creatinine 1.21 1.01 (0.66-1.25) mg/dL Glucose 127 H 70 L (74-99) mg/dL Calcium 7.5 L 7.2 L (8.4-10.2) mg/dL Adrenal panel 01/18/19 01/19/19 Range/Units 15:20 07:18 Sodium 135 L 136 L (137-145) mmol/L Potassium 3.9 4.2 (3.5-5.1) mmol/L Chloride 110 H 114 H (98-107) mmol/L Carbon Dioxide 18 L 16 L (22-30) mmol/L BUN 21 H 20 (9-20) mg/dL Creatinine 1.21 1.01 (0.66-1.25) mg/dL Glucose 127 H 70 L (74-99) mg/dL Calcium 7.5 L 7.2 L (8.4-10.2) mg/dL Total Bilirubin 0.2 (0.2-1.3) mg/dL AST 39 (17-59) U/L ALT 23 (21-72) U/L Alkaline Phosphatase 233 H (38-126) U/L Total Protein 4.2 L (6.3-8.2) g/dL Albumin 1.8 L (3.5-5.0) g/dL Assessment and Plan (1) Colovesical fistula Narrative/Plan: Patient looks much better than when he was here postoperatively previously. Repeat labs. If leukocytosis persists may require repeat CAT scan. Likely will have drain removed tomorrow. Continue antibiotics. Infectious disease evaluation. We'll notify Dr. Barrientos of this consult. Current Visit: No Status: Acute Code(s): N32.1 - VESICOINTESTINAL FISTULA SNOMED Code(s): 35784584
--- NOTE | 2019-01-19 12:25 | P.PN ---
Subjective Patient is a pleasant 68-year-old gentleman known to me from extensive review of his previous chart as it took care of him earlier this month. Patient was admitted here for colovesical fistula patient had a laparotomy laparoscopic cholecystectomy small group bowel resection and diverticular tingling ileostomy. Patient had prolonged hospitalization and ICU here patient is found to have intra-abdominal abscess was subsequently transferred to [facility] patient the is found to have enterococcus we see him which is resistant to ampicillin and sensitive to vancomycin, here in the hospital. Patient after he was transferred to [facility] patient was put on multiple antibiotics including linezolid, meropenem and voriconazole, patient has a PICC line. Patient was given an option of going home once subacute rehabilitation patient went home but felt quite weak had a fall has to come to the hospital patient's weakness is secondary to prolonged hospitalization. Patient does have bilateral leg weakness with pitting pedal edema generalized weakness. Patient denied any nausea vomiting abdominal pain patient has an open abdominal wound which was covered with dressing and an ileostomy patient denied dysuria no evidence of sepsis at this time but patient need to be placed in subacute rehabilitation, patient is quite weak. 01/19/2019 Patient already improved and patient is urinating better patient will be switched to lactated Ringer's 1 more day which can be discontinued patient does have pedal edema for which we are using compression socks. General surgery evaluated the patient patient looks much better today. Possibly of discharge to subacute rehabilitation. Constitutional: Denied any fatigue denied any fever. Cardio vascular: denied any chest pain, palpitations Gastrointestinal denied any nausea vomiting Pulmonary: Denied any shortness of breath cough Neurologic denied any new focal deficits All inpatient medications were reviewed and appropriate changes in these medications as dictated in the interval history and assessment and plan. Objective - Vital Signs Vital signs: Vital Signs Temp 97.8 F 01/19/19 07:00 Pulse 71 01/19/19 07:00 Resp 16 01/19/19 07:00 BP 109/63 01/19/19 07:00 Pulse Ox 99 01/19/19 07:00 Intake & Output 01/18/19 01/19/19 01/19/19 18:59 06:59 18:59 Intake Total 1025 236 Balance 1025 236 Weight 97.522 kg Intake: Intake, IV Titration 1025 Amount Meropenem 1 gm In Sodium 200 Chloride 0.9% 100 ml @ 200 mls/hr IVPB Q8H [facility] Rx#:[id number] Sodium Chloride 0.9% 1, 825 000 ml @ 75 mls/hr IV . [id number] [facility] Rx#:[id number] Oral 236 Other: Voiding Method Toilet Toilet Urinal Urinal # Voids 1 - Exam PHYSICAL EXAMINATION: GENERAL: The patient is alert and oriented x3, not in any acute distress. Well developed, well nourished. HEENT: Pupils are round and equally reacting to light. EOMI. No scleral icterus. No conjunctival pallor. Normocephalic, atraumatic. No pharyngeal erythema. No thyromegaly. CARDIOVASCULAR: S1 and S2 present. No murmurs, rubs, or gallops. PULMONARY: Good air entry into bilateral lung arellano minimal expiratory wheezing on exam ABDOMEN: Soft, nontender, and abdominal wound with the packing and an ileostomy MUSCULOSKELETAL: No joint swelling or deformity. EXTREMITIES: No cyanosis, clubbing, she does have 2+ pitting pedal edema NEUROLOGICAL: Gross neurological examination did not reveal any focal deficits. SKIN: No rashes. - Labs CBC & Chem 7: 01/18/19 15:20 01/19/19 07:18 Labs: Abnormal Lab Results - Last 24 Hours (Table) 01/18/19 01/18/19 01/18/19 Range/Units 15:20 15:20 15:20 WBC 18.6 H (3.8-10.6) k/uL RBC 2.79 L (4.30-5.90) m/uL Hgb 7.9 L D (13.0-17.5) gm/dL Hct 24.9 L (39.0-53.0) % RDW 18.8 H (11.5-15.5) % Plt Count 552 H (150-450) k/uL Neutrophils # 15.8 H (1.3-7.7) k/uL PT 13.5 H (9.0-12.0) sec INR 1.3 H (<1.2) APTT 37.5 H (22.0-30.0) sec Sodium 135 L (137-145) mmol/L Chloride 110 H (98-107) mmol/L Carbon Dioxide 18 L (22-30) mmol/L BUN 21 H (9-20) mg/dL Glucose 127 H (74-99) mg/dL Calcium 7.5 L (8.4-10.2) mg/dL Alkaline Phosphatase 233 H (38-126) U/L Total Protein 4.2 L (6.3-8.2) g/dL Albumin 1.8 L (3.5-5.0) g/dL Urine Protein (Negative) Urine Ketones (Negative) Urine Blood (Negative) Ur Leukocyte Esterase (Negative) Urine RBC (0-5) /hpf Urine WBC (0-5) /hpf Urine WBC Clumps (None) /hpf Urine Bacteria (None) /hpf Hyaline Casts (0-2) /lpf Urine Mucus (None) /hpf 01/18/19 01/19/19 Range/Units 18:18 07:18 WBC (3.8-10.6) k/uL RBC (4.30-5.90) m/uL Hgb (13.0-17.5) gm/dL Hct (39.0-53.0) % RDW (11.5-15.5) % Plt Count (150-450) k/uL Neutrophils # (1.3-7.7) k/uL PT (9.0-12.0) sec INR (<1.2) APTT (22.0-30.0) sec Sodium 136 L (137-145) mmol/L Chloride 114 H (98-107) mmol/L Carbon Dioxide 16 L (22-30) mmol/L BUN (9-20) mg/dL Glucose 70 L (74-99) mg/dL Calcium 7.2 L (8.4-10.2) mg/dL Alkaline Phosphatase (38-126) U/L Total Protein (6.3-8.2) g/dL Albumin (3.5-5.0) g/dL Urine Protein 2+ H (Negative) Urine Ketones Trace H (Negative) Urine Blood Moderate H (Negative) Ur Leukocyte Esterase Large H (Negative) Urine RBC 75 H (0-5) /hpf Urine WBC >182 H (0-5) /hpf Urine WBC Clumps Many H (None) /hpf Urine Bacteria Many H (None) /hpf Hyaline Casts 44 H (0-2) /lpf Urine Mucus Many H (None) /hpf Microbiology - Last 24 Hours (Table) 01/18/19 18:18 Urine Culture - Preliminary Urine,Clean Catch Assessment and Plan Plan: -Fall secondary to generalized weakness patient will need rehabilitation patient may even qualify for inpatient rehabilitation obtain consultation from PT and OT consultation. Patient is looking better -Recent abdominal abscess: Details not available at this time we'll continue linezolid, meropenem and voriconazole which she was discharged on from [facility]-Vasical fistula with a diverticular ileostomy. -COPD with the minimal exacerbation patient was started on inhalational steroids and inhalational treatments, and was pretty status improved wheezing improved -Renal cell cancer on immunotherapy -Hypothyroidism -Benign prostatic hypertrophic -bilateral pitting pedal edema secondary to IV fluids and the hypoalbuminemia compression socks because of hypotension patient is not appropriate for Lasix at this time -Atrial fibrillation presently rate controlled patient is on Xarelto which will be continued and Cardizem which will be continued. Patient is already in anti-angulation will not need any any additional DVT prophylaxis and patient is already on GI prophylaxis at this time
[2019-01-19] MEDS: LACTATED RINGERS 1,000 ML IV SCH (12:33)
[2019-01-19] MEDS: RIVAROXABAN 20 MG TAB PO SCH (17:11)
[2019-01-19] MEDS: IPRATROPIUM-ALBUTEROL 3 ML NEB INHALATION PRN (19:59)
[2019-01-19] MEDS: CALCIUM CARBONATE 500 MG CHEWABLE PO SCH (20:42)
[2019-01-19] MEDS ORDERED: ANIDULAFUNGIN 100 MG in SODIUM CHLORIDE 0.9% 100 ML IVPB SCH (21:45)
--- NOTE | 2019-01-19 23:39 | P.CONS ---
History of Present Illness - Reason for Consult Consult date: 01/19/19 Leukocytosis and abdominal abscess Requesting physician: Toshia Manzo - Chief Complaint Weakness and fall x 1 day - History of Present Illness Patient is 68 year old male with a complicated abdominal history, including colovesical fistula for which the patient did have a laparotomy and diverting ileostomy along with cholecystectomy patient during that admission did develop abdominal pain and significant jump in his white count repeat CAT scan did shows interloop abdominal abscess which could not be drained CT-guided patient subsequently was transferred to [facility] for drainage of that abscess, apparently no drainage was done and the patient diabetic was switched over to meropenem , Zyvox and voriconazole patient said he [facility] not [facility] to the [facility] because of the cost of his antibiotics and thought he was stable to go home however THE patient elected home the patient's he was unable to care for himself he was feeling weak and did have a fall that brought the patient back to the hospital, on presentation the patient was afebrile however he did have elevated white count of 18.6, patient has been continued his IV antibiotics and infectious disease was consulted for further recommendation regarding antibiotic therapy, the patient lower end of his abdominal incision has also open up and is currently being packed with wet-to-dry dressing, the patient currently denies having any fever or chills, he did have mild lower abdominal pain 1-2 out of 10 and no radiation no nausea no vomiting did have output in his ileostomy bag Review of Systems CONSTITUTIONAL: Positive for weakness. No Fever EYES: No complaint. ENT:No complaint. RESPIRATORY: No complaint. CARDIOVASCULAR: No complaint. GENITOURINARY: No complaint. GASTROINTESTINAL: As per history of present illness. MUSCULOSKELETAL: No complaint. INTEGUMENTARY: No complaint. PSYCHOLOGICAL: No complaint. ENDOCRINE: No complaint. NEUROLOGIC: No complaint. Past Medical History Past Medical History: Atrial Fibrillation, Cancer, COPD Additional Past Medical History / Comment(s): Metastatic renal carcinoma currently on immunotherapy, right nephrectomy in 2011, atrial fibrillation, COPD, coronary artery disease and mild BPH, hypothyroidism History of Any Multi-Drug Resistant Organisms: None Reported Additional Past Surgical History / Comment(s): rt kidney removed in 2011 due to CA, POST LUNG BIOPSY, rt upper chest port Past Anesthesia/Blood Transfusion Reactions: No Reported Reaction Past Psychological History: No Psychological Hx Reported Smoking Status: Former smoker Past Alcohol Use History: Rare Additional Past Alcohol Use History / Comment(s): quit 2011,smoked 40+ years 2ppd Past Drug Use History: None Reported - Past Family History Mother Family Medical History: No Reported History Medications and Allergies Home Medications Medication Instructions Recorded Confirmed Type Tamsulosin [Flomax] 0.4 mg PO DAILY 12/30/18 01/18/19 History Thyroid,Pork [[employer] Maintenance Thyroid] 30 mg PO DAILY 12/30/18 01/18/19 History Albuterol Inhaler [Ventolin Hfa 1 - 2 puff INHALATION RT-Q6H PRN 01/04/19 01/18/19 History Inhaler] Diltiazem HCl [Diltiazem ER] 120 mg PO DAILY 01/18/19 01/18/19 History HYDROcodone/APAP 5-325MG [[employer] 1 tab PO Q4HR PRN 01/18/19 01/18/19 History 5-325] Linezolid [Zyvox] 600 mg PO BID 01/18/19 01/18/19 History Meropenem [Merrem] 1 gram IVPB Q8H 01/18/19 01/18/19 History Pantoprazole Sodium [Protonix] 40 mg PO AC-BID 01/18/19 01/18/19 History Ranitidine HCl 150 mg PO BID 01/18/19 01/18/19 History Rivaroxaban [Xarelto Starter Pack] See Taper PO DIRECTED 01/18/19 01/18/19 History Voriconazole 350 mg PO Q12H 01/18/19 01/18/19 History Allergies Allergy/AdvReac Type Severity Reaction Status Date / Time No Known Allergies Allergy Verified 01/18/19 16:15 Physical Exam Vitals: Vital Signs Temp Pulse Pulse Resp BP BP Pulse Ox 01/19/19 14:26 97.7 F 84 16 98/60 100 01/19/19 07:00 97.8 F 71 16 109/63 99 01/19/19 01:24 97.7 F 75 16 102/61 100 01/18/19 20:45 68 01/18/19 20:36 68 100 01/18/19 20:00 98 F 82 18 105/62 100 01/18/19 18:28 97.6 F 79 16 108/66 100 01/18/19 17:31 96.9 F L 75 18 94/63 100 Intake and Output 01/19/19 01/19/19 01/19/19 06:59 14:59 22:59 Intake Total 775 908 Balance 775 908 Intake: Intake, IV Titration 775 450 Amount Lactated Ringers 1,000 ml 300 @ 75 mls/hr IV .[id number] CUONG Rx#:[id number] Meropenem 1 gm In Sodium 100 Chloride 0.9% 100 ml @ 200 mls/hr IVPB Q8H CUONG Rx#:[id number] Sodium Chloride 0.9% 1, 675 150 000 ml @ 75 mls/hr IV . [id number] CUONG Rx#:[id number] Oral 458 Other: Voiding Method Toilet Urinal # Voids 1 3 # Bowel Movements 1 Weight 97.522 kg GENERAL DESCRIPTION: Elderly male lying in bed, no distress. No tachypnea or accessory muscle of respiration use. HEENT: Shows Pallor , no scleral icterus. Oral mucous membrane is dry. No pharyngeal erythema or thrush NECK: Trachea central, no thyromegaly. LUNGS: Unlabored breathing. Clear to auscultation anteriorly. No wheeze or crackle. HEART: S1, S2, regular rate and rhythm. No loud murmur ABDOMEN: Soft, no tenderness , lower midline wound from the open incision with no slough tissue, redness or drainage EXTREMITIES: No edema of feet. SKIN: No rash, no masses palpable. NEUROLOGICAL: The patient is awake, alert, oriented x3, mood and affect normal. Results CBC & Chem 7: 01/18/19 15:20 01/19/19 07:18 Labs: Abnormal Lab Results - Last 24 Hours (Table) 01/18/19 01/18/19 01/19/19 Range/Units 15:20 18:18 07:18 WBC 18.6 H (3.8-10.6) k/uL RBC 2.79 L (4.30-5.90) m/uL Hgb 7.9 L D (13.0-17.5) gm/dL Hct 24.9 L (39.0-53.0) % RDW 18.8 H (11.5-15.5) % Plt Count 552 H (150-450) k/uL Neutrophils # 15.8 H (1.3-7.7) k/uL Sodium 136 L (137-145) mmol/L Chloride 114 H (98-107) mmol/L Carbon Dioxide 16 L (22-30) mmol/L Glucose 70 L (74-99) mg/dL Calcium 7.2 L (8.4-10.2) mg/dL Urine Protein 2+ H (Negative) Urine Ketones Trace H (Negative) Urine Blood Moderate H (Negative) Ur Leukocyte Esterase Large H (Negative) Urine RBC 75 H (0-5) /hpf Urine WBC >182 H (0-5) /hpf Urine WBC Clumps Many H (None) /hpf Urine Bacteria Many H (None) /hpf Hyaline Casts 44 H (0-2) /lpf Urine Mucus Many H (None) /hpf Microbiology - Last 24 Hours (Table) 01/18/19 18:18 Urine Culture - Preliminary Urine,Clean Catch Assessment and Plan Assessment: 1-patient with abdominal abscess in this patient who did have complicated abdominal history of colovesical fistula frozen pelvis and is status post diverting ileostomy unfortunately the abscess could not be drained at the tertiary care and is currently being managed with broad-spectrum IV antibiotic therapy, patient admitted hospital after a fall and inability to take care of himself 2-lower abdominal wound with no cellulitis recommend local wound care Plan: 1-the patient will be continued on meropenem 1 g every 8 Zyvox 600 every 12 hours and voriconazole daily to finish his course of therapy 2-local wound care currently with the wet-to-dry dressings he will try to arrange for a wound VAC in the a.m. once cleared by surgery for application of the wound VAC We will follow-up on clinical condition and cultures to further adjust medication if needed Thank you for this consultation will follow this patient along with you Time with Patient: Greater than 30
[2019-01-20] MEDS: HYDROcodone/APAP 5-325MG 1 EACH TAB PO PRN ×2 (00:36→09:07)
[2019-01-20] MEDS: LACTATED RINGERS 1,000 ML IV SCH (02:18)
[2019-01-20] MEDS: MEROPENEM 1 GM in SODIUM CHLORIDE 0.9% 100 ML IVPB SCH ×3 (02:56→18:23)
[2019-01-20] MEDS: SYMBICORT 160-4.5 MCG INHALER INHALATION SCH ×2 (07:01→19:29)
[2019-01-20 08:00] LABS: Anisocytosis Slight; Basophils % (A) 0 %; Eosinophils # (A) 0.7 k/uL (0-0.7); Eosinophils % (A) 6 %; HCT 24.2 % (39.0-53.0); HGB 7.4 gm/dL (13.0-17.5); Hypochromasia Slight; Lymphocytes # (A) 1.3 k/uL (1.0-4.8); Lymphocytes % (A) 11 %; MCH 27.7 pg (25.0-35.0); MCHC 30.5 g/dL (31.0-37.0); MCV 90.8 fL (80.0-100.0); Mean Platelet Volume 6.8; Monocytes # (A) 0.5 k/uL (0-1.0); Monocytes % (A) 4 %; Neutrophils # (A) 9.1 k/uL (1.3-7.7); Neutrophils % (A) 77 %; Platelet Count 393 k/uL (150-450); RBC 2.67 m/uL (4.30-5.90); RDW 18.8 % (11.5-15.5); WBC 11.9 k/uL (3.8-10.6)
[2019-01-20 08:32] LABS: Albumin 1.6 g/dL (3.5-5.0); C Reactive Protein 74.5 mg/L (<10.0); Calcium 7.2 mg/dL (8.4-10.2); Total Bilirubin 0.3 mg/dL (0.2-1.3); Total Protein 3.7 g/dL (6.3-8.2)
[2019-01-20] MEDS: DILTIAZEM CD 120 MG CAP.ER.24H PO SCH (08:38)
[2019-01-20] MEDS: CALCIUM CARBONATE 500 MG CHEWABLE PO SCH ×2 (08:39→21:01)
[2019-01-20] MEDS: PANTOPRAZOLE 40 MG TABLET PO SCH ×2 (08:40→16:35)
[2019-01-20] MEDS: FAMOTIDINE 20 MG TAB PO SCH ×2 (08:40→21:01)
[2019-01-20] MEDS: TAMSULOSIN 0.4 MG CAP.ER.24H PO SCH (08:40)
[2019-01-20] MEDS: THYROID, PORK 30 MG TAB PO SCH (08:41)
[2019-01-20] MEDS: LINEZOLID 600 MG TAB PO SCH ×2 (08:41→21:01)
[2019-01-20] MEDS: VORICONAZOLE PO SCH ×2 (08:42→21:01)
--- NOTE | 2019-01-20 13:11 | P.PN ---
Subjective Patient sitting in bed. Complains of weakness with ambulation. Awaiting transfer to [facility] for rehab Objective - Vital Signs Vital signs: Vital Signs Temp 97.6 F 01/20/19 07:24 Pulse 89 01/20/19 07:24 Resp 15 01/20/19 07:24 BP 101/56 01/20/19 07:24 Pulse Ox 100 01/20/19 07:24 Intake & Output 01/19/19 01/20/19 01/20/19 18:59 06:59 18:59 Intake Total 1144 987.5 0 Output Total 200 Balance 1144 987.5 -200 Weight 97.522 kg Intake: Intake, IV Titration 450 987.5 Amount Lactated Ringers 1,000 ml 300 787.5 @ 75 mls/hr IV .[id number] [facility]ONG Rx#:[id number] Meropenem 1 gm In Sodium 200 Chloride 0.9% 100 ml @ 200 mls/hr IVPB Q8H [facility]ONG Rx#:[id number] Sodium Chloride 0.9% 1, 150 000 ml @ 75 mls/hr IV . [id number] CUONG Rx#:[id number] Oral 694 0 Output: Stool 200 Other: Voiding Method Toilet Toilet Toilet Urinal # Voids 3 1 # Bowel Movements 1 - Constitutional General appearance: Present: mild distress - EENT Eyes: Present: PERRLA Ears: bilateral: normal - Neck Neck: Present: normal ROM - Respiratory Respiratory: bilateral: CTA - Cardiovascular Rhythm: regular - Gastrointestinal Gastrointestinal Comment(s): Colostomy functioning General gastrointestinal: Present: soft - Integumentary Integumentary: Present: normal - Neurologic Neurologic: Present: CNII-XII intact - Musculoskeletal Musculoskeletal: Present: generalized weakness - Psychiatric Psychiatric: Present: A&O x's 3, appropriate affect, intact judgment & insight - Labs CBC & Chem 7: 01/20/19 06:49 01/20/19 06:49 Labs: Abnormal Lab Results - Last 24 Hours (Table) 01/20/19 01/20/19 Range/Units 06:49 06:49 WBC 11.9 H (3.8-10.6) k/uL RBC 2.67 L (4.30-5.90) m/uL Hgb 7.4 L (13.0-17.5) gm/dL Hct 24.2 L (39.0-53.0) % MCHC 30.5 L (31.0-37.0) g/dL RDW 18.8 H (11.5-15.5) % Neutrophils # 9.1 H (1.3-7.7) k/uL Sodium 136 L (137-145) mmol/L Chloride 111 H (98-107) mmol/L Carbon Dioxide 20 L (22-30) mmol/L Calcium 7.2 L (8.4-10.2) mg/dL AST 88 H (17-59) U/L Alkaline Phosphatase 275 H (38-126) U/L C-Reactive Protein 74.5 H (<10.0) mg/L Total Protein 3.7 L (6.3-8.2) g/dL Albumin 1.6 L (3.5-5.0) g/dL Microbiology - Last 24 Hours (Table) 01/18/19 18:18 Urine Culture - Final Urine,Clean Catch - Imaging and Cardiology Chest x-ray: report reviewed CT Scan - head: report reviewed Assessment and Plan Plan: Assessment Fall secondary to generalized weakness Abdominal assess colo vesical fistula with diverticulum ileostomy COPD stable Renal cell cancer on immunotherapy Hypothyroidism BPH Atrial fibrillation rate controlled Anemia of chronic disease Plan Continue with surgical consultation Infectious disease Plan is for transfer to [facility] for rehabilitation for weakness
--- NOTE | 2019-01-20 13:45 | P.PN ---
Subjective Progress Note Date: 01/20/19 HISTORY OF PRESENT ILLNESS: Patient seen and examined the bedside. Patient states his pain is tolerable at this time. Tolerating heart healthy diet. Denies nausea or vomiting. WBC count of 11.9 today. Afebrile. Infectious disease is following. LITZY drain with minimal amount of serous drainage. PHYSICAL EXAM: VITAL SIGNS: Reviewed. GENERAL: Well-developed in no acute distress. HEENT: No sclera icterus. Extraocular movements grossly intact. Moist buccal mucosa. Head is atraumatic, normocephalic. ABDOMEN: Soft. Mildly distended. LITZY drain with serous drainage noted. Ostomy to right lower quadrant with stool. Midline incision with wound dehiscence at distal aspect. Packed with gauze. NEUROLOGIC: Alert and oriented. Cranial nerves II through XII grossly intact. ASSESSMENT: 1. Colovesicular fistula and cholelithiasis, status post laparoscopic cholecystectomy, small bowel resection and diverting ileostomy 2. 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 Continue LITZY drain per Dr. Barrientos 2. Continue current diet 3. Continue IV antibiotics per ID 4. Wound care per infectious disease 5. Discharge to F per medicine Nurse practitioner note has been reviewed by physician. Signing provider agrees with the documented findings, assessment, and plan of care. Objective - Vital Signs Vital signs: Vital Signs Temp 97.6 F 01/20/19 07:24 Pulse 89 01/20/19 07:24 Resp 15 01/20/19 07:24 BP 101/56 01/20/19 07:24 Pulse Ox 100 01/20/19 07:24 Intake & Output 01/19/19 01/20/19 01/20/19 18:59 06:59 18:59 Intake Total 1144 987.5 0 Output Total 200 Balance 1144 987.5 -200 Weight 97.522 kg Intake: Intake, IV Titration 450 987.5 Amount Lactated Ringers 1,000 ml 300 787.5 @ 75 mls/hr IV .[id number] [facility]ONG Rx#:[id number] Meropenem 1 gm In Sodium 200 Chloride 0.9% 100 ml @ 200 mls/hr IVPB Q8H [facility]ONG Rx#:[id number] Sodium Chloride 0.9% 1, 150 000 ml @ 75 mls/hr IV . [id number] [facility]ONG Rx#:[id number] Oral 694 0 Output: Stool 200 Other: Voiding Method Toilet Toilet Toilet Urinal # Voids 3 1 # Bowel Movements 1 - Labs CBC & Chem 7: 01/20/19 06:49 01/20/19 06:49 Labs: Abnormal Lab Results - Last 24 Hours (Table) 01/20/19 01/20/19 Range/Units 06:49 06:49 WBC 11.9 H (3.8-10.6) k/uL RBC 2.67 L (4.30-5.90) m/uL Hgb 7.4 L (13.0-17.5) gm/dL Hct 24.2 L (39.0-53.0) % MCHC 30.5 L (31.0-37.0) g/dL RDW 18.8 H (11.5-15.5) % Neutrophils # 9.1 H (1.3-7.7) k/uL Sodium 136 L (137-145) mmol/L Chloride 111 H (98-107) mmol/L Carbon Dioxide 20 L (22-30) mmol/L Calcium 7.2 L (8.4-10.2) mg/dL AST 88 H (17-59) U/L Alkaline Phosphatase 275 H (38-126) U/L C-Reactive Protein 74.5 H (<10.0) mg/L Total Protein 3.7 L (6.3-8.2) g/dL Albumin 1.6 L (3.5-5.0) g/dL Microbiology - Last 24 Hours (Table) 01/18/19 18:18 Urine Culture - Final Urine,Clean Catch
[2019-01-20] MEDS: RIVAROXABAN 20 MG TAB PO SCH (16:35)
--- NOTE | 2019-01-20 23:14 | PN ---
PROGRESS NOTE DATE OF SERVICE: 01/20/2019. REASON FOR FOLLOWUP: Abdominal abscess. INTERVAL HISTORY: The patient is currently afebrile, has been breathing comfortably. Denies having any chest pain. No cough. No worsening abdominal pain. No nausea, no vomiting and did in the ileostomy bag. PHYSICAL EXAMINATION: Blood pressure 107/56 with pulse of 84, temperature 97.6, he is 98% on room air. General description is an elderly male lying in bed in no distress. Respiratory system: Unlabored breathing. Clear to auscultation anteriorly. Heart S1, S2. Regular rate and rhythm. Abdomen: Soft, no tenderness. LABS: Hemoglobin 7.4, white count 11.9 with a BUN of 19, creatinine 1.4. DIAGNOSTIC IMPRESSION AND PLAN: Patient with abdominal abscess in this patient who did have complicated diverticulitis with colovesical fistula, status post diverting ileostomy. Patient is currently covered with broad spectrum antibiotics in the form of meropenem, and Zyvox and to continue white count, down to 11.9. Recommend applying a wound VAC to the lower end of the abdominal wound. Continue supportive care. MMODL / IJN: [id number] /
[2019-01-21] MEDS: MEROPENEM 1 GM in SODIUM CHLORIDE 0.9% 100 ML IVPB SCH ×3 (03:05→21:05)
[2019-01-21] MEDS: PANTOPRAZOLE 40 MG TABLET PO SCH ×2 (07:20→17:10)
[2019-01-21] MEDS: TAMSULOSIN 0.4 MG CAP.ER.24H PO SCH (07:20)
[2019-01-21] MEDS: LINEZOLID 600 MG TAB PO SCH ×2 (07:20→21:06)
[2019-01-21] MEDS: FAMOTIDINE 20 MG TAB PO SCH ×2 (07:20→21:05)
[2019-01-21] MEDS: CALCIUM CARBONATE 500 MG CHEWABLE PO SCH ×2 (07:20→21:05)
[2019-01-21] MEDS: HYDROcodone/APAP 5-325MG 1 EACH TAB PO PRN ×2 (07:21→17:09)
[2019-01-21] MEDS: VORICONAZOLE PO SCH ×2 (07:21→21:06)
[2019-01-21] MEDS: THYROID, PORK 30 MG TAB PO SCH (07:21)
[2019-01-21] MEDS: DILTIAZEM CD 120 MG CAP.ER.24H PO SCH (07:25)
[2019-01-21 07:47] LABS: Anisocytosis Slight; Basophils % (A) 0 %; Eosinophils # (A) 1.1 k/uL (0-0.7); Eosinophils % (A) 9 %; HGB 7.9 gm/dL (13.0-17.5); Hypochromasia Moderate; Lymphocytes # (A) 1.4 k/uL (1.0-4.8); Lymphocytes % (A) 11 %; MCH 28.8 pg (25.0-35.0); MCHC 31.4 g/dL (31.0-37.0); MCV 91.6 fL (80.0-100.0); Mean Platelet Volume 6.9; Monocytes # (A) 0.6 k/uL (0-1.0); Monocytes % (A) 5 %; Neutrophils # (A) 9.3 k/uL (1.3-7.7); Neutrophils % (A) 73 %; Platelet Count 364 k/uL (150-450); RBC 2.73 m/uL (4.30-5.90); RDW 18.8 % (11.5-15.5); WBC 12.6 k/uL (3.8-10.6)
[2019-01-21 07:57] LABS: Anion Gap 5 mmol/L; Blood Urea Nitrogen 20 mg/dL (9-20); Calcium 7.3 mg/dL (8.4-10.2); Carbon Dioxide 21 mmol/L (22-30); Chloride 111 mmol/L (98-107); Glucose 75 mg/dL (74-99); Potassium 4.6 mmol/L (3.5-5.1); Sodium 137 mmol/L (137-145)
--- NOTE | 2019-01-21 11:41 | P.PN ---
Subjective Progress Note Date: 01/21/19 HISTORY OF PRESENT ILLNESS: Patient seen and examined the bedside. Patient states his pain is tolerable at this time. Tolerating heart healthy diet. Denies nausea or vomiting. WBC count of 12.6 today. Hemoglobin 7.9. Afebrile. Infectious disease is following. LITZY drain with minimal amount of serous drainage. PHYSICAL EXAM: VITAL SIGNS: Reviewed. GENERAL: Well-developed in no acute distress. HEENT: No sclera icterus. Extraocular movements grossly intact. Moist buccal mucosa. Head is atraumatic, normocephalic. ABDOMEN: Soft. Mildly distended. LITZY drain with serous drainage noted. Ostomy to right lower quadrant with stool. Midline incision with wound dehiscence at distal aspect. Packed with gauze. NEUROLOGIC: Alert and oriented. Cranial nerves II through XII grossly intact. ASSESSMENT: 1. Colovesicular fistula and cholelithiasis, status post laparoscopic cholecystectomy, small bowel resection and diverting ileostomy 2. 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 Discontinue LITZY drain 2. Continue current diet 3. Continue IV antibiotics per ID. Monitor WBC. 4. Wound care per infectious disease. Possible wound vac per ID. Nurse practitioner note has been reviewed by physician. Signing provider agrees with the documented findings, assessment, and plan of care. Objective - Vital Signs Vital signs: Vital Signs Temp 98.1 F 01/21/19 07:00 Pulse 88 01/21/19 07:00 Resp 16 01/21/19 07:00 BP 107/70 01/21/19 07:00 Pulse Ox 99 01/21/19 07:00 Intake & Output 01/20/19 01/21/19 01/21/19 18:59 06:59 18:59 Intake Total 0 100 400 Output Total 600 5 Balance -600 95 400 Intake: Oral 0 100 400 Output: Drainage 5 Right Lower Abdomen 5 Stool 600 Other: Voiding Method Toilet Toilet Urinal # Voids 2 1 # Bowel Movements 1 1 1 - Labs CBC & Chem 7: 01/21/19 06:54 01/21/19 06:54 Labs: Abnormal Lab Results - Last 24 Hours (Table) 01/21/19 01/21/19 Range/Units 06:54 06:54 WBC 12.6 H (3.8-10.6) k/uL RBC 2.73 L (4.30-5.90) m/uL Hgb 7.9 L (13.0-17.5) gm/dL Hct 25.0 L (39.0-53.0) % RDW 18.8 H (11.5-15.5) % Neutrophils # 9.3 H (1.3-7.7) k/uL Eosinophils # 1.1 H (0-0.7) k/uL Chloride 111 H (98-107) mmol/L Carbon Dioxide 21 L (22-30) mmol/L Calcium 7.3 L (8.4-10.2) mg/dL
--- NOTE | 2019-01-21 12:08 | P.DS ---
Providers Date of admission: 01/20/19 12:52 Expected date of discharge: 01/21/19 Attending physician: Luis Kunz Consults: 01/18/19 16:47 Consult Physician Urgent Consulting Provider: Jaswant Barrientos Consult Reason/Comments: Postoperative care Do you want consulting provider notified?: Yes 01/18/19 16:52 Consult Physician Urgent Consulting Provider: Tabitha Zarco Consult Reason/Comments: Abdominal infection Do you want consulting provider notified?: Yes Primary care physician: Luis Kunz Hospital Course: 68-year-old male is on postoperative for rectal abscess with colovesical fistula and ileostomy. Patient was recently discharged from [facility]. Patient had a fall. And now wishing to be admitted to extended care facility for rehab. We are conferring with [facility]. Patient needs a wound VAC antibiotics to be continued per infectious disease Assessment Fall secondary to generalized weakness Recent abdominal abscess with cold vesicle fistula with ileostomy COPD with minimal exacerbation Renal cell carcinoma on immunotherapy Hypothyroidism BPH Anemia chronic disease Plan Transfer to extended care facility for rehab Antibiotics per infectious disease Patient needs wound VAC to abdomen Plan - Discharge Summary Discharge Rx Participant: No New Discharge Prescriptions: New Ipratropium-Albuterol Nebulize [Duoneb 0.5 mg-3 mg/3 ml Soln] 3 ml INHALATION RT-QID PRN ampul.neb PRN Reason: Shortness Of Breath Or Wheezing HYDROcodone/APAP 5-325MG [[place] 5-325] 1 each PO Q6HR PRN #12 tab PRN Reason: Pain Budesonide-Formot 160-4.5 Mcg [Symbicort 160-4.5 Mcg Inhaler] 2 puff INHALATION RT-BID puff Calcium Carbonate [Tums] 500 mg PO BID chew Rivaroxaban [Xarelto] 20 mg PO W/SUPPER tab Continue Thyroid,Pork [[employer] Thyroid] 30 mg PO DAILY Tamsulosin [Flomax] 0.4 mg PO DAILY Albuterol Inhaler [Ventolin Hfa Inhaler] 1 - 2 puff INHALATION RT-Q6H PRN PRN Reason: Shortness Of Breath Pantoprazole Sodium [Protonix] 40 mg PO AC-BID Diltiazem HCl [Diltiazem 24Hr ER] 120 mg PO DAILY Discontinued Rivaroxaban [Xarelto Starter Pack] See Taper PO DIRECTED Ranitidine HCl 150 mg PO BID No Action Voriconazole 350 mg PO Q12H Meropenem [Merrem] 1 gram IVPB Q8H Linezolid [Zyvox] 600 mg PO BID HYDROcodone/APAP 5-325MG [[place] 5-325] 1 tab PO Q4HR PRN PRN Reason: Pain Discharge Medication List Tamsulosin [Flomax] 0.4 mg PO DAILY 12/30/18 [History] Thyroid,Pork [[employer] Thyroid] 30 mg PO DAILY 12/30/18 [History] Albuterol Inhaler [Ventolin Hfa Inhaler] 1 - 2 puff INHALATION RT-Q6H PRN 01/04/19 [History] Diltiazem HCl [Diltiazem 24Hr ER] 120 mg PO DAILY 01/18/19 [History] HYDROcodone/APAP 5-325MG [[place] 5-325] 1 tab PO Q4HR PRN 01/18/19 [History] Linezolid [Zyvox] 600 mg PO BID 01/18/19 [History] Meropenem [Merrem] 1 gram IVPB Q8H 01/18/19 [History] Pantoprazole Sodium [Protonix] 40 mg PO AC-BID 01/18/19 [History] Voriconazole 350 mg PO Q12H 01/18/19 [History] Budesonide-Formot 160-4.5 Mcg [Symbicort 160-4.5 Mcg Inhaler] 2 puff INHALATION RT-BID puff 01/21/19 [Rx] Calcium Carbonate [Tums] 500 mg PO BID chew 01/21/19 [Rx] HYDROcodone/APAP 5-325MG [[place] 5-325] 1 each PO Q6HR PRN #12 tab 01/21/19 [Rx] Ipratropium-Albuterol Nebulize [Duoneb 0.5 mg-3 mg/3 ml Soln] 3 ml INHALATION RT-QID PRN ampul.neb 01/21/19 [Rx] Rivaroxaban [Xarelto] 20 mg PO W/SUPPER tab 01/21/19 [Rx] Follow up Appointment(s)/Referral(s): Luis Kunz MD [Primary Care Provider] - 1-2 days Activity/Diet/Wound Care/Special Instructions: *PATIENT HAS HIS HOME MED IN OMNICELL.* [place]- Apply abdominal wound vac drainage system at 125mm/hg, medium, with black granulated foam. Cardiac diet. Ambulate with walker and standby assist. Room air. [place] PRN.
[2019-01-21] MEDS: SYMBICORT 160-4.5 MCG INHALER INHALATION SCH ×2 (12:28→20:54)
--- NOTE | 2019-01-21 15:13 | PN ---
PROGRESS NOTE DATE OF SERVICE: 01/21/2019 REASON FOR FOLLOWUP: Abdominal abscess. INTERVAL HISTORY: The patient is currently afebrile. The patient has been breathing comfortably. The patient denies having any chest pain or shortness of breath or cough. No abdominal pain or diarrhea. PHYSICAL EXAMINATION: Blood pressure 107/70 with a pulse of 88, temperature 98.1, he is 99% on room air. General description is an elderly male, lying in bed in no distress. RESPIRATORY SYSTEM: Unlabored breathing, clear to auscultation anteriorly. HEART: S1, S2. Regular rate and rhythm. ABDOMEN: Soft, no tenderness. LABS: Hemoglobin 7.1, white count of 12.3, BUN of 20, creatinine 0.97. DIAGNOSTIC IMPRESSION AND PLAN: Patient with abdominal abscess that could not be drained surgically. Currently on broad spectrum antibiotic for meropenem and Zyvox and antibiotics to continue for another 2 weeks with close outpatient followup. MMODL / IJN: [id number] /
[2019-01-21] MEDS: RIVAROXABAN 20 MG TAB PO SCH (17:10)
[2019-01-21] MEDS: IPRATROPIUM-ALBUTEROL 3 ML NEB INHALATION PRN (20:54)
[2019-01-22] MEDS: MEROPENEM 1 GM in SODIUM CHLORIDE 0.9% 100 ML IVPB SCH ×2 (03:53→11:21)
[2019-01-22] MEDS: PANTOPRAZOLE 40 MG TABLET PO SCH (07:48)
[2019-01-22] MEDS: TAMSULOSIN 0.4 MG CAP.ER.24H PO SCH (07:48)
[2019-01-22] MEDS: LINEZOLID 600 MG TAB PO SCH (07:48)
[2019-01-22] MEDS: VORICONAZOLE PO SCH (07:49)
[2019-01-22] MEDS: FAMOTIDINE 20 MG TAB PO SCH (07:49)
[2019-01-22] MEDS: CALCIUM CARBONATE 500 MG CHEWABLE PO SCH (07:49)
[2019-01-22] MEDS: THYROID, PORK 30 MG TAB PO SCH (07:49)
[2019-01-22] MEDS: DILTIAZEM CD 120 MG CAP.ER.24H PO SCH ×2 (07:49→07:54)
[2019-01-22] MEDS: SYMBICORT 160-4.5 MCG INHALER INHALATION SCH (08:18)
[2019-01-22 09:01] LABS: Anisocytosis Slight; Basophils # (A) 0.1 k/uL (0-0.2); Basophils % (A) 1 %; Eosinophils # (A) 1.1 k/uL (0-0.7); Eosinophils % (A) 8 %; HCT 27.3 % (39.0-53.0); HGB 8.5 gm/dL (13.0-17.5); Hypochromasia Moderate; Lymphocytes # (A) 1.3 k/uL (1.0-4.8); Lymphocytes % (A) 10 %; MCH 28.6 pg (25.0-35.0); MCHC 31.3 g/dL (31.0-37.0); MCV 91.6 fL (80.0-100.0); Monocytes # (A) 0.5 k/uL (0-1.0); Monocytes % (A) 4 %; Neutrophils # (A) 9.7 k/uL (1.3-7.7); Neutrophils % (A) 76 %; Platelet Count 338 k/uL (150-450); RBC 2.98 m/uL (4.30-5.90); RDW 18.6 % (11.5-15.5); WBC 12.9 k/uL (3.8-10.6)
[2019-01-22 09:27] LABS: Anion Gap 3 mmol/L; Blood Urea Nitrogen 24 mg/dL (9-20); Calcium 7.5 mg/dL (8.4-10.2); Carbon Dioxide 21 mmol/L (22-30); Chloride 110 mmol/L (98-107); Glucose 128 mg/dL (74-99); Potassium 4.1 mmol/L (3.5-5.1); Sodium 134 mmol/L (137-145)
--- NOTE | 2019-01-22 10:01 | P.PN ---
Subjective Progress Note Date: 01/22/19 HISTORY OF PRESENT ILLNESS: Patient seen and examined the bedside. Patient states his pain is tolerable at this time. Tolerating heart healthy diet. Denies nausea or vomiting. WBC count of 12.9 today. Hemoglobin 8.5. Afebrile. Infectious disease is following. PHYSICAL EXAM: VITAL SIGNS: Reviewed. GENERAL: Well-developed in no acute distress. HEENT: No sclera icterus. Extraocular movements grossly intact. Moist buccal mucosa. Head is atraumatic, normocephalic. ABDOMEN: Soft. Ostomy to right lower quadrant with stool. Midline incision with wound dehiscence at distal aspect. Packed with gauze. NEUROLOGIC: Alert and oriented. Cranial nerves II through XII grossly intact. ASSESSMENT: 1. Colovesicular fistula and cholelithiasis, status post laparoscopic cholecystectomy, small bowel resection and diverting ileostomy 2. Metastatic renal cell carcinoma with pulmonary involvement PLAN: Continue current diet Continue IV antibiotics per ID. Wound care per infectious disease. Possible wound vac per ID. Discharge per medicine. We will sign off. Please reconsult if needed Patient may follow up with Dr. Barrientos outpatient in 1-2 weeks Nurse practitioner note has been reviewed by physician. Signing provider agrees with the documented findings, assessment, and plan of care. Objective - Vital Signs Vital signs: Vital Signs Temp 97.6 F 01/22/19 07:00 Pulse 73 01/22/19 07:00 Resp 12 01/22/19 07:00 BP 111/67 01/22/19 07:00 Pulse Ox 100 01/22/19 07:00 Intake & Output 01/21/19 01/22/19 01/22/19 18:59 06:59 18:59 Intake Total 1590 650 600 Output Total 200 Balance 1390 650 600 Weight 97.522 kg Intake: Oral 1590 650 600 Output: Stool 200 Other: Voiding Method Toilet Toilet Urinal Urinal # Voids 1 3 # Bowel Movements 1 2 - Labs CBC & Chem 7: 01/22/19 08:09 01/22/19 08:09 Labs: Abnormal Lab Results - Last 24 Hours (Table) 01/22/19 01/22/19 Range/Units 08:09 08:09 WBC 12.9 H (3.8-10.6) k/uL RBC 2.98 L (4.30-5.90) m/uL Hgb 8.5 L (13.0-17.5) gm/dL Hct 27.3 L (39.0-53.0) % RDW 18.6 H (11.5-15.5) % Neutrophils # 9.7 H (1.3-7.7) k/uL Eosinophils # 1.1 H (0-0.7) k/uL Sodium 134 L (137-145) mmol/L Chloride 110 H (98-107) mmol/L Carbon Dioxide 21 L (22-30) mmol/L BUN 24 H (9-20) mg/dL Glucose 128 H (74-99) mg/dL Calcium 7.5 L (8.4-10.2) mg/dL
--- NOTE | 2019-01-22 13:09 | PN ---
PROGRESS NOTE DATE OF SERVICE: 01/22/2019 REASON FOR FOLLOWUP: Abdominal abscess. INTERVAL HISTORY: The patient is currently afebrile. The patient is breathing comfortably. Currently waiting for placement. Denies having any chest pain, shortness of breath or cough. Abdominal pain is currently controlled. No nausea, vomiting. PHYSICAL EXAMINATION: Blood pressure is 111/57 with a pulse of 78, temperature 97.6, he is 100% on room air. General description is an elderly male, up in the bed in no distress. RESPIRATORY SYSTEM: Unlabored breathing, clear to auscultation anteriorly. HEART: S1, S2. Regular rate and rhythm. ABDOMEN: Soft, mild tenderness, no guarding, no rigidity. LABS: Hemoglobin 8.5, white count of 12.9, BUN of 24, creatinine 0.93. DIAGNOSTIC IMPRESSION AND PLAN: 1. Patient with abdominal abscess that could not be drained. The patient is currently being treated with IV meropenem, Zyvox and to continue. 2. Lower abdominal wound. Local wound care with wound VAC and close outpatient followup. MMODL / IJN: [id number] /
[2019-01-22] MEDS: HYDROcodone/APAP 5-325MG 1 EACH TAB PO PRN (15:31)
[2019-01-22 15:43] VITALS: BP 95/57; PULSE 78; RESP 12; TEMP 98
== END 2019-01-22 16:20 | DRG 947 ==
LOC: EC 14:30 → 4SSUR 16:46 → OBSVTOIN 01-20 12:52
PROVIDERS: ADMIT Family Medicine; ATTEND Family Medicine
DX: R53.1 Weakness (principal); K65.1 Peritoneal abscess; C64.1 Malignant neoplasm of right kidney, except renal pelvis; J44.1 Chronic obstructive pulmonary disease with (acute) exacerbation; T81.31XA Disruption of external operation (surgical) wound, not elsewhere classified, initial encounter; C78.00 Secondary malignant neoplasm of unspecified lung; D63.8 Anemia in other chronic diseases classified elsewhere; E03.9 Hypothyroidism, unspecified; I25.10 Atherosclerotic heart disease of native coronary artery without angina pectoris; I48.91 Unspecified atrial fibrillation; N40.0 Benign prostatic hyperplasia without lower urinary tract symptoms; Z90.49 Acquired absence of other specified parts of digestive tract; Z93.2 Ileostomy status; Z91.81 History of falling; Z16.11 Resistance to penicillins; B95.2 Enterococcus as the cause of diseases classified elsewhere; Z79.899 Other long term (current) drug therapy; Z87.891 Personal history of nicotine dependence; Z90.5 Acquired absence of kidney; Z79.890 Hormone replacement therapy; Z79.01 Long term (current) use of anticoagulants; D72.829 Elevated white blood cell count, unspecified; R60.0 Localized edema; I95.9 Hypotension, unspecified
CPT/HCPCS: 36415; 70450; 71046; 80048; 80053; 81001; 82272; 83605; 84484; 85025; 85610; 85730; 86140; 87086; 93005; 94640; 94760; 99285

== ENCOUNTER 2019-02-02 21:54 | Inpatient (IN) | payer MEDICARE, OTHER ==
[2019-02-02 22:39] LABS: Anisocytosis Slight; Basophils # (A) 0.1 k/uL (0-0.2); Basophils % (A) 1 %; Eosinophils # (A) 1.3 k/uL (0-0.7); Eosinophils % (A) 14 %; HCT 25.5 % (39.0-53.0); HGB 7.8 gm/dL (13.0-17.5); Lymphocytes # (A) 1.6 k/uL (1.0-4.8); Lymphocytes % (A) 18 %; MCHC 30.4 g/dL (31.0-37.0); MCV 92.1 fL (80.0-100.0); Mean Platelet Volume 7.2; Monocytes # (A) 0.6 k/uL (0-1.0); Monocytes % (A) 7 %; Neutrophils # (A) 5.2 k/uL (1.3-7.7); Neutrophils % (A) 58 %; Platelet Count 238 k/uL (150-450); RBC 2.77 m/uL (4.30-5.90); RDW 17.7 % (11.5-15.5); WBC 8.9 k/uL (3.8-10.6)
[2019-02-02 22:47] LABS: Partial Thromboplastin Time 27.6 sec (22.0-30.0); Prothrombin Time 10.8 sec (9.0-12.0)
[2019-02-02 22:48] LABS: ALT 43 U/L (21-72); AST 85 U/L (17-59); Albumin 2.2 g/dL (3.5-5.0); Alkaline Phosphatase 435 U/L (38-126); Anion Gap 3 mmol/L; Blood Urea Nitrogen 32 mg/dL (9-20); Calcium 7.9 mg/dL (8.4-10.2); Carbon Dioxide 26 mmol/L (22-30); Chloride 110 mmol/L (98-107); Glucose 129 mg/dL (74-99); Potassium 4.8 mmol/L (3.5-5.1); Sodium 139 mmol/L (137-145); Total Bilirubin 0.2 mg/dL (0.2-1.3); Total Protein 4.9 g/dL (6.3-8.2)
--- NOTE | 2019-02-02 23:48 | ED ---
General Adult HPI - General Source: patient, EMS, RN notes reviewed, old records reviewed Mode of arrival: EMS Limitations: no limitations <Bryon Melgar - Last Filed: 02/03/19 03:32> <Sabiha Gill - Last Filed: 02/03/19 06:07> - General Chief complaint: GI Bleed Stated complaint: Blood in ostomy Time Seen by Provider: 02/02/19 22:03 - History of Present Illness Initial comments: 68-year-old male patient with extensive past medical history including COPD, renal cell carcinoma, right nephrectomy. 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 Patient currently has a colectomy bag as well as a wound VAC. Patient presents here today because of bright red blood in his ostomy bag. Patient denies any other symptoms at this time. Denies any pain, nausea vomiting diarrhea, fevers or chills. Systemic: Pt denies fatigue, myalgia, fever/chills, rash. Pt denies weakness, night sweats, weight loss. Neuro: Pt denies headache, visual disturbances, syncope or pre-syncope. HEENT: Pt denies ocular discharge or irritation, otalgia, rhinorrhea, pharyngitis or notable lymphadenopathy. Cardiopulmonary: Pt denies chest pain, SOB, heart palpitations, dyspnea on exertion. Abdominal/GI: Pt denies abdominal pain, n/v/d. : Pt denies dysuria, burning w/ urination, frequency/urgency. Denies new onset urinary or bowel incontinence. MSK: Pt denies myalgia, loss of strength or function in extremities. Neuro: Pt denies new onset weakness, paresthesias. (Bryon Melgar) - Related Data Home Medications Medication Instructions Recorded Confirmed Tamsulosin [Flomax] 0.4 mg PO DAILY 12/30/18 02/03/19 Thyroid,Pork [Senior Cobol Developer Thyroid] 30 mg PO DAILY 12/30/18 02/03/19 Albuterol Inhaler [Ventolin Hfa 1 - 2 puff INHALATION RT-Q6H PRN 01/04/19 02/03/19 Inhaler] Diltiazem HCl [Diltiazem 24Hr ER] 120 mg PO DAILY 01/18/19 02/03/19 HYDROcodone/APAP 5-325MG [Adamant 1 tab PO Q4HR PRN 01/18/19 02/03/19 5-325] Pantoprazole Sodium [Protonix] 40 mg PO AC-BID 01/18/19 02/03/19 Cephalexin [Keflex] 500 mg PO Q6HR 02/03/19 02/03/19 Furosemide [Lasix] 20 mg PO DAILY 02/03/19 02/03/19 Voriconazole 350 mg PO Q12H 02/03/19 02/03/19 Previous Rx's Medication Instructions Recorded Budesonide-Formot 160-4.5 Mcg 2 puff INHALATION RT-BID puff 01/21/19 [Symbicort 160-4.5 Mcg Inhaler] Calcium Carbonate [Tums] 500 mg PO BID chew 01/21/19 Ipratropium-Albuterol Nebulize 3 ml INHALATION RT-QID PRN 01/21/19 [Duoneb 0.5 mg-3 mg/3 ml Soln] ampul.neb Linezolid [Zyvox] 600 mg PO BID #28 tab 01/21/19 Meropenem [Merrem] 1 gm IVPB Q8H #42 vial 01/21/19 Rivaroxaban [Xarelto] 20 mg PO W/SUPPER tab 01/21/19 Allergies Allergy/AdvReac Type Severity Reaction Status Date / Time No Known Allergies Allergy Verified 02/02/19 22:02 Review of Systems ROS Other: All systems not noted in ROS Statement are negative. <Bryon Melgar - Last Filed: 02/03/19 03:32> ROS Other: All systems not noted in ROS Statement are negative. <Sabiha Gill - Last Filed: 02/03/19 06:07> ROS Statement: Those systems with pertinent positive or pertinent negative responses have been documented in the HPI. Past Medical History Past Medical History: Atrial Fibrillation, Cancer, COPD Additional Past Medical History / Comment(s): Metastatic renal carcinoma currently on immunotherapy, right nephrectomy in 2011, atrial fibrillation, COPD, coronary artery disease and mild BPH, hypothyroidism History of Any Multi-Drug Resistant Organisms: None Reported Additional Past Surgical History / Comment(s): rt kidney removed in 2011 due to CA, POST LUNG BIOPSY, rt upper chest port Past Anesthesia/Blood Transfusion Reactions: No Reported Reaction Past Psychological History: No Psychological Hx Reported Smoking Status: Former smoker Past Alcohol Use History: Rare Past Drug Use History: None Reported - Past Family History Mother Family Medical History: No Reported History <Bryon Melgar - Last Filed: 02/03/19 03:32> General Exam Limitations: no limitations <Bryon Melgar - Last Filed: 02/03/19 03:32> - General Exam Comments Initial Comments: Constitutional: NAD, AOX3, Pt has pleasant affect. HEENT: NC/AT, trachea midline, neck supple, no lymphadenopathy. Posterior pharynx non erythematous, without exudates. External ears appear normal, without discharge. Mucous membranes moist. Eyes PERRLA, EOM intact. There is no scleral icterus. No pallor noted. Cardiopulmonary: RRR, no murmurs, rubs or gallops, no JVD noted. Lungs CTAB in anterior and posterior arellano. No peripheral edema. Abdominal exam: Abdomen soft and non-distended. Abdomen non-tender to palpation in all 4 quadrants. Abdomen nontender to palpation. No red blood noted at ostomy bag. No signs of active bleeding. No tenderness to palpation. No guarding no rigidity. Bowel sounds active in LLQ. No hepatosplenomegaly. No ecchymosis Neuro: CN II-XII grossly intact. No nuchal rigidity. MSK: No posterior calf tenderness bilaterally, homans sign negative bilaterally. Posterior tibialis and radial pulse +2 bilaterally. Sensation intact in upper and lower extremities. Full active ROM in upper and lower extremities, 5/5 stregnth. (Bryon Melgar) Course Vital Signs 02/02/19 02/02/19 02/03/19 21:59 23:51 01:11 Temperature 98.7 F Pulse Rate 78 74 73 Respiratory 20 18 18 Rate Blood Pressure 113/57 108/66 102/64 O2 Sat by Pulse 99 96 98 Oximetry 02/03/19 02:29 Temperature Pulse Rate 86 Respiratory 18 Rate Blood Pressure 107/67 O2 Sat by Pulse 98 Oximetry Medical Decision Making - Lab Data Result diagrams: 02/02/19 22:27 02/02/19 22:27 <Bryon Melgar - Last Filed: 02/03/19 03:32> - Lab Data Result diagrams: 02/02/19 22:27 02/02/19 22:27 <Sabiha Gill - Last Filed: 02/03/19 06:07> - Medical Decision Making 68-year-old male patient with extensive past medical history including COPD, renal cell carcinoma, right nephrectomy. 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 Patient currently has a colectomy bag as well as a wound VAC. Patient presents here today because of bright red blood in his ostomy bag. Pat ient denies any other symptoms at this time. Denies any pain, nausea vomiting diarrhea, fevers or chills. Patient vital signs stable, afebrile. Heart rate within normal limits. Physical exam displayed: Abdomen soft and non-distended. Abdomen non-tender to palpation in all 4 quadrants. Abdomen nontender to palpation. No red blood noted at ostomy bag. No signs of active bleeding. No tenderness to palpation. No guarding no rigidity. Bowel sounds active in LLQ. No hepatosplenomegaly. No ecchymosis. Laboratory investigations revealed hemoglobin of 7.8 which is baseline for patient. Coagulation studies within normal limits. CMP revealed minor abnormalities which are baseline for patient. Stool occult blood is positive. CT abdomen and pelvis displayed no acute inflammatory process. Persist abdominal ascites and bilateral pleural effusions. Persistence of tenderness edema. Patient denied for GI bleed. Patient administered IV Protonix. Case discussed with Dr. Gill. (Bryon Melgar) I personally saw and evaluated the patient, patient with extensive past medical history and chronic anemia who is currently on L Natalie presented with GI bleeding into his ostomy bag. On evaluation the patient is pale he has no significant bleeding though he is guaiac positive. Hemoglobin is at baseline of 7.8. However given the [facility] we will observe the patient overnight for serial hemoglobins. At this time the patient is hemodynamically stable and I do not feel he requires transfusion nor does he require admission to the ICU I do feel he is stable for a medical floor in the hospital. (Sabiha Gill) - Lab Data Lab Results 02/02/19 02/02/19 02/02/19 Range/Units 22:27 22:27 22:27 WBC 8.9 (3.8-10.6) k/uL RBC 2.77 L (4.30-5.90) m/uL Hgb 7.8 L (13.0-17.5) gm/dL Hct 25.5 L (39.0-53.0) % MCV 92.1 (80.0-100.0) fL MCH 28.0 (25.0-35.0) pg MCHC 30.4 L (31.0-37.0) g/dL RDW 17.7 H (11.5-15.5) % Plt Count 238 (150-450) k/uL Neutrophils % 58 % Lymphocytes % 18 % Monocytes % 7 % Eosinophils % 14 % Basophils % 1 % Neutrophils # 5.2 (1.3-7.7) k/uL Lymphocytes # 1.6 (1.0-4.8) k/uL Monocytes # 0.6 (0-1.0) k/uL Eosinophils # 1.3 H (0-0.7) k/uL Basophils # 0.1 (0-0.2) k/uL Anisocytosis Slight PT 10.8 (9.0-12.0) sec INR 1.0 (<1.2) APTT 27.6 (22.0-30.0) sec Sodium 139 (137-145) mmol/L Potassium 4.8 (3.5-5.1) mmol/L Chloride 110 H (98-107) mmol/L Carbon Dioxide 26 (22-30) mmol/L Anion Gap 3 mmol/L BUN 32 H (9-20) mg/dL Creatinine 0.92 (0.66-1.25) mg/dL Est GFR (CKD-EPI)AfAm >90 (>60 ml/min/1.73 sqM) Est GFR (CKD-EPI)NonAf 85 (>60 ml/min/1.73 sqM) Glucose 129 H (74-99) mg/dL Plasma Lactic Acid Josesito (0.7-2.0) mmol/L Calcium 7.9 L (8.4-10.2) mg/dL Total Bilirubin 0.2 (0.2-1.3) mg/dL AST 85 H (17-59) U/L ALT 43 (21-72) U/L Alkaline Phosphatase 435 H (38-126) U/L Troponin I (0.000-0.034) ng/mL Total Protein 4.9 L (6.3-8.2) g/dL Albumin 2.2 L (3.5-5.0) g/dL Stool Occult Blood (Negative) Blood Type Blood Type Recheck Antibody Screen Spec Expiration Date 02/02/19 02/02/19 02/02/19 Range/Units 22:27 22:27 22:27 WBC (3.8-10.6) k/uL RBC (4.30-5.90) m/uL Hgb (13.0-17.5) gm/dL Hct (39.0-53.0) % MCV (80.0-100.0) fL MCH (25.0-35.0) pg MCHC (31.0-37.0) g/dL RDW (11.5-15.5) % Plt Count (150-450) k/uL Neutrophils % % Lymphocytes % % Monocytes % % Eosinophils % % Basophils % % Neutrophils # (1.3-7.7) k/uL Lymphocytes # (1.0-4.8) k/uL Monocytes # (0-1.0) k/uL Eosinophils # (0-0.7) k/uL Basophils # (0-0.2) k/uL Anisocytosis PT (9.0-12.0) sec INR (<1.2) APTT (22.0-30.0) sec Sodium (137-145) mmol/L Potassium (3.5-5.1) mmol/L Chloride (98-107) mmol/L Carbon Dioxide (22-30) mmol/L Anion Gap mmol/L BUN (9-20) mg/dL Creatinine (0.66-1.25) mg/dL Est GFR (CKD-EPI)AfAm (>60 ml/min/1.73 sqM) Est GFR (CKD-EPI)NonAf (>60 ml/min/1.73 sqM) Glucose (74-99) mg/dL Plasma Lactic Acid Josesito 1.2 (0.7-2.0) mmol/L Calcium (8.4-10.2) mg/dL Total Bilirubin (0.2-1.3) mg/dL AST (17-59) U/L ALT (21-72) U/L Alkaline Phosphatase (38-126) U/L Troponin I <0.012 (0.000-0.034) ng/mL Total Protein (6.3-8.2) g/dL Albumin (3.5-5.0) g/dL Stool Occult Blood (Negative) Blood Type O Positive Blood Type Recheck No Antibody Screen NEGATIVE Spec Expiration Date 02/05/2019232602/02/19 Range/Units 22:35 WBC (3.8-10.6) k/uL RBC (4.30-5.90) m/uL Hgb (13.0-17.5) gm/dL Hct (39.0-53.0) % MCV (80.0-100.0) fL MCH (25.0-35.0) pg MCHC (31.0-37.0) g/dL RDW (11.5-15.5) % Plt Count (150-450) k/uL Neutrophils % % Lymphocytes % % Monocytes % % Eosinophils % % Basophils % % Neutrophils # (1.3-7.7) k/uL Lymphocytes # (1.0-4.8) k/uL Monocytes # (0-1.0) k/uL Eosinophils # (0-0.7) k/uL Basophils # (0-0.2) k/uL Anisocytosis PT (9.0-12.0) sec INR (<1.2) APTT (22.0-30.0) sec Sodium (137-145) mmol/L Potassium (3.5-5.1) mmol/L Chloride (98-107) mmol/L Carbon Dioxide (22-30) mmol/L Anion Gap mmol/L BUN (9-20) mg/dL Creatinine (0.66-1.25) mg/dL Est GFR (CKD-EPI)AfAm (>60 ml/min/1.73 sqM) Est GFR (CKD-EPI)NonAf (>60 ml/min/1.73 sqM) Glucose (74-99) mg/dL Plasma Lactic Acid Josesito (0.7-2.0) mmol/L Calcium (8.4-10.2) mg/dL Total Bilirubin (0.2-1.3) mg/dL AST (17-59) U/L ALT (21-72) U/L Alkaline Phosphatase (38-126) U/L Troponin I (0.000-0.034) ng/mL Total Protein (6.3-8.2) g/dL Albumin (3.5-5.0) g/dL Stool Occult Blood Positive (Negative) Blood Type Blood Type Recheck Antibody Screen Spec Expiration Date Disposition Is patient prescribed a controlled substance at d/c from ED?: No <Bryon Melgar - Last Filed: 02/03/19 03:32> <Sabiha Gill - Last Filed: 02/03/19 06:07> Clinical Impression: GI bleed Disposition: ADMITTED IP TO THIS HOSP Condition: Serious
[2019-02-03] MEDS ORDERED: PANTOPRAZOLE 40 MG/10 ML VIAL IVP ONE (00:13)
--- NOTE | 2019-02-03 00:33 | CT ---
EXAM: CT Abdomen and Pelvis With Intravenous Contrast CLINICAL HISTORY: : Pain TECHNIQUE: Axial computed tomography images of the abdomen and pelvis with 100mL of isovue 300 intravenous contrast. CTDI is 29.2 mGy and DLP is 1985.7 mGy-cm. This CT exam was performed using one or more of the following dose reduction techniques: automated exposure control, adjustment of the mA and/or kV according to patient size, and/or use of iterative reconstruction technique. COMPARISON: 01/09/19 FINDINGS: Lung bases: Since and bilateral pleural effusions larger on the left with some associated atelectasis. ABDOMEN: Liver: Stable appearance the liver Gallbladder and bile ducts: Surgical absence the gallbladder persistent intrahepatic ductal dilatation. No calcified stones. No ductal dilation. Pancreas: Unremarkable. No mass. No ductal dilation. Spleen: Unremarkable. No splenomegaly. Adrenals: Unremarkable. No mass. Kidneys and ureters: Stable appearance to multiple cysts on the left kidney. The right kidney is surgically absent Stomach and bowel: No evidence for obstruction. No acute inflammatory process identified. Right-sided ostomy the colon is decompressed. PELVIS: Appendix: The appendix is not identified. No findings to suggest acute appendicitis. Bladder: Unremarkable. No mass. Reproductive: Unremarkable as visualized. ABDOMEN and PELVIS: Intraperitoneal space: Unremarkable. No free air. Persistent abdominal ascites Bones/joints: No acute fracture. No dislocation. Soft tissues: Persistent soft tissue subcutaneous stranding suggestive of anasarca Vasculature: Unremarkable. No abdominal aortic aneurysm. Lymph nodes: Unremarkable. No enlarged lymph nodes. IMPRESSION: No acute inflammatory process demonstrated. There is persistent abdominal ascites and bilateral pleural effusions. Persistent subcutaneous edema suggestive of anasarca Limited evaluation of the GI tract due to the lack of oral contrast
[2019-02-03] MEDS ORDERED: MORPHINE SULFATE 4 MG/ML SYRINGE IV PRN (00:57)
[2019-02-03] MEDS ORDERED: NALOXONE 0.4 MG/ML 1 ML VIAL IV PRN (00:57)
[2019-02-03] MEDS ORDERED: SODIUM CHLORIDE 0.9% 1,000 ML IV SCH (01:00)
[2019-02-03] MEDS: PANTOPRAZOLE 40 MG/10 ML VIAL IV SCH (07:58)
--- NOTE | 2019-02-03 09:05 | XR ---
EXAMINATION TYPE: XR chest 2V DATE OF EXAM: 02/03/2019 COMPARISON: Prior chest x-ray dated 01/18/2019 HISTORY: Pleural effusion TECHNIQUE: Frontal and lateral views of the chest are obtained. FINDINGS: The increased density seen on previous exam within the left lower lobe has increased, ther e is blunting of the right costophrenic angle. Right-sided PICC line is in place. No evident pneumoth orax. Heart size is likely stable. Right-sided Port-A-Cath again noted. Probable bleb the right lung base. IMPRESSION: Increasing pleural effusions and associated atelectasis, correlate to exclude pneumonia. Follow-up is recommended.
[2019-02-03 09:24] LABS: Anisocytosis Slight; Basophils # (A) 0.1 k/uL (0-0.2); Basophils % (A) 1 %; Eosinophils % (A) 13 %; HCT 23.6 % (39.0-53.0); HGB 7.7 gm/dL (13.0-17.5); Hypochromasia Slight; Lymphocytes # (A) 1.3 k/uL (1.0-4.8); Lymphocytes % (A) 17 %; MCHC 32.4 g/dL (31.0-37.0); MCV 92.6 fL (80.0-100.0); Monocytes # (A) 0.5 k/uL (0-1.0); Monocytes % (A) 7 %; Neutrophils # (A) 4.7 k/uL (1.3-7.7); Neutrophils % (A) 62 %; Platelet Count 191 k/uL (150-450); RBC 2.55 m/uL (4.30-5.90); RDW 17.2 % (11.5-15.5); WBC 7.6 k/uL (3.8-10.6)
[2019-02-03] MEDS ORDERED: ALBUTEROL INHALER 60 PUFF/8 GM INHALER INHALATION PRN (09:27)
[2019-02-03] MEDS ORDERED: MEROPENEM 1 GM VIAL IVPB SCH (09:30)
[2019-02-03] MEDS ORDERED: VORICONAZOLE PO SCH (09:30)
[2019-02-03] MEDS: CEPHALEXIN 500 MG CAP PO SCH ×2 (11:27→17:19)
[2019-02-03 11:45] VITALS: BMI 33.8
--- NOTE | 2019-02-03 12:18 | P.HPIM ---
History of Present Illness 68-year-old male was brought from [facility] with report of blood in the colostomy bag.. Patient sitting in chair at bedside comfortable and stable at this time. Patient noted to have anemia chronic disease and pleural effusion. Abdomen distended noted ascites to abdomen. Patient has history of renal carcinoma with right nephrectomy recent colectomy for fistula with connection to bowel and bladder Review of Systems Respiratory: Reports dyspnea Gastrointestinal: Reports bloating Past Medical History Past Medical History: Atrial Fibrillation, Cancer, COPD Additional Past Medical History / Comment(s): Metastatic renal carcinoma currently on immunotherapy, right nephrectomy in 2011, atrial fibrillation, COPD, coronary artery disease and mild BPH, hypothyroidism History of Any Multi-Drug Resistant Organisms: None Reported Past Surgical History: Bowel Resection Additional Past Surgical History / Comment(s): rt kidney removed in 2011 due to CA, POST LUNG BIOPSY, rt upper chest port, ileostomy Past Anesthesia/Blood Transfusion Reactions: No Reported Reaction Past Psychological History: No Psychological Hx Reported Smoking Status: Former smoker Past Alcohol Use History: Rare Additional Past Alcohol Use History / Comment(s): quit 2011,smoked 40+ years 2ppd Past Drug Use History: None Reported - Past Family History Mother Family Medical History: No Reported History Medications and Allergies Home Medications Medication Instructions Recorded Confirmed Type RX: Thyroid,Pork [Fitness Consultant Thyroid] 30 mg PO DAILY 12/30/18 02/03/19 History RX: Albuterol Inhaler [Ventolin 1 - 2 puff INHALATION RT-Q6H PRN 01/04/19 02/03/19 History Hfa Inhaler] HYDROcodone/APAP 5-325MG [Penrose 1 tab PO Q4HR PRN 01/18/19 02/03/19 History 5-325] RX: Diltiazem HCl [Diltiazem 24Hr 120 mg PO DAILY 01/18/19 02/03/19 History ER] Linezolid [Zyvox] 600 mg PO BID #28 tab 01/21/19 02/03/19 Rx RX: Budesonide-Formot 160-4.5 Mcg 2 puff INHALATION RT-BID puff 01/21/19 0 02/03/19 Rx [Symbicort 160-4.5 Mcg Inhaler] RX: Calcium Carbonate [Tums] 500 mg PO BID chew 01/21/19 02/03/19 Rx RX: Meropenem [Merrem] 1 gm IVPB Q8H #42 vial 01/21/19 02/03/19 Rx RX: Rivaroxaban [Xarelto] 20 mg PO W/SUPPER tab 01/21/19 02/03/19 Rx Cephalexin [Keflex] 500 mg PO Q6HR 02/03/19 02/03/19 History Collagenase [Santyl] 1 applic TOPICAL DAILY 02/03/19 02/03/19 History Furosemide [Lasix] 20 mg PO DAILY 02/03/19 02/03/19 History RX: Ipratropium-Albuterol Nebulize 3 ml INHALATION RT-Q4H PRN 02/03/19 02/03/19 History [Duoneb 0.5 mg-3 mg/3 ml Soln] RX: Omeprazole 20 mg PO BID 02/03/19 02/03/19 History RX: Voriconazole 150 mg PO Q12H 02/03/19 02/03/19 History Voriconazole [Vfend] 200 mg PO Q12HR 02/03/19 02/03/19 History Allergies Allergy/AdvReac Type Severity Reaction Status Date / Time No Known Allergies Allergy Verified 02/03/19 08:25 Physical Exam Vitals: Vital Signs Temp Pulse Pulse Resp BP BP Pulse Ox 02/03/19 11:32 83 16 02/03/19 11:19 83 16 127/73 93 L 02/03/19 08:00 82 16 02/03/19 07:54 97.8 F 82 16 110/64 99 02/03/19 04:06 97.5 F L 81 18 113/72 100 02/03/19 04:00 81 18 02/03/19 02:29 86 18 107/67 98 02/03/19 01:11 73 18 102/64 98 02/02/19 23:51 74 18 108/66 96 02/02/19 21:59 98.7 F 78 20 113/57 99 Intake and Output 02/02/19 02/03/19 02/03/19 22:59 06:59 14:59 Output Total 400 400 Balance -400 -400 Output: Urine 200 Stool 400 200 Other: Voiding Method Toilet # Voids 1 Weight 102.058 kg 107.1 kg 107.1 kg - Constitutional General appearance: obese - EENT Eyes: PERRLA Ears: bilateral: normal - Neck Neck: normal ROM - Respiratory Respiratory: bilateral: CTA - Cardiovascular Rhythm: regular - Gastrointestinal Stool in colostomy bag appears to have some burgundy colored to General gastrointestinal: distended, hyperactive bowel sounds, soft - Integumentary Has colostomy bag abdomen and wound VAC to lower abdomen - Neurologic Neurologic: CNII-XII intact - Musculoskeletal Musculoskeletal: generalized weakness - Psychiatric Psychiatric: A&O x's 3, appropriate affect, intact judgment & insight Results CBC & Chem 7: 02/03/19 09:04 02/02/19 22:27 Labs: Abnormal Lab Results - Last 24 Hours (Table) 02/02/19 02/02/19 02/03/19 Range/Units 22:27 22:27 09:04 RBC 2.77 L 2.55 L (4.30-5.90) m/uL Hgb 7.8 L 7.7 L (13.0-17.5) gm/dL Hct 25.5 L 23.6 L (39.0-53.0) % MCHC 30.4 L (31.0-37.0) g/dL RDW 17.7 H 17.2 H (11.5-15.5) % Eosinophils # 1.3 H 1.0 H (0-0.7) k/uL Chloride 110 H (98-107) mmol/L BUN 32 H (9-20) mg/dL Glucose 129 H (74-99) mg/dL Calcium 7.9 L (8.4-10.2) mg/dL AST 85 H (17-59) U/L Alkaline Phosphatase 435 H (38-126) U/L Total Protein 4.9 L (6.3-8.2) g/dL Albumin 2.2 L (3.5-5.0) g/dL Chest x-ray: report reviewed CT scan - abdomen: report reviewed Thrombosis Risk Factor Assmnt - Choose All That Apply Any of the Below Risk Factors Present?: No Other Risk Factors: Yes Each Risk Factor Represents 2 Points: Age 61-74 years Thrombosis Risk Factor Assessment Total Risk Factor Score: 2 Thrombosis Risk Factor Assessment Level: Low Risk Assessment and Plan Plan: Assessment GI bleed on anticoagulant for atrial fib with intermittent Pleural effusion Anemia chronic disease Atrial fibrillation intermittent COPD stable history of renal carcinoma with right nephrectomy History of coronary disease BPH Hypothyroidism Post colectomy for fistula connection to follow bladder Abdominal ascites Plan Consultation with surgeon Dr. Barrientos Pulmonology regarding pleural effusion
--- NOTE | 2019-02-03 13:44 | P.GSCN ---
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 Patient has been at [facility] for physical therapy. Patients daughter is at the bedside. She reports patient has a history of frequent bloody noses. She reports two days ago patient had a few episodes of epistaxis. Patient is currently on Eliquis for paroxysmal atrial fibrillation. Patient was found to have bright red blood coming through his ostomy and he was brought to the ER for further evaluation. Hemoglobin 7.8 on admission. Repeat 7.7 today. Patient denies abdominal pain. Denies further episodes of bright red blood through ostomy. Ostomy this morning has some maroon colored stool noted. PAST MEDICAL HISTORY: See list. PAST SURGICAL HISTORY: See list. SOCIAL HISTORY: No illicit drug use. REVIEW OF SYSTEMS: CONSTITUTIONAL: Denies fever or chills. HEENT: Denies blurred vision, vision changes, or eye pain. Denies hemoptysis CARDIOVASCULAR: Denies chest pain or pressure. RESPIRATORY: No shortness of breath. GASTROINTESTINAL: Refer to HPI for pertinent findings HEMATOLOGIC: Denies bleeding disorders. GENITOURINARY: Denies any blood in urine. SKIN: Denies pruitis. Denies rash. PHYSICAL EXAM: VITAL SIGNS: Reviewed. GENERAL: Well-developed in no acute distress. HEENT: No sclera icterus. Extraocular movements grossly intact. Moist buccal mucosa. Head is atraumatic, normocephalic. ABDOMEN: Soft. Obese. Nontender. Ostomy with maroon colored stool noted. NEUROLOGIC: Alert and oriented. Cranial nerves II through XII grossly intact. ASSESSMENT: 1. Bright red blood via ostomy with episodes of epistaxis a day prior, no further bright red blood, hemoglobin remains stable PLAN: Hold Eliquis. Continue to monitor hemoglobin. No surgical intervention recommend ed at this time. Nurse practitioner note has been reviewed by physician. Signing provider agrees with the documented findings, assessment, and plan of care. Past Medical History Past Medical History: Atrial Fibrillation, Cancer, COPD Additional Past Medical History / Comment(s): Metastatic renal carcinoma c urrently on immunotherapy, right nephrectomy in 2012, atrial fibrillation, COPD, coronary artery disease and mild BPH, hypothyroidism History of Any Multi-Drug Resistant Organisms: None Reported Past Surgical History: Bowel Resection Additional Past Surgical History / Comment(s): rt kidney removed in 2011 due to CA, POST LUNG BIOPSY, rt upper chest port, ileostomy Past Anesthesia/Blood Transfusion Reactions: No Reported Reaction Past Psychological History: No Psychological Hx Reported Smoking Status: Former smoker Past Alcohol Use History: Rare Additional Past Alcohol Use History / Comment(s): quit 2011,smoked 40+ years 2ppd Past Drug Use History: None Reported - Past Family History Mother Family Medical History: No Reported History Medications and Allergies Home Medications Medication Instructions Recorded Confirmed Type Thyroid,Pork [Senior Sustainability Advisor Thyroid] 30 mg PO DAILY 12/30/18 02/03/19 History Albuterol Inhaler [Ventolin Hfa 1 - 2 puff INHALATION RT-Q6H PRN 01/04/19 02/03/19 History Inhaler] Diltiazem HCl [Diltiazem 24Hr ER] 120 mg PO DAILY 01/18/19 02/03/19 History HYDROcodone/APAP 5-325MG [[place] 1 tab PO Q4HR PRN 01/18/19 02/03/19 History 5-325] Budesonide-Formot 160-4.5 Mcg 2 puff INHALATION RT-BID puff 01/21/19 02/03/19 Rx [Symbicort 160-4.5 Mcg Inhaler] Calcium Carbonate [Tums] 500 mg PO BID chew 01/21/19 02/03/19 Rx Linezolid [Zyvox] 600 mg PO BID #28 tab 01/21/19 02/03/19 Rx Meropenem [Merrem] 1 gm IVPB Q8H #42 vial 01/21/19 02/03/19 Rx Rivaroxaban [Xarelto] 20 mg PO W/SUPPER tab 01/21/19 02/03/19 Rx Cephalexin [Keflex] 500 mg PO Q6HR 02/03/19 02/03/19 History Collagenase [Santyl] 1 applic TOPICAL DAILY 02/03/19 02/03/19 History Furosemide [Lasix] 20 mg PO DAILY 02/03/19 02/03/19 History Ipratropium-Albuterol Nebulize 3 ml INHALATION RT-Q4H PRN 02/03/19 02/03/19 History [Duoneb 0.5 mg-3 mg/3 ml Soln] Omeprazole 20 mg PO BID 02/03/19 02/03/19 History Voriconazole 150 mg PO Q12H 02/03/19 02/03/19 History Voriconazole [Vfend] 200 mg PO Q12HR 02/03/19 02/03/19 History Allergies Allergy/AdvReac Type Severity Reaction Status Date / Time No Known Allergies Allergy Verified 02/03/19 08:25 Surgical - Exam Vital Signs Temp Pulse Resp BP Pulse Ox 98.7 F 78 20 113/57 99 02/02/19 21:59 02/02/19 21:59 02/02/19 21:59 02/02/19 21:59 02/02/19 21:59 Results - Labs 02/03/19 09:04 02/02/19 22:27 Abnormal Lab Results - Last 24 Hours (Table) 02/02/19 02/02/19 02/03/19 Range/Units 22:27 22:27 09:04 RBC 2.77 L 2.55 L (4.30-5.90) m/uL Hgb 7.8 L 7.7 L (13.0-17.5) gm/dL Hct 25.5 L 23.6 L (39.0-53.0) % MCHC 30.4 L (31.0-37.0) g/dL RDW 17.7 H 17.2 H (11.5-15.5) % Eosinophils # 1.3 H 1.0 H (0-0.7) k/uL Chloride 110 H (98-107) mmol/L BUN 32 H (9-20) mg/dL Glucose 129 H (74-99) mg/dL Calcium 7.9 L (8.4-10.2) mg/dL AST 85 H (17-59) U/L Alkaline Phosphatase 435 H (38-126) U/L Total Protein 4.9 L (6.3-8.2) g/dL Albumin 2.2 L (3.5-5.0) g/dL Diabetes panel 02/02/19 Range/Units 22:27 Sodium 139 (137-145) mmol/L Potassium 4.8 (3.5-5.1) mmol/L Chloride 110 H (98-107) mmol/L Carbon Dioxide 26 (22-30) mmol/L BUN 32 H (9-20) mg/dL Creatinine 0.92 (0.66-1.25) mg/dL Glucose 129 H (74-99) mg/dL Calcium 7.9 L (8.4-10.2) mg/dL AST 85 H (17-59) U/L ALT 43 (21-72) U/L Alkaline Phosphatase 435 H (38-126) U/L Total Protein 4.9 L (6.3-8.2) g/dL Albumin 2.2 L (3.5-5.0) g/dL Calcium panel 02/02/19 Range/Units 22:27 Calcium 7.9 L (8.4-10.2) mg/dL Albumin 2.2 L (3.5-5.0) g/dL Pituitary panel 02/02/19 Range/Units 22:27 Sodium 139 (137-145) mmol/L Potassium 4.8 (3.5-5.1) mmol/L Chloride 110 H (98-107) mmol/L Carbon Dioxide 26 (22-30) mmol/L BUN 32 H (9-20) mg/dL Creatinine 0.92 (0.66-1.25) mg/dL Glucose 129 H (74-99) mg/dL Calcium 7.9 L (8.4-10.2) mg/dL Adrenal panel 02/02/19 Range/Units 22:27 Sodium 139 (137-145) mmol/L Potassium 4.8 (3.5-5.1) mmol/L Chloride 110 H (98-107) mmol/L Carbon Dioxide 26 (22-30) mmol/L BUN 32 H (9-20) mg/dL Creatinine 0.92 (0.66-1.25) mg/dL Glucose 129 H (74-99) mg/dL Calcium 7.9 L (8.4-10.2) mg/dL Total Bilirubin 0.2 (0.2-1.3) mg/dL AST 85 H (17-59) U/L ALT 43 (21-72) U/L Alkaline Phosphatase 435 H (38-126) U/L Total Protein 4.9 L (6.3-8.2) g/dL Albumin 2.2 L (3.5-5.0) g/dL
--- NOTE | 2019-02-03 15:13 | CONS ---
CONSULTATION PULMONARY/CRITICAL CARE CONSULTATION: DATE OF SERVICE: 02/03/2019 A 68-year-old gentleman who presents to the emergency room with bleeding from his ostomy site. The patient apparently has a history of COPD as well as metastatic renal cell carcinoma, status post right nephrectomy. The patient apparently developed a fistula from his bowel to his bladder resulting in a colectomy and colostomy. More recently, he has had some blood at the colostomy site. He denies any difficulty breathing, coughing, wheezing, phlegm production, chest pain, chest discomfort, fever, chills, nausea, vomiting or diarrhea. He apparently sees my partner Dr. Yusuf in the office for his underlying COPD and is currently seeing Dr. Barth in Oncology for immunotherapy in regards to metastatic hypernephroma. PRIMARY CARE PHYSICIAN: Dr. Luis Kunz. Again, the patient really denies any respiratory issues at this time. The patient is sitting at the bedside. He is not wearing any supplemental oxygen. Does not display any evidence of any respiratory difficulty. No conversational dyspnea, use of accessory muscles or audible wheezing. . HOME MEDICATIONS: Include Flomax, thyroid, albuterol inhaler, diltiazem, [place], Protonix, Keflex, Lasix, voriconazole, Symbicort, calcium carbonate, DuoNeb updraft treatments, Zyvox, Merrem and Xarelto. The patient is on a number of different antibiotics per ICU. Apparently recently developed some intraabdominal abscesses and was transferred to [facility] where he received these antibiotics for the infection. Allergies are denied. PAST MEDICAL HISTORY: Positive for atrial fibrillation, COPD, hypernephroma which is metastatic to the lung and currently on immunotherapy for that. He also has a previous right nephrectomy in 2011. Other medical problems include CAD as well as BPH and hypothyroidism. SURGICAL HISTORY: Includes a right nephrectomy and lung biopsy which revealed a metastatic hypernephroma. SOCIAL HISTORY: Positive for previous tobacco use. He admits drinking rarely. No illicit drug use. FAMILY HISTORY: Noncontributory. REVIEW OF SYSTEMS: CONSTITUTIONAL: Negative. NEUROLOGIC: Negative. HEENT: Negative. CARDIOVASCULAR: Negative. PULMONARY: Negative. GI: Blood from the ostomy site. : Negative. RHEUMATOLOGIC: Negative. IMMUNOLOGIC: Negative. ENDOCRINOLOGIC: Negative. DERMATOLOGIC: Negative. Current vital signs are reviewed. His temperature is 97.8, heart rate 83, respiratory rate 16, blood pressure 127/73 mean 91, room air saturation 99%. Appears in no acute distress. HEENT: Examination is grossly unremarkable. Mucous membranes are moist. No oral lesions. NECK: Supple. Full range of motion. No adenopathy or thyromegaly. Neck veins are flat. CARDIOVASCULAR: Examination reveals regular rhythm and rate. Heart rate in mid 80s. S1, S2 normal. There is no murmur. LUNGS: Reveal clear breath sounds. No wheezes, rhonchi, or crackles. ABDOMEN: Soft. Bowel sounds are noted. Colostomy is noted. EXTREMITIES: Intact. There is no cyanosis or clubbing. There is significant lower extremity edema. It is probably 2+ and pitting. There is also some chronic venostasis changes and mild hyperpigmentation. SKIN: Without rash. NEUROLOGIC: Examination is brief but nonfocal. LABS: Reviewed. White count 7.6, hemoglobin 7.7, hematocrit 23.6, platelet count 191,000, PT, INR, PTT all normal. Sodium 139, potassium 4.8, chloride 110, CO2 is 26, anion gap is 3. BUN and creatinine were 32 and 0.92, glucose 129. Lactic acid 1.2. AST 85, ALT 43, alkaline phosphatase 435. Chest x-ray shows some cough, the chest x-ray shows some bilateral effusions, left greater than right. There may also be some basilar atelectasis on the left. ASSESSMENT: 1. Bleeding from the ostomy site, currently being evaluated by the Primary Service. 2. History of metastatic hypernephroma, status post nephrectomy, with METS to the lung, currently undergoing immunotherapy. 3. Chronic obstructive pulmonary disease from previous tobacco use. 4. History of colovesical fistula, status post colectomy and colostomy. 5. Previous and recent history of multiple intraabdominal abscesses, with treatment at [facility]. 6. Previous history of tobacco use. 7. Hypothyroidism. 8. History of atrial fibrillation. 9. History of benign prostatic hypertrophy. PLAN: From the pulmonary standpoint, the patient is doing well. No additional recommendations are made at this time. The patient's medications will be reviewed. He should be started back on the medications that he is typically on at home. Additional recommendations and suggestions are forthcoming. Prognosis is guarded. MMODL / IJN: [id number] /
[2019-02-03] MEDS: MEROPENEM 1 GM in SODIUM CHLORIDE 0.9% 100 ML IVPB SCH (15:38)
--- NOTE | 2019-02-03 16:00 | US ---
EXAMINATION TYPE: US abdomen limited DATE OF EXAM: 02/03/2019 COMPARISON: CT dated 02/02/2018 CLINICAL HISTORY: abdominal distention. Pt states bloating/ ABD distention, ascites check Ascites visualized, largest pocket in right flank= 5.1 cm Limited scanning was performed. IMPRESSION: Moderate ascites.
[2019-02-03] MEDS: HYDROcodone/APAP 5-325MG 1 EACH TAB PO PRN (19:14)
[2019-02-03] MEDS: SYMBICORT 160-4.5 MCG INHALER INHALATION SCH (19:59)
[2019-02-03] MEDS ORDERED: NON-FORMULARY DRUG (Omeprazole [Omeprazole] 20 MG) PO SCH (21:00)
[2019-02-03] MEDS: CALCIUM CARBONATE 500 MG CHEWABLE PO SCH (21:36)
[2019-02-03] MEDS: LINEZOLID 600 MG TAB PO SCH (21:37)
[2019-02-03] MEDS: VORICONAZOLE 50 MG TAB PO SCH (21:37)
[2019-02-04] MEDS: CEPHALEXIN 500 MG CAP PO SCH ×5 (00:10→20:43)
[2019-02-04] MEDS: MEROPENEM 1 GM in SODIUM CHLORIDE 0.9% 100 ML IVPB SCH ×3 (00:10→16:24)
[2019-02-04] MEDS: THYROID, PORK 30 MG TAB PO SCH (06:09)
[2019-02-04 07:01] LABS: ALT 36 U/L (21-72); AST 64 U/L (17-59); Alkaline Phosphatase 373 U/L (38-126); Anion Gap 1 mmol/L; Blood Urea Nitrogen 34 mg/dL (9-20); Calcium 7.9 mg/dL (8.4-10.2); Carbon Dioxide 29 mmol/L (22-30); Chloride 111 mmol/L (98-107); Glucose 88 mg/dL (74-99); Potassium 4.7 mmol/L (3.5-5.1); Sodium 141 mmol/L (137-145); Total Bilirubin 0.1 mg/dL (0.2-1.3); Total Protein 4.5 g/dL (6.3-8.2)
[2019-02-04 07:06] LABS: Anisocytosis Slight; Basophils # (A) 0.1 k/uL (0-0.2); Basophils % (A) 1 %; Eosinophils # (A) 0.8 k/uL (0-0.7); Eosinophils % (A) 11 %; HCT 23.6 % (39.0-53.0); Lymphocytes # (A) 1.4 k/uL (1.0-4.8); Lymphocytes % (A) 19 %; MCH 27.8 pg (25.0-35.0); MCHC 29.8 g/dL (31.0-37.0); MCV 93.4 fL (80.0-100.0); Mean Platelet Volume 6.7; Monocytes # (A) 0.6 k/uL (0-1.0); Monocytes % (A) 8 %; Neutrophils # (A) 4.2 k/uL (1.3-7.7); Neutrophils % (A) 58 %; Platelet Count 250 k/uL (150-450); RBC 2.53 m/uL (4.30-5.90); RDW 17.8 % (11.5-15.5); WBC 7.3 k/uL (3.8-10.6)
[2019-02-04] MEDS: SYMBICORT 160-4.5 MCG INHALER INHALATION SCH ×2 (07:50→19:48)
[2019-02-04] MEDS: IPRATROPIUM-ALBUTEROL 3 ML NEB INHALATION PRN (07:50)
[2019-02-04] MEDS: CALCIUM CARBONATE 500 MG CHEWABLE PO SCH ×2 (08:19→20:44)
[2019-02-04] MEDS: COLLAGENASE 250 UNIT/GM OINTMENT 30 GM TUBE TOPICAL SCH (08:20)
[2019-02-04] MEDS: DILTIAZEM CD 120 MG CAP.ER.24H PO SCH (08:23)
[2019-02-04] MEDS: FUROSEMIDE 20 MG TAB PO SCH (08:23)
[2019-02-04] MEDS: LINEZOLID 600 MG TAB PO SCH ×2 (08:23→20:43)
[2019-02-04] MEDS: PANTOPRAZOLE 40 MG/10 ML VIAL IV SCH (08:24)
[2019-02-04] MEDS: VORICONAZOLE 50 MG TAB PO SCH ×2 (08:24→20:43)
--- NOTE | 2019-02-04 09:49 | CONS ---
CONSULTATION Mr. Peters is a 68-year-old male with a history of renal cell carcinoma with metastasis to the lungs who recently underwent abdominal surgery because of fistula and underwent colectomy and colostomy. He has a history of paroxysmal atrial fibrillation. He has been seen by Dr. Garland Pizano in the past. According to him, he has underwent cardiac catheterization about 2 months ago, but no significant disease was noted, although it is not clear if the procedure was finished because of episode of atrial fibrillation. Patient had multiple admissions with infection and was transferred to [facility] more than once. He presented to the hospital with findings of blood in his colostomy bag. He has some dyspnea on exertion. No chest pain. No clear PND nor orthopnea. He has peripheral edema. He has not been told that he has any cardiomyopathy in the past. He has a history of mild COPD, has been followed by Dr. Yusuf and was on immunotherapy by Dr. Barth, but that has been on hold because of his present situation. He was on Xarelto because of paroxysmal atrial fibrillation. His coronary risk factors are remarkable for his prior history of smoking, history of hypertension. He is nondiabetic. MEDICATIONS: His medications include Ventolin, Symbicort, Tums, diltiazem CD 120 mg daily, Zyvox, Merrem, Xarelto, thyroid and Vfend. REVIEW OF SYSTEMS: RESPIRATORY SYSTEM: He has some dyspnea on exertion. No recent wheezing or cough. GI SYSTEM: He has the colostomy, the abdominal discomfort, recent bleeding. SYSTEM: He has history of renal cell carcinoma, status post nephrectomy with metastasis. NERVOUS SYSTEM: No stroke or seizure. PHYSICAL EXAMINATION: A 68-year-old male, alert, oriented, in no apparent distress. Blood pressure 109/60 with the heart rate in the 90s. HEAD: Normocephalic. EYES: Sclerae anicteric. NECK: Good carotid upstroke. No bruit appreciated. LUNGS: With decreased breath sounds at the bases, no wheezes. HEART: Regular rate and rhythm. S1, S2. No S3 with a systolic murmur. No diastolic murmur. No rub. ABDOMEN: Soft, obese. Colostomy bag noted. EXTREMITIES: With 1 to 2+ edema bilaterally. LAB DATA: Lab data revealed a hemoglobin of 7.8 on admission, 7.0 today. BUN and creatinine 34 and 0.96. Troponin less than 0.012. His potassium is 4.7. IMPRESSION: 1. Gastrointestinal bleeding from his colostomy bag. 2. Paroxysmal atrial fibrillation, was on anticoagulation. 3. Metastatic renal cell carcinoma, status post nephrectomy, was receiving immunotherapy. 4. History of chronic obstructive lung disease, prior history of smoking. 5. History of colovesical fistula. 6. History of hypertension. RECOMMENDATION: From the cardiac standpoint, I agree with your plan of holding the anticoagulation at this time. I will obtain echocardiogram with Doppler to evaluate the left ventricular systolic function. The patient has been seen by the surgical team. At this time, there is no active cardiac issues. Thank you for this consult. We will follow with you. MMODL / IJN: [id number] /
[2019-02-04] MEDS: HYDROcodone/APAP 5-325MG 1 EACH TAB PO PRN ×2 (10:26→16:24)
--- NOTE | 2019-02-04 11:23 | P.PN ---
Subjective Hemoglobin on decrease from 7.8-7. Patient had consultation with pulmonology they feel he is stable. Surgery is monitoring patient condition. Had consultation with cardiology regarding fluid overload and atrial fibrillation. Patient states that he feels stronger and able to ambulate with less difficulty Objective - Vital Signs Vital signs: Vital Signs Temp 97.6 F 02/04/19 11:03 Pulse 75 02/04/19 11:03 Resp 18 02/04/19 11:03 BP 106/57 02/04/19 11:03 Pulse Ox 100 02/04/19 11:03 Intake & Output 02/03/19 02/04/19 02/04/19 18:59 06:59 18:59 Intake Total 480 350 Output Total 400 3350 1500 Balance 80 -3000 -1500 Weight 107.1 kg 105.8 kg Intake: Oral 480 350 Output: Urine 200 150 Stool 200 3200 1500 Other: Voiding Method Toilet # Voids 1 # Bowel Movements 2 - Constitutional General appearance: Present: obese - EENT Eyes: Present: PERRLA Ears: bilateral: normal - Neck Neck: Present: normal ROM - Respiratory Respiratory: bilateral: CTA - Cardiovascular Rhythm: regular - Gastrointestinal Gastrointestinal Comment(s): Stool in colostomy bag brown color but less burgundy color General gastrointestinal: Present: normal bowel sounds, soft - Integumentary Integumentary: Present: normal - Neurologic Neurologic: Present: CNII-XII intact - Musculoskeletal Musculoskeletal: Present: generalized weakness - Psychiatric Psychiatric: Present: A&O x's 3, appropriate affect, intact judgment & insight - Labs CBC & Chem 7: 02/04/19 05:43 02/04/19 05:43 Labs: Abnormal Lab Results - Last 24 Hours (Table) 02/04/19 02/04/19 Range/Units 05:43 05:43 RBC 2.53 L (4.30-5.90) m/uL Hgb 7.0 L (13.0-17.5) gm/dL Hct 23.6 L (39.0-53.0) % MCHC 29.8 L (31.0-37.0) g/dL RDW 17.8 H (11.5-15.5) % Eosinophils # 0.8 H (0-0.7) k/uL Chloride 111 H (98-107) mmol/L BUN 34 H (9-20) mg/dL Calcium 7.9 L (8.4-10.2) mg/dL Total Bilirubin 0.1 L (0.2-1.3) mg/dL AST 64 H (17-59) U/L Alkaline Phosphatase 373 H (38-126) U/L Total Protein 4.5 L (6.3-8.2) g/dL Albumin 2.0 L (3.5-5.0) g/dL Assessment and Plan Plan: Assessment Anemia chronic disease and acute blood loss Pleural effusions Atrial failure paroxysmal COPD stable Renal carcinoma with right nephrectomy Coronary disease BPH Hypothyroidism Post colectomy from fistula from the bladder to bowel Plan Continue consultation with surgery and cardiology
--- NOTE | 2019-02-04 12:01 | P.PN ---
Subjective Progress Note Date: 02/04/19 CHIEF COMPLAINT: GI bleed HISTORY OF PRESENT ILLNESS: Patient examined at the bedside. No further episodes of bright red blood via ostomy. Hemoglobin 7.0. PHYSICAL EXAM: VITAL SIGNS: Reviewed. GENERAL: Well-developed in no acute distress. HEENT: No sclera icterus. Extraocular movements grossly intact. Moist buccal mucosa. Head is atraumatic, normocephalic. ABDOMEN: Soft. Obese. Nontender. Ostomy with stool noted. NEUROLOGIC: Alert and oriented. Cranial nerves II through XII grossly intact. ASSESSMENT: 1. Bright red blood via ostomy with episodes of epistaxis a day prior, no further bright red blood, hemoglobin remains stable PLAN: Hold Xarelto. Continue to monitor hemoglobin. No surgical intervention recommended at this time. Nurse practitioner note has been reviewed by physician. Signing provider agrees with the documented findings, assessment, and plan of care. Objective - Vital Signs Vital signs: Vital Signs Temp 97.6 F 02/04/19 11:03 Pulse 75 02/04/19 11:03 Resp 18 02/04/19 11:03 BP 106/57 02/04/19 11:03 Pulse Ox 100 02/04/19 11:03 Intake & Output 02/03/19 02/04/19 02/04/19 18:59 06:59 18:59 Intake Total 480 350 Output Total 400 3350 1500 Balance 80 -3000 -1500 Weight 107.1 kg 105.8 kg Intake: Oral 480 350 Output: Urine 200 150 Stool 200 3200 1500 Other: Voiding Method Toilet # Voids 1 # Bowel Movements 2 - Labs CBC & Chem 7: 02/04/19 05:43 02/04/19 05:43 Labs: Abnormal Lab Results - Last 24 Hours (Table) 02/04/19 02/04/19 Range/Units 05:43 05:43 RBC 2.53 L (4.30-5.90) m/uL Hgb 7.0 L (13.0-17.5) gm/dL Hct 23.6 L (39.0-53.0) % MCHC 29.8 L (31.0-37.0) g/dL RDW 17.8 H (11.5-15.5) % Eosinophils # 0.8 H (0-0.7) k/uL Chloride 111 H (98-107) mmol/L BUN 34 H (9-20) mg/dL Calcium 7.9 L (8.4-10.2) mg/dL Total Bilirubin 0.1 L (0.2-1.3) mg/dL AST 64 H (17-59) U/L Alkaline Phosphatase 373 H (38-126) U/L Total Protein 4.5 L (6.3-8.2) g/dL Albumin 2.0 L (3.5-5.0) g/dL
--- NOTE | 2019-02-04 12:10 | ECHOF ---
Referral Reason:afib MEASUREMENTS -------- HEIGHT: 182.9 cm WEIGHT: 105.7 kg BP: 109/60 IVSd: 1.2 cm (0.6 - 1.1) LVIDd: 4.6 cm (3.9 - 5.3) LVPWd: 1.1 cm (0.6 - 1.1) IVSs: 1.2 cm LVIDs: 2.3 cm LVPWs: 1.2 cm LAESV Index (A-L): 25.48 ml/m Ao Diam: 2.6 cm (2.0 - 3.7) AV Cusp: 1.8 cm (1.5 - 2.6) LA Diam: 3.8 cm (2.7 - 3.8) MV E Axel: 1.07 m/s MV DecT: 248 ms MV A Axel: 1.24 m/s MV E/A Ratio: 0.86 AV maxP.52 mmHg AV meanP.99 mmHg RAP: 15.00 mmHg RVSP: 42.43 mmHg FINDINGS -------- Atrial fibrillation. This was a technically good study. The left ventricular size is normal. There is mild concentric left ventricular hypertrophy. Overa ll left ventricular systolic function is normal with, an EF between 55 - 60 %. The right ventricle is normal in size. Normal LA size by volume 22+/-6 ml/m2. The right atrial size is normal. Interatrial and interventricular septum intact. Aortic valve is trileaflet and is mildly thickened. There is mild aortic valve sclerosis. Peak/me an gradient across the Aortic Valve is 14.52mmHg / 6.99mmHg. The mitral valve leaflets are mildly thickened. Mild mitral annular calcification present. Mild m itral regurgitation is present. Mild tricuspid regurgitation present. There is mild pulmonary hypertension. The right ventricular systolic pressure, as measured by Doppler, is 42.43mmHg. Pulmonic valve appears structurally normal. There is no pulmonic regurgitation present. The aortic root size is normal. The inferior vena cava is mildly dilated but collapses There is a trivial pericardial effusion present. Large Pleural Effusion. CONCLUSIONS -------- 1. Atrial fibrillation. 2. This was a technically good study. 3. The left ventricular size is normal. 4. There is mild concentric left ventricular hypertrophy. 5. Overall left ventricular systolic function is normal with, an EF between 55 - 60 %. 6. The right ventricle is normal in size. 7. Normal LA size by volume 22+/-6 ml/m2. 8. The right atrial size is normal. 9. Interatrial and interventricular septum intact. 10. Aortic valve is trileaflet and is mildly thickened. 11. There is mild aortic valve sclerosis. 12. Peak/mean gradient across the Aortic Valve is 14.52mmHg / 6.99mmHg. 13. The mitral valve leaflets are mildly thickened. 14. Mild mitral annular calcification present. 15. Mild mitral regurgitation is present. 16. Mild tricuspid regurgitation present. 17. There is mild pulmonary hypertension. 18. The right ventricular systolic pressure, as measured by Doppler, is 42.43mmHg. 19. Pulmonic valve appears structurally normal. 20. There is no pulmonic regurgitation present. 21. The aortic root size is normal. 22. The inferior vena cava is mildly dilated but collapses. 23. There is a trivial pericardial effusion present. 24. Large Pleural Effusion. BIBLE TEACHER: Brie Cobian RDCS
[2019-02-04] MEDS ORDERED: HYDROcodone/APAP 5-325MG 1 EACH TAB ONE (23:18)
[2019-02-05 05:11] VITALS: RESP 18
[2019-02-05] MEDS: MEROPENEM 1 GM in SODIUM CHLORIDE 0.9% 100 ML IVPB SCH ×2 (06:07→07:37)
[2019-02-05] MEDS: CEPHALEXIN 500 MG CAP PO SCH ×2 (06:11→11:10)
[2019-02-05] MEDS: THYROID, PORK 30 MG TAB PO SCH (06:11)
[2019-02-05 07:24] LABS: Anisocytosis Slight; Basophils # (A) 0.1 k/uL (0-0.2); Basophils % (A) 1 %; Eosinophils % (A) 11 %; HGB 7.6 gm/dL (13.0-17.5); Hypochromasia Slight; Lymphocytes # (A) 1.8 k/uL (1.0-4.8); Lymphocytes % (A) 18 %; MCH 28.9 pg (25.0-35.0); MCHC 31.5 g/dL (31.0-37.0); MCV 91.9 fL (80.0-100.0); Mean Platelet Volume 7.2; Monocytes # (A) 0.9 k/uL (0-1.0); Monocytes % (A) 9 %; Neutrophils # (A) 5.9 k/uL (1.3-7.7); Neutrophils % (A) 59 %; Platelet Count 281 k/uL (150-450); RBC 2.61 m/uL (4.30-5.90); RDW 17.3 % (11.5-15.5); WBC 9.9 k/uL (3.8-10.6)
[2019-02-05] MEDS: COLLAGENASE 250 UNIT/GM OINTMENT 30 GM TUBE TOPICAL SCH (07:29)
[2019-02-05] MEDS: FUROSEMIDE 20 MG TAB PO SCH (07:32)
[2019-02-05] MEDS: DILTIAZEM CD 120 MG CAP.ER.24H PO SCH (07:32)
[2019-02-05] MEDS: VORICONAZOLE 50 MG TAB PO SCH (07:33)
[2019-02-05] MEDS: LINEZOLID 600 MG TAB PO SCH (07:33)
[2019-02-05] MEDS: CALCIUM CARBONATE 500 MG CHEWABLE PO SCH (07:33)
[2019-02-05] MEDS: IPRATROPIUM-ALBUTEROL 3 ML NEB INHALATION PRN (07:53)
[2019-02-05] MEDS: SYMBICORT 160-4.5 MCG INHALER INHALATION SCH (07:53)
[2019-02-05] MEDS ORDERED: PANTOPRAZOLE 40 MG TABLET PO SCH (09:00)
[2019-02-05 11:13] VITALS: BP 92/54; PULSE 71; TEMP 97.7
[2019-02-05] MEDS: HYDROcodone/APAP 5-325MG 1 EACH TAB PO PRN (11:20)
--- NOTE | 2019-02-05 11:25 | P.PN ---
Subjective Progress Note Date: 02/05/19 CHIEF COMPLAINT: GI bleed HISTORY OF PRESENT ILLNESS: Patient examined at the bedside. Patient reports episode of bright red blood this morning via ostomy. Currently, ostomy with brown stool. Hemoglobin 7.6. PHYSICAL EXAM: VITAL SIGNS: Reviewed. GENERAL: Well-developed in no acute distress. HEENT: No sclera icterus. Extraocular movements grossly intact. Moist buccal mucosa. Head is atraumatic, normocephalic. ABDOMEN: Soft. Obese. Nontender. Ostomy with stool noted. NEUROLOGIC: Alert and oriented. Cranial nerves II through XII grossly intact. ASSESSMENT: 1. Bright red blood via ostomy with episodes of epistaxis a day prior, no further bright red blood, hemoglobin remains stable PLAN: Hold Xarelto per Dr. Barrientos. Continue to monitor hemoglobin. No surgical intervention recommended at this time. Nurse practitioner note has been reviewed by physician. Signing provider agrees with the documented findings, assessment, and plan of care. Objective - Vital Signs Vital signs: Vital Signs Temp 97.7 F 02/05/19 11:12 Pulse 71 02/05/19 11:12 Resp 18 02/05/19 11:12 BP 92/54 02/05/19 11:12 Pulse Ox 100 02/05/19 11:12 Intake & Output 02/04/19 02/05/19 02/05/19 18:59 06:59 18:59 Intake Total 300 240 Output Total 3000 550 200 Balance -2700 -550 40 Weight 107.1 kg Intake: Oral 300 240 Output: Urine 200 Stool 3000 550 Other: Voiding Method Toilet # Voids 1 # Bowel Movements 1 - Labs CBC & Chem 7: 02/05/19 06:51 02/04/19 05:43 Labs: Abnormal Lab Results - Last 24 Hours (Table) 02/05/19 Range/Units 06:51 RBC 2.61 L (4.30-5.90) m/uL Hgb 7.6 L (13.0-17.5) gm/dL Hct 24.0 L (39.0-53.0) % RDW 17.3 H (11.5-15.5) % Eosinophils # 1.0 H (0-0.7) k/uL
--- NOTE | 2019-02-05 11:50 | P.PN ---
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 Patient does have history of paroxysmal atrial fibrillation, hypertension, prior history of smoking and has followed with Dr. Pizano in the past. On this occasion he presented to the hospital with findings of blood in his colostomy bag with some mild exertional dyspnea. He does have a known history of mild COPD. Patient had been on xarelto because of his paroxysmal atrial fibrillation. Patient has had multiple admissions to the hospital. Patient was seen in consultation by Dr. Lott yesterday, ant icoagulation is currently on hold, echocardiogram with Doppler study has been performed which revealed an ejection fraction of 55-60%. White blood cell count 9.9, hemoglobin 7.6, platelet count 281. Objective - Vital Signs Vital signs: Vital Signs Temp 97.7 F 02/05/19 11:12 Pulse 71 02/05/19 11:12 Resp 18 02/05/19 11:12 BP 92/54 02/05/19 11:12 Pulse Ox 100 02/05/19 11:12 Intake & Output 02/04/19 02/05/19 02/05/19 18:59 06:59 18:59 Intake Total 300 240 Output Total 3000 550 200 Balance -2700 -550 40 Weight 107.1 kg Intake: Oral 300 240 Output: Urine 200 Stool 3000 550 Other: Voiding Method Toilet # Voids 1 # Bowel Movements 1 - Exam PHYSICAL EXAMINATION: GENERAL: 68-year-old gentleman in no acute distress at the time of my examination HEENT: Head is atraumatic, normocephalic. Pupils equal, round. Sclera anicteric. Conjunctiva are clear. Mucous membranes of the mouth are moist. Neck is supple. There is no elevated jugular venous pressure. No carotid bruit is heard. HEART EXAMINATION: Heart S1 and S2 systolic murmur is heard CHEST EXAMINATION: Lungs are clear to auscultation and precussion. No chest wall tenderness is noted on palpation or with deep breathing. ABDOMEN: Soft, obese, nontender. Bowel sounds are heard. No organomegaly noted. Colostomy take his present. EXTREMITIES: 2+ peripheral pulses with 1+ evidence of peripheral edema and no calf tenderness noted]. NEUROLOGIC [ptient is awake, alert and oriented 3 . . - Labs CBC & Chem 7: 02/05/19 06:51 02/04/19 05:43 Labs: Abnormal Lab Results - Last 24 Hours (Table) 02/05/19 Range/Units 06:51 RBC 2.61 L (4.30-5.90) m/uL Hgb 7.6 L (13.0-17.5) gm/dL Hct 24.0 L (39.0-53.0) % RDW 17.3 H (11.5-15.5) % Eosinophils # 1.0 H (0-0.7) k/uL Assessment and Plan Plan: Assessment and plan #1 GI bleeding from colostomy #2 paroxysmal atrial fibrillation, anticoagulation currently on hold #3 metastatic renal cell carcinoma, status post nephrectomy, was receiving immunotherapy #4 history of COPD #5 prior history of smoking #6 hypertension Plan Echocardiogram with Doppler study was performed which revealed a normal left ventricular systolic function. Hemoglobin today 7.6, we'll continue to hold anticoagulation until cleared by surgical services. DNP note has been reviewed, I agree with a documented findings and plan of care. Patient was seen and examined.
--- NOTE | 2019-02-05 12:05 | P.DS ---
Providers Date of admission: 02/03/19 03:00 Expected date of discharge: 02/05/19 Attending physician: Luis Kunz Consults: 02/03/19 08:05 Consult Physician Urgent Consulting Provider: Jaswant Barrientos Consult Reason/Comments: GI bleed Do you want consulting provider notified?: Yes 02/03/19 09:34 Consult Physician Urgent Consulting Provider: Vianey Yusuf Consult Reason/Comments: pna, effusions Do you want consulting provider notified?: Yes 02/03/19 15:15 Consult Physician Urgent Consulting Provider: Kurt Lott Consult Reason/Comments: fluid overload Do you want consulting provider notified?: Yes Primary care physician: Luis Kunz Hospital Course: 68-year-old male was admitted admitted for concerns of blood in his colostomy bag. Patient was involved evaluated by surgeon pulmonology for pleural effusion cardiology regarding fluid management and atrial fibrillation. Anticoagulation will be held until cleared by surgery. Patient is stable to return to on [facility] for rehab for weakness Assessment GI bleed Anemia of chronic disease and blood loss hemoglobin improved to 7.6 pleural effusion Atrial fibrillation paroxysmal COPD stable Renal carcinoma with right nephrectomy History of coronary disease BPH Hypothyroidism Post colectomy from fistula from: To bladder Abdominal ascites Weakness Plan Transfer back to [facility] for rehab To follow-up with discharged from rehab with family physician Dr. Luis Kunz Dr. dysemia and now pulmonology and cardiology Patient Condition at Discharge: Serious Plan - Discharge Summary Discharge Rx Participant: No New Discharge Prescriptions: New Meropenem [Merrem] 1 gm IVPB Q8HR vial Continue Thyroid,Pork [Instrument Man Thyroid] 30 mg PO DAILY Albuterol Inhaler [Ventolin Hfa Inhaler] 1 - 2 puff INHALATION RT-Q6H PRN PRN Reason: Shortness Of Breath Diltiazem HCl [Diltiazem 24Hr ER] 120 mg PO DAILY Budesonide-Formot 160-4.5 Mcg [Symbicort 160-4.5 Mcg Inhaler] 2 puff INHALATION RT-BID puff Calcium Carbonate [Tums] 500 mg PO BID chew Linezolid [Zyvox] 600 mg PO BID #28 tab Meropenem [Merrem] 1 gm IVPB Q8H #42 vial Cephalexin [Keflex] 500 mg PO Q6HR Voriconazole 150 mg PO Q12H Furosemide [Lasix] 20 mg PO DAILY Collagenase [Santyl] 1 applic TOPICAL DAILY Omeprazole 20 mg PO BID Voriconazole [Vfend] 200 mg PO Q12HR Ipratropium-Albuterol Nebulize [Duoneb 0.5 mg-3 mg/3 ml Soln] 3 ml INHALATION RT-Q4H PRN PRN Reason: Shortness Of Breath Or Wheezing HYDROcodone/APAP 5-325MG [[place] 5-325] 1 tab PO Q4HR PRN #24 tab PRN Reason: Pain Discontinued Rivaroxaban [Xarelto] 20 mg PO W/SUPPER tab Discharge Medication List Thyroid,Pork [Instrument Man Thyroid] 30 mg PO DAILY 12/30/18 [History] Albuterol Inhaler [Ventolin Hfa Inhaler] 1 - 2 puff INHALATION RT-Q6H PRN 01/04/19 [History] Diltiazem HCl [Diltiazem 24Hr ER] 120 mg PO DAILY 01/18/19 [History] Budesonide-Formot 160-4.5 Mcg [Symbicort 160-4.5 Mcg Inhaler] 2 puff INHALATION RT-BID puff 01/21/19 [Rx] Calcium Carbonate [Tums] 500 mg PO BID chew 01/21/19 [Rx] Linezolid [Zyvox] 600 mg PO BID #28 tab 01/21/19 [Rx] Meropenem [Merrem] 1 gm IVPB Q8H #42 vial 01/21/19 [Rx] Cephalexin [Keflex] 500 mg PO Q6HR 02/03/19 [History] Collagenase [Santyl] 1 applic TOPICAL DAILY 02/03/19 [History] Furosemide [Lasix] 20 mg PO DAILY 02/03/19 [History] Ipratropium-Albuterol Nebulize [Duoneb 0.5 mg-3 mg/3 ml Soln] 3 ml INHALATION RT-Q4H PRN 02/03/19 [History] Omeprazole 20 mg PO BID 02/03/19 [History] Voriconazole 150 mg PO Q12H 02/03/19 [History] Voriconazole [Vfend] 200 mg PO Q12HR 02/03/19 [History] HYDROcodone/APAP 5-325MG [[place] 5-325] 1 tab PO Q4HR PRN #24 tab 02/05/19 [Rx] Meropenem [Merrem] 1 gm IVPB Q8HR vial 02/05/19 [Rx] Follow up Appointment(s)/Referral(s): Luis Kunz MD [Primary Care Provider] - 1-2 days Patient Instructions/Handouts: Gastrointestinal Bleeding (ED) Activity/Diet/Wound Care/Special Instructions: Ileostomy Care recommendations
[2019-02-05 13:03] LABS: Appearance,Urine Clear (Clear); Bacteria,Urine Rare /hpf; Bilirubin,Urine Negative (Negative); Blood,Urine Negative (Negative); Color,Urine Light Yellow; Glucose,Urine (UA) Negative (Negative); Ketones,Urine Negative (Negative); Leukocyte Esterase,Urine Large (Negative); Mucus,Urine Rare /hpf; Nitrite,Urine Negative (Negative); Protein,Urine Trace (Negative); RBC,Urine 3 /hpf (0-5); Specific Gravity,Urine 1.015 (1.001-1.035); Urobilinogen,Urine <2.0 mg/dL (<2.0); WBC,Urine 48 /hpf (0-5)
--- NOTE | 2019-02-07 04:57 | CDI ---
Documentation Clarification Form Date: 02/07/19 From: Joseph Pizano Phone: call to [phone] Admit Date: 02/03/2019 3:00:00 AM Patient Name: Erik Peters Visit Number: [id number] Discharge Date: 02/05/2019 4:40:00 PM ATTENTION: The Clinical Documentation Specialists (CDI) and [facility] Coding Staff appreciate your assistance in clarifying documentation. Please respond to the clarification below the line at the bottom and electronically sign. The CDI & [facility] Coding staff will review the response and follow-up if needed. Please note: Queries are made part of the Legal Health Record. If you have any questions, please contact the author of this message via ITS. Dr. Luis Kunz Your patient has the documented diagnosis of Gi bleed from ostomy bag and GI bleed from ostomy site in your notes date 02/03 and consult note by . A relationship between diagnoses cannot be assumed unless documented as such by the attending physician. In order to capture the severity of condition; please document the relationship, if any, between these diagnoses. Please clarify and document your clinical opinion in the discharge summary if any relationship (due to, caused by, secondary to) exists between these two diagnoses. Please include clinical findings supporting your diagnosis. GI bleed from Anticoagulation GI bleed from ostomy site(complication) Other explanation of clinical findings (please specify) Unable to determine (no explanation for clinical findings) MTDD
--- NOTE | 2019-02-20 12:16 | P.PN ---
Progress Note - Text Addendum regarding the bleeding at the ostomy GI bleed at ostomy site secondary to anticoagulation
== END 2019-02-05 16:40 | DRG 813 ==
LOC: EC 21:54 → 3SCARD 02-03 03:00
PROVIDERS: ADMIT Family Medicine; ATTEND Family Medicine
DX: D68.32 Hemorrhagic disorder due to extrinsic circulating anticoagulants (principal); K94.01 Colostomy hemorrhage; D62 Acute posthemorrhagic anemia; J90 Pleural effusion, not elsewhere classified; C78.00 Secondary malignant neoplasm of unspecified lung; N40.0 Benign prostatic hyperplasia without lower urinary tract symptoms; E03.9 Hypothyroidism, unspecified; E87.70 Fluid overload, unspecified; I10 Essential (primary) hypertension; I25.10 Atherosclerotic heart disease of native coronary artery without angina pectoris; I48.0 Paroxysmal atrial fibrillation; J44.9 Chronic obstructive pulmonary disease, unspecified; Z90.5 Acquired absence of kidney; Z90.49 Acquired absence of other specified parts of digestive tract; Z85.528 Personal history of other malignant neoplasm of kidney; Z79.51 Long term (current) use of inhaled steroids; Z79.01 Long term (current) use of anticoagulants; Z79.899 Other long term (current) drug therapy; Z87.891 Personal history of nicotine dependence
CPT/HCPCS: 36415; 71046; 74177; 76705; 80053; 81001; 82272; 83605; 84484; 85025; 85610; 85730; 86850; 86900; 86901; 93306; 94640; 96374; 99285

== ENCOUNTER → 2019-03-25 | Outpatient (CLI) | payer MEDICARE, OTHER ==
--- NOTE | 2019-03-25 16:38 | CT ---
EXAMINATION TYPE: CT chest wo con DATE OF EXAM: 03/25/2019 COMPARISON: 12/16/2018 HISTORY: 68-year-old male Renal CA, observation for mets TECHNIQUE: Contiguous axial scanning of the chest without IV contrast. Coronal and sagittal reconstru ctions performed. CT DLP: 313.2 mGycm Automated exposure control for dose reduction was used. FINDINGS: Heart normal size without pericardial effusion. Scattered coronary vessel calcifications are present. Ectatic ascending aorta at 3.9 cm. Mild atherosclerotic arch calcifications. Conventional vessel bran alejandra anatomy. Right anterior chest wall injection port with catheter tip at the upper SVC. No thoracic lymphadenopathy by CT size criteria Increased to small left pleural effusion. Decreased now trace right pleural effusion. Large caliber to the main right and left pulmonary arteries at 2.9 cm suggesting underlying pulmonary arterial hypertension. Stable focal subpleural patchy thickening along the right paramedian anterior mid chest on axial imag e 29. Peripheral right upper lobe subpleural pulmonary nodule currently measures 1 cm versus 1.6 cm, previo usly. Adjacent groundglass nodule is even less distinct now, her first axial image 28. Mild scattered emphysematous change. No new pulmonary nodules or consolidation. Mild bilateral gynecomastia. Small hiatal hernia. Mild diffuse anasarca-type change and mild upper abdominal ascites fluid. Very large left renal cysts measuring up to 7.8 cm. Surgical clips in the right renal fossa. The overall anasarca type changes h ave improved. The degree of abdominal ascites has also decreased. Bones: Bridging anterior endplate spondylosis mid to lower thoracic spine compatible with dish. IMPRESSION: Note: Noncontrast exam. Patient's elevated creatinine suggests a degree of acute kidney injury. 1. IMPROVING GENERALIZED ANASARCA-TYPE CHANGE AND ABDOMINAL ASCITES. MILD ABDOMINAL ASCITES REMAINS. THERE IS INCREASED SMALL LEFT AND DECREASED NOW TRACE RIGHT PLEURAL EFFUSIONS. CORRELATE WITH PATIENT 'S FLUID STATUS. 2. SUBPLEURAL PULMONARY NODULE IN THE RIGHT UPPER LOBE IS SMALLER AT 1 CM VERSUS 1.5 CM PREVIOUSLY. A N ADJACENT GROUNDGLASS NODULE IS EVEN LESS DEFINED. 3. COPD WITH MILD EMPHYSEMA AND PULMONARY ARTERIAL HYPERTENSION. 4. SMALL HIATAL HERNIA, STATUS POST RIGHT NEPHRECTOMY, AND PARTIALLY VISUALIZED LARGE LEFT RENAL CYST S MEASURING UP TO NEARLY 8 CM.
== END | disposition home or self-care (01) ==
LOC: RADCTMAIN 12:34
PROVIDERS: ATTEND Internal Medicine Hematology & Oncology
DX: C64.9 Malignant neoplasm of unspecified kidney, except renal pelvis (principal); J43.9 Emphysema, unspecified; I27.21 Secondary pulmonary arterial hypertension; Z88.8 Allergy status to other drugs, medicaments and biological substances
CPT/HCPCS: 36415; 71250; 82565; 84520

== ENCOUNTER → 2019-04-14 | Outpatient (CLI) | payer MEDICARE, OTHER ==
[2019-04-14 14:57] LABS: Anisocytosis Slight; HCT 29.8 % (39.0-53.0); HGB 9.1 gm/dL (13.0-17.5); Hypochromasia Moderate; MCH 28.6 pg (25.0-35.0); MCHC 30.4 g/dL (31.0-37.0); MCV 94.2 fL (80.0-100.0); Mean Platelet Volume 6.9; Platelet Count 302 k/uL (150-450); RBC 3.17 m/uL (4.30-5.90); RDW 18.2 % (11.5-15.5); WBC 8.1 k/uL (3.8-10.6)
[2019-04-14 15:06] LABS: Magnesium 1.9 mg/dL (1.6-2.3); Potassium 5.2 mmol/L (3.5-5.1)
== END | disposition home or self-care (01) ==
LOC: LABPAT 14:22
PROVIDERS: ATTEND Internal Medicine Interventional Cardiology
DX: Z01.812 Encounter for preprocedural laboratory examination (principal); R94.39 Abnormal result of other cardiovascular function study
CPT/HCPCS: 36415; 80051; 82565; 83735; 84520; 85027

== ENCOUNTER 2019-04-18 08:16 | Day surgery (SDC) | payer MEDICARE, OTHER ==
[2019-04-14 17:21] VITALS: BMI 27.9
[2019-04-18] MEDS ORDERED: ALPRAZolam 0.25 MG TAB PO PRN (09:23)
[2019-04-18] MEDS ORDERED: ATORVASTATIN 80 MG TAB PO STA (09:23)
[2019-04-18] MEDS ORDERED: ALPRAZolam 0.5 MG TAB PO PRN (09:23)
[2019-04-18] MEDS ORDERED: NITROGLYCERIN SL TABS 0.4 MG TAB SUBLINGUAL PRN (09:23)
[2019-04-18] MEDS ORDERED: SODIUM CHLORIDE 0.9% 1,000 ML in EMPTY BAG 1 BAG IV ONE (09:23)
[2019-04-18] MEDS ORDERED: ASPIRIN 325 MG TAB PO STA (09:23)
[2019-04-18] MEDS ORDERED: SODIUM CHLORIDE 0.9% 1,000 ML IV ONE (09:32)
[2019-04-18 09:42] LABS: Anisocytosis Slight; Basophils # (A) 0.1 k/uL (0-0.2); Basophils % (A) 1 %; Eosinophils # (A) 0.9 k/uL (0-0.7); Eosinophils % (A) 10 %; HCT 29.8 % (39.0-53.0); HGB 9.3 gm/dL (13.0-17.5); Hypochromasia Slight; Lymphocytes # (A) 1.8 k/uL (1.0-4.8); Lymphocytes % (A) 21 %; MCH 28.9 pg (25.0-35.0); MCHC 31.1 g/dL (31.0-37.0); MCV 93.2 fL (80.0-100.0); Mean Platelet Volume 7.2; Monocytes # (A) 0.6 k/uL (0-1.0); Monocytes % (A) 7 %; Neutrophils # (A) 4.9 k/uL (1.3-7.7); Neutrophils % (A) 58 %; Platelet Count 292 k/uL (150-450); RDW 17.7 % (11.5-15.5); WBC 8.5 k/uL (3.8-10.6)
[2019-04-18 09:52] LABS: Calcium 9.2 mg/dL (8.4-10.2); Potassium 5.5 mmol/L (3.5-5.1)
[2019-04-18] MEDS ORDERED: MIDAZOLAM PF (FBP) 2 MG/2 ML VIAL IV ONE (11:03)
[2019-04-18] MEDS ORDERED: LIDOCAINE 1% INJ 10MG/ML (20 ML MDV) SQ ONE (11:05)
[2019-04-18] MEDS: VERAPAMIL SYRINGE (5 MG/10 ML) INTRAARTER ONE ×2 (11:07→11:41)
[2019-04-18] MEDS ORDERED: HEPARIN SODIUM 1,000 UN/ML (10ML VL) IV ONE (11:09)
[2019-04-18] MEDS ORDERED: IOPAMIDOL-370 100ML BTL INJ ONE ×2 (11:23→11:42)
[2019-04-18] MEDS ORDERED: BIVALIRUDIN 250 MG in SODIUM CHLORIDE 0.9% 50 ML IV ONE (11:27)
[2019-04-18] MEDS ORDERED: BIVALIRUDIN BOLUS 250 MG/50 ML IV ONE (11:27)
[2019-04-18] MEDS ORDERED: NITROGLYCERIN 1000MCG/10ML SYRINGE INTRACORON ONE (11:35)
[2019-04-18] MEDS ORDERED: CLOPIDOGREL 75 MG TAB PO ONE (11:41)
[2019-04-18] MEDS ORDERED: MAG HYDROX/AL HYDROX/SIMETH 30 ML CUP PO PRN (11:58)
[2019-04-18] MEDS ORDERED: ATROPINE SULFATE 0.1 MG/ML 10ML SYRINGE IV PRN (11:58)
[2019-04-18] MEDS ORDERED: ZOLPIDEM 5 MG TAB PO PRN (11:58)
[2019-04-18] MEDS ORDERED: CLOTRIMAZOLE TROCHE 10 MG TROCHE MUCOUS MEM PRN (11:58)
[2019-04-18] MEDS ORDERED: HYDROcodone/APAP 5-325MG 1 EACH TAB PO PRN (11:58)
[2019-04-18] MEDS ORDERED: RX INFO: IV CONTRAST WAS GIVEN 1 EACH MISC MISCELLANE PRN (11:58)
[2019-04-18] MEDS ORDERED: SODIUM CHLORIDE 0.9% 1,000 ML IV SCH (12:00)
--- NOTE | 2019-04-18 12:45 | CC ---
CARDIAC CATHETERIZATION REPORT DATE OF SERVICE: 04/18/2019 PROCEDURE: 1. Left heart catheterization and coronary angiography. 2. PTCA and stenting of mid LAD with a drug-eluting stent. PERFORMED BY: Dr. Garland Pizano. CLINICAL INFORMATION: Erik Peters is a 68-year-old gentleman with history of hypertension, hyperlipidemia, who has developed metastatic kidney cancer required chemotherapy at [facility]. He had a positive stress test in June, was advised medical therapy but however after the cancer diagnosis, he did not continue his medications and came into the office after recent hospitalization. He also had a colovesical fistula for which he had surgery and a colostomy. He came into the office and because of his significant abnormality on the stress test and symptoms of exertional chest tightness and pressure, I recommended coronary angiography with the understanding that he would have significant disease. Risks, benefits, options and rationale were discussed. PROCEDURE NOTE: Under local anesthesia and strict aseptic precautions, a 6-Citizen Of [place] introducer was placed in the right radial artery. Using Ultimate 1 catheter I performed selective coronary angiography and using a pigtail catheter I checked LV pressures. I noted that he had a significant mid LAD lesion. The PDA branch of RCA also has significant stenosis. I recommend intervention of the LAD that was performed in the same setting. Following the procedure, the sheath was taken out and a TR band applied as per protocol. Excellent hemostasis was secured and saturation of the fingers of the right hand was more than 94%. CARDIAC CATHETERIZATION FINDINGS: LEFT MAIN CORONARY ARTERY: This is a short, patent, disease-free vessel that bifurcates into LAD and circumflex. LEFT ANTERIOR DESCENDING CORONARY ARTERY: Good caliber vessel extends along the anterior wall, gives off small septal and diagonal branches. In the midportion, there is an ulcerated eccentric 80% lesion with haziness after which the caliber improves and the vessel runs all the way to the apex supplying a sizable amount of myocardium. The diagonal and septal branches have minor irregularities. LEFT POSTERIOR CIRCUMFLEX CORONARY ARTERY: Technically this is a nondominant vessel. It gives off 2 obtuse marginal branches and then runs in the AV groove, has minor irregularities, no significant disease and both obtuse marginal supply a fair amount of myocardium. The circumflex is nondominant, has 2 obtuse marginals, minor irregularities, no significant disease. There is mild calcification noted. RIGHT CORONARY ARTERY: This is a technically dominant vessel, has significant disease in the proximal mid and distal portion. Vessel is tortuous distally just before bifurcation. The vessel decreases in size and there is at least a 40% to 50% narrowing of the distal RCA and it bifurcates into a PDA and PLV branch. PLV appears to be larger. PDA is smaller. The larger PLV has about 40% narrowing as it comes off from the main RCA. However, the PDA branch has about an 80% narrowing as it comes off from the main RCA. However, the PDA branch has about an 80% at its ostium as it comes off from the main RCA. The size of the PDA is about 2.25 mm and the ostium has about a 70% to 80% narrowing. The PLV is also slightly larger, but there is no significant disease in the PLV branch. There is a natural tapering of the RCA distally. Left ventricular pressures were obtained but LV gram was not performed. Left ventricle end-diastolic pressure was 8 mmHg without any gradient across aortic valve. FINAL IMPRESSION: This patient has a right dominant system and the RCA has a distal disease of about 40% to 50%. The PLV has a 40% lesion. PDA has a 70% lesion eccentric best seen in the cranial projection. The LAD is a large caliber vessel has a mid lesion of 80%, which is eccentric haziness with possibly some ulceration. The circumflex is nondominant, gives off 2 obtuse marginals. No significant disease. Filling pressures are normal to low. No gradient across aortic valve. RECOMMENDATION: I recommended PCI of LAD and proceeded to perform this in the same setting. PCI PROCEDURE DETAILS: I used an XBLAD 3.5 guide catheter to cannulate the left coronary artery. A run- through wire was used to cross the lesion in the LAD. Without predilatation, I deployed a 15 mm long 4.0 caliber Xience stent at 13 to 14 atmospheres. Patient had mild chest discomfort and mild subtle anterior ST-segment prominence, a J-point prominence. Excellent angiographic result was achieved. He received Angiomax bolus and infusion as per protocol and he also received 600 mg of Plavix. Excellent angiographic result was achieved. The sheath was then taken out and TR band applied as per protocol and he was sent to the room in a stable condition. I expect that he will be discharged later on this evening if he remains stable. Findings and results were discussed with the patient and in great detail. Risk factor modification issues were reinforced. He will be on dual antiplatelet therapy, statin and a small dose of beta purvi and his resting heart rate is in the high 50s to low 60s. MMODL / IJN: [id number] /
[2019-04-18 16:19] VITALS: RESP 18; TEMP 97.4
[2019-04-18 16:33] VITALS: BP 125/76; PULSE 56
[2019-04-18] MEDS ORDERED: SYMBICORT 160-4.5 MCG INHALER INHALATION SCH (20:00)
[2019-04-18] MEDS ORDERED: ATORVASTATIN 80 MG TAB PO SCH (21:00)
[2019-04-18] MEDS ORDERED: LOSARTAN 25 MG TAB PO SCH (21:00)
[2019-04-19] MEDS ORDERED: LEVOTHYROXINE 50 MCG TAB PO SCH (06:30)
[2019-04-19] MEDS ORDERED: METOPROLOL TARTRATE 12.5 MG TAB PO SCH (09:00)
[2019-04-19] MEDS ORDERED: ASPIRIN 81 MG PO SCH (09:00)
[2019-04-19] MEDS ORDERED: CLOPIDOGREL 75 MG TAB PO SCH (11:00)
== END 2019-04-18 18:32 | disposition home or self-care (01) ==
LOC: CATHCVL 08:16 → 3SCARD 11:44 → CATHCVL 18:32
PROVIDERS: ATTEND Internal Medicine Interventional Cardiology
DX: R07.89 Other chest pain (principal); I25.110 Atherosclerotic heart disease of native coronary artery with unstable angina pectoris; I10 Essential (primary) hypertension; Z87.891 Personal history of nicotine dependence; J44.9 Chronic obstructive pulmonary disease, unspecified; Z85.528 Personal history of other malignant neoplasm of kidney; C78.01 Secondary malignant neoplasm of right lung; E03.8 Other specified hypothyroidism; Z93.3 Colostomy status; Z90.5 Acquired absence of kidney; Z79.890 Hormone replacement therapy; Z79.51 Long term (current) use of inhaled steroids
CPT/HCPCS: 93458; 80048; 85025; C9600; C1887; C1769 ×2; C1874; C1894; J2001; J1644; J1642; J0583; Q9967; J2250

== ENCOUNTER → 2019-07-08 | Outpatient (CLI) | payer MEDICARE, OTHER ==
--- NOTE | 2019-07-08 19:27 | CT ---
EXAMINATION TYPE: CT abdomen pelvis w con DATE OF EXAM: 07/08/2019 COMPARISON: Prior CT dated 02/02/2019 HISTORY: Diverticulitis CT DLP: 2100.8 mGycm Automated exposure control for dose reduction was used. TECHNIQUE: Helical acquisition of images from the lung bases through the pelvis have been completed. CONTRAST: Performed with Oral Contrast and with IV Contrast, patient injected with 100 mL of Isovue 300. FINDINGS: LUNG BASES: The left pleural effusion and associated atelectatic changes are again noted, the pleural effusion has increased in size. Right pleural effusion may be somewhat decreased in size as compared to prior. There is a bleb present at the right lung base and costophrenic angle level measuring 4.5 cm. AORTA: No significant abnormality is appreciated. Inferior vena cava shows a collapsed appearance, is narrowed at the level of patient's surgical duke e as on prior exam posterior to the liver and pancreatic head. LIVER/GB: Periportal edema changes are again noted, liver borderline enlarged. Patient is post cholec ystectomy. PANCREAS: No significant abnormality is seen. SPLEEN: No significant interval change is seen. Spleen remains enlarged ADRENALS: No significant abnormality is seen. KIDNEYS: No significant interval change is seen. Multiple bilateral left cortical cysts are present, there is no recognizable renal parenchyma on the right, although there are cysts and surgical clips, largest is at the upper pole of the left kidney measure 8.5 and 7.3 cm. REPRODUCTIVE ORGANS: No significant abnormality is seen BOWEL: There is an ostomy in the right lower quadrant, contrast courses to this level. There is abno rmal soft tissue associated with small bowel loops in the pelvis, axial image #61, coronal image #38, the abnormal soft tissue involves the wall of the small bowel, there is some local bowel wall thicke benedict extending from the level superior to the bladder, possible scarring, adhesive disease. Difficult to exclude soft tissue mass. Multiple small bowel loops show abnormal wall thickening proximally. Co yasmin shows an abnormal appearance, some diverticular change and there is abnormal soft tissue extendin g from the level of the sigmoid colon toward the abnormal soft tissue that extends from the bladder d ome to the small bowel. Surgical clips and a focus of low attenuation are present at the posterior as pect of the bladder dome. FREE AIR: No Free Air visible. ASCITES: Decreased, resolved in the interval. PELVIC ADENOPATHY: None visualized. RETROPERITONEAL ADENOPATHY: No Retroperitoneal Adenopathy visible. URINARY BLADDER: Markedly thickened urinary bladder wall is present likely due to chronic infection. OSSEOUS STRUCTURES: Degenerative disc changes are present in the visualized spine. IMPRESSION: POSTSURGICAL CHANGES WITH PROBABLE INFLAMMATORY AND INFECTIOUS CHANGES DESCRIBED WITHIN THE PELVIS . INTERVAL RESOLUTION OF PATIENT'S ASCITES. LARGE LEFT PLEURAL EFFUSION. ADDITIONAL FINDINGS ABOVE.
== END | disposition home or self-care (01) ==
LOC: RADPROMAIN 10:26
PROVIDERS: ATTEND Surgery
DX: K57.32 Diverticulitis of large intestine without perforation or abscess without bleeding (principal); Z98.890 Other specified postprocedural states
CPT/HCPCS: 82565; 84520; 74177; 36415; Q9967 ×2

== ENCOUNTER → 2019-07-15 | Outpatient (CLI) | payer MEDICARE, OTHER ==
[2019-07-15 15:13] LABS: Potassium 5.8 mmol/L (3.5-5.1)
[2019-07-15 15:22] LABS: HCT 37.1 % (39.0-53.0); HGB 11.7 gm/dL (13.0-17.5); Hypochromasia Moderate; MCH 29.8 pg (25.0-35.0); MCHC 31.5 g/dL (31.0-37.0); MCV 94.5 fL (80.0-100.0); Mean Platelet Volume 5.6; Platelet Count 482 k/uL (150-450); RBC 3.92 m/uL (4.30-5.90); RDW 13.7 % (11.5-15.5); WBC 14.2 k/uL (3.8-10.6)
== END | disposition home or self-care (01) ==
LOC: LABWHC1 14:14
PROVIDERS: ATTEND Internal Medicine Interventional Cardiology
DX: Z01.812 Encounter for preprocedural laboratory examination (principal); I25.10 Atherosclerotic heart disease of native coronary artery without angina pectoris; R94.39 Abnormal result of other cardiovascular function study
CPT/HCPCS: 80051; 82565; 82947; 84520; 85027

== ENCOUNTER → 2019-07-21 | Outpatient (CLI) | payer MEDICARE, OTHER ==
[2019-07-21 18:41] LABS: African American GFR (CKD) 78.4 (60.0-200.0); Anion Gap 9.5 mmol/L (4.00-12.00); BUN/Creat Ratio 26.36 Ratio (12.00-20.00); Carbon Dioxide 23.5 mmol/L (21.6-31.8); Potassium 5.4 mmol/L (3.5-5.5)
== END | disposition home or self-care (01) ==
LOC: LABWHC1 14:27
PROVIDERS: ATTEND Internal Medicine Interventional Cardiology
DX: E87.5 Hyperkalemia (principal)
CPT/HCPCS: 36415; 80048

== ENCOUNTER 2019-07-23 06:21 | Day surgery (SDC) | payer MEDICARE, OTHER ==
[2019-07-18 14:54] VITALS: BMI 30.4
[~2019-07-23 06:21] MED LIST changes: +ALPRAZolam 0.25 MG TAB PO PRN; +ALPRAZolam 0.5 MG TAB PO PRN; -DEXAMETHASONE SOD PHOSPHATE 10 MG/ML 1 ML VIAL IV ONE; -HEPARIN SODIUM,PORCINE 5,000 UNIT/ML 1 ML VIAL SQ ONE; -HYDROmorphone 0.5 MG/0.5 ML SYRINGE IVP PRN; -LIDOCAINE 1% 20 ML VIAL (10MG/ML) FOR IV START INTRADERMA PRN; +NITROGLYCERIN SL TABS 0.4 MG TAB SUBLINGUAL PRN; -ONDANSETRON 4 MG/2 ML VIAL IVP ONE; -ceFAZolin IN SWFI 2 GM/20 ML SYRINGE IVP ONE
[2019-07-23] MEDS ORDERED: SODIUM CHLORIDE 0.9% 1,000 ML in EMPTY BAG 1 BAG IV ONE (06:30)
[2019-07-23] MEDS ORDERED: ASPIRIN 81 MG ONE (06:34)
[2019-07-23] MEDS ORDERED: ASPIRIN 325 MG TAB PO ONE (07:00)
[2019-07-23] MEDS ORDERED: ATORVASTATIN 80 MG TAB PO ONE (07:00)
[2019-07-23 07:11] VITALS: RESP 16; TEMP 98.1
[2019-07-23] MEDS ORDERED: SODIUM CHLORIDE 0.9% 1,000 ML IV ONE (07:14)
[2019-07-23] MEDS ORDERED: VERAPAMIL 2.5 MG/ML 2 ML AMP ONE (07:26)
[2019-07-23] MEDS ORDERED: LIDOCAINE 1% INJ 10MG/ML (20 ML MDV) ONE (07:26)
[2019-07-23] MEDS ORDERED: MIDAZOLAM 2 MG/2 ML VIAL IV ONE ×2 (07:43)
[2019-07-23] MEDS ORDERED: LIDOCAINE 1% INJ 10MG/ML (20 ML MDV) SQ ONE (07:44)
[2019-07-23] MEDS: VERAPAMIL SYRINGE (5 MG/10 ML) INTRAARTER ONE ×2 (07:48→08:05)
[2019-07-23] MEDS ORDERED: HEPARIN SODIUM 1,000 UN/ML (10ML VL) ONE (08:03)
[2019-07-23] MEDS ORDERED: IOPAMIDOL-370 100ML BTL INJ ONE ×2 (08:05)
[2019-07-23] MEDS ORDERED: HEPARIN SODIUM 1,000 UN/ML (10ML VL) IV ONE (08:05)
[2019-07-23] MEDS ORDERED: SODIUM CHLORIDE 0.9% 1,000 ML IV SCH (08:30)
--- NOTE | 2019-07-23 11:12 | CC ---
CARDIAC CATHETERIZATION REPORT DATE OF SERVICE: 07/23/2019. PROCEDURE: Coronary angiography. PERFORMED BY: Dr. Garland Pizano. CLINICAL INFORMATION: Mr. Erik Peters is a 69-year-old gentleman with a known history of CAD who underwent stenting of a very tight mid LAD performed by me on April 18. He has history of metastatic renal cell cancer status post chemotherapy. He also had a significant PDA lesion and was brought in for the procedure electively. We will also going to check the patency of the LAD. This patient has history of right nephrectomy 6 years ago with metastasis to the right upper lung lobe in the remission on immunotherapy. He also had a colovesical fistula for which he had surgery. PROCEDURE NOTE: Under local anesthesia and strict aseptic precautions, a 6-[place] introducer was placed in the right radial artery. Using a JL4 and JR4 catheters, I performed selective coronary angiography. I noted that the LAD at the site of stenting was widely patent. RCA injections were performed in multiple projections. I noted that the PDA lesion in the RCA was about 50%-55%. This was a bifurcation lesion. The PLV also had another 50% lesion and distal RCA had a 50% lesion. It appears that the lesion today is much less significant compared to the initial angiogram of April 18, 2019. After reviewing the angiograms, I advised the patient that we will pursue medical therapy and perform a stress test to check for an AAA area of reversibility in the inferior wall. The rationale for the pursuing medical therapy was explained to the patient and in detail. The sheath was taken out and TR band applied as per protocol. Saturation of the fingers of the right hand was 96%. CORONARY ANGIOGRAPHY FINDINGS: RIGHT CORONARY ARTERY: This is a dominant vessel, very tortuous. Distally, there is about a 50% lesion before bifurcation there is some area of what seems to be an ulcerated area, but on getting multiple angiograms, the ulceration is not easily evident. It seems to be more or less a calcium overlying the area of interest. There is about a 50% distal lesion in the RCA just before it bifurcates. The PDA has about a 55% lesion and the PLV has a 55% lesion. PDA is smaller of the 2 vessels. PLV is much larger. There is some calcification at the bifurcation as well. On reviewing the angiograms, I felt that before we do intervention of a bifurcation lesion, we should assess the significance of ischemia in the PDA distribution. PLV does not seem to be that tight. Therefore, I recommended that we not proceed with any intervention, but go ahead with a Lexiscan stress test to assess for ischemia in the distribution of the PDA and PLV branches. There was also significant calcification of the distal right coronary artery. Multiple angiograms were obtained in the JORGE LUIS and ABREU projections. Overall, in addition to calcification, there is no critical lesion in the PDA even in the ABREU projection. Therefore, I am recommending that we pursue medical therapy for this patient. LEFT MAIN CORONARY ARTERY: Short patent vessel free of significant disease that bifurcates into LAD and circumflex. LEFT ANTERIOR DESCENDING CORONARY ARTERY: Very proximally there is a 30% plaque and the caliber improves in the midportion where there was previous stenting, is widely patent with remarkably good flow. Diagonal and septal branches are free of significant disease and LAD is a good distribution, good-sized vessel without significant disease and stented segment in mid LAD is widely patent. LEFT POSTERIOR CIRCUMFLEX CORONARY ARTERY: Nondominant vessel gives off 2 obtuse marginal branches with minor irregularities and continues distally as a small posterolateral branch. Left atrial circumflex is also free of significant disease. FINAL IMPRESSION: This patient has a dominant RCA with a 55% PDA lesion, calcified, and also a 50% distal RCA lesion and a 45%-50% PLV lesion. Because lesions were moderate but not critical, I recommended that we pursue medical therapy and perform a stress test. LAD that was stented is widely patent and circumflex has no significant disease. LV pressures were not obtained. Moderate conscious sedation time was 28 minutes. MMODL / IJN: [id number] /
[2019-07-23 12:12] VITALS: PULSE 56
[2019-07-23 12:14] VITALS: BP 124/68
== END 2019-07-23 14:35 | disposition home or self-care (01) ==
LOC: CATHCVL 06:21
PROVIDERS: ATTEND Internal Medicine Interventional Cardiology
DX: I25.10 Atherosclerotic heart disease of native coronary artery without angina pectoris (principal); I10 Essential (primary) hypertension; C78.01 Secondary malignant neoplasm of right lung; E78.2 Mixed hyperlipidemia; E03.9 Hypothyroidism, unspecified; N32.1 Vesicointestinal fistula; J44.9 Chronic obstructive pulmonary disease, unspecified; Z95.5 Presence of coronary angioplasty implant and graft; Z87.891 Personal history of nicotine dependence; Z93.2 Ileostomy status; Z85.528 Personal history of other malignant neoplasm of kidney; Z92.21 Personal history of antineoplastic chemotherapy; Z90.5 Acquired absence of kidney; Z79.890 Hormone replacement therapy; Z79.51 Long term (current) use of inhaled steroids; Z79.02 Long term (current) use of antithrombotics/antiplatelets; Z79.82 Long term (current) use of aspirin; Z79.899 Other long term (current) drug therapy
CPT/HCPCS: 93454; 84132; C1887; J2250; J2001; J1644; Q9967

== ENCOUNTER → 2019-10-22 | Outpatient (CLI) | payer MEDICARE, OTHER ==
--- NOTE | 2019-10-22 12:56 | CT ---
EXAMINATION TYPE: CT ChestAbdPelvis wo con DATE OF EXAM: 10/22/2019 COMPARISON: 07/08/2019, 02/02/2019 HISTORY: 69-year-old male Renal cancer. Prior right nephrectomy. TECHNIQUE: Contiguous axial scanning of the chest, abdomen, and pelvis without IV contrast. Coronal a nd sagittal reconstructions performed. After consultation with the clinician's office, IV contrast wa s not administered given patient's slight acute rise in creatinine and single kidney. CT DLP: 1668 mGycm Automated exposure control for dose reduction was used. FINDINGS: Right anterior distal injection port with catheter tip in the upper SVC. Heart normal size without pericardial effusion. Three-vessel coronary artery calcifications are prese nt. Ectatic ascending aorta at 3.9 cm with mild arch calcifications and conventional arch vessel branchin g anatomy. No thoracic lymphadenopathy by CT size criteria. Scattered nonenlarged paratracheal and subcarinal ly mph nodes are demonstrated. Small left pleural effusion remains, decreased from 03/25/2019. Right pleural effusion has resolved but there is residual pleural-parenchymal thickening. Mild emphysematous change. Isolated 1 cm lateral right apical nodule could represent pleural parenchymal scarring and remains un changed from 03/25/2019. A 7 mm subpleural nodule peripheral right midlung, axial image 29 is smaller from 1 cm. The patchy opacity persists along the anterior and medial right midlung but also shows some improveme nt from prior, axial image 29. ABDOMEN: Small hiatal hernia. Lack of IV contrast limits assessment of the solid abdominal viscera, lymph nodes, vascular structure s. Allowing for noncontrast technique, liver, right adrenal gland, spleen, and pancreas show no gross abnormality. Multiple surgical clips in the right nephrectomy bed and along the retroperitoneum. No suspicious sof t tissue nodularity within the nephrectomy bed region. Right side of the colon has moved into the nep hrectomy defect. Large multilobulated 12.4 cm cyst lateral upper pole right kidney as compared to 07/08/2019. Addition al cyst laterally measuring 3.3 cm, unchanged. No dilated small bowel, free fluid, or free air. No mesenteric or retroperitoneal lymphadenopathy kristyn ntified. No significant stool burden. No pericolonic inflammatory change. Right lower quadrant ileostomy is demonstrated. PELVIS: There remains moderate circumferential wall thickening of the bladder but with more severe, masslike thickening along the left posterior bladder dome. Central prostatic calcifications and pelvic phlebol iths. Residual circumferential thickening of the mid to distal sigmoid. Linear thickened tissue continues t o extend from the right bladder dome to the lower abdominal mesentery. The associated thickening in t he region of the small bowel loops has resolved. Additional linear thickened tissue extending between the mid and distal sigmoid and distal sigmoid an d posterior bladder. No bladder air is identified. Some mild residual fat stranding in the pelvis is improved from 07/08/2019. BONES: Degenerative changes SI joints and hips. Stable periosteal bone formation along the proximal femoral shafts and degenerative changes throughout the lumbar spine with dish involving the mid and lower tho racic spine. IMPRESSION: 1. IV CONTRAST NOT ADMINISTERED DUE TO ACUTE RISE IN CREATININE AND SINGLE KIDNEY. 2. STATUS POST RIGHT NEPHRECTOMY AND RETROPERITONEAL LYMPH NODE DISSECTION. NO LOCOREGIONAL RECURRENC E IDENTIFIED. 3. A 7 MM RIGHT MIDLUNG PULMONARY NODULE DECREASED FROM 03/25/2019 WHERE IT MEASURED 1 CM. SOME ADDITIO NAL PATCHY DENSITY ANTEROMEDIAL RIGHT MID LUNG HAS ALSO DECREASED IN THE INTERVAL. A SPICULATED 1 CM LATERAL RIGHT APICAL NODULE IS UNCHANGED. 4. DECREASING SMALL LEFT PLEURAL EFFUSION. RESOLVED RIGHT PLEURAL EFFUSION WITH RESIDUAL PLEURAL PARE NCHYMAL SCARRING. 5. MULTIPLE LESIONS INVOLVING THE LEFT KIDNEY INCOMPLETELY CHARACTERIZED ON THIS NONCONTRAST STUDY. O VERALL MORPHOLOGY IS UNCHANGED FROM 07/08/2019 SUGGESTING MULTIPLE UNDERLYING CYSTS MEASURING UP TO 1 2.4 CM. 6. RIGHT LOWER QUADRANT ILEOSTOMY. RESIDUAL BUT IMPROVING INFLAMMATORY CHANGES IN THE PELVIS MAYUR RED TO 07/08/2019 WHICH APPEAR TO BE CENTERED ALONG THE MID TO DISTAL SIGMOID COLON AND BLADDER. SMA LL COLO-COLONIC AND COLOVESICAL FISTULAS ARE SUGGESTED HERE. ADDITIONAL FISTULA FROM THE RIGHT DOME O F THE BLADDER UP INTO THE LOWER ABDOMINAL MESENTERY. 7. MODERATE CIRCUMFERENTIAL THICKENING OF THE BLADDER BUT WITH MORE MASSLIKE THICKENING REDEMONSTRATE D ALONG THE LEFT BLADDER DOME. SEVERE INFLAMMATORY THICKENING AND NEOPLASM ARE in the DIFFERENTIAL. F INDINGS WERE PRESENT ON 07/08/2019 BUT ARE NEW FROM 02/02/2019.
== END | disposition home or self-care (01) ==
LOC: RADPROMAIN 09:31
PROVIDERS: ATTEND Internal Medicine Hematology & Oncology
DX: R91.1 Solitary pulmonary nodule (principal); J90 Pleural effusion, not elsewhere classified; J98.4 Other disorders of lung; N28.9 Disorder of kidney and ureter, unspecified; N32.89 Other specified disorders of bladder; K63.89 Other specified diseases of intestine; R94.4 Abnormal results of kidney function studies; Z90.5 Acquired absence of kidney; C64.9 Malignant neoplasm of unspecified kidney, except renal pelvis
CPT/HCPCS: 36415; 71250; 74176; 82565; 84520

== ENCOUNTER → 2020-03-15 | Outpatient (CLI) | payer MEDICARE, OTHER ==
--- NOTE | 2020-03-15 13:34 | CT ---
EXAMINATION TYPE: CT abdomen pelvis wo con DATE OF EXAM: 03/15/2020 COMPARISON: 10/22/2019 INDICATION: Follow up scan. DLP: 1515.5 mGycm, Automated exposure control for dose reduction was used. CONTRAST: 0 mL of Isovue 300. Study performed with Oral Contrast TECHNIQUE: Axial images were obtained from above the diaphragm to the pubic rami in the axial plane a t 5 mm thick sections. Reconstructed images are reviewed on the computer in the coronal plane. FINDINGS: Limited CT sections are obtained the lung bases. The lung bases are clear. Pneumatoceles at the rig ht lung base. CT ABDOMEN: Liver: Normal Spleen: Normal Pancreas: Normal Adrenal glands: The adrenal glands are normal. Gallbladder: Normal Kidneys: There is been a right nephrectomy. Multiple surgical clips are present. Periaortic and retro caval enlarged adenopathy is not evident. Shotty lymphadenopathy is present through these regions. Large cyst extending from the superior pole of the left kidney measuring total of 10.4 x 7.7 x 10.0 c m. No renal stones are identified. An additional cortical renal cysts at the posterior inferior left kidney measuring 3.3 cm. Aorta: Vascular calcification is within the aorta. Inferior vena cava: Normal. CT PELVIS: Loops of bowel within the abdomen and pelvis are normal. No acute diverticulitis is evident. A few sc attered diverticuli are within the sigmoid colon. There are loops of bowel which are incompletely distended or lack oral contrast limiting their evaluation. Colostomy is present in the right lower qu adrant with herniated loops of small bowel which are nondilated within the ostomy sac. Appendix: Normal as visualized. Urinary bladder: Some thickening along the superior urinary bladder may be present. Some free air is within the urinary bladder. Small air pockets between the sigmoid colon in the urinary bladder appear to be present. Fistula formation should be considered. Some calcifications within the posterior uppe r urinary bladder. Genitourinary structures: Prostate has mild prominence. Osseous structures: No suspicious lytic or sclerotic lesions. IMPRESSIONS: 1. Air within urinary bladder with thickening of the superior bladder wall. Infection, fistula forma tion, neoplasm should be considered. Additional workup is recommended. 2. Suspicious changes for acute diverticulitis is not evident. 3. No recurrent right renal mass is identified. 4. Large lobulated cyst extending from the superior pole left kidney.
== END | disposition home or self-care (01) ==
LOC: RADCTMAIN 08:36
PROVIDERS: ATTEND Surgery
DX: N28.1 Cyst of kidney, acquired (principal); N32.89 Other specified disorders of bladder
CPT/HCPCS: 74176

== ENCOUNTER → 2020-06-08 | Outpatient (CLI) | payer MEDICARE, OTHER ==
--- NOTE | 2020-06-08 19:54 | US ---
EXAMINATION TYPE: US kidneys/renal and bladder DATE OF EXAM: 06/08/2020 COMPARISON: CT 07/08/2019 CLINICAL HISTORY: 69-year-old male R94.4 abnormal renal function. TECHNIQUE: Multiple sonographic images of the kidneys and bladder are obtained. EXAM MEASUREMENTS: Right Kidney: Surgically absent Left Kidney: 15.7 x 7.4 x 6.0 cm Right Kidney: Surgically absent Left Kidney: large septated upper pole cystic structure measures 13.3 x 6.8 x 13.4 cm. Difficult to s ee in its entirety. Smaller simple cyst in the left kidney measures 3.4 cm. No hydronephrosis. Bladder: not well distended, limited assessment. Bilateral Jets seen: left jet seen IMPRESSION: 1. Status post right nephrectomy. No hydronephrosis on the left. 2. Large complex, septated cystic mass of the upper pole of the left kidney difficult to visualize in its entirety estimated to measure up to 13.4 cm (versus approximately 12.7 cm on 07/08/2019). Consid er MRI for more detailed assessment of internal complexity and any potential enhancing components.
== END | disposition home or self-care (01) ==
LOC: RADUSWWP 15:21
PROVIDERS: ATTEND Internal Medicine Hematology & Oncology
DX: R94.4 Abnormal results of kidney function studies (principal); Z90.5 Acquired absence of kidney; Z88.8 Allergy status to other drugs, medicaments and biological substances
CPT/HCPCS: 76770

== ENCOUNTER → 2020-09-08 | Outpatient (CLI) | payer MEDICARE ==
--- NOTE | 2020-09-09 07:36 | CT ---
EXAMINATION TYPE: CT ChestAbdPelvis w con DATE OF EXAM: 09/08/2020 COMPARISON: CT March 15, [address] PET CT July 13, 2018 HISTORY: [id number] kidney CA, history of right-sided nephrectomy. CT DLP: 2623.7 mGycm. Automated Exposure Control for Dose Reduction was Utilized. CONTRAST: CT scan of the thorax, abdomen, and pelvis with oral and with IV Contrast patient injected with 70 mL of Isovue 300. FINDINGS: LUNGS: Mild emphysematous change greatest in the upper lungs redemonstrated. Stable right apical scar ring axial image 8 from most recent chest CT. Additional focal scarring medial anterior right midlung axial image 29 stable from most recent CT, both areas correspond to site of neoplasm on PET CT. The third focal area of pleural scarring laterally axial image 26 unchanged from most recent CT also ynes esponds to site of PET positive neoplasm. [id number] right greater than left bibasilar scarring redemonstrated. No new nodules or masses. No pleural effusion or pneumothorax. MEDIASTINUM: There are no greater than 1 cm hilar or mediastinal lymph nodes. Tiny pericardial effusi on is redemonstrated. No cardiomegaly. Other: Stable right subclavian Mediport catheter. LIVER/GB: Liver remains heterogeneous and hypodense consistent with diffuse fatty infiltration. Grecia cystectomy changes are redemonstrated. PANCREAS: No significant abnormality is seen. SPLEEN: No significant abnormality is seen. ADRENALS: No significant abnormality is seen. KIDNEYS: Right kidney is surgically absent. Left kidney shows multiple exophytic thin-walled cysts in the upper to midpole level. Bladder remains poorly distended with mild to moderate concentric wall t hickening BOWEL: Oral contrast reaches just short of terminal ileum making evaluation of distal bowel suboptima l . No suspicious small or large bowel dilatation. There is right sided ileostomy redemonstrated with small parastomal hernia. Persistent irregular soft tissue from the posterior bladder wall towards th e mid to distal sigmoid colon and rectum axial image 103 unchanged from prior studies. GENITAL ORGANS: Stable mild enlargement of prostate with central superior calcification. Adjacent pel lillie phleboliths. Superior calcifications may be in prostate or dependently and the bladder are unchan ged from prior. LYMPH NODES: Evidence of prior retroperitoneal lymph node dissection with multiple surgical clips oscar ng the aorta. No new greater than 1 cm adenopathy clearly identified. OSSEOUS STRUCTURES: Moderate multilevel spurring in the spine. Moderate joint space narrowing and spu rring of both hips OTHER: Moderate calcified plaque of the aorta extends into branch vessels. IMPRESSION: No suspicious new mass or adenopathy to suggest active neoplastic recurrence. Treated metastatic disease to the lung is stable.
== END | disposition home or self-care (01) ==
LOC: RADCTMAIN 13:22
PROVIDERS: ATTEND Internal Medicine Hematology & Oncology
DX: C64.1 Malignant neoplasm of right kidney, except renal pelvis (principal); C78.01 Secondary malignant neoplasm of right lung; Z90.5 Acquired absence of kidney
CPT/HCPCS: 82565; 84520; 71260; 74177; 36415; Q9967

== ENCOUNTER → 2021-01-10 | Outpatient (CLI) | payer MEDICARE, OTHER ==
--- NOTE | 2021-01-10 14:24 | CT ---
EXAMINATION TYPE: CT ChestAbdPelvis w con DATE OF EXAM: 01/10/2021 COMPARISON: Most recent CT September 08, 2020 and older studies. Prior PET/CT July 13, 2018 HISTORY: Metastatic kidney cancer, history of right-sided nephrectomy CT DLP: 2658 mGycm. Automated Exposure Control for Dose Reduction was Utilized. CONTRAST: CT scan of the thorax, abdomen and pelvis is performed with oral and with IV Contrast, patient inject ed with 80 mL of Isovue 370. FINDINGS: LUNGS: Mild emphysematous change greatest in the upper lungs redemonstrated. Stable right apical subc entimeter scarring axial image 10 unchanged from most recent chest CT at site of prior hypermetabolic nodule 2018 PET. Additional focal scarring medial anterior right midlung axial image 29 stable from most recent CT, this also corresponds to site of neoplasm on PET CT. The third subcentimeter focal ar ea of pleural scarring laterally axial image 27 unchanged from most recent CT also corresponds to sit e of PET positive nodule. [id number] right greater than left bibasilar scarring redemonstrated corresponding to site of prior nodule. No new or enlarging nodules or masses. No pleural effusion or pneumothorax. MEDIASTINUM: There are no greater than 1 cm hilar or mediastinal lymph nodes. Tiny pericardial effusi on is redemonstrated. No cardiomegaly. At least moderate three-vessel artery calcification redemonst rated which is noted marker for underlying coronary artery disease. Other: Stable right subclavian Mediport catheter. LIVER/GB: Liver remains diffusely hypodense consistent with diffuse fatty infiltration. Cholecystecto my changes are redemonstrated. PANCREAS: No significant abnormality is seen. SPLEEN: No significant abnormality is seen. ADRENALS: No significant abnormality is seen. KIDNEYS: Right kidney is surgically absent. Left kidney shows multiple exophytic thin-walled cysts in the upper to midpole level. Bladder remains poorly distended with mild to moderate concentric wall t hickening. Finding is a product of outlet obstruction related to BPH. BOWEL: Oral contrast reaches just short of terminal ileum making evaluation of distal bowel suboptima l similar to prior. No suspicious small or large bowel dilatation. There is stable right sided ileost vandana redemonstrated with small parastomal hernia. Persistent irregular soft tissue from the posterior bladder wall towards the mid to distal sigmoid colon and rectum axial image 107 unchanged from prior studies. Persistent poor distention of sigmoid colon with moderate wall thickening at this level.0 GENITAL ORGANS: Stable enlargement of prostate with central superior calcification. Adjacent pelvic p hleboliths. Superior calcifications may be in prostate or dependently and in the bladder are unchange d from prior. These are noted axial image 110. LYMPH NODES: Evidence of prior retroperitoneal lymph node dissection with multiple surgical clips oscar ng the aorta. No new greater than 1 cm adenopathy clearly identified. OSSEOUS STRUCTURES: Moderate multilevel spurring in the spine. Moderate joint space narrowing and spu rring of both hips OTHER: Moderate calcified plaque of the aorta extends into branch vessels. IMPRESSION: No suspicious new mass or adenopathy to suggest active neoplastic recurrence. Treated metastatic disease to the lung is stable.
== END | disposition home or self-care (01) ==
LOC: RADCTMAIN 09:49
PROVIDERS: ATTEND Internal Medicine Hematology & Oncology
DX: C78.00 Secondary malignant neoplasm of unspecified lung (principal); C64.9 Malignant neoplasm of unspecified kidney, except renal pelvis; Z90.5 Acquired absence of kidney
CPT/HCPCS: 82565; 84520; 71260; 74177; 36415; Q9967

== ENCOUNTER → 2021-07-07 | Outpatient (CLI) | payer MEDICARE, OTHER ==
--- NOTE | 2021-07-07 13:53 | US ---
EXAMINATION TYPE: US kidneys/renal and bladder DATE OF EXAM: 07/07/2021 COMPARISON: CT January 10, 2021 CLINICAL HISTORY: N18.3 chronic kidney stage 3. Diabetic; right kidney removed due to CA 2011; follow up renal cysts EXAM MEASUREMENTS: Right Kidney: surgically absent Left Kidney: 15.9 x 7.0 x 7.3 cm Post Void Residual Volume: 8.8 mL Left Kidney: multiple renal cysts with largest noted as cystic cluster at superior pole =11.6 x 14.4 x 6.2cm Bladder: wnl Bilateral Jets seen: left ureteral jet seen and as per surgical history Normal Post Void Residual: yes There is no evidence for hydronephrosis at this point in time. No nephrolithiasis is seen. The uri nary bladder is satisfactorily distended. After voiding minimal residual urine. IMPRESSION: Bosniak type II and type IIF lesions upper pole left kidney redemonstrated more difficult to accurately characterize due to size on ultrasound versus CT. No hydronephrosis noted in the left kidney.
== END | disposition home or self-care (01) ==
LOC: RADUSWWP 12:48
PROVIDERS: ATTEND Internal Medicine
DX: E11.22 Type 2 diabetes mellitus with diabetic chronic kidney disease (principal); N18.30 Chronic kidney disease, stage 3 unspecified; N28.89 Other specified disorders of kidney and ureter; Z85.528 Personal history of other malignant neoplasm of kidney
CPT/HCPCS: 76770

== ENCOUNTER → 2021-07-25 | Outpatient (CLI) | payer MEDICARE, OTHER ==
--- NOTE | 2021-07-26 09:31 | CT ---
EXAMINATION TYPE: CT ChestAbdPelvis w con DATE OF EXAM: 07/25/2021 COMPARISON: 01/10/2021, 09/08/2020 HISTORY: 71-year-old male C64.9 kidney CA TECHNIQUE: Contiguous axial scanning of the chest, abdomen, and pelvis performed with IV Contrast, pa tient injected with 80 mL of Isovue 300. Delayed images through the kidneys were obtained. Coronal/sa gittal reconstructions performed. CT DLP: 3224 mGycm Automated exposure control for dose reduction was used. FINDINGS: CHEST: Heart normal size with trace pericardial effusion measuring 5 mm thick. LAD and RCA coronary calcific ations are present. Mild aneurysm aortic root and ascending aorta at 4.1 cm. Bovine configuration to the aortic arch. Right anterior chest wall injection port with catheter tip at the lower right brachiocephalic vein. Mild bilateral gynecomastia. Scattered nonenlarged mediastinal lymph nodes. No thoracic lymphadenopathy by CT size criteria. Mild to moderate centrilobular emphysema. Right apical pleural-parenchymal scarring is unchanged. Foc al cystic change posterior right base/pneumatocele is unchanged in appearance. Mild diffuse bronchial wall thickening unchanged suggesting chronic bronchitis. No consolidation or pleural effusion. ABDOMEN: Tiny hiatal hernia. Liver enlarged measuring 19.9 cm with low-attenuation suggesting fatty infiltration. There is greater degree of focal fat anterior mid liver is slightly less apparent. Portal venous system is patent. Ga llbladder possibly surgically absent. There may be a cystic duct remnant with small 4 mm calculi. No biliary ductal dilatation. Adrenal glands, spleen, and pancreas within normal limits. Multiple surgical clips along the upper to mid retroperitoneum. Small upper pericaval lymph nodes are unchanged. Small 6 mm left periaortic lymph node unchanged. No new or enlarging mesenteric or retrop eritoneal lymphadenopathy identified. Status post right nephrectomy. The right nephrectomy bed remains clear. Large exophytic cysts from the left kidney measuring up to 12.2 cm. Smaller cortical hypodense lesion s are also present better seen on the delayed kidney images, too small for accurate CT characterizati on, also probably cysts. These will need to continue to be followed. No dilated small bowel, free fluid, or free air. There appears to be a right lower quadrant diverting ileostomy. Ileostomy is opacified. Similar mesen teric fat and a couple opacified, nonobstructed bowel loops within the pull-through. Most of the colon is collapsed. Sigmoid diverticulosis redemonstrated. Suggestion of some wall thickening mid sigmoid colon is similar, axial image 106. Similar possible tract extending anteriorly from the distal sigmoid to the mid sigmoid, axial image 1 07 is unchanged. Normal appendix visualized. PELVIS: Circumferential bladder wall thickening. Bladder is collapsed. Prostate gland enlargement 5.3 cm wide . Pelvic phlebolith. Questionable dependent bladder calculi measuring up to 9 mm. Otherwise, no abnor mal fluid collection in the pelvis or pelvic lymphadenopathy. BONES: Moderate degenerative change of the hips. Degenerative bony ankylosis of the SI joints. DISH through out the the thoracic spine. Process seen. IMPRESSION: 1. STATUS POST RIGHT NEPHRECTOMY. NO EVIDENCE LOCOREGIONAL RECURRENCE OR METASTATIC DISEASE. 2. RIGHT LOWER QUADRANT DIVERTING ILEOSTOMY REDEMONSTRATED. SIMILAR SIGMOID DIVERTICULOSIS WITH MILD WALL THICKENING MID SIGMOID COLON POSSIBLE CHRONIC DIVERTICULITIS. SIMILAR POSSIBLE TRACT/FISTULA EXT ENDING ANTERIORLY FROM THE DISTAL SIGMOID TO THE MID SIGMOID. 3. LARGE EXOPHYTIC CYST FROM THE LEFT KIDNEY MEASURING UP TO 12.2 CM. SIMILAR SMALLER CORTICAL HYPODE NSE LESIONS THROUGHOUT THE LEFT KIDNEY BETTER SEEN ON THE DELAYED KIDNEY IMAGES. THESE ARE TOO SMALL FOR ACCURATE CT CHARACTERIZATION AND PROBABLY REPRESENT CYSTS AND CAN CONTINUE TO BE REASSESSED AT FO LLOW-UP. 4. CIRCUMFERENTIAL BLADDER WALL THICKENING COULD REPRESENT CHRONIC BLADDER WALL HYPERTROPHY OR CYSTIT IS. 5. COPD WITH MILD TO MODERATE EMPHYSEMA. STABLE EMPHYSEMATOUS CYST OR PNEUMATOCELE AT THE POSTERIOR R IGHT BASE.
== END | disposition home or self-care (01) ==
LOC: RADCTMAIN 13:08
PROVIDERS: ATTEND Internal Medicine Hematology & Oncology
DX: K57.30 Diverticulosis of large intestine without perforation or abscess without bleeding (principal); N28.1 Cyst of kidney, acquired; J43.9 Emphysema, unspecified; Z85.528 Personal history of other malignant neoplasm of kidney
CPT/HCPCS: 82565; 84520; 71260; 74177; 36415; Q9967

== ENCOUNTER 2021-11-09 11:25 | Day surgery (SDC) | payer MEDICARE, OTHER ==
[2021-11-08 09:47] VITALS: BMI 39.7
[~2021-11-09 11:25] MED LIST changes: -ALPRAZolam 0.25 MG TAB PO PRN; -ALPRAZolam 0.5 MG TAB PO PRN; +MOXIFLOXACIN HCL 0.5% DROPS 3 ML BTL OP PRN; -NITROGLYCERIN SL TABS 0.4 MG TAB SUBLINGUAL PRN; +TETRACAINE 0.5% OPHTH (PF) DROPS 4 ML BTL OP PRN; +TIMOLOL 0.5% OPHTH DROPS 5 ML BTL OP PRN
[2021-11-09] MEDS: PHENYLEPHRINE 2.5% OPHTH DRP 2ML OP PRN ×3 (12:05→12:25)
[2021-11-09] MEDS: CYCLOPENTOLATE 1% OPHTH SOLN 2 ML BTL OP PRN ×3 (12:10→12:30)
[2021-11-09 12:12] VITALS: TEMP 97.7
[2021-11-09] MEDS ORDERED: LACTATED RINGERS 1,000 ML IV ONE (12:16)
[2021-11-09] MEDS ORDERED: LIDOCAINE 1% (10MG/ML) FOR IV START INTRADERMA ONE (12:16)
[2021-11-09 12:26] LABS: Glucose,Whole Blood 202 mg/dL (75-99)
[2021-11-09] MEDS ORDERED: fentaNYL (PF) 50 MCG/ML 2 ML AMP ONE (13:17)
[2021-11-09] MEDS ORDERED: MIDAZOLAM 2 MG/2 ML VIAL ONE (13:17)
[2021-11-09] MEDS ORDERED: DUOVISC KIT (GREEN BOX) INTRAOCULA ONE (13:41)
[2021-11-09] MEDS ORDERED: LIDOCAINE 1% (PF) 10MG/ML VIAL SQ ONE (13:41)
[2021-11-09] MEDS ORDERED: BALANCED SALT IRRIG SOLN COMB2 15 ML IRRIG.SOLN INTRAOCULA ONE (13:41)
[2021-11-09] MEDS ORDERED: EPINEPHrine (PF) 0.3 ML in BALANCED SALT IRRIG SOLN COMB2 500 ML IRRIGATION ONE (13:41)
--- NOTE | 2021-11-09 13:51 | P.OP ---
Date of Procedure: 11/09/21 Preoperative Diagnosis: NS & CS Postoperative Diagnosis: same Procedure(s) Performed: PIOL, OD Implants: [id number] 21.50 Anesthesia: MAC Surgeon: Alexandro Hartmann Pathology: none sent Condition: stable Disposition: same day Indications for Procedure: blurry vision Operative Findings: no ccomplications
[2021-11-09 13:58] VITALS: RESP 16
[2021-11-09 14:09] VITALS: BP 139/79; PULSE 68
--- NOTE | 2021-11-09 18:42 | OP ---
OPERATIVE REPORT DATE OF SURGERY: 11/09/2021. PROCEDURE: Phacoemulsification of cataract and intraocular lens implant of the right eye. PREOPERATIVE DIAGNOSIS: Nuclear sclerosis, cortical sclerosis, posterior subcapsular cataract. POSTOPERATIVE DIAGNOSIS: Nuclear sclerosis, cortical sclerosis, posterior subcapsular cataract. ESTIMATED BLOOD LOSS: Zero. SPECIMEN TAKEN: None. NARRATIVE: After obtaining the appropriate consent, the patient was brought to the Operating Room where the patient was placed under cardiac monitoring and prepped and draped in the usual sterile manner. At the 11 o'clock position a 15 degree super sharp blade was used to create a paracentesis followed by instillation of 1% Xylocaine MPF 50:50 mix with BSS into the anterior chamber. This was followed by Duovisc to stabilize the anterior chamber. At the 9 o'clock position a self-sealing corneal flap incision was created using 2.8 mm sudha keratome. A cystotome was used to initiate a continuous tear capsulorrhexis which was completed with the Utrata forceps. A Binkhorst cannula was used to hydrodissect the lens nucleus followed by hydrodelineation. Phacoemulsification of the lens was performed utilizing phacochop in 32.82 seconds at 24% power. The remaining cortical material was removed using the irrigation aspiration mode followed by additional 1% Xylocaine MPF into the anterior chamber followed by viscoelastic to stabilize the capsular bag. A [employer] MX60E 21.5 diopter posterior chamber intraocular lens was placed into the capsular bag without difficulty. The remaining viscoelastic material was removed from the anterior chamber with the irrigation/aspiration. Balanced salt solution was used to normalize the intraocular pressure. The incision was checked for watertight integrity. The patient then received two drops of 0.5% timolol followed by two drops Vigamox, was lightly patched and shielded in the usual manner. There were no complications from the procedure. The patient tolerated the procedure well and was returned to recovery in good condition. MMODL / IJN: [id number] /
== END 2021-11-09 14:29 | disposition home or self-care (01) ==
LOC: OR 11:25
PROVIDERS: ATTEND Ophthalmology
DX: H25.11 Age-related nuclear cataract, right eye (principal); H00.023 Hordeolum internum right eye, unspecified eyelid; H25.031 Anterior subcapsular polar age-related cataract, right eye; H52.13 Myopia, bilateral; H25.011 Cortical age-related cataract, right eye; H52.4 Presbyopia; Z98.42 Cataract extraction status, left eye; J43.9 Emphysema, unspecified; Z96.1 Presence of intraocular lens; I10 Essential (primary) hypertension; Z87.19 Personal history of other diseases of the digestive system; Z90.5 Acquired absence of kidney; Z85.528 Personal history of other malignant neoplasm of kidney; Z86.39 Personal history of other endocrine, nutritional and metabolic disease; Z82.49 Family history of ischemic heart disease and other diseases of the circulatory system; Z83.518 Family history of other specified eye disorder; Z83.3 Family history of diabetes mellitus; Z79.899 Other long term (current) drug therapy; Z79.84 Long term (current) use of oral hypoglycemic drugs
CPT/HCPCS: 66984; C1780; J2250; J0171; J3010; J2001

== ENCOUNTER → 2022-03-08 | Outpatient (CLI) | payer MEDICARE, OTHER ==
--- NOTE | 2022-03-08 13:28 | CT ---
EXAMINATION TYPE: CT ChestAbdPelvis wo con DATE OF EXAM: 03/08/2022 COMPARISON: CT dated 07/25/2021 HISTORY: Follow up for kidney cancer, observe for mets. CT DLP: 2076.7 mGycm Automated exposure control for dose reduction was used. CONTRAST: CT scan of the chest, abdomen and pelvis is performed with Oral Contrast and without IV contrast. FINDINGS: LUNGS: Stable right posterior basal pulmonary cyst measuring up to 6.7 cm. Bilateral basal linear pul monary atelectasis and mild fibrotic changes. Paraseptal emphysematous changes, mainly seen in the ri ght upper lobe. No new suspicious or progressive lung nodule. Patent trachea and main bronchi. No ple ural effusion. MEDIASTINUM: There are no greater than 1 cm hilar or mediastinal lymph nodes. Unchanged heart and gr eat mediastinal vessels. Minimal pericardial fluid. OTHER: Degenerative changes of the thoracic spine. No aggressive bone lesion. LIVER/GB: Previous cholecystectomy. No definite hepatic focal lesion by this unenhanced CT scan. PANCREAS: Fatty infiltration of the pancreas. SPLEEN: No significant abnormality is seen. ADRENALS: No significant abnormality is seen. KIDNEYS: Previous right nephrectomy. Unremarkable right nephrectomy bed. Multiple variable sized left renal cysts measuring up to 13.1 cm compared to 12.2 cm previously. No definite suspicious left gabriel l lesion by this unenhanced CT scan. No hydroureter or hydronephrosis. The urinary bladder is nondist ended. BOWEL: Unremarkable stomach and duodenum. Small anterior abdominal wall hernia seen to the left of t he midline containing a small bowel loop without evidence of bowel obstruction. Previously, only fat was seen in this hernia. Right lower quadrant ileostomy with parastomal hernia containing a few small bowel loops. Unremarkable remainder of the small bowel. Pelvic adhesions between the sigmoid colon, the urinary bladder and the seminal vesicles. Scattered uncomplicated colonic diverticulosis. Normal appendix. REPRODUCTIVE ORGANS: Unremarkable. LYMPH NODES: No greater than 1 cm abdominal or pelvic lymph nodes are appreciated. OSSEOUS STRUCTURES: Degenerative changes of the lumbar spine. No aggressive bone lesion. Bilateral pr oximal femoral diaphyseal periosteal reaction, appreciated previously. OTHER: Arterial atherosclerotic calcifications. No sizable ascites. IMPRESSION: Status post right nephrectomy. No evidence of local tumor recurrence or metastatic disease seen in th e chest, abdomen or the pelvis by this unenhanced CT scan. Multiple incidental findings and interval changes as described above.
== END | disposition home or self-care (01) ==
LOC: RADCTMAIN 10:31
PROVIDERS: ATTEND Internal Medicine Hematology & Oncology
DX: M47.816 Spondylosis without myelopathy or radiculopathy, lumbar region (principal); Z90.5 Acquired absence of kidney
CPT/HCPCS: 82565; 84520; 71250; 74176; 36415; Q9967

== ENCOUNTER → 2023-05-10 | Outpatient (CLI) | payer MEDICARE, OTHER ==
[2023-05-10 13:32] LABS: African American GFR (CKD) 55 (>60 ml/min/1.73 sqM); Blood Urea Nitrogen 24 mg/dL (9-20); Non-African American GFR(CKD) 48 (>60 ml/min/1.73 sqM)
--- NOTE | 2023-05-10 16:03 | CT ---
EXAMINATION TYPE: CT ChestAbdPelvis wo/w con CT DLP: 5284.20 mGycm, Automated exposure control for dose reduction was used. DATE OF EXAM: 05/10/2023 2:22 PM COMPARISON: Multiple CT chest abdomen pelvis with most recent 11/10/2022. CLINICAL INDICATION:Male, 72 years old with history of C64.9 KIDNEY CA; PHH, Kidney ca. Rt kidney rem christel Technique: Multiple axial images of the chest, abdomen, and pelvis were obtained before and after the intravenous administration of 80 mL Isovue-300. 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 Two-dimensional temple l and sagittal reconstructions were obtained. Findings: CHEST: LUNGS/ PLEURA: No pleural effusion, focal consolidation, or pneumothorax. Subpleural probable cysts i n the right lung base redemonstrated. Mild bronchiectasis in the right lung base redemonstrated. Righ t apical pleural parenchymal scarring redemonstrated. No suspicious pulmonary nodule or mass. AIRWAY: Patent and unremarkable.. HEART: Size within normal limits. Moderate coronary artery calcifications. Trace pericardial fluid. MEDIASTINUM: No evidence of adenopathy. VASCULATURE: No aortic aneurysm. Right chest subclavian Mediport catheter with distal tip in the rig ht brachiocephalic vein. Atherosclerotic calcification of the aorta. MUSCULOSKELETAL: Mild disc degeneration changes are present throughout the thoracolumbar spine. No ac [place] osseous abnormality. No aggressive osseous lesion. SOFT TISSUES/LYMPH NODES: Unremarkable. LOWER NECK: No significant findings. ABDOMEN: ABDOMEN LIVER: Unremarkable GALLBLADDER AND BILE DUCTS: The gallbladder is surgically absent. PANCREAS: Mild fatty infiltration. SPLEEN: Unremarkable. ADRENAL GLANDS: Unremarkable. KIDNEYS AND URETERS: Right kidney surgically absent. No suspicious soft tissue within the nephrectomy bed to suggest local recurrence. Multiple left renal cysts redemonstrated. PELVIS BLADDER: Unremarkable REPRODUCTIVE: Prostate is enlarged in size measuring 5.4 cm in transverse dimension. ABDOMEN & PELVIS STOMACH AND BOWEL: Stomach and duodenum are unremarkable. No focal bowel wall thickening or surroundi ng inflammatory changes. Enteric contrast reaches the distal small bowel. No evidence of bowel obstru ction. PERITONEUM/RETROPERITONEUM: No evidence of pneumoperitoneum or free fluid. Multiple surgical clips in the retroperitoneum from lymphadenectomy. VASCULATURE: Moderate atherosclerotic calcifications are present throughout the abdominal aorta and i ts branches. MUSCULOSKELETAL: No acute osseous abnormalities. Mild disc degeneration changes are present throughout the thoracolumbar spine. No aggressive osseous lesion. LYMPH NODES: No gross evidence for lymphadenopathy. SOFT TISSUE/ABDOMINAL WALL: Small left periumbilical hernia containing nonobstructive small bowel. Ri ght lower quadrant ileostomy with small parastomal hernia redemonstrated. IMPRESSION: 1. Postsurgical changes from right nephrectomy and lymphadenectomy. No evidence for metastatic diseas e within the chest, abdomen or pelvis. No evidence for local recurrence. 2. Small periumbilical hernia containing nonobstructive small bowel. 3. Right lower quadrant ileostomy redemonstrated with small parastomal hernia.
== END | disposition home or self-care (01) ==
LOC: RADCTMAIN 11:29
PROVIDERS: ATTEND Internal Medicine Hematology & Oncology
DX: C64.9 Malignant neoplasm of unspecified kidney, except renal pelvis (principal); E78.5 Hyperlipidemia, unspecified; I10 Essential (primary) hypertension; E03.8 Other specified hypothyroidism; K42.9 Umbilical hernia without obstruction or gangrene; K43.5 Parastomal hernia without obstruction or gangrene; Z90.5 Acquired absence of kidney
CPT/HCPCS: 82565; 84520; 71270; 74178; 36415; Q9967

== ENCOUNTER → 2023-12-28 | Outpatient (CLI) | payer MEDICARE, OTHER ==
[2023-12-28 15:54] LABS: Basophils # (A) 0.04 X 10*3/uL (0.00-0.10); Basophils % (A) 0.5 %; Eosinophils # (A) 0.39 X 10*3/uL (0.04-0.35); HCT 39.3 % (39.6-50.0); HGB 12.6 g/dL (13.0-17.0); Lymphocytes % (A) 14.2 %; MCH 31.3 pg (27.0-32.0); MCHC 32.1 g/dL (32.0-37.0); MCV 97.8 FL (80.0-97.0); Mean Platelet Volume 11.2 FL (9.5-12.2); Monocytes # (A) 0.64 X 10*3/uL (0.20-1.00); Monocytes % (A) 8.3 %; NRBC Per 100 WBC 0 X 10*3/uL (0.00-0.01); Neutrophils # (A) 5.53 X 10*3/uL (1.80-7.70); Neutrophils % (A) 71.5 %; Platelet Count 202 X 10*3/uL (140-440); RBC 4.02 X 10*6/uL (4.40-5.60); RDW 13.6 % (11.5-14.5); WBC 7.74 X 10*3/uL (4.50-10.00)
[2023-12-28 16:05] LABS: ALT 17 U/L (10-49); AST 23 U/L (14-35); Albumin 4.1 g/dL (3.8-4.9); Albumin/Globulin Ratio 1.58 Ratio (1.60-3.17); Alkaline Phosphatase 87 U/L (41-126); BUN/Creat Ratio 24.36 Ratio (12.00-20.00); Blood Urea Nitrogen 68.2 mg/dL (9.0-27.0); Calcium 9.5 mg/dL (8.7-10.3); Carbon Dioxide 22.8 mmol/L (21.6-31.8); Chloride 105 mmol/L (96-109); Globulin 2.6 g/dL (1.6-3.3); Glucose 147 mg/dL (70-110); Potassium 6.2 mmol/L (3.5-5.5); Sodium 141 mmol/L (135-145); Total Bilirubin 0.5 mg/dL (0.3-1.2); Total Protein 6.7 g/dL (6.2-8.2)
== END | disposition home or self-care (01) ==
LOC: LABWHC1 11:21
PROVIDERS: ATTEND Internal Medicine Interventional Cardiology
DX: I25.10 Atherosclerotic heart disease of native coronary artery without angina pectoris (principal)
CPT/HCPCS: 36415; 80053; 84443; 85025

== ENCOUNTER → 2024-03-06 | Outpatient (CLI) | payer MEDICARE, OTHER ==
--- NOTE | 2024-03-06 18:00 | US ---
EXAMINATION TYPE: US kidneys/renal and bladder DATE OF EXAM: 03/06/2024 COMPARISON: 07/07/21, CT: 05/10/23 CLINICAL INDICATION: Male, 73 years old with history of N18.32 CKD; CKD. Right nephrectomy due to CA EXAM MEASUREMENTS: Right Kidney: Surgically absent Left Kidney: 11.9 x 5.5 x 5.2 cm Right Kidney: Surgically absent Left Kidney: Parenchyma not well visualized on today's exam. Complex area seen measuring 13.7 x 10.8 x 7.8cm Bladder: Mostly empty Bilateral Jets seen: No IMPRESSION: 1. Status post right nephrectomy. 2. Nondiagnostic evaluation of the left kidney. Normal kidney not visualized. CT is recommended for f urther evaluation.
== END | disposition home or self-care (01) ==
LOC: RADUSWWP 15:12
PROVIDERS: ATTEND Internal Medicine
DX: N18.32 Chronic kidney disease, stage 3b (principal); Z90.5 Acquired absence of kidney
CPT/HCPCS: 76770

== ENCOUNTER → 2024-04-23 | Outpatient (CLI) | payer MEDICARE, OTHER ==
[2024-04-23 13:15] LABS: African American GFR (CKD) 42 (>60 ml/min/1.73 sqM); Blood Urea Nitrogen 29 mg/dL (9-20); Non-African American GFR(CKD) 36 (>60 ml/min/1.73 sqM)
--- NOTE | 2024-04-23 14:55 | CT ---
EXAMINATION TYPE: CT ChestAbdPelvis w con DATE OF EXAM: 04/23/2024 COMPARISON: 05/10/2023 and 11/10/2022 HISTORY: 73-year-old male C64.9, follow-up kidney cancer TECHNIQUE: Contiguous axial scanning of the chest, abdomen, and pelvis performed with IV Contrast, pa tient injected with 80ml mL of Isovue 300. Delayed images through the kidneys were obtained. Coronal/ sagittal reconstructions performed. CT DLP: 2949.9 mGycm Automated exposure control for dose reduction was used. FINDINGS: Chest: Right anterior chest wall injection port with catheter tip at the lower right brachiocephalic vein. Heart upper limits of normal in size. A small pericardial effusion along the left side of the heart m easuring up to 1.4 cm thick is similar. LAD and RCA coronary calcifications are redemonstrated. Aorta normal caliber with bovine configuration to the aortic arch and minimal apical scarring calcifi cations. Mild bilateral gynecomastia. Enlarged caliber main right and left pulmonary arteries with measuring up to 3.0 cm suggesting underl derrick pulmonary arterial hypertension. No thoracic lymphadenopathy by CT size criteria. Saleem 6.7 cm pneumatocele posterior right base. Mild diffuse bronchial wall thickening. Mild to mod erate emphysematous change. Right apical pleural-parenchymal scarring is unchanged. No consolidation or pleural effusion. Strandy atelectasis or scarring at the posterior left base. ABDOMEN: No focal liver lesion or biliary ductal dilatation. Portal venous system is patent. Gallbladder surgi danny absent. Similar slight thickening of the left adrenal gland without discrete nodularity. Multiple left-sided renal cysts, conglomerate cysts measuring up to 14.0 cm on the left are unchanged . Delayed excretion of contrast from the left kidney on delayed scan may reflect acute kidney injury. Correlate with patient's kidney function. Patient status post right nephrectomy. Additional surgical clips along the retroperitoneum from lymph node dissection. Mild atherosclerotic calcifications infrarenal abdominal aorta without aneurysm. No dilated small bowel, free fluid, or free air. Protuberant abdomen. Redemonstrated left sided periu mbilical ventral abdominal wall hernia containing nonobstructed small bowel loops. Given large body h abitus, the hernia is only partially visualized. The colon is collapsed. Right lower quadrant diverting ileostomy redemonstrated with associated small parastomal hernia measu ring 8 cm wide. Pelvis: Bladder is urine distended. Some dependent punctate calcifications along the posterior bladder. Pros landin gland enlargement 5.2 cm wide. Pelvic phleboliths. No abnormal fluid collection in the pelvis or pelvic lymphadenopathy. Bones: Moderate degenerative change of the hips. Degenerative bony ankylosis SI joints. There are dish throu ghout the thoracic spine. Hypertrophic facet arthropathy lumbar spine. No osseous destructive process seen. IMPRESSION: 1. STATUS POST RIGHT NEPHRECTOMY AND RETROPERITONEAL LYMPH NODE DISSECTION. NO EVIDENCE FOR LOCAL REC URRENCE OR METASTATIC DISEASE. 2. COPD WITH MILD EMPHYSEMA. PULMONARY ARTERIAL HYPERTENSION. 3. MULTIPLE CYSTS IN THE LEFT KIDNEY. CONGLOMERATE CYSTS MEASURING UP TO 14.0 CM. GIVEN DELAYED EXCRE TION OF CONTRAST FROM THE LEFT KIDNEY, CORRELATING WITH KIDNEY FUNCTION TO EXCLUDE RAFAEL. 4. RIGHT LOWER QUADRANT DIVERTING ILEOSTOMY REDEMONSTRATED. LEFT PERIUMBILICAL VENTRAL ABDOMINAL WALL HERNIA ALSO REDEMONSTRATED CONTAINING NONOBSTRUCTED SMALL BOWEL. 5. PROSTATOMEGALY OF 5.2 CM WIDE.
== END | disposition home or self-care (01) ==
LOC: RADCTMAIN 12:17
PROVIDERS: ATTEND Internal Medicine Hematology & Oncology
DX: C64.9 Malignant neoplasm of unspecified kidney, except renal pelvis (principal); E78.5 Hyperlipidemia, unspecified; I10 Essential (primary) hypertension; E03.8 Other specified hypothyroidism; J43.9 Emphysema, unspecified; N28.1 Cyst of kidney, acquired; I27.21 Secondary pulmonary arterial hypertension; K43.9 Ventral hernia without obstruction or gangrene; N40.0 Benign prostatic hyperplasia without lower urinary tract symptoms; Z90.5 Acquired absence of kidney
CPT/HCPCS: 82565; 84520; 71260; 74177; 36415; Q9967

== ENCOUNTER → 2024-05-12 | Outpatient (CLI) | payer MEDICARE, OTHER ==
--- NOTE | 2024-06-11 10:30 | US ---
Site ID [facility] Erik Hogue ID [id number] Age/Gender: 73Y, M Order # N/A Procedure US carotid duplex BILAT Date 05/12/2024 2:14:00 PM EXAMINATION TYPE: US carotid duplex BILAT DATE OF EXAM: 05/12/2024 COMPARISON: None, please note PACS Production downtime occurred during the radiologist interpretation of these images with limited priors/reports. CLINICAL INDICATION: Male, 73 year old with history of left visual changes. TECHNIQUE: Carotid duplex ultrasound examination. Indirect Doppler criteria was utilized. FINDINGS: Limited examination due to patient's body habitus. EXAM MEASUREMENTS: RIGHT: Peak Systolic Velocity (PSV) cm/sec ----- Right CCA: 90.6 ----- Right ICA: 94.8 ----- Right ECA: 80.7 ICA/CCA ratio: 1.05 RIGHT: End Diastole cm/sec ----- Right CCA: 23.4 ----- Right ICA: 21.6 ----- Right ECA: 10.4 LEFT: Peak Systolic Velocity (PSV) cm/sec ----- Left CCA: 67.7 ----- Left ICA: 75.9 ----- Left ECA: 80.1 ICA/CCA ratio: 1.12 LEFT: End Diastole cm/sec ----- Left CCA: 15.6 ----- Left ICA: 16.8 ----- Left ECA: 0 VERTEBRALS (direction of flow): Not visualized due to patient's body habitus. WAREHOUSE ORDER PULLER NOTES: Mild plaque bilateral bifurcations. No evidence of significant stenosis. IMPRESSION: No ultrasound evidence for hemodynamically significant stenosis of the bilateral visualized carotid a rterial systems. Nonvisualization of both vertebral arteries due to patient's body habitus. Criteria for Assigning % of Stenosis / Diameter reduction (Estimation based on the indirect measurements of the internal carotid artery velocities (ICA PSV). 1. Normal (no stenosis)=ICA PSV < 125 cm/s: ratio < 2.0: ICA EDV<40 cm/s. 2. Less than 50% stenosis=ICA PSV < 125 cm/s: ratio < 2.0: ICA EDV<40 cm/s. 3. 50 to 69% stenosis=ICA PSV of 125 to 230 cm/s: ration 2.0 ? 4.0: ICA EDV 40-100 cm/s. 4. Greater than 70% stenosis to near occlusion= ICA PSV > 230 cm/s: ratio > 4.0: ICA EDV > 100 cm/s. 5. Near occlusion= ICA PSV velocities may be low or undetectable: variable ratio and ICA EDV. 6. Total occlusion=unable to detect flow.
== END | disposition home or self-care (01) ==
LOC: RADUSWWP 13:23
PROVIDERS: ATTEND Internal Medicine
DX: H53.132 Sudden visual loss, left eye (principal); Z13.6 Encounter for screening for cardiovascular disorders
CPT/HCPCS: 93880

== ENCOUNTER → 2025-04-23 | Outpatient (CLI) | payer MEDICARE, OTHER ==
--- NOTE | 2025-04-23 13:32 | CT ---
EXAMINATION TYPE: CT ChestAbdPelvis wo con DATE OF EXAM: 04/23/2025 COMPARISON: 04/23/2024 CLINICAL INDICATION: Male, 74 years old with history of C64.9 MALIGNANT NEOPLASM OF UNSP KIDNEY, EXCE PT RE; PHH, f/u kidney ca TECHNIQUE: CT scan of the thorax, abdomen and pelvis is performed without IV contrast. CT DLP: 2192.[address] CTDI: mGy Automated exposure control for dose reduction was used. FINDINGS: CT chest: There are mild emphysematous changes. There is no suspicious lung mass or nodule. There is no airspace consolidation. There are mild chronic interstitial changes with mild bronchiecta sis in the lung bases. There is no thoracic aortic aneurysm. There is 3.7 cm dilatation of the main pulmonary artery hyperte nsion. There is no pleural effusion, pleural thickening or pneumothorax. There is no mediastinal, hilar or axillary adenopathy. No focal osseous lesions are seen. CT abdomen and pelvis: There is surgical absent gallbladder. There is no biliary ductal dilatation. There is no focal mass or organomegaly involving the liver, pancreas, spleen or adrenal glands.. Ther e is a left hepatectomy. There is surgical absence of the right kidney. There is no renal calcification or hydronephrosis the left kidney. There are multiple large stable exophytic cysts of the left kidney. There is no retroperitoneal adenopathy or hemorrhage in the caliber of the abdominal aorta is normal. There is a right lower quadrant ileostomy. There is a left paramedian anterior wall abdominal hernia containing nonobstructed and nonstrangulated loops of small bowel. The bowel loops are normal in lei jose and there is no dilatation or obstruction. No inflammatory changes identified in the bowel wall a nd mesentery. There is no free intracranial air or fluid. There is no pelvic mass or adenopathy. There is no free fluid within the pelvis. No focal osseous lesions are seen. Soft tissue the abdomen and pelvis are normal. IMPRESSION: No evidence of recurrent or metastatic kidney disease. Overall no significant interval change compare d to prior study. Stable incidental findings as described above [facility], , 04/23/2025 1:30 PM
== END | disposition home or self-care (01) ==
LOC: RADCTMAIN 11:09
PROVIDERS: ATTEND Internal Medicine Hematology & Oncology
DX: C64.9 Malignant neoplasm of unspecified kidney, except renal pelvis (principal); E78.5 Hyperlipidemia, unspecified; I10 Essential (primary) hypertension; E03.8 Other specified hypothyroidism; Z71.3 Dietary counseling and surveillance
CPT/HCPCS: 71250; 74176